=== PATIENT | female | born 1940 | race Caucasian/White ===

== ENCOUNTER 2016-08-01 22:45 | Inpatient (IN) | payer MEDICARE, BC ==
[~2016-08-01] VITALS: Ht 160 cm; Wt 93.0 kg
[~2016-08-01 22:45] MED LIST: ADVA115A INH; ALPR.25 PO; APIX5TAB PO; ATOR20TA42 PO; CIPR500T4 PO; CYCL1PAK PO; DUONI NEB; FLOR250C PO; FURO1TAB93 PO; LOSA25 PO; MONT10TA2 PO; ONDA4 PO; OXYC1SOL5 PO; POTA1TAB17 PO; PROT40TA PO; SERT25TA83 PO; SPIR25TA PO; [UNRECOGNIZED DRUG - CODE] PO
[2016-08-01 22:54] VITALS: BP 124/55; PULSE 81; RESP 16; TEMP 98.2; O2SAT 96
--- NOTE | 2016-08-01 23:05 | PD ---
HPI Chief Complaint: GI Complaint Time Seen by Provider: 22:50 Travel History International Travel<30 days: No Contact w/Intl Traveler<30days: No Traveled to known affect area: No History of Present Illness HPI The patient is a 76 year old female who presents to the [facility] emergency department with a history of abdominal cramping and diarrhea that began approximately 2 weeks ago. She reports that initially she had watery brown stools 10-20 times per day. She reports that they gradually decreased in frequency, however she then began to have nausea and vomiting. She reports that she called her primary care physician and was told to try Imodium. She reports that this did not help, therefore she was prescribed Lomotil. The patient reports that this did help to stop the diarrhea, however she continues to have occasional belching. She reports that today she last took an Imodium in the morning. She reports that later today she had an episode of vomiting 1 and diarrhea times one. She denies having any blood in her stool or black or tarry stools. She reports that she has been taking a nausea medication that she cannot recall the name of. The patient reports that she's had subjective fever and chills. The patient reports that she has generalized abdominal cramping down in bilateral lower quadrants of the abdomen in the suprapubic area. She denies having any dysuria, hematuria, urinary urgency, or frequency. She denies having any chest pain, chest pressure, or shortness of breath. Otherwise on review of systems, the patient denies any recent cough, congestion , neck pain, or new neurologic symptoms. [facility] Past Medical History Narrative Medical The patient's past medical history is significant for having lung cancer status post right pneumonectomy, history of breast cancer status post lumpectomy and radiation therapy, history of atrial fibrillation, COPD, hypertension, history of peripheral arterial disease. Hx Anticoagulant Therapy: Yes Arthritis: Yes Asthma: Yes Atrial Fibrillation: Yes Blood Disorders: No Anxiety: Yes Depression: Yes Heart Rhythm Problems: Yes Cancer: Yes (LUNG & BREAST) Cardiovascular Problems: Yes High Cholesterol: Yes Chemotherapy: Yes Chest Pain: Yes Congestive Heart Failure: Yes COPD: Yes Coronary Artery Disease: Yes Diabetes: No Diminished Hearing: Yes (HEARING AIDS) Endocrine: No Gastrointestinal Disorders: Yes GERD: Yes Genitourinary: No Hepatitis: No Hiatal Hernia: No Hypertension: Yes Immune Disorder: No Implanted Vascular Access Dvce: Yes Musculoskeletal: Yes Neurologic: No Psychiatric: No Reproductive: No Respiratory: Yes (COPD) Myocardial Infarction: No Radiation Therapy: Yes Sleep Apnea: No Ulcer: No Tetanus Vaccination: Unknown Influenza Vaccination: Yes ?: Not Past Surgical History Narrative Surgical The patient's past surgical history is significant for a right pneumonectomy, cholecystectomy, hysterectomy, breast lumpectomy, cardiac catheterization with stent placement times one, cataract surgery, right knee replacement Abdominal Surgery: Yes AICD: No Arteriovenous Shunt: No Body Medical Devices: CARDIAC STENTS X1 Cardiac Surgery: No Cholecystectomy: Yes Ear Surgery: No Endocrine Surgery: No Eye Surgery: Yes (BILATERAL CATARACT REMOVAL) Genitourinary Surgery: No Gynecologic Surgery: Yes (LEFT LUMPECTOMY, HYSTERECTOMY/TORN UTERUS) Hysterectomy: Yes Insulin Pump: No Joint Replacement: Yes (RIGHT KNEE REPLACEMENT) Oral Surgery: Yes (TEETH EXTRACTIONS) Pacemaker: No Thoracic Surgery: Yes (RIGHT PNEUMOECTOMY) Other Surgery: Yes Social History Alcohol Use: Yes (RARE) Tobacco Use: No Substance Use: No Allergies-Medications (Allergen,Severity, Reaction): Coded Allergies: Aciphex (Verified Allergy, Severe, 08/01/16) Contrast Media (Verified Allergy, Severe, PASSED OUT, 08/01/16) Demerol (Verified Allergy, Severe, Hallucinations, 08/01/16) Fleets Phospho Soda (Verified Allergy, Severe, 08/01/16) Meperidine (Verified Allergy, Severe, 08/01/16) Morphine (Verified Allergy, Severe, 08/01/16) *MDRO Multi-Drug Resistant Organism (Verified Adverse Reaction, Unknown, ) E.coli ESBL (urine) - 04/2014 & 05/2015 / (sputum) - 05/2014 MRSA PCR Screen positive 02/18/15. Uncoded Allergies: PHOSPHOUS SODA (Allergy, Severe, 05/04/05) Reported Meds & Prescriptions Reported Meds & Active Scripts Active Reported Vitamin D3 (Cholecalciferol) 1,000 Unit Chew 1,000 Units CHEW DAILY Senior Vites (Multiple Vitamins W/ Minerals) 1 Tab Tab [place]-3 Fish Oil/Vitamin (Fish Oil-Cholecalciferol) 1,000-1,000 Mg Cap 1 Cap PO DAILY Vitamin C (Ascorbic Acid) 500 Mg Cap 500 Mg PO Alprazolam 0.25 Mg Tab 0.25 Mg PO Q8H PRN Diltiazem ER 12 HR (Diltiazem HCl) 60 Mg Caper 60 Mg PO DAILY Stiolto Respimat Inh (Tiotropium-Olodaterol Inh) 2.5-2.5 Mcg/Act Aero 1 Puff INH DAILY Spironolactone 25 Mg Tab 25 Mg PO DAILY Pantoprazole (Pantoprazole Sodium) 40 Mg Tab 40 Mg PO DAILY Prednisone 5 Mg Tab 5 Mg PO DAILY Eliquis (Apixaban) 5 Mg Tab 5 Mg PO BID Diltiazem ER 24 HR (Diltiazem HCl) 120 Mg Caper 120 Mg PO DAILY Furosemide 40 Mg Tab 40 Mg PO DAILY Sertraline (Sertraline HCl) 50 Mg Tab 50 Mg PO DAILY Atorvastatin (Atorvastatin Calcium) 20 Mg Tab 20 Mg PO HS Losartan (Losartan Potassium) 50 Mg Tab 50 Mg PO DAILY Montelukast (Montelukast Sodium) 10 Mg Tab 10 Mg PO HS Review of Systems General / Constitutional: Positive: Fever, Chills Eyes: No: Visual changes HENT: No: Headaches Cardiovascular: No: Chest Pain or Discomfort, Dyspnea on exertion Respiratory: No: Cough, Shortness of Breath Gastrointestinal: Positive: Nausea, Vomiting, Diarrhea, Abdominal Pain, Changes in Bowel Habits, No: Hematemesis, Hematochezia, Constipation, Indigestion, Loss of Appetite Genitourinary: No: Dysuria Musculoskeletal: No: Pain Skin: No Rash Neurologic: Positive: Weakness (generalized weakness), No: Focal Abnormalities , Change in Mentation, Slurred Speech, Sensory Disturbance Psychiatric: No: Depression Endocrine: No: Polydipsia Hematologic/Lymphatic: No: Easy Bruising Physical Exam Narrative General: The patient is a well-developed well-nourished female in no acute distress. Head and Neck exam: Head is normocephalic atraumatic. Eyes: EOMI, pupils are equal round and reactive to light. Nose: Midline septum with pink mucous membranes Mouth: Dentition unremarkable. Moist mucus membranes. Posterior oropharynx is not erythematous. No tonsillar hypertrophy. Uvula midline. Airway patent. Neck: No palpable lymphadenopathy. No nuchal rigidity. No thyromegaly. Cardiovascular: Irregularly irregular with rate control consistent with her history of atrial fibrillation without murmurs, gallops, or rubs. Lungs: Clear to auscultation bilaterally. No wheezes, rhonchi, or rales. Abdomen: Soft, with reported discomfort on deep palpation along the left lower quadrant of the abdomen. No other tenderness on palpation of the other quadrants of the abdomen. No tenderness on palpation of McBurney's point. No guarding, rebound , or rigidity. Negative [place] sign. Extremities: No clubbing, cyanosis, or edema. 2+ pulses in all 4 extremities. No calf tenderness on palpation. Back: No costovertebral angle tenderness to palpation. Neurologic Exam: Grossly nonfocal. Skin Exam: No rash noted. Intact skin that is warm and dry. Data Data Last Documented VS Vital Signs Date Time Temp Pulse Resp B/P Pulse Ox O2 Delivery O2 Flow Rate FiO2 08/01/16 23:34 19 98 Room Air 08/01/16 22:54 98.2 81 124/55 Orders Electrocardiogram (08/01/16:) Complete Blood Count With Diff (08/01/16:) Comprehensive Metabolic Panel (08/01/16:) Creatine Kinase (Cpk) (08/01/16:) Ckmb (Isoenzyme) Profile (08/01/16:) Troponin I (08/01/16:) B-Type Natriuretic Peptide (08/01/16:) Prothrombin Time / Inr (Pt) (08/01/16:) Act Partial Throm Time (Ptt) (08/01/16:) C-Reactive Protein (Crp) (08/01/16:) Lipase (08/01/16:) Urinalysis - C+S If Indicated (08/01/16:) Magnesium (Mg) (08/01/16 23:) Chest, Single Ap (08/01/16 23:03) Ct Abd/Pel W/O Iv Contrast (08/01/16 23:03) Iv Access Insert/Monitor (08/01/16:) Ecg Monitoring (08/01/16:) Oximetry (08/01/16:) Lactic Acid (08/01/16 23:) Sodium Chlorid 0.9% 500 Ml Inj (Ns 500 M (08/01/16 23:15) Ondansetron Inj (Zofran Inj) (5/23/17 23:15) Oral Contrast - Adult (08/01/16 23:11) Diatrizoate Liq ([place] Liq) (08/01/16 23:45) Sodium Chlorid 0.9% 500 Ml Inj (Ns 500 M (08/02/16 01:00) Oral Rehydration (08/02/16 00:47) Cath For Specimen (08/02/16 00:48) Admit Order (Ed Use Only) (08/02/16 01:39) Labs Laboratory Tests Test 08/01/16 08/01/16 08/01/16 01:50 23:20 23:25 Urine Color YELLOW Urine Turbidity HAZY Urine pH 5.0 Urine Specific [place] 1.015 Urine Protein TRACE mg/dL Urine Glucose (UA) NEG mg/dL Urine Ketones NEG mg/dL Urine Occult Blood NEG Urine Nitrite NEG Urine Bilirubin NEG Urine Urobilinogen LESS THAN 2.0 MG/DL Urine Leukocyte Esterase LARGE Urine RBC 1 /hpf Urine WBC 117 /hpf Urine Squamous Epithelial 2 /hpf Cells Urine Transitional Epithelial 2 /hpf Cells Urine Bacteria RARE /hpf Urine Hyaline Casts 11 /lpf Urine Mucus FEW /lpf Microscopic Urinalysis Comment CULTURE INDICATED Prothrombin Time 12.9 SEC Prothromb Time International 1.2 RATIO Ratio Activated Partial 37.3 SEC Thromboplast Time White Blood Count 11.3 TH/MM3 Red Blood Count 2.99 MIL/MM3 Hemoglobin 9.0 GM/DL Hematocrit 27.1 % Mean Corpuscular Volume 90.7 FL Mean Corpuscular Hemoglobin 30.2 PG Mean Corpuscular Hemoglobin 33.3 % Concent Red Cell Distribution Width 14.7 % Platelet Count 207 TH/MM3 Mean Platelet Volume 8.5 FL Neutrophils (%) (Auto) 73.6 % Lymphocytes (%) (Auto) 7.3 % Monocytes (%) (Auto) 18.3 % Eosinophils (%) (Auto) 0.5 % Basophils (%) (Auto) 0.3 % Neutrophils # (Auto) 8.3 TH/MM3 Lymphocytes # (Auto) 0.8 TH/MM3 Monocytes # (Auto) 2.1 TH/MM3 Eosinophils # (Auto) 0.1 TH/MM3 Basophils # (Auto) 0.0 TH/MM3 CBC Comment DIFF FINAL Differential Comment Sodium Level 136 MEQ/L Potassium Level 3.9 MEQ/L Chloride Level 98 MEQ/L Carbon Dioxide Level 31.7 MEQ/L Anion Gap 6 MEQ/L Blood Urea Nitrogen 37 MG/DL Creatinine 1.43 MG/DL Estimat Glomerular Filtration 35 ML/MIN Rate Random Glucose 92 MG/DL Calcium Level 9.1 MG/DL Magnesium Level 1.7 MG/DL Total Bilirubin 0.3 MG/DL Aspartate Amino Transf 23 U/L (AST/SGOT) Alanine Aminotransferase 54 U/L (ALT/SGPT) Alkaline Phosphatase 199 U/L Total Creatine Kinase 22 U/L Troponin I LESS THAN 0.02 NG/ML C-Reactive Protein 3.03 MG/DL B-Type Natriuretic Peptide 101 PG/ML Total Protein 6.0 GM/DL Albumin 2.8 GM/DL Lipase 248 U/L Lactic Acid Level 0.5 mmol/L [facility] Medical Decision Making Medical Screen Exam Complete: Yes Emergency Medical Condition: Yes Medical Record Reviewed: Yes Interpretation(s) Last Impressions Chest X-Ray 08/01/162302 Signed Impressions: Service Date/Time: Monday, August 01, 2016 23:11 - CONCLUSION: No appreciable change. Hugo Grove MD Abdomen/Pelvis CT 08/01/162302 Signed Impressions: Service Date/Time: Tuesday, August 02, 2016 01:06 - CONCLUSION: Dilated intrahepatic and extrahepatic ducts worse since the prior exam and the etiology is not evident. Hugo Grove MD Differential Diagnosis Viral versus bacterial gastroenteritis, versus bowel obstruction, versus colitis , versus diverticulitis, versus pancreatitis, versus electrolyte abnormalities, versus dehydration Narrative Course During the course of the patients emergency department visit, the patients history, examination, and differential diagnosis were reviewed with the patient. The patient had IV access obtained and blood work sent for analysis. The patient was placed on a network management specialist with oximetry and blood pressure monitoring. An EKG was done on arrival. The patient's EKG reveals a heart rate of 81, atrial fibrillation is noted, incomplete right bundle branch block is noted. No acute ST segment elevation. The patient was initially provided normal saline a 500 mL bolus 1, Zofran 4 mg IV. The patient's normal saline bolus was repeated at 500 mL after BNP came back within normal limits. The patients laboratory studies were reviewed and remarkable for white count 11.3, hemoglobin 9, platelets 207 with neutrophils 73.6, lymphocytes 7.3, monocytes 18.3. The patient's hemoglobin is stable compared to prior evaluation. CMP is remarkable for a BUN of 37, creatinine 1.43 which is increased compared to previously, ALT is 54, alkaline phosphatase 199, CPK 22, troponin I less than 0.02. C-reactive protein is 3.03, BNP is 101. The patient 's liver enzymes have been elevated similarly in the past. PT 12.9, INR 1.2, PTT 37.3, urinalysis shows large leukocyte esterase, rbc's 1, wbc's 117 with rare bacteria, culture indicated. Radiology studies were reviewed and remarkable for a chest x-ray that shows no acute abnormality. CT scan of the abdomen and pelvis shows dilated intrahepatic and extrahepatic ducts worse since the prior examination and the etiology is not evident. From reviewing the record the patient has had somewhat similar findings on prior CT and also has had an ultrasound done which revealed similar findings thought to be related to her prior cholecystectomy. Stool studies were ordered in this patient. The patient will be admitted to the hospital for continued evaluation for generalized weakness, diarrhea, and dehydration. The patients results were discussed with the patient, including the plan of care. I explained that further testing and/ or monitoring is indicated based on the patients history, examination, and/ or laboratory findings. Therefore, I recommended admission for additional evaluation. The patient expressed understanding and was agreeable with this plan. The patient was admitted to the hospital in stable condition and sent to a bed under the care of the [facility]. Physician Communication Physician Communication The patient's case was discussed with who did agree to admit the patient for further evaluation and treatment at this time. Diagnosis Primary Impression: Nausea, vomiting, and diarrhea Admitting Information Admitting Physician Requests: Observation Genna Vences MD August 01, 2016 23:05
[2016-08-01] MEDS ORDERED: DILT120C7 PO (23:08)
[2016-08-01] MEDS ORDERED: SERT-132 PO (23:08)
[2016-08-01] MEDS ORDERED: ATOR20TA15 PO (23:08)
[2016-08-01] MEDS ORDERED: FURO40TA PO (23:08)
[2016-08-01] MEDS ORDERED: DILT60CA PO (23:08)
[2016-08-01] MEDS ORDERED: PRED5TAB PO (23:08)
[2016-08-01] MEDS ORDERED: LOSA50TA PO (23:08)
[2016-08-01] MEDS ORDERED: APIX5TAB PO (23:08)
[2016-08-01] MEDS ORDERED: TIOT1AER INH (23:08)
[2016-08-01] MEDS ORDERED: SPIR25TA PO (23:08)
[2016-08-01] MEDS ORDERED: PANT40TA3 PO (23:08)
[2016-08-01] MEDS ORDERED: MONT10TA4 PO (23:08)
[2016-08-01] MEDS ORDERED: ALPR0.25 PO (23:08)
[2016-08-01] MEDS ORDERED: SENITAB3 (23:10)
[2016-08-01] MEDS ORDERED: CHOL100025 CHEW (23:10)
[2016-08-01] MEDS ORDERED: OMEGCAP PO (23:10)
[2016-08-01] MEDS ORDERED: ASCO500C PO (23:10)
[2016-08-01] MEDS ORDERED: SODIUM CHLORID 0.9% 500 ML INJ 500 ML IV ONE (23:15)
[2016-08-01] MEDS ORDERED: ONDANSETRON HCL 4 MG/2 ML VIAL IV PUSH ONE (23:15)
[2016-08-01 23:34] VITALS: RESP 19; O2SAT 98
--- NOTE | 2016-08-01 23:34 | RADRPT ---
EXAM DATE/TIME: 08/01/2016 23:11 [facility] COMPARISON: CHEST PA & LAT, May 11, 2015, 18:40. INDICATIONS : Shortness of breath. MEDICAL HISTORY : Chronic renal failure. Carcinoma, lung. Carcinoma, breast. Hypertension SURGICAL HISTORY : Cholecystectomy. Left breast lumpectomy, Right lung removed. ENCOUNTER: Initial ACUITY: 1 day PAIN SCORE: 0/10 LOCATION: Bilateral chest FINDINGS: The right hemithorax is opacified from prior right pneumonectomy. Left lung is clear. The rest of the examination has not significantly changed. CONCLUSION: No appreciable change. Hugo Grove MD on August 01, 2016 at 23:32 Board Certified Radiologist. This report was verified electronically.
[2016-08-01 23:44] LABS: AUTOMATED NEUTROPHIL # 8.3 TH/MM3 (1.8-7.7); BASOPHIL % 0.3 % (0.0-2.0); EOSINOPHIL # 0.1 TH/MM3 (0-0.4); EOSINOPHIL % 0.5 % (0.0-4.0); HEMATOCRIT 27.1 % (35.0-46.0); HEMO FLAGS DIFF FINAL; LYMPH % 7.3 % (9.0-44.0); LYMPHOCYTE # 0.8 TH/MM3 (1.0-4.8); MEAN CELL VOLUME 90.7 FL (80.0-100.0); MEAN CORPUSCULAR HEMOGLOBIN 30.2 PG (27.0-34.0); MEAN CORPUSCULAR HGB CONC 33.3 % (32.0-36.0); MONO % 18.3 % (0.0-8.0); NEUT % 73.6 % (16.0-70.0); PLATELET COUNT 207 TH/MM3 (150-450); RED BLOOD COUNT 2.99 MIL/MM3 (4.00-5.30); RED CELL DISTRIBUTION WIDTH 14.7 % (11.6-17.2); WHITE BLOOD COUNT 11.3 TH/MM3 (4.0-11.0)
[2016-08-01] MEDS ORDERED: DIATRIZOATE MEGLUM/DIATRIZOATE SOD 9 ML CUP ONE (23:45)
[2016-08-01 23:52] LABS: APTT (PATIENT) 37.3 SEC (24.3-30.1); INTERNATIONAL NORMALIZED RATIO 1.2 RATIO; PROTHROMBIN TIME - PATIENT 12.9 SEC (9.8-11.6)
[2016-08-02 00:08] LABS: ALT (GPT) 54 U/L (10-53); ANION GAP 6 MEQ/L (5-15); AST (GOT) 23 U/L (15-37); BICARBONATE 31.7 MEQ/L (21.0-32.0); BLOOD UREA NITROGEN 37 MG/DL (7-18); CHLORIDE 98 MEQ/L (98-107); GLOMERULAR FILTRATION RATE 35 ML/MIN (>89); MAGNESIUM 1.7 MG/DL (1.5-2.5); POTASSIUM 3.9 MEQ/L (3.5-5.1); SODIUM (NA) 136 MEQ/L (136-145)
[2016-08-02 00:10] LABS: ALKALINE PHOSPHATASE 199 U/L (45-117); TOTAL BILIRUBIN ADULT 0.3 MG/DL (0.2-1.0)
[2016-08-02 00:35] LABS: CREATINE KINASE 22 U/L (26-192)
[2016-08-02] MEDS ORDERED: SODIUM CHLORID 0.9% 500 ML INJ 500 ML IV ONE (01:00)
--- NOTE | 2016-08-02 01:26 | RADRPT ---
EXAM DATE/TIME: 08/02/2016 01:06 [facility] COMPARISON: CHEST SINGLE AP, August 01, 2016, 23:11. CT ABDOMEN & PELVIS W/O CONTRASTOneal 2014, 15:14. INDICATIONS : Abdomen pain with vomiting. ORAL CONTRAST: Partial prescribed oral contrast ingested. RADIATION DOSE: 16.49 CTDIvol (mGy) MEDICAL HISTORY : Cardiovascular disease. Hypertension. Chronic obstructive pulmonary disease.Reggie g & Breast cancer GERD SURGICAL HISTORY : Fusion, lumbar. Fusion, lumbar.Hysterectomy.GB Right pneumoectomy ENCOUNTER: Initial ACUITY: 1 day PAIN SCALE: 6/10 LOCATION: Bilateral abdomen TECHNIQUE: Volumetric scanning of the abdomen and pelvis was performed. Using automated exposure control and adjustment of the mA and/or kV according to patient size, radiation dose was kept as low as reasonably achievable to obtain optimal diagnostic quality images. FINDINGS: CT Abdomen: The liver, spleen, pancreas, kidneys, adrenals are unremarkable. There is no evidence for any appreciable pathological adenopathy, free fluid, or bowel obstruction. There is evidence for pr ior cholecystectomy. Chronic vascular calcifications are present involving the aorta, iliac arteries without any significant stenosis or aneurysmal dilatations for technique. Common bile duct measures 1 .5 cm with moderate dilatation of the intrahepatic ducts worse since the prior exam. There is slight anterior abdominal wall fat herniation on the right side without bowel herniation and opening of 2.9 cm. There is evidence for prior right pneumonectomy with loculated pleural effusion in the right lowe r chest and calcifications chronic in nature. CT pelvis: There is no evidence for mass, abscess formation, or any significant adenopathy within the pelvis. There are postsurgical changes involving the lower thoracic upper lumbar spine junction with multiple compression deformities chronic in nature. There are scattered diverticuli mainly in the s igmoid colon without definite signs of diverticulitis. CONCLUSION: Dilated intrahepatic and extrahepatic ducts worse since the prior exam and the etiolo gy is not evident. Hugo Grove MD on August 02, 2016 at 1:20 Board Certified Radiologist. This report was verified electronically.
[2016-08-02 02:17] LABS: BACTERIA, URINE RARE /hpf; BLOOD, URINE NEG (NEG); COMMENT (UR) CULTURE INDICATED; CULTURE IF INDICATED CULTURE INDICATED; GLUCOSE,URINE NEG (NEG); HYALINE CAST, URINE 11 /lpf (RARE); KETONE, URINE NEG (NEG); MUCUS URINE FEW /lpf (OCC); NITRITE,URINE NEG (NEG); SQUAMOUS EPITHELIAL CELL URINE 2 /hpf (0-5); TRANSITIONAL EPI CELLS, URINE 2 /hpf; URINE COLOR YELLOW (YELLW/STRAW)
[2016-08-02 03:00] VITALS: BP 124/69; PULSE 81; RESP 21; O2SAT 97
[2016-08-02] MEDS ORDERED: ALPRAZolam 0.25 MG TAB PO ONE (03:45)
[2016-08-02] MEDS ORDERED: ACETAMINOPHEN 325 MG TAB PO PRN (04:45)
[2016-08-02] MEDS ORDERED: SODIUM CHLORIDE 0.9% FLUSH 10 ML FLUSH IV FLUSH PRN (04:45)
--- NOTE | 2016-08-02 04:56 | HHI.HP ---
[facility] Service [place] [facility] Primary Care Physician No Primary Care Physician Admission Diagnosis Generalized weakness, dehydration, n/v/d Diagnoses: Chief Complaint: Diarrhea with nausea/vomiting times one week Travel History International Travel<30 Days: No Contact w/Intl Traveler <30 Da: No Traveled to Known Affected Are: No History of Present Illness I Dilia MENDEZ, am scribing this note for Dr. Fuentes on 08/02/2016 at 4: 55AM. This is a 76-year-old female patient with past medical history which includes lung CA status post right pneumonectomy, breast CA status post lumpectomy and radiation treatment, atrial fibrillation rate controlled, COPD on chronic oxygen therapy at 3 L, hypertension, CAD status post cardiac stents x 1, chronic diastolic CHF echocardiogram April 2014 showed ejection fraction 55- 60%, umbilical hernia and peripheral arterial disease. Patient is a poor historian therefore information gathered from patient as well as prior computerized charting. Patient reports that she has had GI upset which started with liquid diarrhea initially 10 or more bowel movements a day patient reports that she has had proximally 4 loose/liquid bowel movements per day as of lately as she has decreased her by mouth intake due to her GI upset. Diarrhea associated with increased flatus nausea and occasional vomiting. She also has had abdominal pain associated with the diarrhea. She rated the pain as an 8/10 in severity. Patient denies black tarry stools or bright red blood per rectum. Patient also denies coffee-ground emesis or bright red blood in vomitus. Patient reports she has lost possibly 6 pounds in the past one to 2 weeks. Patient denies recent antibiotic use or known sick contacts. Patient also denies chest pain, increasing shortness of breath, increase bilateral lower extremity edema, fevers, chills, increased urinary frequency or dysuria Review of Systems ROS Limitations: Poor Historian Except as stated in HPI: all other systems reviewed are Neg Past Family Social History Past Medical History lung CA status post right pneumonectomy, breast CA status post lumpectomy and radiation treatment, atrial fibrillation rate controlled, COPD on chronic oxygen therapy at 3 L, hypertension, CAD status post cardiac stents x 1, chronic diastolic CHF echocardiogram April 2014 showed ejection fraction 55- 60%, umbilical hernia and peripheral arterial disease Past Surgical History Right pneumonectomy, breast lumpectomy, cholecystectomy, hysterectomy, cardiac catheterization with stent 1, bilateral cataract surgery, right knee surgery, ORIF T11 Reported Medications Vitamin D3 (Cholecalciferol) 1,000 Unit Chew 1,000 Units CHEW DAILY Senior Vites (Multiple Vitamins W/ Minerals) 1 Tab Tab [place]-3 Fish Oil/Vitamin (Fish Oil-Cholecalciferol) 1,000-1,000 Mg Cap 1 Cap PO DAILY Vitamin C (Ascorbic Acid) 500 Mg Cap 500 Mg PO Alprazolam 0.25 Mg Tab 0.25 Mg PO Q8H PRN Diltiazem ER 12 HR (Diltiazem HCl) 60 Mg Caper 60 Mg PO DAILY Stiolto Respimat Inh (Tiotropium-Olodaterol Inh) 2.5-2.5 Mcg/Act Aero 1 Puff INH DAILY Spironolactone 25 Mg Tab 25 Mg PO DAILY Pantoprazole (Pantoprazole Sodium) 40 Mg Tab 40 Mg PO DAILY Prednisone 5 Mg Tab 5 Mg PO DAILY Eliquis (Apixaban) 5 Mg Tab 5 Mg PO BID Diltiazem ER 24 HR (Diltiazem HCl) 120 Mg Caper 120 Mg PO DAILY Furosemide 40 Mg Tab 40 Mg PO DAILY Sertraline (Sertraline HCl) 50 Mg Tab 50 Mg PO DAILY Atorvastatin (Atorvastatin Calcium) 20 Mg Tab 20 Mg PO HS Losartan (Losartan Potassium) 50 Mg Tab 50 Mg PO DAILY Montelukast (Montelukast Sodium) 10 Mg Tab 10 Mg PO HS Allergies: Coded Allergies: Aciphex (Verified Allergy, Severe, 08/01/16) Contrast Media (Verified Allergy, Severe, PASSED OUT, 08/01/16) Demerol (Verified Allergy, Severe, Hallucinations, 08/01/16) Fleets Phospho Soda (Verified Allergy, Severe, 08/01/16) Meperidine (Verified Allergy, Severe, 08/01/16) Morphine (Verified Allergy, Severe, 08/01/16) *MDRO Multi-Drug Resistant Organism (Verified Adverse Reaction, Unknown, ) E.coli ESBL (urine) - 04/2014 & 05/2015 / (sputum) - 05/2014 MRSA PCR Screen positive 02/18/15. Uncoded Allergies: PHOSPHOUS SODA (Allergy, Severe, 05/04/05) Active Ordered Medications Current Medications Medications (Trade) Dose Ordered Sig/Bety Route Start Time Stop Time Status Last Admin Ciprofloxacin/ Dextrose 200 ml @ 200 mls/hr Q24H IV 08/02/16 05:00 (Flagyl 500 Mg Inj) 100 ml @ 100 mls/hr Q8H IV 08/02/16 05:00 (Xanax) 0.25 mg Q8H PRN PO 08/02/16 04:30 (Eliquis) 5 mg BID PO 08/02/16 09:00 (Lipitor) 20 mg HS PO 08/02/16 21:00 (Singulair) 10 mg HS PO 08/02/16 21:00 (Deltasone) 5 mg DAILY PO 08/02/16 09:00 (Zoloft) 50 mg DAILY PO 08/02/16 09:00 (Cardizem Cd) 120 mg DAILY PO 08/02/16 09:00 Patient Own Medication PT OWN MED: Aero... DAILY INH 08/02/16 09:00 Future Hold (NS Flush) 2 ml UNSCH PRN IV FLUSH 08/02/16 04:45 (NS Flush) 2 ml BID IV FLUSH 08/02/16 09:00 (Tylenol) 650 mg Q4H PRN PO 08/02/16 04:45 (Zofran Inj) 4 mg Q6H PRN IVP 08/02/16 04:45 (Tylenol) 650 mg Q6H PRN PO 08/02/16 04:45 Family History Patient reports her sister has colitis she is unsure what type Social History Lives at home with her has home health aides who come in 4 days a week Denies EtOH use tobacco use or illicit drug use Physical Exam Vital Signs Vital Signs Date Time Temp Pulse Resp B/P Pulse Ox O2 Delivery O2 Flow Rate FiO2 08/01/16 23:34 19 98 Room Air 08/01/16 22:54 98.2 81 16 124/55 96 08/01/16 22:52 16 Physical Exam GENERAL: This is an obese, well-developed patient, fatigued SKIN: No rashes, ecchymoses or lesions. Cool and dry. HEAD: Atraumatic. Normocephalic. No temporal or scalp tenderness. EYES: Extraocular motions intact. No scleral icterus. No injection or drainage. CARDIOVASCULAR: Irregularly irregular without murmurs, gallops, or rubs. RESPIRATORY: Absent breath sounds on right, clear on left. GASTROINTESTINAL: Abdomen soft, tender to palpation in lower middle abdomen, obese. Hyperactive bowel sounds. MUSCULOSKELETAL: Extremities trace edema bilaterally. No joint tenderness, effusion, or edema noted. No calf tenderness. Negative Homans sign bilaterally. NEUROLOGICAL: Awake and alert. No focal deficits appreciated. Motor and sensory grossly within normal limits. 3-4 out of 5 muscle strength in all muscle groups. Normal speech. PSYCH: Flattened affect. Laboratory Laboratory Tests Test 08/01/16 08/01/16 23:20 23:25 Prothrombin Time 12.9 Prothromb Time International 1.2 Ratio Activated Partial 37.3 Thromboplast Time White Blood Count 11.3 Red Blood Count 2.99 Hemoglobin 9.0 Hematocrit 27.1 Mean Corpuscular Volume 90.7 Mean Corpuscular Hemoglobin 30.2 Mean Corpuscular Hemoglobin 33.3 Concent Red Cell Distribution Width 14.7 Platelet Count 207 Mean Platelet Volume 8.5 Neutrophils (%) (Auto) 73.6 Lymphocytes (%) (Auto) 7.3 Monocytes (%) (Auto) 18.3 Eosinophils (%) (Auto) 0.5 Basophils (%) (Auto) 0.3 Neutrophils # (Auto) 8.3 Lymphocytes # (Auto) 0.8 Monocytes # (Auto) 2.1 Eosinophils # (Auto) 0.1 Basophils # (Auto) 0.0 CBC Comment DIFF FINAL Differential Comment Sodium Level 136 Potassium Level 3.9 Chloride Level 98 Carbon Dioxide Level 31.7 Anion Gap 6 Blood Urea Nitrogen 37 Creatinine 1.43 Estimat Glomerular Filtration 35 Rate Random Glucose 92 Calcium Level 9.1 Magnesium Level 1.7 Total Bilirubin 0.3 Aspartate Amino Transf 23 (AST/SGOT) Alanine Aminotransferase 54 (ALT/SGPT) Alkaline Phosphatase 199 Total Creatine Kinase 22 Troponin I LESS THAN 0.02 C-Reactive Protein 3.03 B-Type Natriuretic Peptide 101 Total Protein 6.0 Albumin 2.8 Lipase 248 Lactic Acid Level 0.5 Date/Time Procedure Status Source Growth 08/01/16 01:50 Urine Culture Received Urine Clean Catch Pending Result Diagram: 08/01/16231908/01/162319 Imaging Last Impressions Chest X-Ray 08/01/162302 Signed Impressions: Service Date/Time: Monday, August 01, 2016 23:11 - CONCLUSION: No appreciable change. Hugo Grove MD Abdomen/Pelvis CT 08/01/162302 Signed Impressions: Service Date/Time: Tuesday, August 02, 2016 01:06 - CONCLUSION: Dilated intrahepatic and extrahepatic ducts worse since the prior exam and the etiology is not evident. Hugo Grove MD Assessment and Plan Problem List: (1) Nausea, vomiting, and diarrhea ICD Code: R11.2 Status: Acute (2) Dehydration ICD Code: E86.0 Status: Resolved (3) DAVID (acute kidney injury) ICD Code: N17.9 Status: Acute (4) UTI (urinary tract infection) ICD Code: N39.0 Status: Acute Assessment and Plan This is a 76-year-old female patient with past medical history which includes lung CA status post right pneumonectomy, breast CA status post lumpectomy and radiation treatment, atrial fibrillation rate controlled, COPD on chronic oxygen therapy at 3 L, hypertension, CAD status post cardiac stents x 1, chronic diastolic CHF echocardiogram April 2014 showed ejection fraction 55- 60%, umbilical hernia and peripheral arterial disease. Patient is a poor historian therefore information gathered from patient as well as prior computerized charting. Patient reports that she has had GI upset which started with liquid diarrhea possibly one week ago associated with nausea and occasional vomiting. Diarrhea with nausea and vomiting times one week- Supportive care Stool for C. difficile, ova, parasites, enteric pathogens, and leukocytes Start ciprofloxacin IV and Flagyl IV CT abdomen and pelvis reviewed and reveals: Dilated intrahepatic and extrahepatic ducts worse since the prior exam and the etiology is not evident Consult GI if needed Acute kidney injury likely related to dehydration and decreased by mouth intake Patient has received 2 L normal saline bolus in emergency department Avoid nephrotoxins- hold losartan, Lasix and spironolactone Recheck BMP in a.m. UTI- acute culture pending Continue Cipro await culture results Atrial fibrillation- chronic- rate controlled Continue Cardizem 120 mg by mouth daily and Eliquis 5 mg by mouth twice a day COPD- chronic Continue prednisone 5 mg daily per outpatient regimen Continue Tiotropium-Olodaterol daily Continue supplemental oxygen to maintain oxygen saturation above 92% Duo nebs as needed Patient with dilated intrahepatic and extrahepatic ducts-appears chronic CT abdomen and pelvis reviewed and reveals: Dilated intrahepatic and extrahepatic ducts worse since the prior exam and the etiology is not evident. She has chronically elevated LFTs Recommend patient follow-up with outpatient GI Dr. Lugo DVT prophylaxis [place] Discussed with ER provider, nursing and patient Physician Certification 2 Midnight Certification Type: Admission for Inpatient Services Order for Inpatient Services The services are ordered in accordance with Medicare regulations or non- Medicare payer requirements, as applicable. In the case of services not specified as inpatient-only, they are appropriately provided as inpatient services in accordance with the 2-midnight benchmark. Estimated LOS (days): 3 days is the estimated time the patient will need to remain in the hospital, assuming treatment plan goals are met and no additional complications. Post-Hospital Plan: Home Notes: This note was transcribed by yazmin Alejandro. I, Dr. Baljit Fuentes personally performed the history, physical exam, and medical decision making; and confirmed the accuracy of the information in the transcribed note. Authenticated by Dr. Baljit Fuentes on 08/02/16 at 05:03. Dilia Alejandro August 02, 2016 04:56 Baljit Fuentes DO August 02, 2016 05:03
[2016-08-02 05:00] VITALS: BP 117/67; PULSE 75; RESP 18; O2SAT 98
[2016-08-02] MEDS: metroNIDAZOLE 500 MG INJ 100 ML IV SCH ×3 (05:36→21:25)
[2016-08-02 05:40] LABS: AUTOMATED NEUTROPHIL # 7.1 TH/MM3 (1.8-7.7); BASOPHIL % 0.3 % (0.0-2.0); EOSINOPHIL % 0.4 % (0.0-4.0); HEMO FLAGS DIFF FINAL; LYMPH % 12.4 % (9.0-44.0); LYMPHOCYTE # 1.3 TH/MM3 (1.0-4.8); MEAN CELL VOLUME 91.2 FL (80.0-100.0); MEAN CORPUSCULAR HEMOGLOBIN 30.7 PG (27.0-34.0); MEAN CORPUSCULAR HGB CONC 33.6 % (32.0-36.0); MONO % 18.1 % (0.0-8.0); NEUT % 68.8 % (16.0-70.0); PLATELET COUNT 206 TH/MM3 (150-450); RED BLOOD COUNT 2.85 MIL/MM3 (4.00-5.30); RED CELL DISTRIBUTION WIDTH 14.8 % (11.6-17.2); WHITE BLOOD COUNT 10.3 TH/MM3 (4.0-11.0)
[2016-08-02] MEDS ORDERED: HEPARIN SODIUM - SQ 10,000 UNITS/ML VIAL SQ SCH (06:00)
[2016-08-02 06:10] LABS: ALT (GPT) 57 U/L (10-53); ANION GAP 6 MEQ/L (5-15); AST (GOT) 24 U/L (15-37); BICARBONATE 30.8 MEQ/L (21.0-32.0); BLOOD UREA NITROGEN 33 MG/DL (7-18); CHLORIDE 99 MEQ/L (98-107); GLOMERULAR FILTRATION RATE 41 ML/MIN (>89); POTASSIUM 3.7 MEQ/L (3.5-5.1); SODIUM (NA) 136 MEQ/L (136-145)
[2016-08-02 06:12] LABS: ALKALINE PHOSPHATASE 191 U/L (45-117); TOTAL BILIRUBIN ADULT 0.4 MG/DL (0.2-1.0)
[2016-08-02] MEDS: CIPROFLOXACIN 400 MG PREMIX 200 ML IV SCH (06:34)
[2016-08-02] MEDS: ONDANSETRON HCL 4 MG/2 ML VIAL IVP PRN ×3 (06:35→18:20)
[2016-08-02 08:00] VITALS: BP 115/68; PULSE 81; RESP 18; TEMP 96.5; O2SAT 98
[2016-08-02] MEDS: APIXABAN 5 MG TABLET PO SCH ×2 (08:36→21:21)
[2016-08-02] MEDS: SERTRALINE HCL 50 MG TAB PO SCH (08:36)
[2016-08-02] MEDS: predniSONE 5 MG TAB PO SCH (08:36)
[2016-08-02] MEDS: SODIUM CHLORIDE 0.9% FLUSH 10 ML FLUSH IV FLUSH SCH ×2 (08:36→21:00)
[2016-08-02] MEDS: DILTIAZEM-CD 120 MG CAP ER PO SCH (08:36)
[2016-08-02 12:00] VITALS: BP 96/55; PULSE 72; RESP 18; TEMP 97.3; O2SAT 97
--- NOTE | 2016-08-02 12:24 | HHI.PR ---
Subjective Remarks Follow-up gastroenteritis. Still having intermittent abdominal pain but no nausea, vomiting and diarrhea. Passing gas. Requesting Dr. Lugo who is her sample steamer. Discussed with RN. Seen with Objective Vitals Vital Signs Date Time Temp Pulse Resp B/P Pulse Ox O2 Delivery O2 Flow Rate FiO2 08/02/16 12:00 97.3 72 18 96/55 97 08/02/16 09:40 08/02/16 08:00 96.5 81 18 115/68 98 08/02/16 05:00 75 18 117/67 98 Nasal Cannula 3 08/02/16 03:00 81 21 124/69 97 Nasal Cannula 3 08/01/16 23:34 19 98 Room Air 08/01/16 22:54 98.2 81 16 124/55 96 08/01/16 22:52 16 I/O 08/01/16 08/01/16 08/01/16 08/02/16 08/02/16 08/02/16 07:00 15:00 23:00 07:00 15:00 23:00 Intake Total 100 ml Balance 100 ml Intake IV Total 100 ml # Voids 1 Result Diagram: 08/02/1651608/02/16516 Imaging Last Impressions Chest X-Ray 08/01/162302 Signed Impressions: Service Date/Time: Monday, August 01, 2016 23:11 - CONCLUSION: No appreciable change. Hugo Grove MD Abdomen/Pelvis CT 08/01/162302 Signed Impressions: Service Date/Time: Tuesday, August 02, 2016 01:06 - CONCLUSION: Dilated intrahepatic and extrahepatic ducts worse since the prior exam and the etiology is not evident. Hugo Grove MD Objective Remarks GENERAL: This is an obese, well-developed patient, fatigued SKIN: No rashes, ecchymoses or lesions. Cool and dry. HEAD: Atraumatic. Normocephalic. No temporal or scalp tenderness. EYES: Extraocular motions intact. No scleral icterus. No injection or drainage. CARDIOVASCULAR: Irregularly irregular without murmurs, gallops, or rubs. RESPIRATORY: Absent breath sounds on right, clear on left. GASTROINTESTINAL: Abdomen soft, tender to palpation in epigastric, obese. Hyperactive bowel sounds. MUSCULOSKELETAL: Extremities trace edema bilaterally. No joint tenderness, effusion, or edema noted. No calf tenderness. Negative Homans sign bilaterally. NEUROLOGICAL: Awake and alert. No focal deficits appreciated. Motor and sensory grossly within normal limits. 3-4 out of 5 muscle strength in all muscle groups. Normal speech. PSYCH: Flattened affect. Procedures None A/P Problem List: (1) Nausea, vomiting, and diarrhea ICD Code: R11.2 Status: Acute (2) Dehydration ICD Code: E86.0 Status: Resolved (3) DAVID (acute kidney injury) ICD Code: N17.9 Status: Acute (4) UTI (urinary tract infection) ICD Code: N39.0 Status: Acute Assessment and Plan This is a 76-year-old female patient with past medical history which includes lung CA status post right pneumonectomy, breast CA status post lumpectomy and radiation treatment, atrial fibrillation rate controlled, COPD on chronic oxygen therapy at 3 L, hypertension, CAD status post cardiac stents x 1, chronic diastolic CHF echocardiogram April 2014 showed ejection fraction 55- 60%, umbilical hernia and peripheral arterial disease. Patient is a poor historian therefore information gathered from patient as well as prior computerized charting. Patient reports that she has had GI upset which started with liquid diarrhea possibly one week ago associated with nausea and occasional vomiting. Diarrhea with nausea and vomiting times one week. Improving Supportive care Stool for C. difficile, ova, parasites, enteric pathogens, and leukocytes Continue ciprofloxacin IV and Flagyl IV CT abdomen and pelvis reviewed and reveals: Dilated intrahepatic and extrahepatic ducts worse since the prior exam and the etiology is not evident. Mild ALT elevation Consult GI Acute kidney injury likely related to dehydration and decreased by mouth intake Patient has received 2 L normal saline bolus in emergency department Avoid nephrotoxins- hold losartan, Lasix and spironolactone Improving. Gentle IV hydration for 1 more bag. Monitor for fluid overload Recheck BMP in a.m. UTI- acute culture pending Continue Cipro await culture results Atrial fibrillation- chronic- rate controlled Continue Cardizem 120 mg by mouth daily and Eliquis 5 mg by mouth twice a day COPD- chronic Continue prednisone 5 mg daily per outpatient regimen Continue Tiotropium-Olodaterol daily Continue supplemental oxygen to maintain oxygen saturation above 92% Duo nebs as needed Patient with dilated intrahepatic and extrahepatic ducts-appears chronic CT abdomen and pelvis reviewed and reveals: Dilated intrahepatic and extrahepatic ducts worse since the prior exam and the etiology is not evident. She has chronically elevated LFTs Consult GI Dr. Lugo DVT prophylaxis Eliquis Discharge Planning Possible discharge in 1-2 days Ammon Schilling MD August 02, 2016 12:24
[2016-08-02] MEDS ORDERED: SODIUM CHLOR 0.9% 1000 ML INJ 1,000 ML IV SCH (12:30)
[2016-08-02] MEDS: ALPRAZolam 0.25 MG TAB PO PRN ×2 (13:01→21:21)
[2016-08-02 16:00] VITALS: BP 128/56; PULSE 86; RESP 18; TEMP 97.6; O2SAT 98
--- NOTE | 2016-08-02 19:34 | EKG ---
Date Performed: 08/01/2016 Time Performed: 22:54:37 PTAGE: 76 years EKG: ATRIAL FIBRILLATION INCOMPLETE RIGHT BUNDLE BRANCH BLOCK SEPTAL MYOCARDIAL INFARCTION ABNOR MAL ECG Compared to prior tracing no significant change DOCTOR: Gary Canales Interpretating Date/Time 08/02/2016 19:33:03
[2016-08-02 20:00] VITALS: BP 134/61; PULSE 109; RESP 20; TEMP 97; O2SAT 94
--- NOTE | 2016-08-02 20:33 | MB ---
cc: JOSELYN LANTIGUA MD, DR., STELLA, GREGORY J. M.D. DATE OF CONSULTATION 08/02/2016 ROOM NUMBER [id number] Schilling. REASON FOR CONSULTATION Dilated common bile duct. HISTORY OF THE PRESENT ILLNESS This is a 76-year-old female who was admitted earlier today with one week of diarrhea along with lower abdominal crampy pain and a couple of episodes of nausea and vomiting. The patient states she had back surgery this past February. She also scraped her leg a few weeks ago and may have received antibiotics but she cannot recall. She states that she was doing well until a week ago yesterday when she developed crampy lower abdominal pain and watery diarrhea without gross blood. She also had some nausea and vomiting a couple of times but no hematemesis. She did undergo EGD and colonoscopy in 2014 for heme-positive stool and has a history of mild gastritis and colon polyps. She is not currently nauseated and has only mild lower abdominal cramping. She also has not moved her bowels all day today so they have not been able to collect stool sample. She denies any recent travel history. She states that one of her caretakers did call in sick about a week ago with a stomach flu-like illness. SOCIAL HISTORY The patient is . She lives at home with her . She is a prior smoker. PAST MEDICAL HISTORY Her medical history is remarkable for: 1. Lung cancer status post right pneumonectomy about 8 years ago. 2. She has also had breast cancer status post lumpectomy and radiation treatment. 3. History of chronic atrial fibrillation on Eliquis. 4. She has COPD and is on oxygen at home 3 liters. 5. She has a history of hypertension. 6. Coronary artery disease status post stenting x1. 7. History of chronic diastolic CHF. 8. She has a history of umbilical hernia. 9. Peripheral artery disease. 10. She had her gallbladder removed over 20 years ago. 11. She did have a CT scan done in 2014 that showed a dilated biliary tree without apparent reason. The bile duct was 1.[address] shows it at 1.5 cm without any apparent reason. Her bilirubin is normal and her alk phos is mildly elevated. She denies any upper abdominal pain. FAMILY HISTORY Remarkable for brother who had lung cancer. Father had heart disease. Mother had diabetes. One sister had breast cancer. Another sister has congestive heart failure. MEDICATIONS Her medications are many. She takes: 1. Vitamin D3. 2. Multivitamins. 3. [place] 3 fish oil. 4. Vitamin C. 5. Xanax. 6. Diltiazem ER. 7. She takes a Stiolto inhaler. 8. Spironolactone daily. 9. Pantoprazole. 10.Prednisone 5 mg daily. 11. Eliquis 5 mg twice a day. 12. Lasix 40 mg daily. 13. Sertraline 50 mg daily. 14. Atorvastatin 20 mg at bedtime. 15. Losartan 50 mg daily. 16. Montelukast 10 mg bedtime. Her blood pressure medicine and diuretics apparently are on hold because of worsening renal function. ALLERGIES SHE IS ALLERGIC TO ACIPHEX, CONTRAST MEDIA, DEMEROL, FLEETS PHOSPHO SODA, MEPERIDINE AND MORPHINE. REVIEW OF SYSTEMS She denies any chest pain. She has lost about 5 pounds over the past week. She has occasional dysphagia when eating Fritos or nuts. She denies any rectal bleeding or black tarry stools. No fever or chills. She does have arthritis which she states is throughout her body. She also had recent back surgery about 6 months ago. PHYSICAL EXAMINATION GENERAL: Physical exam reveals a chronically ill-appearing elderly female in no acute distress. VITAL SIGNS: Her blood pressure is 96/55, pulse 72 and irregular, respirations 18 and nonlabored, temperature is 97.3 orally. HEENT: Sclerae anicteric. NECK: Supple without JVD. LUNGS: Revealed markedly decreased breath sounds on the right side. Clear on the left. CARDIOVASCULAR: heart sounds are irregular, consistent with A fib. ABDOMEN: Soft with no significant distension. She does have mild diffuse tenderness but no rebound or guarding. Bowel sounds are normoactive. RECTAL: Deferred. EXTREMITIES: No peripheral edema. NEUROLOGIC: She was alert and oriented. LABORATORY DATA Lab work reveals urinalysis consistent with a UTI. Large leukocyte esterase, 117 wbc's and a culture is pending. Her creatinine was 1.43 but has come down to 1.27. Her total bilirubin is 0.4, AST 24, ALT 57, alk phos 191. BNP 101. Lipase was normal at 248. Her INR is 1.2. IMAGING STUDIES Her abdominal CT shows dilated intra and extra hepatic bile ducts without an evident etiology. Her chest x-ray shows no significant change from prior films. IMPRESSION 1. Dilated bile ducts. Suspect this is probably a reservoir effect since her bilirubin is normal. This likely does not account for her recent symptoms of diarrhea and lower abdominal cramping along with the nausea and vomiting. This can be investigated further with either MRCP or endoscopic ultrasound. 2. Acute gastrointestinal illness with diarrhea, crampy abdominal pain and some nausea. Agree with checking stool for C diff and enteric pathogens. Continue supportive care with fluids and antiemetics. She is up-to-date with her colon cancer screening. We will follow with you. Thank you for this consultation. MD STACY Ramos/LEONORA /3:43 PM /7:58 PM CHASE
[2016-08-02] MEDS: MONTELUKAST SODIUM 10 MG TAB PO SCH (21:21)
[2016-08-02] MEDS: ATORVASTATIN 20 MG TAB PO SCH (21:21)
[2016-08-02] MEDS ORDERED: PROMETHAZINE HCL 25 MG TAB PO ONE (22:45)
[2016-08-02 23:42] LABS: C. DIFF EPI 027 PRESUMPTIVE NEGATIVE (NEGATIVE); C. DIFF TOXIN PCR NEGATIVE (NEGATIVE)
[2016-08-03] VITALS: BP 122/73; PULSE 100; RESP 18; TEMP 97.8; O2SAT 98
[2016-08-03] MEDS: CIPROFLOXACIN 400 MG PREMIX 200 ML IV SCH (05:49)
[2016-08-03] MEDS: metroNIDAZOLE 500 MG INJ 100 ML IV SCH ×2 (05:50→11:23)
[2016-08-03 05:51] LABS: AUTOMATED NEUTROPHIL # 6.4 TH/MM3 (1.8-7.7); BASOPHIL % 0.2 % (0.0-2.0); EOSINOPHIL # 0.1 TH/MM3 (0-0.4); EOSINOPHIL % 0.7 % (0.0-4.0); HEMATOCRIT 29.7 % (35.0-46.0); HEMO FLAGS DIFF FINAL; LYMPH % 9.6 % (9.0-44.0); LYMPHOCYTE # 0.9 TH/MM3 (1.0-4.8); MEAN CELL VOLUME 91.6 FL (80.0-100.0); MEAN CORPUSCULAR HEMOGLOBIN 30.3 PG (27.0-34.0); MEAN CORPUSCULAR HGB CONC 33.1 % (32.0-36.0); MONO % 20.9 % (0.0-8.0); NEUT % 68.6 % (16.0-70.0); PLATELET COUNT 195 TH/MM3 (150-450); RED BLOOD COUNT 3.24 MIL/MM3 (4.00-5.30); RED CELL DISTRIBUTION WIDTH 14.4 % (11.6-17.2); WHITE BLOOD COUNT 9.3 TH/MM3 (4.0-11.0)
[2016-08-03 06:10] LABS: ALT (GPT) 42 U/L (10-53); ANION GAP 6 MEQ/L (5-15); AST (GOT) 18 U/L (15-37); BICARBONATE 28.9 MEQ/L (21.0-32.0); BLOOD UREA NITROGEN 21 MG/DL (7-18); CHLORIDE 104 MEQ/L (98-107); GLOMERULAR FILTRATION RATE 66 ML/MIN (>89); MAGNESIUM 1.8 MG/DL (1.5-2.5); POTASSIUM 3.7 MEQ/L (3.5-5.1); SODIUM (NA) 139 MEQ/L (136-145)
[2016-08-03 06:13] LABS: ALKALINE PHOSPHATASE 182 U/L (45-117); TOTAL BILIRUBIN ADULT 0.3 MG/DL (0.2-1.0)
[2016-08-03 08:00] VITALS: BP 101/51; PULSE 88; RESP 18; TEMP 97.4; O2SAT 99
[2016-08-03] MEDS: SODIUM CHLORIDE 0.9% FLUSH 10 ML FLUSH IV FLUSH SCH ×2 (09:00→20:49)
[2016-08-03] MEDS: predniSONE 5 MG TAB PO SCH (09:39)
[2016-08-03] MEDS: DILTIAZEM-CD 120 MG CAP ER PO SCH (09:39)
[2016-08-03] MEDS: SERTRALINE HCL 50 MG TAB PO SCH (09:39)
[2016-08-03] MEDS: APIXABAN 5 MG TABLET PO SCH ×2 (09:39→20:48)
[2016-08-03] MEDS: ALPRAZolam 0.25 MG TAB PO PRN ×2 (11:08→22:42)
[2016-08-03 12:00] VITALS: BP 99/56; PULSE 97; RESP 18; TEMP 97; O2SAT 99
--- NOTE | 2016-08-03 12:52 | HHI.FF ---
Face to Face Verification Diagnosis: (1) Dehydration (2) DAVID (acute kidney injury) Physical Therapy Order: Evaluate and Treat, Improve ambulation, Strength and gait training I have seen patient Elif A Biegner on 08/03/16. My clinical findings support the need for the requested home health care services because: Ltd mobility - disease progression I certify that my clinical findings support that this patient is homebound because: Unsteady gait/balance Ammon Schilling MD August 03, 2016 12:52
[2016-08-03] MEDS ORDERED: LACT PO (12:56)
[2016-08-03] MEDS ORDERED: LOPE2CAP92 PO (12:56)
--- NOTE | 2016-08-03 13:02 | HHI.PR ---
Subjective Remarks Follow-up Diarrhea. Patient states she had two loose stools today. She does not want to go home today because she still feels weak. She was seen by physical therapy recommended to continue home health care physical therapy. She also has a few front wheeled walker at home. Discussed with RN Objective Vitals Vital Signs Date Time Temp Pulse Resp B/P Pulse Ox O2 Delivery O2 Flow Rate FiO2 08/03/16 08:00 97.4 88 18 101/51 99 08/03/16 00:00 97.8 100 18 122/73 98 08/02/16 20:00 97.0 109 20 134/61 94 08/02/16 17:14 08/02/16 16:00 97.6 86 18 128/56 98 08/02/16 13:24 I/O 08/02/16 08/02/16 08/02/16 08/03/16 08/03/16 08/03/16 07:00 15:00 23:00 07:00 15:00 23:00 Intake Total 340 ml 479 ml 672 ml 350 ml Output Total 600 ml Balance 340 ml 479 ml 72 ml 350 ml Intake Oral 240 ml 120 ml 240 ml IV Total 100 ml 359 ml 432 ml 350 ml Output Urine Total 600 ml # Voids 1 3 3 # Bowel Movements 0 Result Diagram: 08/03/16 0449 08/03/169 Imaging Last Impressions Chest X-Ray 08/01/162302 Signed Impressions: Service Date/Time: Monday, August 01, 2016 23:11 - CONCLUSION: No appreciable change. Hugo Grove MD Abdomen/Pelvis CT 08/01/162302 Signed Impressions: Service Date/Time: Tuesday, August 02, 2016 01:06 - CONCLUSION: Dilated intrahepatic and extrahepatic ducts worse since the prior exam and the etiology is not evident. Hugo Grove MD Objective Remarks GENERAL: This is an obese, well-developed patient, no signs of dehydration SKIN: No rashes, ecchymoses or lesions. Cool and dry. HEAD: Atraumatic. Normocephalic. No temporal or scalp tenderness. EYES: Extraocular motions intact. No scleral icterus. No injection or drainage. CARDIOVASCULAR: Irregularly irregular without murmurs, gallops, or rubs. RESPIRATORY: Absent breath sounds on right, clear on left. GASTROINTESTINAL: Abdomen soft, tender to palpation in epigastric, obese. Normal active bowel sounds. MUSCULOSKELETAL: Extremities trace edema bilaterally. No joint tenderness, effusion, or edema noted. No calf tenderness. Negative Homans sign bilaterally. NEUROLOGICAL: Awake and alert. No focal deficits appreciated. Motor and sensory grossly within normal limits. 3-4 out of 5 muscle strength in all muscle groups. Normal speech. Procedures None A/P Problem List: (1) Nausea, vomiting, and diarrhea ICD Code: R11.2 Status: Acute (2) Dehydration ICD Code: E86.0 Status: Resolved (3) DAVID (acute kidney injury) ICD Code: N17.9 Status: Acute (4) UTI (urinary tract infection) ICD Code: N39.0 Status: Acute Assessment and Plan This is a 76-year-old female patient with past medical history which includes lung CA status post right pneumonectomy, breast CA status post lumpectomy and radiation treatment, atrial fibrillation rate controlled, COPD on chronic oxygen therapy at 3 L, hypertension, CAD status post cardiac stents x 1, chronic diastolic CHF echocardiogram April 2014 showed ejection fraction 55- 60%, umbilical hernia and peripheral arterial disease. Patient is a poor historian therefore information gathered from patient as well as prior computerized charting. Patient reports that she has had GI upset which started with liquid diarrhea possibly one week ago associated with nausea and occasional vomiting. Diarrhea with nausea and vomiting times one week. Improving Supportive care Negative stool studies to date Discontinue ciprofloxacin IV and Flagyl IV . Start Lactinex and Lomotil CT abdomen and pelvis reviewed and reveals: Dilated intrahepatic and extrahepatic ducts worse since the prior exam and the etiology is not evident. Mild ALT elevation which has normalized Consulted GI Acute kidney injury likely related to dehydration and decreased by mouth intake Patient has received 2 L normal saline bolus in emergency department Avoid nephrotoxins- hold losartan, Lasix and spironolactone Resolved discontinue IV hydration. Recheck BMP in a.m. UTI- acute culture with contaminants Discontinue Cipro Atrial fibrillation- chronic- rate controlled Continue Cardizem 120 mg by mouth daily and Eliquis 5 mg by mouth twice a day COPD- chronic Continue prednisone 5 mg daily per outpatient regimen Continue Tiotropium-Olodaterol daily Continue supplemental oxygen to maintain oxygen saturation above 92% Duo nebs as needed Patient with dilated intrahepatic and extrahepatic ducts-appears chronic CT abdomen and pelvis reviewed and reveals: Dilated intrahepatic and extrahepatic ducts worse since the prior exam and the etiology is not evident. She has chronically elevated LFTs which is normalizing Per GI, this is secondary to reservoir effect. Consider MRCP versus EUS if symptomatic or worsening liver function test DVT prophylaxis Eliquis Discharge Planning Possible discharge in a.. Ammon Schilling MD August 03, 2016 13:02
[2016-08-03] MEDS: LACTOBACILLUS ACIDOPHILUS TAB PO SCH ×2 (13:44→17:21)
[2016-08-03] MEDS: LOPERAMIDE HCL 2 MG CAP PO PRN ×2 (13:44→20:48)
--- NOTE | 2016-08-03 14:08 | HHI.GIFU ---
GI Follow-up Note Consult Follow-up Subjective: Patient laying in bed comfortably, no new complaints and has much less diarrhea and less nausea. Denies abd pain at this time. Stool studies so far neg. LFTs and WBC improved. Objective: PHYSICAL EXAMINATION: Vitals signs stable No fever CHEST: Breathing non-labored ABDOMEN: Soft, rounded, mild tenderness RLQ. Normal BS. SKIN: warm and dry PLATE MILL MILL HAND: alert and oriented times three. Available Data (labs, X- Rays, Procedues) : CBC, chemistries, microbiology reviewed. ASSESSMENT/PLAN: 1. Acute gastroenteritis-improving. C.Diff pending. 2. Chronically dilated bile ducts-likely benign reservoir effect but since has worsened can do MRCP prior to discharge once diarrhea and N/V resolved. Pt wants to " get everything done" while she is here. It was a pleasure seeing Elif Juarez. Thank you for this consult. Entered by: Tim Garcia MD August 03, 2016 14:08
[2016-08-03 16:00] VITALS: BP 120/74; PULSE 107; RESP 20; TEMP 97.8; O2SAT 97
[2016-08-03] MEDS: ONDANSETRON HCL 4 MG/2 ML VIAL IVP PRN (17:21)
[2016-08-03] MEDS: ACETAMINOPHEN 325 MG TAB PO PRN (17:22)
[2016-08-03 20:00] VITALS: BP 115/48; PULSE 89; RESP 17; TEMP 98; O2SAT 98
[2016-08-03 20:22] VITALS: O2SAT 98
[2016-08-03] MEDS: ATORVASTATIN 20 MG TAB PO SCH (20:48)
[2016-08-03] MEDS: MONTELUKAST SODIUM 10 MG TAB PO SCH (20:48)
[2016-08-04] VITALS: BP 126/52; PULSE 82; RESP 20; TEMP 98.6; O2SAT 96
[2016-08-04] MEDS: ACETAMINOPHEN 325 MG TAB PO PRN (04:55)
[2016-08-04] MEDS: ONDANSETRON HCL 4 MG/2 ML VIAL IVP PRN ×2 (04:55→21:05)
[2016-08-04] MEDS: LOPERAMIDE HCL 2 MG CAP PO PRN (04:56)
[2016-08-04 08:00] VITALS: BP 120/80; PULSE 76; RESP 19; TEMP 97.2; O2SAT 100
[2016-08-04] MEDS: SERTRALINE HCL 50 MG TAB PO SCH (08:20)
[2016-08-04] MEDS: LACTOBACILLUS ACIDOPHILUS TAB PO SCH ×3 (08:20→17:21)
[2016-08-04] MEDS: predniSONE 5 MG TAB PO SCH (08:21)
[2016-08-04] MEDS: SODIUM CHLORIDE 0.9% FLUSH 10 ML FLUSH IV FLUSH SCH ×2 (08:21→21:05)
[2016-08-04] MEDS: DILTIAZEM-CD 120 MG CAP ER PO SCH (08:21)
[2016-08-04] MEDS: APIXABAN 5 MG TABLET PO SCH ×2 (08:21→21:06)
--- NOTE | 2016-08-04 09:46 | HHI.GIFU ---
GI Follow-up Note Consult Follow-up Subjective: Patient sitting on bedside commode and eating breakfast. Still c/o intermittent abd cramps. Not much nausea but had several BMs recently. C.Diff neg. Objective: PHYSICAL EXAMINATION: Vitals signs stable No fever CHEST: breathing non-labored, wearing O2 by NC INSURANCE ACCOUNT EXECUTIVE: normal affect, alert and oriented times three. Available Data (labs, X- Rays, Procedues) : ASSESSMENT/PLAN: 1. Persistent abd cramping and increase gas-will treat longer with oral flagyl. SBBO? 2. Dilated bile dusts-she feels well enough to attempt MRCP. It was a pleasure seeing Elif Juarez Thank you for this consult. Entered by: Tim Garcia MD August 04, 2016 09:46
[2016-08-04] MEDS: ALPRAZolam 0.25 MG TAB PO PRN ×2 (11:49→21:06)
[2016-08-04 12:00] VITALS: BP 111/79; PULSE 82; RESP 17; TEMP 98; O2SAT 98
[2016-08-04 12:50] LABS: BICARBONATE 31.7 MEQ/L (21.0-32.0); MAGNESIUM 1.7 MG/DL (1.5-2.5); POTASSIUM 3.2 MEQ/L (3.5-5.1)
[2016-08-04] MEDS: metroNIDAZOLE 250 MG TAB PO SCH ×2 (14:07→21:06)
--- NOTE | 2016-08-04 14:14 | RADRPT ---
EXAM DATE/TIME: 08/04/2016 12:18 [facility] COMPARISON: CT ABDOMEN & PELVIS W/O CONTRAST, August 02, 2016, 1:06. INDICATIONS : Obstruction. MEDICAL HISTORY : Metastatic, lung. Carcinoma, breast. Chronic obstructive pulmonary disease. Hypertension, CAD SURGICAL HISTORY : Cholecystectomy. Fusion, thoracic. Pneumonectomy. ENCOUNTER: Initial ACUITY: 1 day PAIN SCORE: 5/10 LOCATION: Right upper quadrant TECHNIQUE: Multiplanar, multisequence magnetic resonance imaging of the abdomen was performed. High-resolution 3D dataset was utilized to reconstruct maximum-intensity projection (MIP) images.FINDINGS: INTRAHEPATIC BILE DUCTS: Intrahepatic biliary duct dilatation. No significant anatomical variant is present. EXTRAHEPATIC BILE DUCTS: The common bile duct measures 9mm. Abrupt tapering along the distal common bile duct. There is minima l filling defect at the ampulla. GALLBLADDER: Surgically absent. LIVER: Normal size and signal intensity. No concerning liver lesion is identified on this non-contrast exam. PANCREAS: The main pancreatic duct is normal in size. There is no significant anatomical variant. Signal inte nsity is within normal limits. No mass is visualized on this non-contrast exam. OTHER: The remaining visualized structures demonstrate no acute abnormality on this non-contrast exam. CONCLUSION: 1. Status post cholecystectomy. 2. Intra-and extrahepatic biliary ductal dilatation. 3. There is slight filling defect along the distal common bile duct, ERCP and biopsy may be warranted . Francesco Mirza MD on August 04, 2016 at 14:06 Board Certified Radiologist. This report was verified electronically.
[2016-08-04 16:00] VITALS: BP 108/61; PULSE 122; RESP 17; TEMP 98.1; O2SAT 97
[2016-08-04 20:00] VITALS: BP 106/61; PULSE 105; RESP 18; TEMP 97.3; O2SAT 100
[2016-08-04] MEDS: MONTELUKAST SODIUM 10 MG TAB PO SCH (21:06)
[2016-08-04] MEDS: ATORVASTATIN 20 MG TAB PO SCH (21:06)
--- NOTE | 2016-08-04 23:52 | HHI.PR ---
Subjective Remarks Patient seen the morning of 08/04. Patient sitting up in chair. Reports that nausea continues. No bowel movements, no diarrhea today. MRCP pending at time of examination. Objective Vital Signs Date Time Temp Pulse Resp B/P Pulse Ox O2 Delivery O2 Flow Rate FiO2 08/04/16 20:00 97.3 105 18 106/61 100 08/04/16 16:00 98.1 122 17 108/61 97 08/04/16 12:00 98.0 82 17 111/79 98 08/04/16 08:00 97.2 76 19 120/80 100 08/04/16 00:00 98.6 82 20 126/52 96 I/O 08/03/16 08/03/16 08/03/16 08/04/16 08/04/16 08/04/16 07:00 15:00 23:00 07:00 15:00 23:00 Intake Total 672 ml 1088 ml 0 ml 240 ml 880 ml 240 ml Output Total 600 ml 400 ml 250 ml Balance 72 ml 688 ml 0 ml 240 ml 630 ml 240 ml Intake Oral 240 ml 600 ml 0 ml 240 ml 880 ml 240 ml IV Total 432 ml 488 ml 0 ml 0 ml 0 ml Output Urine Total 600 ml 400 ml 250 ml # Voids 2 2 3 1 # Bowel Movements 3 2 1 1 Result Diagram: 08/03/16 0449 08/04/16 1138 Objective Remarks GENERAL: patient sitting up in chair. Appears uncomfortable. SKIN: Warm and dry. HEAD: Normocephalic. EYES: No scleral icterus. No injection or drainage. NECK: Supple, trachea midline. No JVD. CARDIOVASCULAR: Regular rate and rhythm without murmurs, gallops, or rubs. RESPIRATORY: Breath sounds equal bilaterally. No accessory muscle use. GASTROINTESTINAL: Abdomen soft, non-tender, nondistended. MUSCULOSKELETAL: No cyanosis, or edema. BACK: Nontender without obvious deformity. No CVA tenderness. A/P Assessment and Plan ====08/04/16====== continued nausea. MRCP pending. This is a 76-year-old female patient with past medical history which includes lung CA status post right pneumonectomy, breast CA status post lumpectomy and radiation treatment, atrial fibrillation rate controlled, COPD on chronic oxygen therapy at 3 L, hypertension, CAD status post cardiac stents x 1, chronic diastolic CHF echocardiogram April 2014 showed ejection fraction 55- 60%, umbilical hernia and peripheral arterial disease. Patient is a poor historian therefore information gathered from patient as well as prior computerized charting. Patient reports that she has had GI upset which started with liquid diarrhea possibly one week ago associated with nausea and occasional vomiting. Diarrhea with nausea and vomiting times one week. Improving Supportive care Negative stool studies to date Discontinue ciprofloxacin IV and Flagyl IV . Start Lactinex and Lomotil CT abdomen and pelvis reviewed and reveals: Dilated intrahepatic and extrahepatic ducts worse since the prior exam and the etiology is not evident. Mild ALT elevation which has normalized Consulted GI Acute kidney injury likely related to dehydration and decreased by mouth intake Patient has received 2 L normal saline bolus in emergency department Avoid nephrotoxins- hold losartan, Lasix and spironolactone Resolved discontinue IV hydration. Recheck BMP in a.m. UTI- acute culture with contaminants Discontinue Cipro Atrial fibrillation- chronic- rate controlled Continue Cardizem 120 mg by mouth daily and Eliquis 5 mg by mouth twice a day COPD- chronic Continue prednisone 5 mg daily per outpatient regimen Continue Tiotropium-Olodaterol daily Continue supplemental oxygen to maintain oxygen saturation above 92% Duo nebs as needed Patient with dilated intrahepatic and extrahepatic ducts-appears chronic CT abdomen and pelvis reviewed and reveals: Dilated intrahepatic and extrahepatic ducts worse since the prior exam and the etiology is not evident. She has chronically elevated LFTs which is normalizing Per GI, this is secondary to reservoir effect. -MRCP pending DVT prophylaxis Ramirez Westbrook MD August 04, 2016 23:52
[2016-08-05] VITALS: BP 104/65; PULSE 92; RESP 17; TEMP 97.9; O2SAT 98
[2016-08-05] MEDS: POTASSIUM CHLOR 10 MEQ PREMIX 100 ML IV SCH ×3 (01:01→02:17)
[2016-08-05] MEDS: metroNIDAZOLE 250 MG TAB PO SCH ×3 (05:06→20:00)
[2016-08-05] MEDS: ALPRAZolam 0.25 MG TAB PO PRN ×2 (05:06→12:49)
[2016-08-05 05:22] LABS: AUTOMATED NEUTROPHIL # 4.8 TH/MM3 (1.8-7.7); BASOPHIL % 0.2 % (0.0-2.0); EOSINOPHIL # 0.1 TH/MM3 (0-0.4); EOSINOPHIL % 1.1 % (0.0-4.0); HEMATOCRIT 25.2 % (35.0-46.0); HEMO FLAGS DIFF FINAL; LYMPH % 13.7 % (9.0-44.0); MEAN CELL VOLUME 90.8 FL (80.0-100.0); MEAN CORPUSCULAR HEMOGLOBIN 31.4 PG (27.0-34.0); MEAN CORPUSCULAR HGB CONC 34.6 % (32.0-36.0); MONO % 20.6 % (0.0-8.0); NEUT % 64.4 % (16.0-70.0); PLATELET COUNT 202 TH/MM3 (150-450); RED BLOOD COUNT 2.78 MIL/MM3 (4.00-5.30); RED CELL DISTRIBUTION WIDTH 14.6 % (11.6-17.2); WHITE BLOOD COUNT 7.4 TH/MM3 (4.0-11.0)
[2016-08-05 05:46] LABS: MAGNESIUM 1.8 MG/DL (1.5-2.5); POTASSIUM 4.1 MEQ/L (3.5-5.1)
[2016-08-05 08:00] VITALS: BP 85/64; PULSE 85; RESP 17; TEMP 97.5; O2SAT 100
[2016-08-05] MEDS: DILTIAZEM-CD 120 MG CAP ER PO SCH (09:08)
[2016-08-05] MEDS: SERTRALINE HCL 50 MG TAB PO SCH (09:08)
[2016-08-05] MEDS: predniSONE 5 MG TAB PO SCH (09:08)
[2016-08-05] MEDS: LACTOBACILLUS ACIDOPHILUS TAB PO SCH ×3 (09:08→18:23)
[2016-08-05] MEDS: SODIUM CHLORIDE 0.9% FLUSH 10 ML FLUSH IV FLUSH SCH ×2 (09:08→20:00)
[2016-08-05] MEDS: APIXABAN 5 MG TABLET PO SCH ×2 (09:09→20:00)
--- NOTE | 2016-08-05 10:31 | HHI.GIFU ---
GI Follow-up Note Consult Follow-up Subjective: Patient on commode again. States did well yesterday until dinner when had some N/V afterward. Diarrhea appears to have stopped. Objective: PHYSICAL EXAMINATION: Vitals signs stable No fever ABDOMEN: Soft, nondistended, mild tenderness RUQ SKIN: warm and dry SERVICE DELIVERY SUPERVISOR: alert and oriented times three. Available Data (labs, X- Rays, Procedues) : ASSESSMENT/PLAN: 1. Dilated bile ducts-I reviewed MRCP with radiologist. Questionable small (3- 4mm) defect distal CBD. Not conclusive. Will discuss possible EUS/ERCP with Dr Christie Canas next week. 2. N/V/D- diarrhea better but still have intermittent N/V. Doubt related to biliary system. Can do EGD next week if it persists as it does seem to be less overall but pt not a good historian. Possibly do EGD at time of EUS. It was a pleasure seeing Elif Juarez Thank you for this consult. Entered by: Tim Garcia MD August 05, 2016 10:31
[2016-08-05 12:00] VITALS: BP 98/58; PULSE 88; RESP 16; TEMP 95.9; O2SAT 99
[2016-08-05 16:00] VITALS: BP_SYST 116; BP_SYST 128; BP_DIAS 61; BP_DIAS 62; PULSE 108; RESP 16; TEMP 97.7; O2SAT 100; O2SAT 99
[2016-08-05 20:00] VITALS: BP 116/69; PULSE 86; RESP 18; TEMP 97.4; O2SAT 96
[2016-08-05] MEDS: ATORVASTATIN 20 MG TAB PO SCH (20:00)
[2016-08-05] MEDS: MONTELUKAST SODIUM 10 MG TAB PO SCH (20:01)
[2016-08-05 22:00] VITALS: O2SAT 99
--- NOTE | 2016-08-05 23:55 | HHI.PR ---
Subjective Remarks Patient seen this morning. Says she is feeling better than yesterday. Denies any chest pain or shortness of breath. Denies any nausea or vomiting currently. Objective Vital Signs Date Time Temp Pulse Resp B/P Pulse Ox O2 Delivery O2 Flow Rate FiO2 08/05/16 22:00 99 Nasal Cannula 3.00 08/05/16 20:00 97.4 86 18 116/69 96 08/05/16 16:00 97.7 108 16 116/62 99 08/05/16 12:00 95.9 88 16 98/58 99 08/05/16 08:00 97.5 85 17 85/64 100 08/05/16 00:00 97.9 92 17 104/65 98 I/O 08/04/16 08/04/16 08/04/16 08/05/16 08/05/16 08/05/16 07:00 15:00 23:00 07:00 15:00 23:00 Intake Total 240 ml 880 ml 240 ml 540 ml 720 ml Output Total 250 ml 100 ml Balance 240 ml 630 ml 240 ml 540 ml 720 ml -100 ml Intake Oral 240 ml 880 ml 240 ml 240 ml 720 ml IV Total 0 ml 0 ml 300 ml Output Urine Total 250 ml 100 ml # Voids 3 1 3 3 # Bowel Movements 1 1 0 0 Result Diagram: 08/05/16 0435 08/05/16 0435 Objective Remarks GENERAL: patient sitting up in chair. Appears much more comfortable today. SKIN: Warm and dry. HEAD: Normocephalic. EYES: No scleral icterus. No injection or drainage. NECK: Supple, trachea midline. No JVD. CARDIOVASCULAR: Regular rate and rhythm without murmurs, gallops, or rubs. RESPIRATORY: Breath sounds equal bilaterally. No accessory muscle use. GASTROINTESTINAL: Abdomen soft, non-tender, nondistended. MUSCULOSKELETAL: No cyanosis, or edema. BACK: Nontender without obvious deformity. No CVA tenderness. A/P Assessment and Plan ====08/05/16====== continued nausea, slight imrpovement. MRCP with intrahepatic ductal dilatation. EGD/ERCP planned for sunday/ This is a 76-year-old female patient with past medical history which includes lung CA status post right pneumonectomy, breast CA status post lumpectomy and radiation treatment, atrial fibrillation rate controlled, COPD on chronic oxygen therapy at 3 L, hypertension, CAD status post cardiac stents x 1, chronic diastolic CHF echocardiogram April 2014 showed ejection fraction 55- 60%, umbilical hernia and peripheral arterial disease. Patient is a poor historian therefore information gathered from patient as well as prior computerized charting. Patient reports that she has had GI upset which started with liquid diarrhea possibly one week ago associated with nausea and occasional vomiting. Diarrhea with nausea and vomiting times one week. Improving Supportive care Negative stool studies to date Discontinue ciprofloxacin IV and Flagyl IV . Start Lactinex and Lomotil CT abdomen and pelvis reviewed and reveals: Dilated intrahepatic and extrahepatic ducts worse since the prior exam and the etiology is not evident. Mild ALT elevation which has normalized Consulted GI Acute kidney injury likely related to dehydration and decreased by mouth intake Patient has received 2 L normal saline bolus in emergency department Avoid nephrotoxins- hold losartan, Lasix and spironolactone Resolved discontinue IV hydration. follow. UTI- acute culture with contaminants Discontinue Cipro Atrial fibrillation- chronic- rate controlled Continue Cardizem 120 mg by mouth daily and Eliquis 5 mg by mouth twice a day COPD- chronic Continue prednisone 5 mg daily per outpatient regimen Continue Tiotropium-Olodaterol daily Continue supplemental oxygen to maintain oxygen saturation above 92% continue Duo nebs as needed Patient with dilated intrahepatic and extrahepatic ducts-appears chronic CT abdomen and pelvis reviewed and reveals: Dilated intrahepatic and extrahepatic ducts worse since the prior exam and the etiology is not evident. She has chronically elevated LFTs which is normalizing Per GI, this is secondary to reservoir effect. -MRCP with intrahepatic ductal dilatation. gi planning for ERCP this coming week. DVT prophylaxis Ramirez Westbrook MD August 05, 2016 23:55
[2016-08-06] VITALS: BP 134/87; PULSE 98; RESP 18; TEMP 97; O2SAT 94
[2016-08-06] MEDS: ONDANSETRON HCL 4 MG/2 ML VIAL IVP PRN ×2 (00:16→21:17)
[2016-08-06] MEDS: metroNIDAZOLE 250 MG TAB PO SCH ×3 (05:38→19:38)
[2016-08-06] MEDS: ALPRAZolam 0.25 MG TAB PO PRN (05:38)
[2016-08-06 08:00] VITALS: BP 120/67; PULSE 78; RESP 18; TEMP 97.3; O2SAT 98
[2016-08-06] MEDS: LACTOBACILLUS ACIDOPHILUS TAB PO SCH ×3 (09:12→16:20)
[2016-08-06] MEDS: APIXABAN 5 MG TABLET PO SCH ×2 (09:12→19:38)
[2016-08-06] MEDS: predniSONE 5 MG TAB PO SCH (09:12)
[2016-08-06] MEDS: SODIUM CHLORIDE 0.9% FLUSH 10 ML FLUSH IV FLUSH SCH ×2 (09:12→19:37)
[2016-08-06] MEDS: SERTRALINE HCL 50 MG TAB PO SCH (09:12)
[2016-08-06] MEDS: DILTIAZEM-CD 120 MG CAP ER PO SCH (09:12)
[2016-08-06 10:01] VITALS: O2SAT 98
[2016-08-06 12:00] VITALS: BP 111/66; PULSE 108; RESP 18; TEMP 95.6; O2SAT 95
[2016-08-06 16:00] VITALS: BP 125/67; PULSE 75; RESP 17; TEMP 96; O2SAT 96
[2016-08-06] MEDS: ATORVASTATIN 20 MG TAB PO SCH (19:38)
[2016-08-06] MEDS: MONTELUKAST SODIUM 10 MG TAB PO SCH (19:38)
[2016-08-06 20:00] VITALS: BP 116/77; PULSE 88; RESP 20; TEMP 97.3; O2SAT 96
--- NOTE | 2016-08-06 23:57 | HHI.PR ---
Subjective Remarks Patient seen this afternoon around 1 PM. Says she is feeling better than yesterday. Strength is improving. Denies any chest pain or shortness of breath. Plan for ERCP in the next 1-2 days. Objective Vital Signs Date Time Temp Pulse Resp B/P Pulse Ox O2 Delivery O2 Flow Rate FiO2 08/06/16 20:00 97.3 88 20 116/77 96 08/06/16 18:10 Nasal Cannula 3.00 08/06/16 16:00 96.0 75 17 125/67 96 08/06/16 12:00 95.6 108 18 111/66 95 08/06/16 10:01 98 Nasal Cannula 3.00 08/06/16 08:00 97.3 78 18 120/67 98 08/06/16 00:00 97.0 98 18 134/87 94 I/O 08/05/16 08/05/16 08/05/16 08/06/16 08/06/16 08/06/16 07:00 15:00 23:00 07:00 15:00 23:00 Intake Total 540 ml 720 ml 720 ml Output Total 100 ml 250 ml Balance 540 ml 720 ml -100 ml -250 ml 720 ml Intake Oral 240 ml 720 ml 720 ml IV Total 300 ml Output Urine Total 100 ml 250 ml # Voids 3 3 3 # Bowel Movements 0 0 0 Result Diagram: 08/05/16 0435 08/05/16 0435 Objective Remarks GENERAL: patient sitting up in chair. Appears comfortable. Exam otherwise unchanged. SKIN: Warm and dry. HEAD: Normocephalic. EYES: No scleral icterus. No injection or drainage. NECK: Supple, trachea midline. No JVD. CARDIOVASCULAR: Regular rate and rhythm without murmurs, gallops, or rubs. RESPIRATORY: Breath sounds equal bilaterally. No accessory muscle use. GASTROINTESTINAL: Abdomen soft, non-tender, nondistended. MUSCULOSKELETAL: No cyanosis, or edema. BACK: Nontender without obvious deformity. No CVA tenderness. A/P Assessment and Plan ====08/06/16====== nausea improving. GI ff. possible ERCP. cont to monitor. This is a 76-year-old female patient with past medical history which includes lung CA status post right pneumonectomy, breast CA status post lumpectomy and radiation treatment, atrial fibrillation rate controlled, COPD on chronic oxygen therapy at 3 L, hypertension, CAD status post cardiac stents x 1, chronic diastolic CHF echocardiogram April 2014 showed ejection fraction 55- 60%, umbilical hernia and peripheral arterial disease. Patient is a poor historian therefore information gathered from patient as well as prior computerized charting. Patient reports that she has had GI upset which started with liquid diarrhea possibly one week ago associated with nausea and occasional vomiting. Diarrhea with nausea and vomiting times one week. Improving Supportive care Negative stool studies to date Discontinue ciprofloxacin IV and Flagyl IV . Start Lactinex and Lomotil CT abdomen and pelvis reviewed and reveals: Dilated intrahepatic and extrahepatic ducts worse since the prior exam and the etiology is not evident. Mild ALT elevation which has normalized Consulted GI Acute kidney injury likely related to dehydration and decreased by mouth intake Patient has received 2 L normal saline bolus in emergency department Avoid nephrotoxins- hold losartan, Lasix and spironolactone Resolved discontinue IV hydration. Recheck BMP in a.m. UTI- acute culture with contaminants Discontinue Cipro Atrial fibrillation- chronic- rate controlled Continue Cardizem 120 mg by mouth daily and Eliquis 5 mg by mouth twice a day COPD- chronic Continue prednisone 5 mg daily per outpatient regimen Continue Tiotropium-Olodaterol daily Continue supplemental oxygen to maintain oxygen saturation above 92% Duo nebs as needed Patient with dilated intrahepatic and extrahepatic ducts-appears chronic CT abdomen and pelvis reviewed and reveals: Dilated intrahepatic and extrahepatic ducts worse since the prior exam and the etiology is not evident. She has chronically elevated LFTs which is normalizing Per GI, this is secondary to reservoir effect. -MRCP with intrahepatic ductal dilatation DVT prophylaxis Ramirez Westbrook MD August 06, 2016 23:56
[2016-08-07] VITALS: BP 120/70; PULSE 76; RESP 18; TEMP 98.3; O2SAT 98
[2016-08-07] MEDS: ALPRAZolam 0.25 MG TAB PO PRN ×2 (05:15→16:59)
[2016-08-07] MEDS: metroNIDAZOLE 250 MG TAB PO SCH ×2 (05:15→13:13)
[2016-08-07 06:05] LABS: AUTOMATED NEUTROPHIL # 5.8 TH/MM3 (1.8-7.7); BASOPHIL % 0.4 % (0.0-2.0); EOSINOPHIL # 0.1 TH/MM3 (0-0.4); EOSINOPHIL % 1.1 % (0.0-4.0); HEMATOCRIT 27.3 % (35.0-46.0); HEMO FLAGS DIFF FINAL; LYMPH % 12.7 % (9.0-44.0); LYMPHOCYTE # 1.1 TH/MM3 (1.0-4.8); MEAN CELL VOLUME 91.6 FL (80.0-100.0); MEAN CORPUSCULAR HEMOGLOBIN 30.9 PG (27.0-34.0); MEAN CORPUSCULAR HGB CONC 33.8 % (32.0-36.0); MONO % 17.6 % (0.0-8.0); NEUT % 68.2 % (16.0-70.0); PLATELET COUNT 206 TH/MM3 (150-450); RED BLOOD COUNT 2.98 MIL/MM3 (4.00-5.30); RED CELL DISTRIBUTION WIDTH 14.5 % (11.6-17.2); WHITE BLOOD COUNT 8.4 TH/MM3 (4.0-11.0)
[2016-08-07 06:32] LABS: BICARBONATE 35.2 MEQ/L (21.0-32.0); MAGNESIUM 1.9 MG/DL (1.5-2.5); POTASSIUM 4.6 MEQ/L (3.5-5.1)
[2016-08-07 08:00] VITALS: BP 142/66; PULSE 77; RESP 16; TEMP 97.7; O2SAT 100
[2016-08-07] MEDS: DILTIAZEM-CD 120 MG CAP ER PO SCH (09:03)
[2016-08-07] MEDS: LACTOBACILLUS ACIDOPHILUS TAB PO SCH ×3 (09:04→16:59)
[2016-08-07] MEDS: predniSONE 5 MG TAB PO SCH (09:04)
[2016-08-07 09:05] VITALS: O2SAT 93
[2016-08-07] MEDS: APIXABAN 5 MG TABLET PO SCH ×2 (09:08→21:55)
[2016-08-07] MEDS: SODIUM CHLORIDE 0.9% FLUSH 10 ML FLUSH IV FLUSH SCH ×2 (09:08→21:00)
[2016-08-07] MEDS: SERTRALINE HCL 50 MG TAB PO SCH (09:08)
--- NOTE | 2016-08-07 10:24 | HHI.GIFU ---
GI Follow-up Note Consult Follow-up Subjective: Patient laying in bed comfortably, no new complaints, diarrhea stopped, eating better but still gets nauseated at times. Objective: PHYSICAL EXAMINATION: Vitals signs stable No fever HEENT: Anicteric CHEST: breathing non-labored ABDOMEN: Soft, mild diffuse tenderness with normoactive bowel sounds. SKIN: warm and dry ANIMAL CARE SUPERVISOR: alert and oriented times three. Available Data (labs, X- Rays, Procedues) : ASSESSMENT/PLAN: 1. Nausea-slowly improving but still symptomatic. Seems to be eating better. 2. Dilated bile ducts with possible small filling defect distal CBD-will check when Dr Canas available to perform EUS with possible ERCP but Eliquis would need to be held. She does not have to stay inpt for this as it could be done as outpt. 3. Diarrhea-resolved. It was a pleasure seeing Elif Juarez Thank you for this consult. Entered by: Tim Garcia MD August 07, 2016 10:24
[2016-08-07 12:00] VITALS: BP 131/76; PULSE 107; RESP 15; TEMP 98.2; O2SAT 98
--- NOTE | 2016-08-07 13:47 | HHI.PR ---
Subjective Remarks Follow up abdominal pain, nausea and vomiting. Patient states she is tired and did not sleep well last night. She complains of gas pains, but no nausea or vomiting. Denies any pain, sob, fever or chills. Objective Vitals Vital Signs Date Time Temp Pulse Resp B/P Pulse Ox O2 Delivery O2 Flow Rate FiO2 08/07/16 12:00 98.2 107 15 131/76 98 08/07/16 09:05 93 Nasal Cannula 3.00 08/07/16 08:00 97.7 77 16 142/66 100 08/07/16 00:00 98.3 76 18 120/70 98 08/06/16 20:00 97.3 88 20 116/77 96 08/06/16 18:10 Nasal Cannula 3.00 08/06/16 16:00 96.0 75 17 125/67 96 I/O 08/06/16 08/06/16 08/06/16 08/07/16 08/07/16 08/07/16 07:00 15:00 23:00 07:00 15:00 23:00 Intake Total 720 ml 240 ml 120 ml Output Total 250 ml 200 ml Balance -250 ml 720 ml 40 ml 120 ml Intake Oral 720 ml 240 ml 120 ml Output Urine Total 250 ml 200 ml # Voids 3 1 2 # Bowel Movements 0 1 0 Result Diagram: 08/07/1655408/07/16 05 Objective Remarks GENERAL: patient laying in bed, states she is tired. SKIN: Warm and dry. HEAD: Normocephalic. EYES: No scleral icterus. No injection or drainage. NECK: Supple, trachea midline. No JVD. CARDIOVASCULAR: Regular rate and rhythm without murmurs, gallops, or rubs. RESPIRATORY: Breath sounds equal bilaterally. No accessory muscle use. GASTROINTESTINAL: Abdomen soft, non-tender, nondistended. MUSCULOSKELETAL: No cyanosis, or edema. BACK: Nontender without obvious deformity. No CVA tenderness. Procedures None Medications and IVs Reported Meds & Active Scripts Active Reported Vitamin D3 (Cholecalciferol) 1,000 Unit Chew 1,000 Units CHEW DAILY Senior Vites (Multiple Vitamins W/ Minerals) 1 Tab Tab [place]-3 Fish Oil/Vitamin (Fish Oil-Cholecalciferol) 1,000-1,000 Mg Cap 1 Cap PO DAILY Vitamin C (Ascorbic Acid) 500 Mg Cap 500 Mg PO Alprazolam 0.25 Mg Tab 0.25 Mg PO Q8H PRN Diltiazem ER 12 HR (Diltiazem HCl) 60 Mg Caper 60 Mg PO DAILY Stiolto Respimat Inh (Tiotropium-Olodaterol Inh) 2.5-2.5 Mcg/Act Aero 1 Puff INH DAILY Spironolactone 25 Mg Tab 25 Mg PO DAILY Pantoprazole (Pantoprazole Sodium) 40 Mg Tab 40 Mg PO DAILY Prednisone 5 Mg Tab 5 Mg PO DAILY Eliquis (Apixaban) 5 Mg Tab 5 Mg PO BID Diltiazem ER 24 HR (Diltiazem HCl) 120 Mg Caper 120 Mg PO DAILY Furosemide 40 Mg Tab 40 Mg PO DAILY Sertraline (Sertraline HCl) 50 Mg Tab 50 Mg PO DAILY Atorvastatin (Atorvastatin Calcium) 20 Mg Tab 20 Mg PO HS Losartan (Losartan Potassium) 50 Mg Tab 50 Mg PO DAILY Montelukast (Montelukast Sodium) 10 Mg Tab 10 Mg PO HS A/P Problem List: (1) Nausea, vomiting, and diarrhea ICD Code: R11.2 Status: Acute (2) Dehydration ICD Code: E86.0 Status: Resolved (3) DAIVD (acute kidney injury) ICD Code: N17.9 Status: Acute (4) UTI (urinary tract infection) ICD Code: N39.0 Status: Acute Assessment and Plan This is a 76-year-old female patient with past medical history which includes lung CA status post right pneumonectomy, breast CA status post lumpectomy and radiation treatment, atrial fibrillation rate controlled, COPD on chronic oxygen therapy at 3 L, hypertension, CAD status post cardiac stents x 1, chronic diastolic CHF echocardiogram April 2014 showed ejection fraction 55- 60%, umbilical hernia and peripheral arterial disease. Patient is a poor historian therefore information gathered from patient as well as prior computerized charting. Patient reports that she has had GI upset which started with liquid diarrhea possibly one week ago associated with nausea and occasional vomiting. Diarrhea with nausea and vomiting times one week. Improving -Supportive care -Negative stool studies to date -Discontinue ciprofloxacin IV and Flagyl IV . Start Lactinex and Lomotil -CT abdomen and pelvis reviewed and reveals: Dilated intrahepatic and extrahepatic ducts worse since the prior exam and the etiology is not evident. Mild ALT elevation which has normalized -Consulted GI, ERCP held due to eliquis, recommended cont eliquis and follow up outpatient to schedule ERCP Acute kidney injury likely related to dehydration and decreased by mouth intake Patient has received 2 L normal saline bolus in emergency department Avoid nephrotoxins- hold losartan, Lasix and spironolactone Resolved discontinue IV hydration. Recheck BMP in a.m. UTI- acute culture with contaminants -Discontinue Cipro Atrial fibrillation- chronic- rate controlled -Continue Cardizem 120 mg by mouth daily and Eliquis 5 mg by mouth twice a day COPD- chronic -Continue prednisone 5 mg daily per outpatient regimen -Continue Tiotropium-Olodaterol daily -Continue supplemental oxygen to maintain oxygen saturation above 92% -Duo nebs as needed Patient with dilated intrahepatic and extrahepatic ducts-appears chronic -CT abdomen and pelvis reviewed and reveals: Dilated intrahepatic and extrahepatic ducts worse since the prior exam and the etiology is not evident. She has chronically elevated LFTs which is normalizing -Per GI, this is secondary to reservoir effect. Consider MRCP versus EUS if symptomatic or worsening liver function test- Will schedule outpatient -Heart healthy diet, if patient is able to tolerate meals, will d/c tomorrow with po zofran and follow gi DVT prophylaxis Eliquis Discussed with Dr. Lou Discharge Planning Possibly tomorrow if patient tolerates meals Chelo Cervantes August 07, 2016 13:47
[2016-08-07] MEDS ORDERED: ONDA4TAB7 SL (14:01)
[2016-08-07 16:00] VITALS: BP 126/80; PULSE 103; RESP 16; TEMP 96.2; O2SAT 94
[2016-08-07 20:00] VITALS: BP 124/78; PULSE 92; RESP 20; TEMP 96.8; O2SAT 95
[2016-08-07] MEDS: ATORVASTATIN 20 MG TAB PO SCH (21:55)
[2016-08-07] MEDS: MONTELUKAST SODIUM 10 MG TAB PO SCH (21:55)
[2016-08-07] MEDS: ONDANSETRON HCL 4 MG/2 ML VIAL IVP PRN (21:56)
[2016-08-08] VITALS: BP 119/72; PULSE 88; RESP 18; TEMP 97.2; O2SAT 96
[2016-08-08] MEDS: ONDANSETRON HCL 4 MG/2 ML VIAL IVP PRN ×3 (04:35→22:45)
[2016-08-08] MEDS: ALPRAZolam 0.25 MG TAB PO PRN ×2 (04:35→23:14)
[2016-08-08 08:00] VITALS: BP 109/58; PULSE 74; RESP 17; TEMP 97.2; O2SAT 95
[2016-08-08] MEDS: DILTIAZEM-CD 120 MG CAP ER PO SCH (08:36)
[2016-08-08] MEDS: predniSONE 5 MG TAB PO SCH (08:36)
[2016-08-08] MEDS: APIXABAN 5 MG TABLET PO SCH (08:37)
[2016-08-08] MEDS: SODIUM CHLORIDE 0.9% FLUSH 10 ML FLUSH IV FLUSH SCH ×2 (08:37→20:46)
[2016-08-08] MEDS: LACTOBACILLUS ACIDOPHILUS TAB PO SCH ×3 (08:37→17:13)
[2016-08-08] MEDS: SERTRALINE HCL 50 MG TAB PO SCH (08:37)
[2016-08-08 12:00] VITALS: BP 116/75; PULSE 95; RESP 17; TEMP 96.9; O2SAT 98
[2016-08-08 16:00] VITALS: BP 127/67; PULSE 107; RESP 18; TEMP 97.4; O2SAT 97
--- NOTE | 2016-08-08 16:18 | HHI.PR ---
Subjective Remarks Follow up Abdominal pain. Patient states she is weak, vomiting phlegm when she eats, nausea, and continued abdominal pain. States she can not go home because she has no one to take care of her. Normal solid BM today, no diarrhea. Objective Vitals Vital Signs Date Time Temp Pulse Resp B/P Pulse Ox O2 Delivery O2 Flow Rate FiO2 08/08/16 12:00 96.9 95 17 116/75 98 08/08/16 08:00 97.2 74 17 109/58 95 08/08/16 00:00 97.2 88 18 119/72 96 08/07/16 20:00 96.8 92 20 124/78 95 08/07/16 19:56 Nasal Cannula 3.00 I/O 08/07/16 08/07/16 08/07/16 08/08/16 08/08/16 08/08/16 06:59 14:59 22:59 06:59 14:59 22:59 Intake Total 360 ml 480 ml 240 ml 480 ml 1082 ml Output Total 200 ml 500 ml 950 ml 800 ml Balance 160 ml 480 ml -260 ml -470 ml 282 ml Intake Oral 360 ml 480 ml 240 ml 480 ml 1080 ml IV Total 0 ml 2 ml Output Urine Total 200 ml 500 ml 950 ml 800 ml # Voids 3 2 # Bowel Movements 1 0 0 0 2 Result Diagram: 08/07/16 0555 08/07/16 0555 Imaging Last Impressions Cholangiopancreatography MRI 08/04/16 0000 Signed Impressions: Service Date/Time: Thursday, August 04, 2016 12:18 - CONCLUSION: 1. Status post cholecystectomy. 2. Intra-and extrahepatic biliary ductal dilatation. 3. There is slight filling defect along the distal common bile duct, ERCP and biopsy may be warranted. Francesco Mirza MD Chest X-Ray 08/01/162302 Signed Impressions: Service Date/Time: Monday, August 01, 2016 23:11 - CONCLUSION: No appreciable change. Hugo Grove MD Abdomen/Pelvis CT 08/01/162302 Signed Impressions: Service Date/Time: Tuesday, August 02, 2016 01:06 - CONCLUSION: Dilated intrahepatic and extrahepatic ducts worse since the prior exam and the etiology is not evident. Hugo Grove MD Objective Remarks GENERAL: patient laying in bed, states she feels weak and nauseated. SKIN: Warm and dry. HEAD: Normocephalic. EYES: No scleral icterus. No injection or drainage. NECK: Supple, trachea midline. No JVD. CARDIOVASCULAR: Regular rate and rhythm without murmurs, gallops, or rubs. RESPIRATORY: Breath sounds equal bilaterally. No accessory muscle use. GASTROINTESTINAL: Abdomen soft, RUQ tenderness, nondistended. Nauseated MUSCULOSKELETAL: No cyanosis, or edema. BACK: Nontender without obvious deformity. No CVA tenderness. Procedures None Medications and IVs Current Medications Medications (Trade) Dose Ordered Sig/Bety Route Start Time Stop Time Status Last Admin (Xanax) 0.25 mg Q8H PRN PO 08/02/16 04:30 08/08/16 04:35 (Eliquis) 5 mg BID PO 08/02/16 09:00 Hold 08/08/16 08:37 (Lipitor) 20 mg HS PO 08/02/16 21:00 08/07/16 21:55 (Singulair) 10 mg HS PO 08/02/16 21:00 08/07/16 21:55 (Deltasone) 5 mg DAILY PO 08/02/16 09:00 08/08/16 08:36 (Zoloft) 50 mg DAILY PO 08/02/16 09:00 08/08/16 08:37 (Cardizem Cd) 120 mg DAILY PO 08/02/16 09:00 08/08/16 08:36 Patient Own Medication PT OWN MED: Aero... DAILY INH 08/02/16 09:00 Hold (NS Flush) 2 ml UNSCH PRN IV FLUSH 08/02/16 04:45 (NS Flush) 2 ml BID IV FLUSH 08/02/16 09:00 08/08/16 08:37 (Tylenol) 650 mg Q4H PRN PO 08/02/16 04:45 (Zofran Inj) 4 mg Q6H PRN IVP 08/02/16 04:45 08/08/16 13:55 (Tylenol) 650 mg Q6H PRN PO 08/02/16 04:45 08/04/16 04:55 (Imodium) 2 mg Q6H PRN PO 08/03/16 13:00 08/04/16 04:56 (Lactinex) 1 tab TID PO 08/03/16 13:00 08/08/16 11:45 A/P Problem List: (1) Nausea, vomiting, and diarrhea ICD Code: R11.2 Status: Acute (2) Dehydration ICD Code: E86.0 Status: Resolved (3) DAVID (acute kidney injury) ICD Code: N17.9 Status: Acute (4) UTI (urinary tract infection) ICD Code: N39.0 Status: Acute Assessment and Plan This is a 76-year-old female patient with past medical history which includes lung CA status post right pneumonectomy, breast CA status post lumpectomy and radiation treatment, atrial fibrillation rate controlled, COPD on chronic oxygen therapy at 3 L, hypertension, CAD status post cardiac stents x 1, chronic diastolic CHF echocardiogram April 2014 showed ejection fraction 55- 60%, umbilical hernia and peripheral arterial disease. Patient is a poor historian therefore information gathered from patient as well as prior computerized charting. Patient reports that she has had GI upset which started with liquid diarrhea possibly one week ago associated with nausea and occasional vomiting. Diarrhea with nausea and vomiting times one week. Improving -Supportive care -Negative stool studies to date -Discontinue ciprofloxacin IV and Flagyl IV . Start Lactinex and Lomotil -CT abdomen and pelvis reviewed and reveals: Dilated intrahepatic and extrahepatic ducts worse since the prior exam and the etiology is not evident. Mild ALT elevation which has normalized -Consulted GI, ERCP held due to eliquis, Discussed with GI, recommended hold eliquis and possible ERCP on Acute kidney injury likely related to dehydration and decreased by mouth intake Patient has received 2 L normal saline bolus in emergency department Avoid nephrotoxins- hold losartan, Lasix and spironolactone Resolved discontinue IV hydration. Recheck BMP in a.m. UTI- acute culture with contaminants -Discontinue Cipro Atrial fibrillation- chronic- rate controlled -Continue Cardizem 120 mg by mouth daily and Eliquis 5 mg by mouth twice a day, resume Eliquis post ERCP COPD- chronic -Continue prednisone 5 mg daily per outpatient regimen -Continue Tiotropium-Olodaterol daily -Continue supplemental oxygen to maintain oxygen saturation above 92% -Duo nebs as needed Patient with dilated intrahepatic and extrahepatic ducts-appears chronic -CT abdomen and pelvis reviewed and reveals: Dilated intrahepatic and extrahepatic ducts worse since the prior exam and the etiology is not evident. She has chronically elevated LFTs which is normalizing -Per GI, this is secondary to reservoir effect. Consider MRCP versus EUS if symptomatic or worsening liver function test -Heart healthy diet DVT prophylaxis: SCDs Discussed with Dr. Lou Discharge Planning Pending ERCP on Chelo Cervantes August 08, 2016 16:18
[2016-08-08 20:00] VITALS: BP 118/85; PULSE 106; RESP 17; TEMP 97.2; O2SAT 90
[2016-08-08] MEDS: ATORVASTATIN 20 MG TAB PO SCH (20:46)
[2016-08-08] MEDS: MONTELUKAST SODIUM 10 MG TAB PO SCH (20:46)
[2016-08-09] VITALS (8 sets, daily range): BP systolic 109–139; BP diastolic 60–96; PULSE 70–101; RESP 18–24; TEMP 96.7–97.9; O2SAT 95–98
[2016-08-09] MEDS: ONDANSETRON HCL 4 MG/2 ML VIAL IVP PRN (04:50)
[2016-08-09 05:13] LABS: AUTOMATED NEUTROPHIL # 5.5 TH/MM3 (1.8-7.7); BASOPHIL % 0.2 % (0.0-2.0); EOSINOPHIL # 0.1 TH/MM3 (0-0.4); EOSINOPHIL % 1.1 % (0.0-4.0); HEMATOCRIT 27.2 % (35.0-46.0); HEMO FLAGS DIFF FINAL; LYMPHOCYTE # 1.3 TH/MM3 (1.0-4.8); MEAN CELL VOLUME 92.3 FL (80.0-100.0); MEAN CORPUSCULAR HEMOGLOBIN 30.3 PG (27.0-34.0); MEAN CORPUSCULAR HGB CONC 32.9 % (32.0-36.0); NEUT % 63.7 % (16.0-70.0); PLATELET COUNT 235 TH/MM3 (150-450); RED BLOOD COUNT 2.95 MIL/MM3 (4.00-5.30); RED CELL DISTRIBUTION WIDTH 14.6 % (11.6-17.2); WHITE BLOOD COUNT 8.6 TH/MM3 (4.0-11.0)
[2016-08-09 05:37] LABS: ALT (GPT) 21 U/L (10-53); ANION GAP 1 MEQ/L (5-15); AST (GOT) 10 U/L (15-37); BLOOD UREA NITROGEN 11 MG/DL (7-18); CHLORIDE 98 MEQ/L (98-107); GLOMERULAR FILTRATION RATE 99 ML/MIN (>89); POTASSIUM 4.8 MEQ/L (3.5-5.1); SODIUM (NA) 140 MEQ/L (136-145)
[2016-08-09 05:38] LABS: ALKALINE PHOSPHATASE 129 U/L (45-117); TOTAL BILIRUBIN ADULT 0.2 MG/DL (0.2-1.0)
[2016-08-09] MEDS: ALPRAZolam 0.25 MG TAB PO PRN ×2 (07:20→22:20)
--- NOTE | 2016-08-09 08:23 | HHI.GIFU ---
GI Follow-up Note Consult Follow-up Subjective: Patient laying in bed comfortably, still c/o of episodic N/V, and abdominal pain. Objective: PHYSICAL EXAMINATION: Vitals signs stable No fever HEENT: Pupils round and reactive to light; normocephalic; atraumatic; no jaundice. NECK: Neck is supple, no JVD, no lymphadenopathy. CHEST: Chest is clear to auscultation, Mild wheezing CARDIAC: Irregular rate and rhythm with no murmur gallop or rubs. ABDOMEN: Soft, nondistended, nontender; no hepatosplenomegaly; bowel sounds are present in all four quadrants.obese abdomen EXTREMITIES: No clubbing, cyanosis, or edema. SKIN: Normal; no rash; no jaundice. MEDIA ASSISTANT: No focal deficits; alert and oriented times three. Available Data (labs, X- Rays, Procedures) : reviewed. ASSESSMENT/PLAN: 1. CBD dilation with filling defect 2. N/V and abdominal pain 3. elevated lfts 4. A-fib on eliquis on hold. 5. COPD on o2 6. CAD PLAN: 1. Will plan for EGD/EUS/ERCP tomorrow. (eliquis on hold since yesterday) 2. NPO after MN 3. Risk/benefits discussed with patient in detail. She is agreeable to procedures tomorrow. It was a pleasure seeing Elif Juarez Thank you for this consult. Entered by: Christie Buitrago MD August 09, 2016 08:23
[2016-08-09] MEDS: SERTRALINE HCL 50 MG TAB PO SCH (09:46)
[2016-08-09] MEDS: LACTOBACILLUS ACIDOPHILUS TAB PO SCH ×3 (09:46→17:02)
[2016-08-09] MEDS: DILTIAZEM-CD 120 MG CAP ER PO SCH (09:46)
[2016-08-09] MEDS: predniSONE 5 MG TAB PO SCH (09:47)
[2016-08-09] MEDS: SODIUM CHLORIDE 0.9% FLUSH 10 ML FLUSH IV FLUSH SCH ×2 (09:47→20:36)
--- NOTE | 2016-08-09 11:50 | HHI.PR ---
Subjective Remarks Follow up abdominal pain. Patient sitting in chair eating breakfast, still having intermittent nausea and vomiting episodes with RUQ pain associated. No diarrhea. States zofran does help. BM yesterday. Denies any chest pain, sob. Objective Vitals Vital Signs Date Time Temp Pulse Resp B/P Pulse Ox O2 Delivery O2 Flow Rate FiO2 08/09/16 08:27 95 Nasal Cannula 3.00 08/09/16 08:00 97.5 70 18 139/96 95 08/09/16 00:00 97.9 76 18 109/68 97 08/08/16 20:00 97.2 106 17 118/85 90 08/08/16 18:51 Nasal Cannula 3.00 08/08/16 16:00 97.4 107 18 127/67 97 08/08/16 12:00 96.9 95 17 116/75 98 I/O 08/08/16 08/08/16 08/08/16 08/09/16 08/09/16 08/09/16 07:00 15:00 23:00 07:00 15:00 23:00 Intake Total 480 ml 1082 ml 300 ml 120 ml Output Total 950 ml 800 ml 400 ml 300 ml Balance -470 ml 282 ml -100 ml -300 ml 120 ml Intake Oral 480 ml 1080 ml 300 ml 120 ml IV Total 2 ml Output Urine Total 950 ml 800 ml 400 ml 300 ml # Voids 1 # Bowel Movements 0 2 3 Result Diagram: 08/09/1644108/09/16441 Objective Remarks GENERAL: patient sitting in chair, in NAD. SKIN: Warm and dry. HEAD: Normocephalic. EYES: No scleral icterus. No injection or drainage. NECK: Supple, trachea midline. No JVD. CARDIOVASCULAR: Regular rate and rhythm without murmurs, gallops, or rubs. RESPIRATORY: Breath sounds equal bilaterally. No accessory muscle use. GASTROINTESTINAL: Abdomen soft, RUQ tenderness, nondistended. Nauseated MUSCULOSKELETAL: No cyanosis, or edema. BACK: Nontender without obvious deformity. No CVA tenderness. Procedures None Medications and IVs Current Medications Medications (Trade) Dose Ordered Sig/Bety Route Start Time Stop Time Status Last Admin (Xanax) 0.25 mg Q8H PRN PO 08/02/16 04:30 08/09/16 07:20 (Eliquis) 5 mg BID PO 08/02/16 09:00 Hold 08/08/16 08:37 (Lipitor) 20 mg HS PO 08/02/16 21:00 08/08/16 20:46 (Singulair) 10 mg HS PO 08/02/16 21:00 08/08/16 20:46 (Deltasone) 5 mg DAILY PO 08/02/16 09:00 08/09/16 09:47 (Zoloft) 50 mg DAILY PO 08/02/16 09:00 08/09/16 09:46 (Cardizem Cd) 120 mg DAILY PO 08/02/16 09:00 08/09/16 09:46 Patient Own Medication PT OWN MED: Aero... DAILY INH 08/02/16 09:00 Hold (NS Flush) 2 ml UNSCH PRN IV FLUSH 08/02/16 04:45 (NS Flush) 2 ml BID IV FLUSH 08/02/16 09:00 08/09/16 09:47 (Tylenol) 650 mg Q4H PRN PO 08/02/16 04:45 (Zofran Inj) 4 mg Q6H PRN IVP 08/02/16 04:45 08/09/16 04:50 (Tylenol) 650 mg Q6H PRN PO 08/02/16 04:45 08/04/16 04:55 (Imodium) 2 mg Q6H PRN PO 08/03/16 13:00 08/04/16 04:56 (Lactinex) 1 tab TID PO 08/03/16 13:00 08/09/16 09:46 A/P Problem List: (1) Nausea, vomiting, and diarrhea ICD Code: R11.2 Status: Acute (2) Dehydration ICD Code: E86.0 Status: Resolved (3) DAVID (acute kidney injury) ICD Code: N17.9 Status: Acute (4) UTI (urinary tract infection) ICD Code: N39.0 Status: Acute Assessment and Plan This is a 76-year-old female patient with past medical history which includes lung CA status post right pneumonectomy, breast CA status post lumpectomy and radiation treatment, atrial fibrillation rate controlled, COPD on chronic oxygen therapy at 3 L, hypertension, CAD status post cardiac stents x 1, chronic diastolic CHF echocardiogram April 2014 showed ejection fraction 55- 60%, umbilical hernia and peripheral arterial disease. Patient is a poor historian therefore information gathered from patient as well as prior computerized charting. Patient reports that she has had GI upset which started with liquid diarrhea possibly one week ago associated with nausea and occasional vomiting. Nausea and vomiting, diarrhea has resolved. -Supportive care -Negative stool studies to date -Discontinue ciprofloxacin IV and Flagyl IV . Start Lactinex and Lomotil -CT abdomen and pelvis reviewed and reveals: Dilated intrahepatic and extrahepatic ducts worse since the prior exam and the etiology is not evident. Mild ALT elevation which has normalized -Consulted GI, ERCP held due to eliquis, Discussed with GI, recommended hold eliquis and EGD/ERCP on -Cont antiemetics Acute kidney injury likely related to dehydration and decreased by mouth intake Patient has received 2 L normal saline bolus in emergency department Avoid nephrotoxins- hold losartan, Lasix and spironolactone Resolved discontinue IV hydration. Recheck BMP in a.m. UTI- acute culture with contaminants -Discontinue Cipro Atrial fibrillation- chronic- rate controlled -Continue Cardizem 120 mg by mouth daily and Eliquis 5 mg by mouth twice a day, resume Eliquis post ERCP/EGD COPD- chronic -Continue prednisone 5 mg daily per outpatient regimen -Continue Tiotropium-Olodaterol daily -Continue supplemental oxygen to maintain oxygen saturation above 92%, wean as tolerated -Duo nebs scheduled -Increasing bicarb on labs, abg ordered, incentive spirometer ordered Patient with dilated intrahepatic and extrahepatic ducts-appears chronic -CT abdomen and pelvis reviewed and reveals: Dilated intrahepatic and extrahepatic ducts worse since the prior exam and the etiology is not evident. She has chronically elevated LFTs which is normalizing -Per GI, this is secondary to reservoir effect. Consider MRCP versus EUS if symptomatic or worsening liver function test -Heart healthy diet DVT prophylaxis: SCDs Discharge Planning Pending ERCP on Chelo Cervantes August 09, 2016 11:50
[2016-08-09] MEDS: RESP: ALBUTEROL 2.5 MG/IPRATROPIUM 0.5 MG NEB (SCH) NEB ×2 (16:29→20:47)
[2016-08-09] MEDS: ATORVASTATIN 20 MG TAB PO SCH (20:35)
[2016-08-09] MEDS: MONTELUKAST SODIUM 10 MG TAB PO SCH (20:36)
[2016-08-10] VITALS (12 sets, daily range): BP systolic 101–134; BP diastolic 64–89; PULSE 87–116; RESP 18–22; TEMP 97.3–99; O2SAT 92–99
[2016-08-10] MEDS: RESP: ALBUTEROL 2.5 MG/IPRATROPIUM 0.5 MG NEB (SCH) NEB ×4 (03:27→20:42)
[2016-08-10] MEDS ORDERED: SODIUM CHLORID 0.9% 500 ML IV PRN (05:45)
[2016-08-10] MEDS ORDERED: LACTATED RINGER'S 1000 ML IV PRN (05:45)
[2016-08-10] MEDS ORDERED: CHLORHEXIDINE GLUCONATE 2 % 1 PACK (2 CLOTHS) TOPICAL PRN (05:45)
[2016-08-10] MEDS: TIOTROPIUM INH SCH (09:00)
[2016-08-10] MEDS: OLODATEROL INH SCH (09:00)
[2016-08-10] MEDS: DILTIAZEM-CD 120 MG CAP ER PO SCH (09:00)
[2016-08-10] MEDS: SERTRALINE HCL 50 MG TAB PO SCH (09:39)
[2016-08-10] MEDS: predniSONE 5 MG TAB PO SCH (09:39)
[2016-08-10] MEDS: LACTOBACILLUS ACIDOPHILUS TAB PO SCH ×3 (09:39→20:05)
[2016-08-10] MEDS: SODIUM CHLORIDE 0.9% FLUSH 10 ML FLUSH IV FLUSH SCH ×2 (09:40→20:05)
[2016-08-10 10:55] LABS: AUTOMATED NEUTROPHIL # 6.3 TH/MM3 (1.8-7.7); BASOPHIL % 0.2 % (0.0-2.0); EOSINOPHIL % 0.5 % (0.0-4.0); HEMATOCRIT 27.6 % (35.0-46.0); HEMO FLAGS DIFF FINAL; LYMPH % 13.4 % (9.0-44.0); LYMPHOCYTE # 1.2 TH/MM3 (1.0-4.8); MEAN CORPUSCULAR HEMOGLOBIN 30.9 PG (27.0-34.0); MONO % 16.4 % (0.0-8.0); NEUT % 69.5 % (16.0-70.0); PLATELET COUNT 251 TH/MM3 (150-450); RED BLOOD COUNT 3.03 MIL/MM3 (4.00-5.30)
[2016-08-10 11:50] LABS: BICARBONATE 38.6 MEQ/L (21.0-32.0); MAGNESIUM 2.2 MG/DL (1.5-2.5)
[2016-08-10 11:53] LABS: POTASSIUM 4.5 MEQ/L (3.5-5.1)
[2016-08-10] MEDS ORDERED: PROPOFOL 200 MG/20 ML AMP IV ONE (14:27)
--- NOTE | 2016-08-10 15:03 | GIPROC ---
[facility] [address] [facility]. [facility], [address] UPPER ENDOSCOPIC ULTRASOUND PROCEDURE REPORT EXAM DATE: 08/10/2016 PATIENT NAME: Elif Juarez MR#: [id number] BIRTHDATE: 1940 ATTENDING: Christie Canas MD ORDER: [id number] DEOILING MACHINE OPERATOR: Jorge Flores and Leonie Dover STATUS: inpatient INDICATIONS: The patient is a 76 yr old female here for a lower endoscopic ultrasound due to abdominal pain in upper right quadrant, abnormal liver function test, nausea and emesis, and cbd stones PROCEDURE PERFORMED: EGD with biopsy single or multiple Upper Endoscopic Ultrasound without FNA MEDICATIONS: Per Anesthesia and None. CONSENT: The patient understands the risks and benefits of the procedure and understands that these risks include, but are not limited to: sedation, allergic reaction, infection, perforation and/or bleeding. Alternative means of evaluation and treatment include, among others: physical exam, x-rays, and/or surgical intervention. The patient elects to proceed with this endoscopic procedure. medical equipment was checked for proper function. Hand hygiene and appropriate measures for infection prevention was taken. After the risks, benefits and alternatives of the procedure were thoroughly explained, Informed consent was verified, confirmed and timeout was successfully executed by the treatment team. The patient was then placed in the left, lateral, decubitus position and IV sedation was administered. Throughout the procedure, the patients blood pressure, pulse and oxygen saturations were monitored continuously. Under direct visualization, the Pentax [id number] was introduced through the mouth and advanced to the second portion of the duodenum. Water was used as necessary to provide an acoustic interface. The pulse, BP, and O2 saturation were monitored and documented by the physician and nursing staff throughout the procedure. Upon completion of the imaging, water was removed and the patient was then discharged to recovery in stable condition with the appropriate post procedure care. LIVER: There were no endosonographic abnormalities in the visualized portion of the liver. BILIARY SYSTEM: The CBD was dilated 9 mm. Several hyperechoic foci noted in the distal duct possible cbd stones. GALLBLADDER: The gallbladder was surgically absent. PANCREAS: The pancreatic parenchyma appeared fatty diffusely throughout the pancreas. Gastritis noted in the stomach, bx taken. Otherwise normal duodenum. LYMPH NODE: No abnormal lymph nodes were seen. ESOPHAGUS: The esophagus had no endosonographic abnormalities. AMPULLA: The ampulla had no endosonographic abnormalities. ADVERSE EVENTS: There were no complications IMPRESSIONS: 1. The CBD was dilated 9 mm 2. The gallbladder was surgically absent 3. The pancreatic parenchyma appeared fatty diffusely throughout the pancreas 4. Gastritis noted in the stomach, bx taken 5. Otherwise normal duodenum 6. No abnormal lymph nodes were seen 7. The esophagus had no endosonographic abnormalities RECOMMENDATIONS: ERCP Christie Canas MD eSigned: Christie Canas MD 08/10/2016 3:03 PM cc: PATIENT NAME: Elif Juarez MR#: [id number]
--- NOTE | 2016-08-10 15:35 | GIPROC ---
[facility] [address] [facility]. [facility], [address] ERCP PROCEDURE REPORT EXAM DATE: 08/10/2016 PATIENT NAME: Elif Juarez MR #: [id number] BIRTHDATE: 1940 ATTENDING: Christie Canas MD ORDER #: [id number] STICKER ON: Jorge Flores and Leonie Dover STATUS: inpatient INDICATIONS: The patient is a 76 yr old female here for an ERCP due to abdominal pain of suspected biliary origin, abnormal abdominal CT, and suspected or rule out bile duct stones PROCEDURE PERFORMED: ERCP with sphincterotomy/papillotomy ERCP with removal of calculus/calculi MEDICATIONS: Per Anesthesia and None. CONSENT: The patient understands the risks and benefits of the procedure and understands that these risks include, but are not limited to: sedation, allergic reaction, infection, perforation and/or bleeding. Alternative means of evaluation and treatment include, among others: physical exam, x-rays, and/or surgical intervention. The patient elects to proceed with this endoscopic procedure. medical equipment was checked for proper function. Hand hygiene and appropriate measures for infection prevention was taken. After the risks, benefits and alternatives of the procedure were thoroughly explained, Informed was verified, confirmed and timeout was successfully executed by the treatment team. With the patient in left semi-prone position, medications were administered intravenously.The Pentax [id number] was passed from the mouth into the esophagus and further advanced from the esophagus into the stomach. From stomach scope was directed to the second portion of the duodenum. Major papilla was aligned with the duodenoscope. The scope position was confirmed fluoroscopically. Rest of the findings/therapeutics are given below. The scope was then completely withdrawn from the patient and the procedure completed. The pulse, BP, and O2 saturation were monitored and documented by the physician and the nursing staff throughout the entire procedure. The patient was cared for as planned according to standard protocol. The patient was then discharged to recovery in stable condition and with appropriate post procedure care. The ampulla was located the second portion of the duodenum. The ampulla appeared normal. There was a dilation of the CBD up to 9mm. sludge noted in the distal duct With guidewire in the bile duct, a biliary sphincterotomy was performed using the sphincterotome. Contrast was injected into the bile duct and a cholangiogram obtained. Using a stone extraction balloon the bile duct was swept several times. Multiple stone fragments/sudge were removed from the bile duct successfully. ADVERSE EVENT: There were no complications. IMPRESSIONS: 1. Normal appearing ampulla 2. Sludge noted in the distal duct s/p sphincterotomy with balloon sweep and sluge extraction. RECOMMENDATIONS: 1. Liver enzymes 2. Resume diet as tolerated. REPEAT EXAM: Christie Canas MD eSigned: Christie Canas MD 08/10/2016 3:34 PM cc:
[2016-08-10] MEDS ORDERED: DO NOT ADM ANY ANTICOAGULANT DRUGS PRN (16:01)
[2016-08-10] MEDS ORDERED: RESP: IPRATROPIUM 0.5 MG/2.5 ML NEB ONE (16:02)
[2016-08-10] MEDS ORDERED: DILTIAZEM HCL 25 MG/5 ML VIAL ONE (16:10)
[2016-08-10] MEDS ORDERED: RESP: IPRATROPIUM 0.5 MG/2.5 ML NEB NEB ONE (16:20)
[2016-08-10] MEDS ORDERED: DILTIAZEM HCL 25 MG/5 ML VIAL IV SCH (16:20)
--- NOTE | 2016-08-10 16:23 | RADRPT ---
EXAM DATE/TIME: 08/10/2016 15:07 [facility] COMPARISON: MRCP W/O CONTRAST, August 04, 2016, 12:18. INDICATIONS : Obstruction FLUORO TIME: 4 minutes IMAGE COUNT: 5 CONTRAST: Instilled by Ordering Physician MEDICAL HISTORY : Carcinoma, lung. Chronic obstructive pulmonary disease. Hypertension. SURGICAL HISTORY : Cholecystectomy. Fusion, thoracic. Pneumonectomy. ENCOUNTER: Initial ACUITY: 4 - 6 days PAIN SCORE: Non-responsive. LOCATION: Abdomen FINDINGS: An ERCP was performed by the ordering physician. The images demonstrate diffuse ductal dilatation. CONCLUSION: ERCP as above. Luc Dickerson MD on August 10, 2016 at 16:21 Board Certified Radiologist. This report was verified electronically.
[2016-08-10] MEDS: DILTIAZEM 125 MG/NS 100 ML IV SCH ×4 (17:06→22:29)
[2016-08-10] MEDS: ALPRAZolam 0.25 MG TAB PO PRN (20:05)
[2016-08-10] MEDS: ATORVASTATIN 20 MG TAB PO SCH (20:05)
[2016-08-10] MEDS: MONTELUKAST SODIUM 10 MG TAB PO SCH (20:05)
[2016-08-10] MEDS: ONDANSETRON HCL 4 MG/2 ML VIAL IVP PRN (21:35)
[2016-08-11] VITALS (40 sets, daily range): BP systolic 88–266; BP diastolic 62–219; PULSE 101–125; RESP 15–54; TEMP 97.3–98.4; O2SAT 89–99
[2016-08-11 02:09] LABS: MRSA PCR POSITIVE (NEGATIVE); STAPH AUREUS PCR POSITIVE (NEGATIVE)
[2016-08-11] MEDS ORDERED: LORazepam 2 MG/ML VIAL IV PUSH ONE ×2 (02:45→14:15)
[2016-08-11] MEDS ORDERED: PANTOPRAZOLE SODIUM 40 MG VIAL IV PUSH ONE (03:00)
[2016-08-11] MEDS: ONDANSETRON HCL 4 MG/2 ML VIAL IVP PRN ×2 (03:14→10:33)
[2016-08-11] MEDS: RESP: ALBUTEROL 2.5 MG/IPRATROPIUM 0.5 MG NEB (SCH) NEB ×4 (03:39→20:54)
[2016-08-11 06:03] LABS: BASOPHIL % 0.2 % (0.0-2.0); HEMATOCRIT 28.5 % (35.0-46.0); HEMO FLAGS DIFF FINAL; LYMPH % 6.3 % (9.0-44.0); LYMPHOCYTE # 0.7 TH/MM3 (1.0-4.8); MEAN CELL VOLUME 91.4 FL (80.0-100.0); MEAN CORPUSCULAR HEMOGLOBIN 30.6 PG (27.0-34.0); MEAN CORPUSCULAR HGB CONC 33.4 % (32.0-36.0); MONO % 7.1 % (0.0-8.0); NEUT % 86.4 % (16.0-70.0); PLATELET COUNT 276 TH/MM3 (150-450); RED BLOOD COUNT 3.12 MIL/MM3 (4.00-5.30); RED CELL DISTRIBUTION WIDTH 15.1 % (11.6-17.2); WHITE BLOOD COUNT 11.6 TH/MM3 (4.0-11.0)
--- NOTE | 2016-08-11 06:06 | PD.CONS ---
HPI Service Critical Care Medicine Consult Requested By Primary Care Physician No Primary Care Physician History of Present Illness 76-year-old female patient with past medical history which includes lung CA status post right pneumonectomy, breast CA status post lumpectomy and radiation treatment, atrial fibrillation rate controlled, COPD on chronic oxygen therapy at 3 L, hypertension, CAD status post cardiac stents x 1, chronic diastolic CHF echocardiogram April 2014 showed ejection fraction 55-60%, umbilical hernia and peripheral arterial disease. Patient is admitted because has had GI upset which started with liquid diarrhea initially 10 or more bowel movements a day patient reports that she has had proximally 4 loose/liquid bowel movements per day as of lately as she has decreased her by mouth intake due to her GI upset. Diarrhea associated with increased flatus nausea and occasional vomiting. She also has had abdominal pain associated with the diarrhea. She rated the pain as an 8/10 in severity, denies black tarry stools or bright red blood per rectum. Per medical record she has lost possibly 6 pounds in the past one to 2 weeks. She is followed by gastroenterology for her GI complaints which is thought to be due to dilated bile duct without obstruction. Critical-care medicine was consulted for BiPAP management. Review of Systems ROS Unable to obtain patient in face mask BiPAP Past Family Social History Allergies: Coded Allergies: Aciphex (Verified Allergy, Severe, 08/01/16) Contrast Media (Verified Allergy, Severe, PASSED OUT, 08/01/16) Demerol (Verified Allergy, Severe, Hallucinations, 08/01/16) Fleets Phospho Soda (Verified Allergy, Severe, 08/01/16) Meperidine (Verified Allergy, Severe, 08/01/16) Morphine (Verified Allergy, Severe, 08/01/16) *MDRO Multi-Drug Resistant Organism (Verified Adverse Reaction, Unknown, ) E.coli ESBL (urine) - 04/2014 & 05/2015 / (sputum) - 05/2014 MRSA PCR Screen positive 02/18/15. Uncoded Allergies: PHOSPHOUS SODA (Allergy, Severe, 05/04/05) Past Medical History Lung cancer status post right pneumonectomy Breast cancer status post lumpectomy and radiation Chronic atrial fibrillation COPD on home O2 3 L nasal cannula Hypertension Coronary artery disease status post cardiac stents 1 Congestive heart failure. Diastolic dysfunction ejection fraction 55-60% Peripheral artery disease Past Surgical History Right pneumonectomy, breast lumpectomy, cholecystectomy, hysterectomy, cardiac catheterization with stent 1, bilateral cataract surgery, right knee surgery, ORIF T11 Reported Medications Reported Meds & Active Scripts Active Ondansetron Odt 4 Mg Tab 4 Mg SL Q6HR PRN 30 Days Reported Vitamin D3 (Cholecalciferol) 1,000 Unit Chew 1,000 Units CHEW DAILY Senior Vites (Multiple Vitamins W/ Minerals) 1 Tab Tab Zoar-3 Fish Oil/Vitamin (Fish Oil-Cholecalciferol) 1,000-1,000 Mg Cap 1 Cap PO DAILY Vitamin C (Ascorbic Acid) 500 Mg Cap 500 Mg PO Alprazolam 0.25 Mg Tab 0.25 Mg PO Q8H PRN Diltiazem ER 12 HR (Diltiazem HCl) 60 Mg Caper 60 Mg PO DAILY Stiolto Respimat Inh (Tiotropium-Olodaterol Inh) 2.5-2.5 Mcg/Act Aero 1 Puff INH DAILY Spironolactone 25 Mg Tab 25 Mg PO DAILY Pantoprazole (Pantoprazole Sodium) 40 Mg Tab 40 Mg PO DAILY Prednisone 5 Mg Tab 5 Mg PO DAILY Eliquis (Apixaban) 5 Mg Tab 5 Mg PO BID Diltiazem ER 24 HR (Diltiazem HCl) 120 Mg Caper 120 Mg PO DAILY Furosemide 40 Mg Tab 40 Mg PO DAILY Sertraline (Sertraline HCl) 50 Mg Tab 50 Mg PO DAILY Atorvastatin (Atorvastatin Calcium) 20 Mg Tab 20 Mg PO HS Losartan (Losartan Potassium) 50 Mg Tab 50 Mg PO DAILY Montelukast (Montelukast Sodium) 10 Mg Tab 10 Mg PO HS Active Ordered Medications Current Medications Medications (Trade) Dose Ordered Sig/Bety Route PRN Reason Start Time Stop Time Status Last Admin Dose Admin Apixaban (Eliquis) 5 mg BID PO 08/02/16 09:00 Hold 08/08/16 08:37 Atorvastatin Calcium (Lipitor) 20 mg HS PO 08/02/16 21:00 08/10/16 20:05 Montelukast Sodium (Singulair) 10 mg HS PO 08/02/16 21:00 08/10/16 20:05 Prednisone (Deltasone) 5 mg DAILY PO 08/02/16 09:00 08/10/16 09:39 Sertraline HCl (Zoloft) 50 mg DAILY PO 08/02/16 09:00 6/1/17 09:39 Diltiazem HCl (Cardizem Cd) 120 mg DAILY PO 08/02/16 09:00 08/09/16 09:46 Patient Own Medication PT OWN MED: Aero... DAILY INH 08/02/16 09:00 Sodium Chloride (NS Flush) 2 ml UNSCH PRN IV FLUSH FLUSH AFTER USING IV ACCESS 08/02/16 04:45 Sodium Chloride (NS Flush) 2 ml BID IV FLUSH 08/02/16 09:00 08/10/16 20:05 Acetaminophen (Tylenol) 650 mg Q4H PRN PO TEMP > 100.4 08/02/16 04:45 Ondansetron HCl (Zofran Inj) 4 mg Q6H PRN IVP NAUSEA OR VOMITING 08/02/16 04:45 08/11/16 03:14 Acetaminophen (Tylenol) 650 mg Q6H PRN PO PAIN SCALE 1 TO 2 08/02/16 04:45 08/04/16 04:55 Loperamide HCl (Imodium) 2 mg Q6H PRN PO DIARRHEA 08/03/16 13:00 08/04/16 04:56 Lactobacillus Acidophilus (Lactinex) 1 tab TID PO 08/03/16 13:00 08/10/16 20:05 Alprazolam 0.25 mg 0.25 mg HS PRN PO ANXIETY 08/09/16 21:00 08/10/16 20:05 Lactated Ringer's 1,000 ml @ 30 mls/hr Q24H PRN IV SEE LABEL COMMENTS 08/10/16 05:45 08/13/16 05:44 Sodium Chloride 500 ml @ 30 mls/hr [id number] PRN IV SEE LABEL COMMENTS 08/10/16 05:45 08/13/16 05:44 Diltiazem HCl/ Sodium Chloride (Cardizem Inj/NS Inj) 125 ml @ 0 mls/hr TITRATE IV 08/10/16 16:30 08/10/16 22:29 Miscellaneous Information ALL NURSING DEPARTME... UNSCH PRN .XX SEE LABEL COMMENTS 08/10/16 16:01 08/11/16 16:00 Family History Noncontributory Social History Lives at home with her has home health aides who come in 4 days a week Denies EtOH use tobacco use or illicit drug use Physical Exam Vital Signs Vital Signs Date Time Temp Pulse Resp B/P Pulse Ox O2 Delivery O2 Flow Rate FiO2 08/11/16 04:00 99 40 08/11/16 04:00 Bi-Pap 50 08/11/16 02:16 124 48 140/85 93 08/11/16 02:16 124 48 140/85 93 08/11/16 02:15 124 50 97 08/11/16 02:15 124 50 97 08/11/16 02:15 124 50 97 08/11/16 02:10 121 40 149/82 92 08/11/16 02:10 121 40 149/82 92 08/11/16 02:10 121 40 149/82 92 08/11/16 02:08 118 37 266/219 89 08/11/16 02:08 118 37 266/219 89 08/11/16 02:08 118 37 266/219 89 08/11/16 02:07 122 49 257/210 91 08/11/16 02:07 122 49 257/210 91 08/11/16 02:07 122 49 257/210 91 08/11/16 02:01 122 44 249/170 95 08/11/16 02:01 122 44 249/170 95 08/11/16 02:01 122 44 249/170 95 08/11/16 02:00 123 54 92 08/11/16 02:00 123 54 92 08/11/16 02:00 123 54 92 08/11/16 01:59 123 44 129/81 95 08/11/16 01:59 123 44 129/81 95 08/11/16 01:59 123 44 129/81 95 08/11/16 01:00 95 Venturi Mask 08/11/16 01:00 97 Venturi Mask 6.00 50 08/11/16 00:00 97.3 116 21 107/98 98 08/10/16 22:05 99 40 08/10/16 20:44 97 BiPAP 45 08/10/16 20:44 97 45 08/10/16 20:00 Bi-Pap 45 08/10/16 20:00 97.5 106 22 115/89 97 08/10/16 18:36 98.0 90 22 134/67 95 08/10/16 18:15 99 45 08/10/16 17:45 98.3 114 22 142/68 99 Bi-Pap 50 08/10/16 17:35 119 22 149/77 99 Bi-Pap 50 08/10/16 17:25 121 23 130/69 99 Bi-Pap 50 08/10/16 17:15 122 24 165/85 98 Bi-Pap 55 08/10/16 17:05 124 24 131/82 97 Bi-Pap 65 08/10/16 16:50 128 24 126/69 96 Bi-Pap 65 08/10/16 16:40 129 26 164/71 94 Bi-Pap 65 08/10/16 16:30 135 24 156/95 94 Bi-Pap 70 08/10/16 16:20 128 26 145/63 95 Bi-Pap 80 08/10/16 16:15 94 75 08/10/16 16:10 157 24 164/82 86 Aerosol Mask 08/10/16 16:02 97.9 158 28 201/116 86 Simple Mask 10 08/10/16 12:00 98.9 110 20 101/69 95 08/10/16 08:05 98 Nasal Cannula 3.00 08/10/16 08:00 99.0 106 18 109/67 92 Physical Exam GENERAL: Elderly woman facemask BiPAP SKIN: Warm and dry. HEAD: Normocephalic. EYES: No scleral icterus. No injection or drainage. NECK: Supple, trachea midline. No JVD or lymphadenopathy. CARDIOVASCULAR: Regular rate and rhythm without murmurs, gallops, or rubs. RESPIRATORY: Breath sounds equal bilaterally. No accessory muscle use. GASTROINTESTINAL: Abdomen soft, non-tender, nondistended. MUSCULOSKELETAL: No cyanosis, or edema. BACK: Nontender without obvious deformity. No CVA tenderness. EXTREMITIES: No clubbing cyanosis Laboratory Laboratory Tests Test 08/10/16 08/10/16 08/11/16 10:00 18:15 05:08 White Blood Count 9.0 11.6 Red Blood Count 3.03 3.12 Hemoglobin 9.4 9.5 Hematocrit 27.6 28.5 Mean Corpuscular Volume 91.0 91.4 Mean Corpuscular Hemoglobin 30.9 30.6 Mean Corpuscular Hemoglobin 34.0 33.4 Concent Red Cell Distribution Width 15.0 15.1 Platelet Count 251 276 Mean Platelet Volume 8.6 8.6 Neutrophils (%) (Auto) 69.5 86.4 Lymphocytes (%) (Auto) 13.4 6.3 Monocytes (%) (Auto) 16.4 7.1 Eosinophils (%) (Auto) 0.5 0.0 Basophils (%) (Auto) 0.2 0.2 Neutrophils # (Auto) 6.3 10.0 Lymphocytes # (Auto) 1.2 0.7 Monocytes # (Auto) 1.5 0.8 Eosinophils # (Auto) 0.0 0.0 Basophils # (Auto) 0.0 0.0 CBC Comment DIFF FINAL DIFF FINAL Differential Comment Sodium Level 138 Potassium Level 4.5 Chloride Level 95 Carbon Dioxide Level 38.6 Anion Gap 4 Blood Urea Nitrogen 9 Creatinine 0.61 Estimat Glomerular Filtration 95 Rate Random Glucose 118 Calcium Level 9.6 Phosphorus Level 3.4 Magnesium Level 2.2 Albumin 2.6 Nasal Screen MRSA (PCR) POSITIVE Staphylococcus aureus POSITIVE (PCR)(LAB) Result Diagram: 08/11/16 0508 08/10/16 1000 Assessment and Plan Assessment and Plan Chronic respiratory failure - Underlying COPD - Status post pneumonectomy - Face mask BiPAP - IV steroid - DuoNeb scheduled and when necessary - We'll consult pulmonology Diarrhea with nausea and vomiting - Improving - Supportive care - Management per GI Acute kidney injury likely - Due to dehydration - Improved - Avoid nephrotoxin - Monitor I's and O's and creatinine and electrolytes Atrial fibrillation - rate controlled - Cardizem 120 mg by mouth daily - Eliquis 5 mg by mouth twice a day DVT prophylaxis Eliquis Critical Care: The total critical care time was 35 minutes. Time to perform other separately billable procedures was not included in the critical care time. Dioni King MD Aug 11, 2016 06:06
[2016-08-11] MEDS: DILTIAZEM 125 MG/NS 100 ML IV SCH ×6 (06:10→20:31)
[2016-08-11 06:52] LABS: ALKALINE PHOSPHATASE 139 U/L (45-117); ALT (GPT) 23 U/L (10-53); ANION GAP 6 MEQ/L (5-15); AST (GOT) 18 U/L (15-37); BICARBONATE 38.1 MEQ/L (21.0-32.0); BLOOD UREA NITROGEN 17 MG/DL (7-18); CHLORIDE 96 MEQ/L (98-107); GLOMERULAR FILTRATION RATE 41 ML/MIN (>89); POTASSIUM 5.5 MEQ/L (3.5-5.1); SODIUM (NA) 140 MEQ/L (136-145); TOTAL BILIRUBIN ADULT 0.3 MG/DL (0.2-1.0)
--- NOTE | 2016-08-11 08:16 | MB ---
cc: ALFREDO IZAGUIRRE MD DATE OF CONSULTATION 08/10/[address] Baljit Lindquist. REASON FOR CONSULTATION Pulmonary management. HISTORY OF PRESENT ILLNESS Ms. Juarez is a 76-year-old female who is known to me from the office. She has a history of COPD. She is oxygen-dependent. She has CA of the lung status post right pneumectomy, history of CA of the breast. The patient has chronic diarrhea going on for a few months. She was seen by Dr. Tim Stout. She was also found to have a dilated common bile duct. The patient had endoscopy procedure. Initially she was briefly on the ventilator, extubated. She became short of breath, not able to maintain oxygen. She was put on BiPAP. Currently she is on BiPAP, maintaining good saturation but desaturates when she is taken off from the BiPAP. Has no significant wheezing, no cough or sputum production. No fever or chills. No night sweats. PAST MEDICAL HISTORY Significant for - 1. History of COPD. 2. Coronary disease status post stent placement. 3. Past history of congestive heart failure. 4. CA of the breast status post radiation treatment and lumpectomy. 5. History of right pneumonectomy. MEDICATIONS She is currently taking - 1. Diltiazem IV. 2. Albuterol/Atrovent nebulizer treatment. 3. Xanax 0.25 mg p.r.n. 4. Singulair 10 mg. 5. Lipitor 20 mg a day. 6. Imodium as needed. 7. Zoloft 50 mg a day. ALLERGIES SHE IS ALLERGIC TO ACIPHEX. CONTRAST MEDIA. DEMEROL. FLEET ENEMA. MORPHINE. SOCIAL HISTORY She has history of smoking in the past. No alcohol abuse. FAMILY HISTORY Noncontributory. REVIEW OF SYSTEMS She uses a motorized scooter, uses oxygen all the time. No headache or dizziness. No strok, no DVT or pulmonary embolism. PHYSICAL EXAMINATION GENERAL: An elderly female mild to moderately short of breath. She is on BiPAP. VITAL SIGNS: Blood pressure 134/67, heart rate 90, respirations 22, temperature 98. HEENT EXAMINATION: Pupils are equal and react to light. Oral mucosa and nasal mucosa normal. NECK: Supple. JVP not raised. CHEST: She has dull percussion, normal breath sounds on the right side. CV: S1 and S2 normal. ABDOMEN: Benign. EXTREMITIES: No edema. IMPRESSION 1. Respiratory insufficiency. 2. COPD. 3. CA of the lung status post right pneumonectomy. 4. CA of the breast status post lumpectomy and radiation treatment. 5. Coronary artery disease. 6. Diastolic congestive heart failure. PLAN 1. I discussed with the patient. We will maintain her on BiPap 12/5 PEEP, saturation to be greater than 90%. 2. Give her aerosol treatment. 3. She needs Xanax p.r.n. as needed 4. Continue Cardizem . Further treatment will depend on her course in the hospital. Thank you Dr. Baljit Lindquist, for this consultation. MD MARCELLA Sumner/SSB /8:31 PM /7:58 AM
[2016-08-11] MEDS: LACTOBACILLUS ACIDOPHILUS TAB PO SCH ×3 (08:53→17:06)
[2016-08-11] MEDS: SERTRALINE HCL 50 MG TAB PO SCH (08:53)
[2016-08-11] MEDS: SODIUM CHLORIDE 0.9% FLUSH 10 ML FLUSH IV FLUSH SCH ×2 (08:53→20:32)
[2016-08-11] MEDS: ALPRAZolam 0.25 MG TAB PO PRN ×2 (08:53→23:09)
[2016-08-11] MEDS: predniSONE 5 MG TAB PO SCH (08:53)
[2016-08-11] MEDS: TIOTROPIUM INH SCH (09:00)
[2016-08-11] MEDS: DILTIAZEM-CD 120 MG CAP ER PO SCH ×2 (09:00→18:00)
[2016-08-11] MEDS: OLODATEROL INH SCH (09:00)
--- NOTE | 2016-08-11 10:18 | HHI.GIFU ---
GI Follow-up Note Consult Follow-up Subjective: Patient laying in bed, no acute distress. No fever or chills. Pt weaned off bipap. Events of last night noted. Had respiratory distress post procedure.Transferred to ICU. Objective: PHYSICAL EXAMINATION: Vitals signs stable No fever HEENT: normocephalic; atraumatic; NECK: Neck is supple, no JVD, no lymphadenopathy. CHEST: no wheezing CARDIAC: Regular rate and rhythm with no murmur gallop or rubs. ABDOMEN: Soft, nondistended, nontender; no hepatosplenomegaly; bowel sounds are present in all four quadrants. EXTREMITIES: No clubbing, cyanosis, or edema. SKIN: Normal; no rash; no jaundice. [employer]: tremor Available Data (labs, X- Rays, Procedures) : reviewed. ASSESSMENT/PLAN: 1. Dilated CBD with sludge and stone. s/p ERCP with sphincterotomy sludge extraction. 2. episodic n/v improving 3. Respiratory insufficiency 4. Hx of lung cancer pneumonectomy 5. A Fib PLAN: 1. No objection to restarting anticoagulation 2. Monitor LFts 3. Symptomatic treatment. 4. No further gi work up planned. 5. Will follow periodically as needed. It was a pleasure seeing Elif Juarez Thank you for this consult. Entered by: Christie Buitrago MD Aug 11, 2016 10:18
[2016-08-11] MEDS ORDERED: DIGOXIN 0.5 MG/2 ML VIAL IV PUSH ONE (10:30)
--- NOTE | 2016-08-11 12:17 | RADRPT ---
EXAM DATE/TIME: 08/11/2016 11:24 [facility] COMPARISON: CHEST SINGLE AP, August 01, 2016, 23:11. INDICATIONS : Short of breath. MEDICAL HISTORY : Cardiovascular disease. Hypertension Chronic obstructive pulmonary disease. lung and breast cance r SURGICAL HISTORY : right pneumoectomy. ENCOUNTER: Initial ACUITY: 1 week PAIN SCORE: 0/10 LOCATION: Bilateral chest FINDINGS: A single view of the chest demonstrates persistent opacification of the right hemithorax in a patient with a reported history of pneumonectomy. Trachea and midline structures are displaced rightward felix racteristic of some volume loss. Heart size is difficult to determine due to the silhouetting of the adjacent consolidation. Left lung is grossly clear without effusion. Multilevel transpedicular fixati on of the thoracolumbar spine. Surgical clips in the left axilla characteristic of prior jahaira dissec tion. CONCLUSION: 1. Complete opacification of the right hemithorax with volume loss characteristic of a reported histo ry of pneumonectomy. 2. Left lung remains clear. 3. No change from prior. Harley Gomez MD on August 11, 2016 at 12:13 Board Certified Radiologist. This report was verified electronically.
[2016-08-11] MEDS ORDERED: LORazepam 2 MG/ML VIAL ONE (14:08)
[2016-08-11 16:27] LABS: ALT (GPT) 22 U/L (10-53); ANION GAP 5 MEQ/L (5-15); AST (GOT) 19 U/L (15-37); BICARBONATE 37.7 MEQ/L (21.0-32.0); BLOOD UREA NITROGEN 24 MG/DL (7-18); CHLORIDE 96 MEQ/L (98-107); GLOMERULAR FILTRATION RATE 40 ML/MIN (>89); POTASSIUM 4.9 MEQ/L (3.5-5.1); SODIUM (NA) 139 MEQ/L (136-145)
[2016-08-11 16:30] LABS: ALKALINE PHOSPHATASE 132 U/L (45-117); TOTAL BILIRUBIN ADULT 0.2 MG/DL (0.2-1.0)
[2016-08-11] MEDS ORDERED: FUROSEMIDE 40 MG/4 ML VIAL IV PUSH ONE (16:45)
[2016-08-11 17:15] LABS: BACTERIA, URINE MOD /hpf; BLOOD, URINE NEG (NEG); GLUCOSE,URINE TRACE mg/dL (NEG); GRANULAR CAST, URINE 18 /lpf; HYALINE CAST, URINE 54 /lpf (RARE); KETONE, URINE TRACE mg/dL (NEG); MUCUS URINE FEW /lpf (OCC); NITRITE,URINE NEG (NEG); PH, URINE 5.5 (5.0-8.5); SQUAMOUS EPITHELIAL CELL URINE 3 /hpf (0-5); URINE COLOR YELLOW (YELLW/STRAW)
[2016-08-11 17:17] LABS: COMMENT (UR) CATH-CULTURE IND; CULTURE IF INDICATED CATH CULTURE IND
--- NOTE | 2016-08-11 18:16 | HHI.PR ---
Subjective Remarks 76 YO WF with COPD,Resp insuff, on BIPAP Feels betetr Anxious, requires xanax frequentally No CP Denies N,V Objective Vital Signs Vital Signs Date Time Temp Pulse Resp B/P Pulse Ox O2 Delivery O2 Flow Rate FiO2 08/11/16 18:00 124 08/11/16 16:00 117 08/11/16 16:00 Bi-Pap 45 08/11/16 16:00 98.4 117 15 145/106 97 08/11/16 14:24 92 45 08/11/16 14:00 122 08/11/16 12:00 98.4 119 19 98/70 94 08/11/16 12:00 Venturi Mask 6.00 50 08/11/16 12:00 119 08/11/16 10:00 125 08/11/16 09:48 99 Venturi Mask 6.00 50 08/11/16 08:00 Bi-Pap 45 08/11/16 08:00 97.8 117 16 132/71 95 08/11/16 08:00 117 08/11/16 05:30 111 18 98 08/11/16 05:15 114 19 123/80 99 08/11/16 05:00 109 20 135/89 98 08/11/16 04:45 106 27 136/89 97 08/11/16 04:30 101 22 114/81 94 08/11/16 04:15 115 22 126/86 92 08/11/16 04:07 119 24 137/90 92 08/11/16 04:06 119 21 135/91 90 08/11/16 04:01 120 54 168/125 96 08/11/16 04:00 97.6 08/11/16 04:00 99 40 08/11/16 04:00 121 43 96 08/11/16 04:00 Bi-Pap 50 08/11/16 03:46 118 36 176/90 98 08/11/16 03:45 117 27 99 08/11/16 03:31 115 48 166/77 96 08/11/16 03:30 110 44 94 08/11/16 03:18 116 26 121/77 95 08/11/16 03:15 119 43 97 08/11/16 03:00 119 33 141/69 93 08/11/16 02:45 121 33 167/70 95 08/11/16 02:30 118 29 155/98 95 08/11/16 02:16 124 48 140/85 93 08/11/16 02:16 124 48 140/85 93 08/11/16 02:15 124 50 97 08/11/16 02:15 124 50 97 08/11/16 02:15 124 50 97 08/11/16 02:10 121 40 149/82 92 08/11/16 02:10 121 40 149/82 92 08/11/16 02:10 121 40 149/82 92 08/11/16 02:08 118 37 266/219 89 08/11/16 02:08 118 37 266/219 89 08/11/16 02:08 118 37 266/219 89 08/11/16 02:07 122 49 257/210 91 08/11/16 02:07 122 49 257/210 91 08/11/16 02:07 122 49 257/210 91 08/11/16 02:01 122 44 249/170 95 08/11/16 02:01 122 44 249/170 95 08/11/16 02:01 122 44 249/170 95 08/11/16 02:00 123 54 92 08/11/16 02:00 123 54 92 08/11/16 02:00 123 54 92 08/11/16 01:59 123 44 129/81 95 08/11/16 01:59 123 44 129/81 95 08/11/16 01:59 123 44 129/81 95 08/11/16 01:00 95 Venturi Mask 08/11/16 01:00 97 Venturi Mask 6.00 50 08/11/16 00:00 97.3 116 21 107/98 98 08/10/16 22:05 99 40 08/10/16 20:44 97 BiPAP 45 08/10/16 20:44 97 45 08/10/16 20:00 Bi-Pap 45 08/10/16 20:00 97.5 106 22 115/89 97 08/10/16 18:36 98.0 90 22 134/67 95 08/10/16 18:15 99 45 I/O 08/10/16 08/10/16 08/10/16 08/11/16 08/11/16 08/11/16 06:59 14:59 22:59 06:59 14:59 22:59 Intake Total 0 ml 569 ml 128 ml 406 ml Output Total 300 ml 125 ml Balance -300 ml 569 ml 128 ml 281 ml Intake Oral 0 ml 60 ml 240 ml IV Total 109 ml 128 ml 166 ml Other 400 ml Output Urine Total 300 ml 125 ml # Voids 3 2 2 1 # Bowel Movements 0 Result Diagram: 08/11/16 0508 08/11/16 1507 Objective Remarks GENERAL: MBMN WF, on BIPAP SKIN: Warm and dry. HEAD: Normocephalic. EYES: No scleral icterus. No injection or drainage. NECK: Supple, trachea midline. No JVD or lymphadenopathy. CARDIOVASCULAR: Regular rate and rhythm without murmurs, gallops, or rubs. RESPIRATORY: No accessory muscle use. No BS right GASTROINTESTINAL: Abdomen soft, non-tender, nondistended. MUSCULOSKELETAL: No cyanosis, or edema. BACK: Nontender without obvious deformity. No CVA tenderness. A/P Assessment and Plan Resp insuff COPD ca lung s/p Right Pneumonectomy Ca breast, s/p Lumpectomy CAD PLAN: Cont BIPAP Will give her break and try VM Aerosol nebs Will start PO diet if able to tolerate Kb Whitt MD Aug 11, 2016 18:16
[2016-08-11] MEDS: MONTELUKAST SODIUM 10 MG TAB PO SCH (20:31)
[2016-08-11] MEDS: ATORVASTATIN 20 MG TAB PO SCH (20:31)
[2016-08-11] MEDS: LORazepam 2 MG/ML VIAL IV PUSH PRN (23:57)
[2016-08-12] VITALS (18 sets, daily range): BP systolic 104–141; BP diastolic 57–96; PULSE 109–140; RESP 23–26; TEMP 98–98.9; O2SAT 90–100
[2016-08-12] MEDS: RESP: ALBUTEROL 2.5 MG/IPRATROPIUM 0.5 MG NEB (SCH) NEB ×4 (04:33→20:49)
[2016-08-12] MEDS: SODIUM CHLORIDE 0.9% FLUSH 10 ML FLUSH IV FLUSH SCH ×2 (07:36→21:31)
[2016-08-12] MEDS: DILTIAZEM-CD 120 MG CAP ER PO SCH (07:36)
[2016-08-12] MEDS: predniSONE 5 MG TAB PO SCH (07:36)
[2016-08-12] MEDS: SERTRALINE HCL 50 MG TAB PO SCH (07:36)
[2016-08-12] MEDS: LACTOBACILLUS ACIDOPHILUS TAB PO SCH ×3 (07:36→17:23)
[2016-08-12] MEDS: ALPRAZolam 0.25 MG TAB PO PRN (07:37)
[2016-08-12] MEDS: LORazepam 2 MG/ML VIAL IV PUSH PRN ×3 (08:41→21:32)
[2016-08-12] MEDS: APIXABAN 5 MG TABLET PO SCH ×2 (08:41→21:31)
[2016-08-12] MEDS: OLODATEROL INH SCH (09:00)
[2016-08-12] MEDS: TIOTROPIUM INH SCH (09:00)
[2016-08-12] MEDS ORDERED: SODIUM CHLOR 0.9% 1000 ML INJ 500 ML IV SCH (11:30)
[2016-08-12] MEDS ORDERED: DIGOXIN 0.5 MG/2 ML VIAL IV PUSH ONE (11:30)
--- NOTE | 2016-08-12 11:40 | HHI.CCPN ---
Subjective Remarks/Hospital Course 76-year-old female patient with past medical history which includes lung CA status post right pneumonectomy, breast CA status post lumpectomy and radiation treatment, atrial fibrillation, COPD on chronic oxygen therapy at 3 L, hypertension, CAD status post cardiac stents x 1, chronic diastolic CHF echocardiogram April 2014 showed ejection fraction 55-60%, umbilical hernia and peripheral arterial disease. Patient is admitted because has had GI upset which started with liquid diarrhea initially 10 or more bowel movements a day patient reports that she has had proximally 4 loose/liquid bowel movements per day as of lately as she has decreased her by mouth intake due to her GI upset. Diarrhea associated with increased flatus nausea and occasional vomiting. She also has had abdominal pain associated with the diarrhea. She rated the pain as an 8/10 in severity, denies black tarry stools or bright red blood per rectum. Per medical record she has lost possibly 6 pounds in the past one to 2 weeks. She is followed by gastroenterology for her GI complaints which is thought to be due to dilated bile duct without obstruction. Critical-care medicine was consulted for COPD exacerbation and BiPAP management. SUBJ 08/12: Currently remains off BiPAP. Remains in atrial fibrillation with rapid ventricular response. On 20 mg per hour Cardizem. I will give a loading dose of digoxin 0.5 mg IV and then continue digoxin 0.125 mg by mouth daily from tomorrow. Will also hold by mouth prednisone and give IV Solu-Medrol 100 milligram IV 1 and 40 every 8 hours Objective Vital Signs Date Time Temp Pulse Resp B/P Pulse Ox O2 Delivery O2 Flow Rate FiO2 08/12/16 08:06 93 Venturi Mask 6.00 50 08/12/16 08:00 98.6 134 24 131/57 Intake and Output 08/11/16 08/11/16 08/12/16 08:00 16:00 00:00 Intake Total 128 ml 406 ml 85 ml Output Total 125 ml 500 ml Balance 128 ml 281 ml -415 ml Result Diagram: 08/11/16 0508 08/11/16 1507 Objective Remarks GENERAL: Elderly woman now on facemask SKIN: Warm and dry. HEAD: Normocephalic. EYES: No scleral icterus. No injection or drainage. NECK: Supple, trachea midline. No JVD or lymphadenopathy. CARDIOVASCULAR: Regular rate and rhythm without murmurs, gallops, or rubs. RESPIRATORY: Coarse breath sounds bilateral upper lung olivares, and whole of left lung. Mild expiratory wheezing GASTROINTESTINAL: Abdomen soft, non-tender, nondistended. MUSCULOSKELETAL: No cyanosis, or edema. BACK: Nontender without obvious deformity. No CVA tenderness. EXTREMITIES: No clubbing cyanosis Procedures None A/P Assessment and Plan Neuro: Anxiety disorder -Xanax 0.25 mg by mouth every 6 hours scheduled -Ativan when necessary for anxiety RESP: Acute on chronic Chronic respiratory failure Acute COPD exacerbation - Underlying COPD, now with exacerbation - Status post pneumonectomy for lung CA - BiPAP as needed - Hold oral prednisone, Start IV steroid Solu-Medrol 100 mg 1 and 40 every 8 hours - DuoNeb scheduled and when necessary - Pulmonology Dr. Whitt - Add Symbicort and Spiriva CVS: Atrial fibrillation with RVR - Continue Cardizem IV at 20 mg/h and Cardizem 120 mg by mouth daily - Add digoxin 0.5 mg 1 and from tomorrow 0.125 mg by mouth daily - Eliquis 5 mg by mouth twice a day GI: Dilated CBD with sludge and stone. s/p ERCP with sphincterotomy sludge extraction. - s/p sphincterotomy with balloon sweep and sludge extraction 08/10/16 - Improving clinically - Supportive care - Management per GI Dr. Canas : Acute kidney injury - Creatinine remains at 1.3. Continue careful hydration - Urine output is adequate - Avoid nephrotoxin - Monitor I's and O's and creatinine and electrolytes ENDO: - Electrolyte replacement per protocol ID/HEME: - Monitor for infection - Monitor CBC CMP coags DVT prophylaxis Eliquis Critical Care: The total critical care time was 35 minutes. Time to perform other separately billable procedures was not included in the critical care time. Debbie Mac MD Aug 12, 2016 11:40
[2016-08-12] MEDS: RESP: ALBUTEROL 2.5 MG/IPRATROPIUM 0.5 MG NEB (PRN) NEB (12:01)
[2016-08-12] MEDS: DILTIAZEM 125 MG/NS 100 ML IV SCH ×4 (12:05→18:58)
[2016-08-12] MEDS ORDERED: methylPREDNISolone SOD SUCC 125 MG/2 ML VIAL IV PUSH ONE (12:30)
[2016-08-12 13:20] LABS: ALKALINE PHOSPHATASE 125 U/L (45-117); ALT (GPT) 23 U/L (10-53); ANION GAP 6 MEQ/L (5-15); AST (GOT) 16 U/L (15-37); BICARBONATE 37.8 MEQ/L (21.0-32.0); BLOOD UREA NITROGEN 27 MG/DL (7-18); CHLORIDE 95 MEQ/L (98-107); GLOMERULAR FILTRATION RATE 52 ML/MIN (>89); MAGNESIUM 2.3 MG/DL (1.5-2.5); POTASSIUM 4.2 MEQ/L (3.5-5.1); SODIUM (NA) 139 MEQ/L (136-145); TOTAL BILIRUBIN ADULT 0.3 MG/DL (0.2-1.0)
[2016-08-12] MEDS: BUDESONIDE-FORMOTEROL 160/4.5 MCG INHALER INH SCH ×2 (13:22→21:33)
[2016-08-12] MEDS: TIOTROPIUM BROMIDE 18 MCG INH INH SCH (13:22)
--- NOTE | 2016-08-12 13:36 | HHI.PR ---
Subjective Remarks 76 YO WF with COPD,Resp insuff, on BIPAP Feels betetr Anxious, requires xanax frequentally No CP Denies N,V Mild congestion, no fever Objective Vital Signs Vital Signs Date Time Temp Pulse Resp B/P Pulse Ox O2 Delivery O2 Flow Rate FiO2 08/12/16 12:17 94 Venturi Mask 6.00 50 08/12/16 12:02 100 Venturi Mask 6.00 40 08/12/16 08:06 93 Venturi Mask 6.00 50 08/12/16 08:00 94 Venturi Mask 40 08/12/16 08:00 98.6 134 24 131/57 94 08/12/16 08:00 129 08/12/16 06:00 129 08/12/16 04:00 115 08/12/16 04:00 98.2 115 26 106/63 94 08/12/16 04:00 94 Venturi Mask 40 08/12/16 02:00 122 08/12/16 00:00 120 08/12/16 00:00 97 Venturi Mask 40 08/12/16 00:00 98.0 120 23 104/62 97 08/11/16 22:00 123 08/11/16 20:54 96 Venturi Mask 6.00 40 08/11/16 20:00 94 Venturi Mask 40 08/11/16 20:00 98.2 114 19 88/62 94 08/11/16 20:00 114 08/11/16 18:00 124 08/11/16 16:00 117 08/11/16 16:00 Bi-Pap 45 08/11/16 16:00 98.4 117 15 145/106 97 08/11/16 14:24 92 45 08/11/16 14:00 122 I/O 08/11/16 08/11/16 08/11/16 08/12/16 08/12/16 08/12/16 07:00 15:00 23:00 07:00 15:00 23:00 Intake Total 128 ml 406 ml 85 ml 37 ml Output Total 125 ml 500 ml 200 ml Balance 128 ml 281 ml -415 ml -163 ml Intake Oral 240 ml IV Total 128 ml 166 ml 85 ml 37 ml Output Urine Total 125 ml 500 ml 200 ml # Voids 2 1 # Bowel Movements 0 0 Result Diagram: 08/11/16 0508 08/12/16 1227 Objective Remarks GENERAL: MBMN WF, on BIPAP SKIN: Warm and dry. HEAD: Normocephalic. EYES: No scleral icterus. No injection or drainage. NECK: Supple, trachea midline. No JVD or lymphadenopathy. CARDIOVASCULAR: Regular rate and rhythm without murmurs, gallops, or rubs. RESPIRATORY: No accessory muscle use. No BS right GASTROINTESTINAL: Abdomen soft, non-tender, nondistended. MUSCULOSKELETAL: No cyanosis, or edema. BACK: Nontender without obvious deformity. No CVA tenderness. A/P Assessment and Plan Resp insuff COPD ca lung s/p Right Pneumonectomy Ca breast, s/p Lumpectomy CAD PLAN: Cont BIPAP Will give her break and try VM Aerosol nebs Cont Abx Xanax prn for anxiety. Kb Whitt MD Aug 12, 2016 13:36
[2016-08-12] MEDS: ALPRAZolam 0.25 MG TAB PO SCH ×2 (14:46→18:03)
[2016-08-12] MEDS: ATORVASTATIN 20 MG TAB PO SCH (21:31)
[2016-08-12] MEDS: methylPREDNISolone SOD SUCC 40 MG/1 ML VIAL IV PUSH SCH (21:31)
[2016-08-12] MEDS: MONTELUKAST SODIUM 10 MG TAB PO SCH (21:31)
[2016-08-13] VITALS (19 sets, daily range): BP systolic 94–140; BP diastolic 59–82; PULSE 75–108; RESP 15–43; TEMP 97.4–99.2; O2SAT 94–99
[2016-08-13] MEDS: DILTIAZEM 125 MG/NS 100 ML IV SCH ×4 (00:44→17:57)
[2016-08-13] MEDS: RESP: ALBUTEROL 2.5 MG/IPRATROPIUM 0.5 MG NEB (SCH) NEB ×4 (03:36→21:08)
[2016-08-13] MEDS: ALPRAZolam 0.25 MG TAB PO SCH ×5 (06:00→23:46)
[2016-08-13] MEDS: methylPREDNISolone SOD SUCC 40 MG/1 ML VIAL IV PUSH SCH ×3 (06:26→21:28)
[2016-08-13 06:32] LABS: BASOPHIL % 0.1 % (0.0-2.0); HEMATOCRIT 27.3 % (35.0-46.0); HEMO FLAGS DIFF FINAL; LYMPH % 2.5 % (9.0-44.0); LYMPHOCYTE # 0.4 TH/MM3 (1.0-4.8); MEAN CELL VOLUME 91.1 FL (80.0-100.0); MEAN CORPUSCULAR HEMOGLOBIN 30.6 PG (27.0-34.0); MEAN CORPUSCULAR HGB CONC 33.6 % (32.0-36.0); MONO % 4.7 % (0.0-8.0); NEUT % 92.7 % (16.0-70.0); PLATELET COUNT 258 TH/MM3 (150-450); RED CELL DISTRIBUTION WIDTH 15.1 % (11.6-17.2); WHITE BLOOD COUNT 15.1 TH/MM3 (4.0-11.0)
[2016-08-13 06:59] LABS: ALT (GPT) 21 U/L (10-53); ANION GAP 5 MEQ/L (5-15); AST (GOT) 17 U/L (15-37); BICARBONATE 36.5 MEQ/L (21.0-32.0); BLOOD UREA NITROGEN 31 MG/DL (7-18); CHLORIDE 98 MEQ/L (98-107); GLOMERULAR FILTRATION RATE 61 ML/MIN (>89); MAGNESIUM 2.6 MG/DL (1.5-2.5); POTASSIUM 4.5 MEQ/L (3.5-5.1); SODIUM (NA) 139 MEQ/L (136-145)
[2016-08-13 07:00] LABS: ALKALINE PHOSPHATASE 118 U/L (45-117)
[2016-08-13] MEDS: BUDESONIDE-FORMOTEROL 160/4.5 MCG INHALER INH SCH ×2 (08:34→21:27)
[2016-08-13] MEDS: TIOTROPIUM BROMIDE 18 MCG INH INH SCH (08:34)
[2016-08-13] MEDS: SODIUM CHLORIDE 0.9% FLUSH 10 ML FLUSH IV FLUSH SCH ×2 (08:35→21:27)
[2016-08-13] MEDS: APIXABAN 5 MG TABLET PO SCH ×2 (08:35→21:28)
[2016-08-13] MEDS: DILTIAZEM-CD 120 MG CAP ER PO SCH (08:35)
[2016-08-13] MEDS: DIGOXIN 0.125 MG TAB PO SCH (08:36)
[2016-08-13] MEDS: SERTRALINE HCL 50 MG TAB PO SCH (08:36)
[2016-08-13] MEDS: LACTOBACILLUS ACIDOPHILUS TAB PO SCH ×3 (08:36→17:54)
[2016-08-13] MEDS: OLODATEROL INH SCH (08:37)
[2016-08-13] MEDS: TIOTROPIUM INH SCH (08:37)
--- NOTE | 2016-08-13 11:58 | HHI.CCPN ---
Subjective Remarks/Hospital Course 76-year-old female patient with past medical history which includes lung CA status post right pneumonectomy, breast CA status post lumpectomy and radiation treatment, atrial fibrillation, COPD on chronic oxygen therapy at 3 L, hypertension, CAD status post cardiac stents x 1, chronic diastolic CHF echocardiogram April 2014 showed ejection fraction 55-60%, umbilical hernia and peripheral arterial disease. Patient is admitted because has had GI upset which started with liquid diarrhea initially 10 or more bowel movements a day patient reports that she has had proximally 4 loose/liquid bowel movements per day as of lately as she has decreased her by mouth intake due to her GI upset. Diarrhea associated with increased flatus nausea and occasional vomiting. She also has had abdominal pain associated with the diarrhea. She rated the pain as an 8/10 in severity, denies black tarry stools or bright red blood per rectum. Per medical record she has lost possibly 6 pounds in the past one to 2 weeks. She is followed by gastroenterology for her GI complaints which is thought to be due to dilated bile duct without obstruction. Critical-care medicine was consulted for COPD exacerbation and BiPAP management. SUBJ 08/12: Currently remains off BiPAP. Remains in atrial fibrillation with rapid ventricular response. On 20 mg per hour Cardizem. I will give a loading dose of digoxin 0.5 mg IV and then continue digoxin 0.125 mg by mouth daily from tomorrow. Will also hold by mouth prednisone and give IV Solu-Medrol 100 milligram IV 1 and 40 every 8 hours 08/13: Currently on BiPAP, heart rate is better controlled in 70s. Breathing more comfortably. IV Solu-Medrol started yesterday Objective Vital Signs Date Time Temp Pulse Resp B/P Pulse Ox O2 Delivery O2 Flow Rate FiO2 08/13/16 08:00 99.1 81 20 116/63 99 08/13/16 08:00 Bi-Pap 45 08/12/16 20:50 6.00 Intake and Output 08/12/16 08/12/16 08/13/16 08:00 16:00 00:00 Intake Total 37 ml 254 ml 425 ml Output Total 200 ml 150 ml 150 ml Balance -163 ml 104 ml 275 ml Result Diagram: 08/13/16 0524 08/13/16523 Objective Remarks GENERAL: Elderly woman on BiPAP SKIN: Warm and dry. HEAD: Normocephalic. EYES: No scleral icterus. No injection or drainage. NECK: Supple, trachea midline. No JVD or lymphadenopathy. CARDIOVASCULAR: Atrial fibrillation with rapid ventricular response. No murmurs RESPIRATORY: Coarse breath sounds bilateral upper lung olivares, and entire left lung. Mild expiratory wheezing GASTROINTESTINAL: Abdomen soft, non-tender, nondistended. MUSCULOSKELETAL: No cyanosis, or edema. BACK: Nontender without obvious deformity. No CVA tenderness. EXTREMITIES: No clubbing cyanosis NEURO: AOx3. No FND Procedures None A/P Assessment and Plan Neuro: Anxiety disorder -Xanax 0.25 mg by mouth every 6 hours scheduled -Ativan when necessary for anxiety RESP: Acute on chronic respiratory failure Acute COPD exacerbation - Underlying COPD, now with exacerbation - Status post pneumonectomy for lung CA - BiPAP as needed - IV Solu-Medrol 100 mg 1 on 08/12 and 40 every 8 hours - DuoNeb scheduled and when necessary - Pulmonology Dr. Whitt - Symbicort and Spiriva CVS: Atrial fibrillation with RVR - Continue Cardizem IV at 5 mg/h and Cardizem 120 mg by mouth daily. Wean to DC IV cardizem - Digoxin 0.5 mg 1 08/12, continue 0.125 mg by mouth daily - Eliquis 5 mg by mouth twice a day GI: Dilated CBD with sludge and stone. s/p ERCP with sphincterotomy sludge extraction. - s/p sphincterotomy with balloon sweep and sludge extraction 08/10/16 - Supportive care - Management per GI Dr. Canas : Acute kidney injury - Creatinine remains at 1.3. Continue careful hydration, now improving - Urine output is on the low side - Avoid nephrotoxin - Monitor I's and O's and creatinine and electrolytes ENDO: - Electrolyte replacement per protocol ID/HEME: Leukocytosis - Send blood culture urine culture and sputum culture - Empiric Zosyn to cover for biliary tract - Monitor for infection - Monitor CBC CMP coags DVT prophylaxis Eliquis Critical Care: The total critical care time was 35 minutes. Time to perform other separately billable procedures was not included in the critical care time. Debbie Mac MD Aug 13, 2016 11:58
[2016-08-13] MEDS: LORazepam 2 MG/ML VIAL IV PUSH PRN ×2 (12:45→23:46)
[2016-08-13] MEDS: PIPERACIL-TAZO 3.375 GM PREMIX 50 ML IV SCH ×3 (12:46→23:46)
[2016-08-13] MEDS: RESP: ALBUTEROL 2.5 MG/IPRATROPIUM 0.5 MG NEB (PRN) NEB (12:48)
--- NOTE | 2016-08-13 14:30 | HHI.PR ---
Subjective Remarks 76 YO WF with COPD,Resp insuff, on BIPAP Feels betetr Anxious, requires xanax frequentally No CP Denies N,V Mild congestion, no fever Using BIPAP at BS Objective Vital Signs Vital Signs Date Time Temp Pulse Resp B/P Pulse Ox O2 Delivery O2 Flow Rate FiO2 08/13/16 12:43 98 40 08/13/16 12:00 99 Bi-Pap 45 08/13/16 12:00 99.2 107 15 140/81 99 08/13/16 12:00 107 08/13/16 08:00 99.1 81 20 116/63 99 08/13/16 08:00 81 08/13/16 08:00 99 Bi-Pap 45 08/13/16 07:44 98 45 08/13/16 06:00 77 08/13/16 04:14 96 45 08/13/16 04:00 92 08/13/16 04:00 98.6 92 43 116/82 94 08/13/16 04:00 94 Bi-Pap 45 08/13/16 02:00 86 08/13/16 01:13 98 45 08/13/16 00:00 108 08/13/16 00:00 98 Bi-Pap 45 08/13/16 00:00 98.4 108 26 110/68 98 08/12/16 22:37 95 45 08/12/16 22:00 109 08/12/16 21:00 98 Bi-Pap 45 08/12/16 20:52 96 45 08/12/16 20:50 90 Venturi Mask 6.00 50 08/12/16 20:00 98.8 123 26 119/70 96 08/12/16 20:00 96 Venturi Mask 40 08/12/16 20:00 123 08/12/16 18:00 110 08/12/16 16:00 98.9 122 26 141/96 94 08/12/16 16:00 99 Venturi Mask 40 08/12/16 16:00 119 I/O 08/12/16 08/12/16 08/12/16 08/13/16 08/13/16 08/13/16 07:00 15:00 23:00 07:00 15:00 23:00 Intake Total 37 ml 254 ml 425 ml 330 ml Output Total 200 ml 150 ml 150 ml 150 ml Balance -163 ml 104 ml 275 ml 180 ml Intake Oral 60 ml IV Total 37 ml 254 ml 365 ml 330 ml Output Urine Total 200 ml 150 ml 150 ml 150 ml # Bowel Movements 0 1 0 Result Diagram: 08/13/1652308/13/16523 Objective Remarks GENERAL: MBMN WF, on BIPAP SKIN: Warm and dry. HEAD: Normocephalic. EYES: No scleral icterus. No injection or drainage. NECK: Supple, trachea midline. No JVD or lymphadenopathy. CARDIOVASCULAR: Regular rate and rhythm without murmurs, gallops, or rubs. RESPIRATORY: No accessory muscle use. No BS right GASTROINTESTINAL: Abdomen soft, non-tender, nondistended. MUSCULOSKELETAL: No cyanosis, or edema. BACK: Nontender without obvious deformity. No CVA tenderness. A/P Assessment and Plan Resp insuff COPD ca lung s/p Right Pneumonectomy Ca breast, s/p Lumpectomy CAD PLAN: Cont BIPAP Will give her break and try VM Aerosol nebs Cont Abx Xanax prn for anxiety. Start clear liquids Kb Whitt MD Aug 13, 2016 14:30
--- NOTE | 2016-08-13 16:14 | EC ---
Study Study Date:08/13/2016 STUDY CONCLUSIONS SUMMARY - Procedure narrative: Transthoracic echocardiography. Image quality was poor. The study was technically limited. Scanning was performed from the parasternal, apical, and subcostal acoustic windows. - Left ventricle: The cavity size was normal. Wall thickness was at the upper limits of normal. Systolic function was mildly to moderately reduced. The estimated ejection fraction was in the range of 40% to 45%. Diffuse hypokinesis. Possible hypokinesis of the apical myocardium. - Aortic valve: Valve area: 1.42cm^2(VTI). Valve area: 1.58cm^2 (Vmax). - Left atrium: The atrium was moderately dilated. - Right atrium: The atrium was moderately dilated. - Pulmonary arteries: Systolic pressure was moderately increased. PA peak pressure: 55mm Hg (S). If LV function is below 40, please consider prescribing an ACEI or ARB or document rationale for non-use. PROCEDURE DATA STUDY STATUS: Elective. Procedure: Transthoracic echocardiography. Image quality was poor. The study was technically limited. Scanning was performed from the parasternal, apical, and subcostal acoustic windows. Study completion: The patient tolerated the procedure well. Transthoracic echocardiography. M-mode, complete 2D, complete spectral Doppler, and color Doppler. Patient status: Inpatient. CARDIAC ANATOMY LEFT VENTRICLE: Poorly visualized. The cavity size was normal. Wall thickness was at the upper limits of normal. Systolic function was mildly to moderately reduced. The estimated ejection fraction was in the range of 40% to 45%. Diffuse hypokinesis. Regional wall motion abnormalities: Possible hypokinesis of the apical myocardium. AORTIC VALVE: Poorly visualized. Trileaflet; normal thickness leaflets. Doppler: Transvalvular velocity was within the normal range. There was no stenosis. No regurgitation. Valve area: 1.42cm^2(VTI). Valve area: 1.58cm^2 (Vmax). Mean gradient: 6mm Hg (S). Peak gradient: 13mm Hg (S). AORTA: Aortic root: The aortic root was normal in size. MITRAL VALVE: Poorly visualized. Structurally normal valve. Doppler: Transvalvular velocity was within the normal range. There was no evidence for stenosis. Trace regurgitation. LEFT ATRIUM: The atrium was moderately dilated. RIGHT VENTRICLE: The cavity size was normal. Wall thickness was normal. PULMONIC VALVE: Poorly visualized. Doppler: Transvalvular velocity was within the normal range. There was no evidence for stenosis. No regurgitation. TRICUSPID VALVE: Poorly visualized. Structurally normal valve. Doppler: Transvalvular velocity was within the normal range. Trace regurgitation. PULMONARY ARTERY: The main pulmonary artery was normal-sized. Systolic pressure was moderately increased. RIGHT ATRIUM: The atrium was moderately dilated. PERICARDIUM: There was no pericardial effusion. SYSTEMIC VEINS: Inferior vena cava: The vessel was normal in size. BASIC MEASUREMENTS ADULT Normal Left ventricle LV internal dimension, ED, chordal level, *42.3 mm 43-52 PLAX LV internal dimension, ES, chordal level, 35 mm 23-38 PLAX Fractional shortening, chordal level, PLAX *17 % >29 LV posterior wall thickness, ED 10.5 mm IVS/LVPW ratio, ED 1.29 <1.3 Ventricular septum Septal thickness, ED 13.5 mm Right ventricle RV internal dimension, ED, PLAX 25.5 mm 19-38 BASIC MEASUREMENTS ADULT Normal Aorta Root diameter, ED 35 mm 20-37 Left atrium Anterior-posterior dimension, ES *50 mm 19-40 LA/aortic root ratio 1.43 DOPPLER MEASUREMENTS ADULT Normal Main pulmonary artery Pressure, S *55 mm Hg =30 Aortic valve Peak velocity, S 182 cm/s Mean velocity, S 111 cm/s VTI, S 28.7 cm Mean gradient, S 6 mm Hg Peak gradient, S 13 mm Hg Valve area, VTI 1.42 cm^2 Valve area, Vmax 1.58 cm^2 Tricuspid valve Regurgitant peak velocity 337 cm/s Peak RV-RA gradient, S 45 mm Hg Maximal regurgitant velocity 337 cm/s Systemic veins Estimated CVP 10 mm Hg Right ventricle RV pressure, S *55 mm Hg <30 LEGEND: Mean values are shown as u=mean value. Asterisk (*) menjivar values outside specified normal range. Prepared and signed by Rudolph Packer [id number]
[2016-08-13] MEDS: ATORVASTATIN 20 MG TAB PO SCH (21:28)
[2016-08-13] MEDS: MONTELUKAST SODIUM 10 MG TAB PO SCH (21:28)
[2016-08-14] VITALS (19 sets, daily range): BP systolic 94–126; BP diastolic 57–85; PULSE 74–125; RESP 14–36; TEMP 97.6–98.9; O2SAT 90–100
[2016-08-14] MEDS: RESP: ALBUTEROL 2.5 MG/IPRATROPIUM 0.5 MG NEB (SCH) NEB ×4 (03:44→21:34)
[2016-08-14] MEDS: ALPRAZolam 0.25 MG TAB PO SCH ×3 (06:00→17:30)
[2016-08-14] MEDS: PIPERACIL-TAZO 3.375 GM PREMIX 50 ML IV SCH ×3 (06:08→17:30)
[2016-08-14] MEDS: methylPREDNISolone SOD SUCC 40 MG/1 ML VIAL IV PUSH SCH ×2 (06:08→20:25)
[2016-08-14] MEDS: INSULIN NovoLIN REGULAR SUPPLEMENTAL SCALE SQ SCH ×3 (08:00→20:27)
--- NOTE | 2016-08-14 08:05 | HHI.CCPN ---
Subjective Remarks/Hospital Course 76-year-old female patient with past medical history which includes lung CA status post right pneumonectomy, breast CA status post lumpectomy and radiation treatment, atrial fibrillation, COPD on chronic oxygen therapy at 3 L, hypertension, CAD status post cardiac stents x 1, chronic diastolic CHF echocardiogram April 2014 showed ejection fraction 55-60%, umbilical hernia and peripheral arterial disease. Patient is admitted because has had GI upset which started with liquid diarrhea initially 10 or more bowel movements a day patient reports that she has had proximally 4 loose/liquid bowel movements per day as of lately as she has decreased her by mouth intake due to her GI upset. Diarrhea associated with increased flatus nausea and occasional vomiting. She also has had abdominal pain associated with the diarrhea. She rated the pain as an 8/10 in severity, denies black tarry stools or bright red blood per rectum. Per medical record she has lost possibly 6 pounds in the past one to 2 weeks. She is followed by gastroenterology for her GI complaints which is thought to be due to dilated bile duct without obstruction. Critical-care medicine was consulted for COPD exacerbation and BiPAP management. SUBJ 08/12: Currently remains off BiPAP. Remains in atrial fibrillation with rapid ventricular response. On 20 mg per hour Cardizem. I will give a loading dose of digoxin 0.5 mg IV and then continue digoxin 0.125 mg by mouth daily from tomorrow. Will also hold by mouth prednisone and give IV Solu-Medrol 100 milligram IV 1 and 40 every 8 hours 08/13: Currently on BiPAP, heart rate is better controlled in 70s. Breathing more comfortably. IV Solu-Medrol started yesterday 08/14 No events overnight. Ob BIPAP 24/07 with 40% FIO2. Afebrile. On Cardizem drip 5mg/hr.. Objective Vital Signs Date Time Temp Pulse Resp B/P Pulse Ox O2 Delivery O2 Flow Rate FiO2 08/14/16 06:00 74 08/14/16 04:16 98 40 08/14/16 04:00 98.0 25 94/57 08/14/16 04:00 Bi-Pap 08/12/16 20:50 6.00 Intake and Output 08/13/16 08/13/16 08/14/16 08:00 16:00 00:00 Intake Total 330 ml 692 ml 440 ml Output Total 150 ml 240 ml 175 ml Balance 180 ml 452 ml 265 ml Result Diagram: 08/13/1624 08/13/1624 Imaging Last Impressions Chest X-Ray 08/11/16 0000 Signed Impressions: Service Date/Time: Thursday, August 11, 2016 11:24 - CONCLUSION: 1. Complete opacification of the right hemithorax with volume loss characteristic of a reported history of pneumonectomy. 2. Left lung remains clear. 3. No change from prior. Harley Gomez MD GI Procedure 08/10/16 0000 Signed Impressions: Service Date/Time: August 15:07 - CONCLUSION: ERCP as above. Luc Dickerson MD Cholangiopancreatography MRI 08/04/16 0000 Signed Impressions: Service Date/Time: Thursday, August 04, 2016 12:18 - CONCLUSION: 1. Status post cholecystectomy. 2. Intra-and extrahepatic biliary ductal dilatation. 3. There is slight filling defect along the distal common bile duct, ERCP and biopsy may be warranted. Francesco Mirza MD Abdomen/Pelvis CT 08/01/16 2303 Signed Impressions: Service Date/Time: Tuesday, August 02, 2016 01:06 - CONCLUSION: Dilated intrahepatic and extrahepatic ducts worse since the prior exam and the etiology is not evident. Hugo Grvoe MD Objective Remarks GENERAL: Patient is 76 yo lying in bed in NAD on BIPAP. SKIN: Warm and dry. HEAD: Normocephalic. EYES: No scleral icterus. No injection or drainage. NECK: Supple, trachea midline. No JVD or lymphadenopathy. CARDIOVASCULAR: Regular rate and rhythm without murmurs, gallops, or rubs. RESPIRATORY: Breath sounds equal bilaterally. No accessory muscle use. GASTROINTESTINAL: Abdomen soft, non-tender, nondistended. MUSCULOSKELETAL: No cyanosis, or edema. Neuro: Awake and alert Procedures None A/P Assessment and Plan Neuro: Anxiety disorder -Xanax 0.25 mg by mouth every 6 hours scheduled -Ativan when necessary for anxiety -Monitor neuro status RESP: Acute on chronic respiratory failure Acute COPD exacerbation - Status post pneumonectomy for lung CA -Continue with oxygen keep sat >92% - Decrease IV Solu-Medrol 40 mg every Q12 - DuoNeb scheduled and when necessary -NIPPV PRN for resp distress - Pulmonology Dr. Whitt - Symbicort, Spiriva and Singular 10mg qhs CVS: Atrial fibrillation with RVR - On PO Cardizem CD 120 mg by mouth daily. Wean to DC IV cardizem - Digoxin 0.125 mg by mouth daily . Check Dig level. - Eliquis 5 mg by mouth twice a day -Monitor HR and BP keep MAP>65 mmHg -Echo showed EF 40-45% GI: Dilated CBD with sludge and stone. s/p ERCP with sphincterotomy sludge extraction. - s/p sphincterotomy with balloon sweep and sludge extraction 08/10/16 - Supportive care - Management per GI Dr. Canas : Acute kidney injury - Monitor renal function, I's and O's and electrolytes replacement per protocol. ENDO: - SSI with accuchecks for glycemic control ID/HEME: Leukocytosis - Continue with abx ( Zosyn) monitor for signs of infections ( Fever, WBC) - Monitor CBC CMP coags DVT prophylaxis Eliquis Will sign off and transfer acre to [facility]PAS Level 3 Terra Toro MD Aug 14, 2016 08:04
[2016-08-14] MEDS ORDERED: GLUCAGON 1 MG/ML VIAL OTHER PRN (08:15)
[2016-08-14] MEDS ORDERED: DEXTROSE 50% IN WATER 50 ML VIAL(D50) IV PRN (08:15)
[2016-08-14] MEDS: LACTOBACILLUS ACIDOPHILUS TAB PO SCH ×3 (08:33→17:29)
[2016-08-14] MEDS: DILTIAZEM-CD 120 MG CAP ER PO SCH (08:33)
[2016-08-14] MEDS: SERTRALINE HCL 50 MG TAB PO SCH (08:33)
[2016-08-14] MEDS: TIOTROPIUM BROMIDE 18 MCG INH INH SCH (08:34)
[2016-08-14] MEDS: TIOTROPIUM INH SCH (08:37)
[2016-08-14] MEDS: OLODATEROL INH SCH (08:37)
[2016-08-14] MEDS: BUDESONIDE-FORMOTEROL 160/4.5 MCG INHALER INH SCH ×2 (08:37→20:25)
[2016-08-14] MEDS: SODIUM CHLORIDE 0.9% FLUSH 10 ML FLUSH IV FLUSH SCH ×2 (08:38→20:25)
[2016-08-14 09:17] LABS: AUTOMATED NEUTROPHIL # 14.6 TH/MM3 (1.8-7.7); BASOPHIL % 0.1 % (0.0-2.0); HEMATOCRIT 29.6 % (35.0-46.0); LYMPH % 2.7 % (9.0-44.0); LYMPHOCYTE # 0.4 TH/MM3 (1.0-4.8); MEAN CELL VOLUME 92.2 FL (80.0-100.0); MEAN CORPUSCULAR HEMOGLOBIN 30.4 PG (27.0-34.0); MONO % 4.9 % (0.0-8.0); NEUT % 92.3 % (16.0-70.0); PLATELET COUNT 258 TH/MM3 (150-450); RED BLOOD COUNT 3.22 MIL/MM3 (4.00-5.30); RED CELL DISTRIBUTION WIDTH 15.4 % (11.6-17.2); WHITE BLOOD COUNT 15.8 TH/MM3 (4.0-11.0)
[2016-08-14 09:18] LABS: HEMO FLAGS AUTO DIFF
[2016-08-14 09:33] LABS: ANION GAP 7 MEQ/L (5-15); AST (GOT) 23 U/L (15-37); BICARBONATE 35.2 MEQ/L (21.0-32.0); BLOOD UREA NITROGEN 33 MG/DL (7-18); CHLORIDE 100 MEQ/L (98-107); GLOMERULAR FILTRATION RATE 68 ML/MIN (>89); POTASSIUM 4.7 MEQ/L (3.5-5.1); SODIUM (NA) 142 MEQ/L (136-145)
[2016-08-14 09:35] LABS: ALT (GPT) 26 U/L (10-53)
[2016-08-14 09:48] LABS: ALKALINE PHOSPHATASE 101 U/L (45-117); DIGOXIN 1.7 NG/ML (0.8-2.0); TOTAL BILIRUBIN ADULT 0.7 MG/DL (0.2-1.0)
[2016-08-14] MEDS: APIXABAN 5 MG TABLET PO SCH ×2 (10:06→20:24)
[2016-08-14] MEDS: DIGOXIN 0.125 MG TAB PO SCH (10:06)
[2016-08-14] MEDS: LORazepam 2 MG/ML VIAL IV PUSH PRN ×4 (10:07→21:20)
[2016-08-14 10:09] LABS: BANDS 15 % (0-6); NEUTROPHIL # MANUAL DIFF 15.5 TH/MM3 (1.8-7.7); POLYS (SEG NEUTROPHILS) 83 % (16-70); WBC DIFF SAMPLE 100
[2016-08-14 10:12] LABS: ACANTHOCYTES OCC (NORMAL); KERATOCYTES OCC (NORMAL); PLATELET ESTIMATE SMEAR NORMAL (NORMAL); PLATELET MORPHOLOGY NORMAL (NORMAL)
[2016-08-14 10:13] LABS: SCAN/DIFF FINAL DIFF MANUAL; TOXIC VACUOLATION PRESENT (NONE SEEN)
--- NOTE | 2016-08-14 10:19 | MB ---
cc: DESTINY RODAS MD, SINOJ VODA, JAN MD DATE OF CONSULTATION 08/12/16 HISTORY OF PRESENT ILLNESS Thank you for asking us see this 76-year-old white female who is well-known to me. She has a long history of atrial fibrillation. She has a prior history of stent and angioplasty mid-LAD at [facility] in March 2014. She also has a history of hyperlipidemia, gastroesophageal reflux disease, hypertension. She was admitted at this time with nausea and vomiting and she underwent a sphincterotomy by GI and, following the sphincterotomy, she had to have intubation. She has been extubated now and she was noted to have atrial fibrillation with a rapid ventricular response with respiratory distress. She had a dilated common bile duct with sludge and stone. Her nausea is improving. She has also respiratory insufficiency and history of lung cancer with a pneumonectomy. She has been started on intravenous diltiazem which has her heart rate to an acceptable level. Her oral diltiazem was stopped but will be restarted. PAST MEDICAL HISTORY 1. Atrial fibrillation on Eliquis 2. Hypertension, 3. Hyperlipidemia, 4. Carotid stenosis 5. Gastroesophageal reflux disease 6. Arthralgias 7. Colon polyps 8. Lung cancer, 9. Peptic ulcer disease, 10. Tobacco abuse 11. Obesity 12. Peripheral vascular disease PAST SURGICAL HISTORY 1. History of heart cath with angioplasty and stenting to mid LAD 03/22/2014. 2. Right knee replacement, 05/04/15. 4. Cholecystectomy. 5. Cholecystectomy 6. Carpal tunnel release 7. Hysterectomy 8. Tonsillectomy FAMILY HISTORY None. SOCIAL HISTORY Nonsmoker, non-drinker. Lives at home with her . ALLERGIES DEMEROL MORPHINE SULFATE MEDICATIONS 1. Eliquis. 2. Lipitor. 3. Singulair. 4. Prednisone. 5. Zoloft. 6. Diltiazem. 7. Loperamide. 8. Sodium chloride. 9. Intravenous Diltiazem as well. PHYSICAL EXAMINATION VITAL SIGNS: Pulse is 124, blood pressure 145/105, respirations 15. EYES: No xanthelasma. Mouth shows no cyanosis or pallor. NECK: No jugular venous distention CARDIAC: Two heart sounds, no murmurs. CHEST: Clear. ABDOMEN: Soft. No hepatosplenomegaly. EXTREMITIES: No evidence of edema. NEUROLOGIC: Grossly intact. SKIN: Grossly intact. LABORATORY DATA White count 11.6, hemoglobin 9.5, platelet count 217,000. Sodium 139, potassium 4.9, creatinine 1.3, BUN 24, alk phos 132. ASSESSMENT/PLAN At this point, she appears to be stable from a cardiac perspective. We will restart her Eliquis as this has been okayed by her GI doctor. We will also see her on a p.r.n. basis at your request. The plan would be to transition her back to p.o. Diltiazem. If necessary, one could use a higher dose. Thank you for asking us to see this very pleasant lady. Destiny Rodas MD, FRCP,[facility]/ /6:09 PM /10:11 AM CHASE
[2016-08-14 11:37] LABS: BACTERIA, URINE MANY /hpf; BLOOD, URINE LARGE (NEG); COMMENT (UR) CATH-CULTURE IND; CULTURE IF INDICATED CATH CULTURE IND; GLUCOSE,URINE NEG (NEG); KETONE, URINE 10 mg/dL (NEG); NITRITE,URINE NEG (NEG); PH, URINE 5.5 (5.0-8.5); SQUAMOUS EPITHELIAL CELL URINE 9 /hpf (0-5); URIC ACID CRYSTALS, URINE MOD /hpf
[2016-08-14 11:38] LABS: URINE COLOR DARK-RED (YELLW/STRAW)
[2016-08-14] MEDS: ONDANSETRON HCL 4 MG/2 ML VIAL IVP PRN (13:25)
--- NOTE | 2016-08-14 18:29 | HHI.PR ---
Subjective Remarks 76 YO WF with COPD,Resp insuff, on BIPAP Feels betetr Anxious, requires xanax frequentally No CP Denies N,V Mild congestion, no fever On 6 lnc has congestion, hoarseness Objective Vital Signs Vital Signs Date Time Temp Pulse Resp B/P Pulse Ox O2 Delivery O2 Flow Rate FiO2 08/14/16 18:00 117 08/14/16 17:00 125 08/14/16 16:00 98.6 120 27 126/69 99 08/14/16 16:00 120 08/14/16 16:00 100 Nasal Cannula 4.00 08/14/16 14:00 109 08/14/16 12:00 100 Nasal Cannula 6.00 08/14/16 12:00 107 08/14/16 12:00 107 08/14/16 12:00 98.1 107 19 109/73 100 08/14/16 11:00 95 08/14/16 10:00 101 08/14/16 09:05 96 40 08/14/16 09:00 106 08/14/16 08:00 97.6 76 14 99/65 99 08/14/16 08:00 76 08/14/16 08:00 Bi-Pap 40 08/14/16 06:00 74 08/14/16 04:16 98 40 08/14/16 04:00 98.0 75 25 94/57 99 08/14/16 04:00 75 08/14/16 04:00 Bi-Pap 40 08/14/16 02:00 84 08/14/16 01:10 96 40 08/14/16 00:00 96 08/14/16 00:00 97.9 96 36 105/85 96 08/14/16 00:00 96 Bi-Pap 40 08/13/16 22:18 98 40 08/13/16 22:00 100 08/13/16 21:12 98 40 08/13/16 21:10 98 BiPAP 40 08/13/16 20:00 99 Bi-Pap 40 08/13/16 20:00 97.4 85 20 106/59 99 08/13/16 20:00 85 I/O 08/13/16 08/13/16 08/13/16 08/14/16 08/14/16 08/14/16 07:00 15:00 23:00 07:00 15:00 23:00 Intake Total 330 ml 692 ml 440 ml 300 ml 375 ml Output Total 150 ml 240 ml 175 ml 250 ml 200 ml Balance 180 ml 452 ml 265 ml 50 ml 175 ml Intake Oral 200 ml 240 ml IV Total 330 ml 392 ml 240 ml 300 ml 135 ml Other 300 ml Output Urine Total 150 ml 240 ml 175 ml 250 ml 200 ml # Bowel Movements 0 0 0 Result Diagram: 08/14/1683908/14/16 0840 Objective Remarks GENERAL: MBMN WF, on BIPAP SKIN: Warm and dry. HEAD: Normocephalic. EYES: No scleral icterus. No injection or drainage. NECK: Supple, trachea midline. No JVD or lymphadenopathy. CARDIOVASCULAR: Regular rate and rhythm without murmurs, gallops, or rubs. RESPIRATORY: No accessory muscle use. No BS right GASTROINTESTINAL: Abdomen soft, non-tender, nondistended. MUSCULOSKELETAL: No cyanosis, or edema. BACK: Nontender without obvious deformity. No CVA tenderness. A/P Assessment and Plan Resp insuff COPD ca lung s/p Right Pneumonectomy Ca breast, s/p Lumpectomy CAD PLAN: BIPAP at night and prn Supplement 02 with 6 LNC Aerosol nebs Cont Abx Xanax prn for anxiety. Thickened liq per [employer]PER[employer] Kb Whitt MD Aug 14, 2016 18:29
[2016-08-14] MEDS: MONTELUKAST SODIUM 10 MG TAB PO SCH (20:25)
[2016-08-14] MEDS: ATORVASTATIN 20 MG TAB PO SCH (20:25)
[2016-08-15] VITALS (18 sets, daily range): BP systolic 98–142; BP diastolic 65–98; PULSE 88–125; RESP 12–37; TEMP 97.9–98.9; O2SAT 90–100
[2016-08-15] MEDS: ALPRAZolam 0.25 MG TAB PO SCH ×4 (01:30→17:57)
[2016-08-15] MEDS: PIPERACIL-TAZO 3.375 GM PREMIX 50 ML IV SCH ×4 (01:30→17:57)
[2016-08-15] MEDS: INSULIN NovoLIN REGULAR SUPPLEMENTAL SCALE SQ SCH ×4 (01:31→19:45)
[2016-08-15] MEDS: RESP: ALBUTEROL 2.5 MG/IPRATROPIUM 0.5 MG NEB (SCH) NEB ×4 (03:35→21:15)
[2016-08-15 06:30] LABS: BASOPHIL % 0.1 % (0.0-2.0); HEMATOCRIT 28.2 % (35.0-46.0); HEMO FLAGS DIFF FINAL; LYMPH % 1.8 % (9.0-44.0); LYMPHOCYTE # 0.3 TH/MM3 (1.0-4.8); MEAN CELL VOLUME 93.4 FL (80.0-100.0); MEAN CORPUSCULAR HEMOGLOBIN 30.4 PG (27.0-34.0); MEAN CORPUSCULAR HGB CONC 32.5 % (32.0-36.0); NEUT % 92.1 % (16.0-70.0); PLATELET COUNT 265 TH/MM3 (150-450); RED BLOOD COUNT 3.02 MIL/MM3 (4.00-5.30); RED CELL DISTRIBUTION WIDTH 15.4 % (11.6-17.2); WHITE BLOOD COUNT 15.2 TH/MM3 (4.0-11.0)
[2016-08-15 06:52] LABS: ANION GAP 5 MEQ/L (5-15); AST (GOT) 27 U/L (15-37); BICARBONATE 36.9 MEQ/L (21.0-32.0); BLOOD UREA NITROGEN 36 MG/DL (7-18); CHLORIDE 100 MEQ/L (98-107); GLOMERULAR FILTRATION RATE 62 ML/MIN (>89); POTASSIUM 4.3 MEQ/L (3.5-5.1); SODIUM (NA) 142 MEQ/L (136-145)
[2016-08-15 06:54] LABS: ALT (GPT) 31 U/L (10-53)
[2016-08-15 06:56] LABS: ALKALINE PHOSPHATASE 97 U/L (45-117); TOTAL BILIRUBIN ADULT 0.4 MG/DL (0.2-1.0)
[2016-08-15] MEDS: OLODATEROL INH SCH (09:00)
[2016-08-15] MEDS: TIOTROPIUM INH SCH (09:00)
[2016-08-15] MEDS: methylPREDNISolone SOD SUCC 40 MG/1 ML VIAL IV PUSH SCH ×2 (09:16→19:43)
[2016-08-15] MEDS: APIXABAN 5 MG TABLET PO SCH ×2 (09:16→19:43)
[2016-08-15] MEDS: SERTRALINE HCL 50 MG TAB PO SCH (09:16)
[2016-08-15] MEDS: DILTIAZEM-CD 120 MG CAP ER PO SCH (09:16)
[2016-08-15] MEDS: DIGOXIN 0.125 MG TAB PO SCH (09:16)
[2016-08-15] MEDS: LACTOBACILLUS ACIDOPHILUS TAB PO SCH ×3 (09:16→17:57)
[2016-08-15] MEDS: BUDESONIDE-FORMOTEROL 160/4.5 MCG INHALER INH SCH ×2 (09:18→19:43)
[2016-08-15] MEDS: TIOTROPIUM BROMIDE 18 MCG INH INH SCH (09:19)
[2016-08-15] MEDS: SODIUM CHLORIDE 0.9% FLUSH 10 ML FLUSH IV FLUSH SCH ×2 (09:19→19:44)
--- NOTE | 2016-08-15 10:07 | HHI.PR ---
Subjective Remarks Pt currently on BiPAP. denies any CP, states SOB is improved. No nausea or vomiting. RN at bedside Objective Vitals Vital Signs Date Time Temp Pulse Resp B/P Pulse Ox O2 Delivery O2 Flow Rate FiO2 08/15/16 08:58 97 40 08/15/16 06:00 101 08/15/16 04:20 98 40 08/15/16 04:00 92 08/15/16 04:00 97.9 92 12 116/65 98 08/15/16 04:00 88 08/15/16 04:00 98 Bi-Pap 40 08/15/16 01:50 97 40 08/15/16 00:00 99 Bi-Pap 50 08/15/16 00:00 116 08/15/16 00:00 97.9 116 18 98/65 99 08/14/16 22:00 120 08/14/16 21:34 95 50 08/14/16 20:00 115 08/14/16 20:00 98.9 115 23 123/80 90 08/14/16 20:00 90 Bi-Pap 50 08/14/16 18:00 117 08/14/16 17:00 125 08/14/16 16:00 98.6 120 27 126/69 99 08/14/16 16:00 120 08/14/16 16:00 100 Nasal Cannula 4.00 08/14/16 14:00 109 08/14/16 12:00 100 Nasal Cannula 6.00 08/14/16 12:00 107 08/14/16 12:00 107 08/14/16 12:00 98.1 107 19 109/73 100 08/14/16 11:00 95 I/O 08/14/16 08/14/16 08/14/16 08/15/16 08/15/16 08/15/16 07:00 15:00 23:00 07:00 15:00 23:00 Intake Total 300 ml 375 ml 240 ml 100 ml Output Total 250 ml 200 ml 200 ml 250 ml Balance 50 ml 175 ml 40 ml -150 ml Intake Oral 240 ml 240 ml IV Total 300 ml 135 ml 100 ml Output Urine Total 250 ml 200 ml 200 ml 250 ml # Bowel Movements 0 Result Diagram: 08/15/16 0538 08/15/16 0538 Imaging Last Impressions Chest X-Ray 08/11/16 0000 Signed Impressions: Service Date/Time: Thursday, August 11, 2016 11:24 - CONCLUSION: 1. Complete opacification of the right hemithorax with volume loss characteristic of a reported history of pneumonectomy. 2. Left lung remains clear. 3. No change from prior. Harley Gomez MD GI Procedure 08/10/16 0000 Signed Impressions: Service Date/Time: August 15:07 - CONCLUSION: ERCP as above. Luc Dickerson MD Cholangiopancreatography MRI 08/04/16 0000 Signed Impressions: Service Date/Time: Thursday, August 04, 2016 12:18 - CONCLUSION: 1. Status post cholecystectomy. 2. Intra-and extrahepatic biliary ductal dilatation. 3. There is slight filling defect along the distal common bile duct, ERCP and biopsy may be warranted. Francesco Mirza MD Abdomen/Pelvis CT 08/01/16 2303 Signed Impressions: Service Date/Time: Tuesday, August 02, 2016 01:06 - CONCLUSION: Dilated intrahepatic and extrahepatic ducts worse since the prior exam and the etiology is not evident. Hugo Grove MD Objective Remarks GENERAL: Patient is 76 yo lying in bed in NAD on BIPAP, later BiPAP removed and tolerating NC CARDIOVASCULAR: irregularly irregular, HR in 110's then goes down to 100. RESPIRATORY: Breath sounds equal bilaterally. No accessory muscle use. GASTROINTESTINAL: Abdomen soft, non-tender, nondistended. MUSCULOSKELETAL: 1+ edema Neuro: Awake and alert, answers questions appropriately Procedures None A/P Problem List: (1) Nausea, vomiting, and diarrhea ICD Code: R11.2 Status: Acute (2) Dehydration ICD Code: E86.0 Status: Resolved (3) DAVID (acute kidney injury) ICD Code: N17.9 Status: Acute (4) UTI (urinary tract infection) ICD Code: N39.0 Status: Acute Assessment and Plan Neuro: Anxiety disorder -Xanax 0.25 mg by mouth every 6 hours scheduled -Ativan when necessary for anxiety -Monitor neuro status RESP: Acute on chronic respiratory failure Acute COPD exacerbation - Status post pneumonectomy for lung CA -Continue with oxygen keep sat >92% - on IV Solu-Medrol 40 mg every Q12, continue to taper, switch to 40 daily in AM - DuoNeb scheduled and when necessary -NIPPV PRN for resp distress - Pulmonology Dr. Whitt - Symbicort, Spiriva and Singular 10mg qhs CVS: Atrial fibrillation with RVR - On PO Cardizem CD 120 mg by mouth daily. off IV cardizem gtt - Digoxin 0.125 mg by mouth daily . Dig level 1.7. - Eliquis 5 mg by mouth twice a day -Monitor HR and BP keep MAP>65 mmHg -Echo showed EF 40-45% GI: Dilated CBD with sludge and stone. s/p ERCP with sphincterotomy sludge extraction. - s/p sphincterotomy with balloon sweep and sludge extraction 08/10/16 - Supportive care - Management per GI Dr. Canas : Acute kidney injury - Monitor renal function, I's and O's and electrolytes replacement per protocol. ENDO: - SSI with accuchecks for glycemic control, monitor insulin requirements and BS as pt is on steroids. ID/HEME: Leukocytosis- - Continue with abx ( Zosyn 08/13-) monitor for signs of infections ( Fever, WBC) - Monitor CBC CMP coags DVT prophylaxis Eliquis Discharge Planning anticipate transfer to [facility] later today or in AM Toshia Jiang MD Aug 15, 2016 10:06
[2016-08-15] MEDS: LORazepam 2 MG/ML VIAL IV PUSH PRN ×2 (11:16→19:43)
--- NOTE | 2016-08-15 19:19 | HHI.PR ---
Subjective Remarks 76 YO WF with COPD,Resp insuff, on BIPAP Feels betetr Anxious, requires xanax frequentally No CP Denies N,V Mild congestion, no fever On 6 lnc Did't require CPAP " I am tired, did't sleep at all" Wants sleeping pill Objective Vital Signs Vital Signs Date Time Temp Pulse Resp B/P Pulse Ox O2 Delivery O2 Flow Rate FiO2 08/15/16 18:00 120 08/15/16 16:00 99 Nasal Cannula 6.00 08/15/16 16:00 98.0 107 20 122/86 98 08/15/16 16:00 107 08/15/16 14:00 110 08/15/16 12:00 100 Nasal Cannula 6.00 08/15/16 12:00 109 08/15/16 12:00 98.2 109 21 111/76 100 08/15/16 11:00 114 08/15/16 10:00 123 08/15/16 09:00 103 08/15/16 08:58 97 40 08/15/16 08:00 98.1 113 37 142/98 95 08/15/16 08:00 97.9 92 12 116/65 98 08/15/16 08:00 113 08/15/16 08:00 95 Nasal Cannula 6.00 08/15/16 06:00 101 08/15/16 04:20 98 40 08/15/16 04:00 92 08/15/16 04:00 97.9 92 12 116/65 98 08/15/16 04:00 88 08/15/16 04:00 98 Bi-Pap 40 08/15/16 01:50 97 40 08/15/16 00:00 99 Bi-Pap 50 08/15/16 00:00 116 08/15/16 00:00 97.9 116 18 98/65 99 08/14/16 22:00 120 08/14/16 21:34 95 50 08/14/16 20:00 115 08/14/16 20:00 98.9 115 23 123/80 90 08/14/16 20:00 90 Bi-Pap 50 I/O 08/14/16 08/14/16 08/14/16 08/15/16 08/15/16 08/15/16 07:00 15:00 23:00 07:00 15:00 23:00 Intake Total 300 ml 375 ml 240 ml 100 ml 340 ml Output Total 250 ml 200 ml 200 ml 250 ml 150 ml Balance 50 ml 175 ml 40 ml -150 ml 190 ml Intake Oral 240 ml 240 ml 240 ml IV Total 300 ml 135 ml 100 ml 100 ml Output Urine Total 250 ml 200 ml 200 ml 250 ml 150 ml # Bowel Movements 0 0 Result Diagram: 08/15/1653708/15/16537 Objective Remarks GENERAL: MBMN WF, on BIPAP SKIN: Warm and dry. HEAD: Normocephalic. EYES: No scleral icterus. No injection or drainage. NECK: Supple, trachea midline. No JVD or lymphadenopathy. CARDIOVASCULAR: Regular rate and rhythm without murmurs, gallops, or rubs. RESPIRATORY: No accessory muscle use. No BS right GASTROINTESTINAL: Abdomen soft, non-tender, nondistended. MUSCULOSKELETAL: No cyanosis, or edema. BACK: Nontender without obvious deformity. No CVA tenderness. A/P Assessment and Plan Resp insuff COPD ca lung s/p Right Pneumonectomy Ca breast, s/p Lumpectomy CAD PLAN: BIPAP at night and prn Supplement 02 with 6 LNC Aerosol nebs Cont Abx Xanax prn for anxiety. Thickened liq per CARDIOPULMONARY TECHNICIAN AND EEG TECH Temazepam 7.5 mg q hs prn bK Whitt MD Aug 15, 2016 19:19
[2016-08-15] MEDS: ATORVASTATIN 20 MG TAB PO SCH (19:43)
[2016-08-15] MEDS: MONTELUKAST SODIUM 10 MG TAB PO SCH (19:44)
[2016-08-16] VITALS (18 sets, daily range): BP systolic 114–139; BP diastolic 60–86; PULSE 91–128; RESP 21–47; TEMP 97.8–98.8; O2SAT 92–100
[2016-08-16] MEDS: PIPERACIL-TAZO 3.375 GM PREMIX 50 ML IV SCH ×5 (00:18→23:40)
[2016-08-16] MEDS: ACETAMINOPHEN 325 MG TAB PO PRN (00:18)
[2016-08-16] MEDS: ALPRAZolam 0.25 MG TAB PO SCH ×5 (00:18→23:40)
[2016-08-16] MEDS: INSULIN NovoLIN REGULAR SUPPLEMENTAL SCALE SQ SCH ×4 (03:23→20:00)
[2016-08-16] MEDS: RESP: ALBUTEROL 2.5 MG/IPRATROPIUM 0.5 MG NEB (SCH) NEB ×4 (03:52→21:28)
[2016-08-16 05:45] LABS: BASOPHIL % 0.2 % (0.0-2.0); EOSINOPHIL % 0.3 % (0.0-4.0); HEMATOCRIT 29.6 % (35.0-46.0); HEMO FLAGS DIFF FINAL; LYMPH % 3.1 % (9.0-44.0); LYMPHOCYTE # 0.5 TH/MM3 (1.0-4.8); MEAN CELL VOLUME 93.1 FL (80.0-100.0); MEAN CORPUSCULAR HEMOGLOBIN 30.2 PG (27.0-34.0); MEAN CORPUSCULAR HGB CONC 32.4 % (32.0-36.0); MONO % 7.3 % (0.0-8.0); NEUT % 89.1 % (16.0-70.0); PLATELET COUNT 256 TH/MM3 (150-450); RED BLOOD COUNT 3.18 MIL/MM3 (4.00-5.30); RED CELL DISTRIBUTION WIDTH 15.4 % (11.6-17.2); WHITE BLOOD COUNT 14.6 TH/MM3 (4.0-11.0)
[2016-08-16 06:03] LABS: BICARBONATE 40.8 MEQ/L (21.0-32.0); POTASSIUM 4.5 MEQ/L (3.5-5.1)
[2016-08-16] MEDS: BUDESONIDE-FORMOTEROL 160/4.5 MCG INHALER INH SCH ×2 (08:55→21:25)
[2016-08-16] MEDS: APIXABAN 5 MG TABLET PO SCH ×2 (08:55→21:24)
[2016-08-16] MEDS: TIOTROPIUM BROMIDE 18 MCG INH INH SCH (08:55)
[2016-08-16] MEDS: methylPREDNISolone SOD SUCC 40 MG/1 ML VIAL IV PUSH SCH (08:56)
[2016-08-16] MEDS: DIGOXIN 0.125 MG TAB PO SCH (08:56)
[2016-08-16] MEDS: SERTRALINE HCL 50 MG TAB PO SCH (08:56)
[2016-08-16] MEDS: SODIUM CHLORIDE 0.9% FLUSH 10 ML FLUSH IV FLUSH SCH ×2 (08:56→21:24)
[2016-08-16] MEDS: DILTIAZEM-CD 120 MG CAP ER PO SCH ×2 (08:56→21:24)
[2016-08-16] MEDS: LACTOBACILLUS ACIDOPHILUS TAB PO SCH ×3 (08:56→17:21)
[2016-08-16] MEDS: OLODATEROL INH SCH (09:00)
[2016-08-16] MEDS: TIOTROPIUM INH SCH (09:00)
[2016-08-16] MEDS ORDERED: DILTIAZEM-CD 120 MG CAP ER PO ONE (11:00)
--- NOTE | 2016-08-16 11:45 | HHI.PR ---
Subjective Remarks Pt states she wants real food. denies any n/v/CP/ or worsening SOB. Pt is tearful talking about her son. Objective Vitals Vital Signs Date Time Temp Pulse Resp B/P Pulse Ox O2 Delivery O2 Flow Rate FiO2 08/16/16 10:00 128 08/16/16 08:02 99 Nasal Cannula 2.00 08/16/16 08:00 99 Nasal Cannula 6.00 08/16/16 08:00 98.1 105 21 120/60 99 08/16/16 08:00 99 Nasal Cannula 6.00 08/16/16 08:00 98.1 92 25 127/84 92 08/16/16 08:00 105 08/16/16 06:00 93 08/16/16 04:25 95 40 08/16/16 04:00 92 Bi-Pap 40 08/16/16 04:00 97.9 92 25 127/84 92 08/16/16 04:00 92 08/16/16 02:00 91 08/16/16 01:30 97 40 08/16/16 00:00 97.9 118 23 139/79 94 08/16/16 00:00 118 08/16/16 00:00 94 Bi-Pap 35 08/15/16 23:00 92 Bi-Pap 40 08/15/16 22:10 90 40 08/15/16 22:00 94 08/15/16 21:17 95 35 08/15/16 20:00 98.9 118 23 117/74 94 08/15/16 20:00 125 08/15/16 20:00 94 Bi-Pap 35 08/15/16 18:00 120 08/15/16 16:00 99 Nasal Cannula 6.00 08/15/16 16:00 98.0 107 20 122/86 98 08/15/16 16:00 107 08/15/16 16:00 100 Nasal Cannula 6.00 08/15/16 14:00 110 08/15/16 12:00 100 Nasal Cannula 6.00 08/15/16 12:00 109 08/15/16 12:00 98.2 109 21 111/76 100 08/15/16 12:00 100 Nasal Cannula 6.00 I/O 08/15/16 08/15/16 08/15/16 08/16/16 08/16/16 08/16/16 07:00 15:00 23:00 07:00 15:00 23:00 Intake Total 100 ml 340 ml 290 ml 100 ml Output Total 250 ml 150 ml 200 ml 250 ml Balance -150 ml 190 ml 90 ml -150 ml Intake Oral 240 ml 240 ml IV Total 100 ml 100 ml 50 ml 100 ml Output Urine Total 250 ml 150 ml 200 ml 250 ml # Bowel Movements 0 1 Result Diagram: 08/16/16 0500 08/16/16 0500 Imaging Last Impressions Chest X-Ray 08/11/16 0000 Signed Impressions: Service Date/Time: Thursday, August 11, 2016 11:24 - CONCLUSION: 1. Complete opacification of the right hemithorax with volume loss characteristic of a reported history of pneumonectomy. 2. Left lung remains clear. 3. No change from prior. Harley Gomez MD GI Procedure 08/10/16 0000 Signed Impressions: Service Date/Time: August 15:07 - CONCLUSION: ERCP as above. Luc Dickerson MD Cholangiopancreatography MRI 08/04/16 0000 Signed Impressions: Service Date/Time: Thursday, August 04, 2016 12:18 - CONCLUSION: 1. Status post cholecystectomy. 2. Intra-and extrahepatic biliary ductal dilatation. 3. There is slight filling defect along the distal common bile duct, ERCP and biopsy may be warranted. Francesco Mirza MD Abdomen/Pelvis CT 08/01/16 1735 Signed Impressions: Service Date/Time: Tuesday, August 02, 2016 01:06 - CONCLUSION: Dilated intrahepatic and extrahepatic ducts worse since the prior exam and the etiology is not evident. Hugo Grove MD Objective Remarks GENERAL: Patient is 76 yo lying in bed in NAD , tolerating NC CARDIOVASCULAR: irregularly irregular, HR in 110's then goes down to 100. RESPIRATORY: Breath sounds equal bilaterally. No accessory muscle use. GASTROINTESTINAL: Abdomen soft, non-tender, nondistended. MUSCULOSKELETAL: 1+ edema Neuro: Awake and alert, answers questions appropriately Procedures None A/P Problem List: (1) Nausea, vomiting, and diarrhea ICD Code: R11.2 Status: Acute (2) Dehydration ICD Code: E86.0 Status: Resolved (3) DAVID (acute kidney injury) ICD Code: N17.9 Status: Acute (4) UTI (urinary tract infection) ICD Code: N39.0 Status: Acute Assessment and Plan Neuro: Anxiety disorder -Xanax 0.25 mg by mouth every 6 hours scheduled -Ativan when necessary for anxiety -Monitor neuro status RESP: Acute on chronic respiratory failure Acute COPD exacerbation - Status post pneumonectomy for lung CA -Continue with oxygen keep sat >92% - on IV Solu-Medrol 40 mg daily, switch to po prednisone in 1-2 days - DuoNeb scheduled and when necessary -NIPPV PRN for resp distress - Pulmonology Dr. Whitt following - Symbicort, Spiriva and Singular 10mg qhs CVS: Atrial fibrillation with RVR - On PO Cardizem CD 120 mg by mouth daily. 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 Dig level 1.7. - Eliquis 5 mg by mouth twice a day -Monitor HR and BP keep MAP>65 mmHg -Echo showed EF 40-45% GI: Dilated CBD with sludge and stone. s/p ERCP with sphincterotomy sludge extraction. - s/p sphincterotomy with balloon sweep and sludge extraction 08/10/16 - Supportive care - Management per GI Dr. Canas : Acute kidney injury - Monitor renal function, I's and O's and electrolytes replacement per protocol. ENDO: - SSI with accuchecks for glycemic control, monitor insulin requirements and BS as pt is on steroids. ID/HEME: Leukocytosis- - Continue with abx ( Zosyn 08/13-) monitor for signs of infections ( Fever, WBC) - Monitor CBC CMP coags DVT prophylaxis Eliquis Discharge Planning transfer to Toshia John MD Aug 16, 2016 11:45
--- NOTE | 2016-08-16 18:26 | HHI.PR ---
Subjective Remarks 76 YO WF with COPD,Resp insuff, on BIPAP Feels betetr Anxious, requires xanax frequentally No CP Denies N,V Mild congestion, no fever On 4 lnc Used CPAP last night Appetite improving Objective Vital Signs Vital Signs Date Time Temp Pulse Resp B/P Pulse Ox O2 Delivery O2 Flow Rate FiO2 08/16/16 16:00 98.3 117 47 114/71 93 08/16/16 16:00 117 08/16/16 16:00 100 Nasal Cannula 4.00 08/16/16 14:00 117 08/16/16 12:00 99 Nasal Cannula 6.00 08/16/16 12:00 99 08/16/16 12:00 100 Nasal Cannula 4.00 08/16/16 12:00 97.8 99 26 137/86 100 08/16/16 10:00 128 08/16/16 08:02 99 Nasal Cannula 2.00 08/16/16 08:00 99 Nasal Cannula 6.00 08/16/16 08:00 98.1 105 21 120/60 99 08/16/16 08:00 99 Nasal Cannula 6.00 08/16/16 08:00 98.1 92 25 127/84 92 08/16/16 08:00 105 08/16/16 06:00 93 08/16/16 04:25 95 40 08/16/16 04:00 92 Bi-Pap 40 08/16/16 04:00 97.9 92 25 127/84 92 08/16/16 04:00 92 08/16/16 02:00 91 08/16/16 01:30 97 40 08/16/16 00:00 97.9 118 23 139/79 94 08/16/16 00:00 118 08/16/16 00:00 94 Bi-Pap 35 08/15/16 23:00 92 Bi-Pap 40 08/15/16 22:10 90 40 08/15/16 22:00 94 08/15/16 21:17 95 35 08/15/16 20:00 98.9 118 23 117/74 94 08/15/16 20:00 125 08/15/16 20:00 94 Bi-Pap 35 I/O 08/15/16 08/15/16 08/15/16 08/16/16 08/16/16 08/16/16 07:00 15:00 23:00 07:00 15:00 23:00 Intake Total 100 ml 340 ml 290 ml 100 ml 1060 ml Output Total 250 ml 150 ml 200 ml 250 ml 350 ml Balance -150 ml 190 ml 90 ml -150 ml 710 ml Intake Oral 240 ml 240 ml 960 ml IV Total 100 ml 100 ml 50 ml 100 ml 100 ml Output Urine Total 250 ml 150 ml 200 ml 250 ml 350 ml # Bowel Movements 0 1 1 Result Diagram: 08/16/16 0500 08/16/16 0500 Objective Remarks GENERAL: MBMN WF, on BIPAP SKIN: Warm and dry. HEAD: Normocephalic. EYES: No scleral icterus. No injection or drainage. NECK: Supple, trachea midline. No JVD or lymphadenopathy. CARDIOVASCULAR: Regular rate and rhythm without murmurs, gallops, or rubs. RESPIRATORY: No accessory muscle use. No BS right GASTROINTESTINAL: Abdomen soft, non-tender, nondistended. MUSCULOSKELETAL: No cyanosis, or edema. BACK: Nontender without obvious deformity. No CVA tenderness. A/P Assessment and Plan Resp insuff COPD ca lung s/p Right Pneumonectomy Ca breast, s/p Lumpectomy CAD PLAN: BIPAP at night and prn Supplement 02 with 6 LNC Aerosol nebs Cont Abx Xanax prn for anxiety. Temazepam 7.5 mg q hs prn Pureed diet Kb Whitt MD Aug 16, 2016 18:26
[2016-08-16] MEDS: MONTELUKAST SODIUM 10 MG TAB PO SCH (21:24)
[2016-08-16] MEDS: ATORVASTATIN 20 MG TAB PO SCH (21:24)
[2016-08-16] MEDS: LORazepam 2 MG/ML VIAL IV PUSH PRN (23:41)
[2016-08-17] VITALS (22 sets, daily range): BP systolic 105–124; BP diastolic 57–85; PULSE 82–125; RESP 12–28; TEMP 97.5–98; O2SAT 82–100
[2016-08-17] MEDS: INSULIN NovoLIN REGULAR SUPPLEMENTAL SCALE SQ SCH ×4 (02:00→20:00)
[2016-08-17] MEDS: RESP: ALBUTEROL 2.5 MG/IPRATROPIUM 0.5 MG NEB (SCH) NEB ×2 (04:06→09:06)
[2016-08-17] MEDS: PIPERACIL-TAZO 3.375 GM PREMIX 50 ML IV SCH ×4 (06:57→22:39)
[2016-08-17] MEDS: ALPRAZolam 0.25 MG TAB PO SCH ×3 (07:00→22:22)
[2016-08-17] MEDS: OLODATEROL INH SCH (09:00)
[2016-08-17] MEDS: TIOTROPIUM INH SCH (09:00)
[2016-08-17] MEDS: DIGOXIN 0.125 MG TAB PO SCH (09:14)
[2016-08-17] MEDS: LACTOBACILLUS ACIDOPHILUS TAB PO SCH ×3 (09:14→17:52)
[2016-08-17] MEDS: APIXABAN 5 MG TABLET PO SCH ×2 (09:14→22:22)
[2016-08-17] MEDS: SERTRALINE HCL 50 MG TAB PO SCH (09:15)
[2016-08-17] MEDS: TIOTROPIUM BROMIDE 18 MCG INH INH SCH (09:15)
[2016-08-17] MEDS: BUDESONIDE-FORMOTEROL 160/4.5 MCG INHALER INH SCH ×2 (09:15→21:00)
[2016-08-17] MEDS: DILTIAZEM-CD 120 MG CAP ER PO SCH ×2 (09:15→22:22)
[2016-08-17] MEDS: SODIUM CHLORIDE 0.9% FLUSH 10 ML FLUSH IV FLUSH SCH ×2 (09:16→21:00)
[2016-08-17] MEDS: methylPREDNISolone SOD SUCC 40 MG/1 ML VIAL IV PUSH SCH (09:16)
[2016-08-17] MEDS ORDERED: SULFAMETHOXAZOLE-TRIMETHOPRIM DS 800-160 MG TAB PO ONE (09:45)
--- NOTE | 2016-08-17 10:27 | HHI.PR ---
Subjective Remarks Pt getting BiPAP. Denies any Pain or worsening SOB. Denies any nausea or vomiting Discussed w RN, no concerns this morning. waiting on an open bed for [facility] Objective Vitals Vital Signs Date Time Temp Pulse Resp B/P Pulse Ox O2 Delivery O2 Flow Rate FiO2 08/17/16 09:06 99 40 08/17/16 06:00 83 08/17/16 04:08 98 35 08/17/16 04:00 96 08/17/16 04:00 97.8 96 16 110/72 97 08/17/16 04:00 97 Bi-Pap 08/17/16 02:00 85 08/17/16 00:00 91 Bi-Pap 08/17/16 00:00 98.0 120 24 112/70 91 08/17/16 00:00 120 08/16/16 23:49 92 40 08/16/16 22:02 100 Nasal Cannula 4.00 08/16/16 22:01 95 Nasal Cannula 4.00 08/16/16 22:00 119 08/16/16 22:00 94 Bi-Pap 08/16/16 21:35 95 40 08/16/16 20:00 104 08/16/16 20:00 100 Nasal Cannula 4.00 08/16/16 20:00 98.8 104 34 125/79 100 08/16/16 18:00 117 08/16/16 16:00 98.3 117 47 114/71 93 08/16/16 16:00 117 08/16/16 16:00 100 Nasal Cannula 4.00 08/16/16 14:00 117 08/16/16 12:00 99 Nasal Cannula 6.00 08/16/16 12:00 99 08/16/16 12:00 100 Nasal Cannula 4.00 08/16/16 12:00 97.8 99 26 137/86 100 I/O 08/16/16 08/16/16 08/16/16 08/17/16 08/17/16 08/17/16 07:00 15:00 23:00 07:00 15:00 23:00 Intake Total 100 ml 1060 ml 160 ml 55 ml Output Total 250 ml 350 ml 200 ml 250 ml Balance -150 ml 710 ml -40 ml -195 ml Intake Oral 960 ml 50 ml IV Total 100 ml 100 ml 110 ml 55 ml Output Urine Total 250 ml 350 ml 200 ml 250 ml # Bowel Movements 1 Result Diagram: 08/16/16 0500 08/16/16 0500 Imaging Last Impressions Chest X-Ray 08/11/16 0000 Signed Impressions: Service Date/Time: Thursday, August 11, 2016 11:24 - CONCLUSION: 1. Complete opacification of the right hemithorax with volume loss characteristic of a reported history of pneumonectomy. 2. Left lung remains clear. 3. No change from prior. Harley Gomez MD GI Procedure 08/10/16 0000 Signed Impressions: Service Date/Time: August 15:07 - CONCLUSION: ERCP as above. Luc Dickerson MD Cholangiopancreatography MRI 08/04/16 0000 Signed Impressions: Service Date/Time: Thursday, August 04, 2016 12:18 - CONCLUSION: 1. Status post cholecystectomy. 2. Intra-and extrahepatic biliary ductal dilatation. 3. There is slight filling defect along the distal common bile duct, ERCP and biopsy may be warranted. Francesco Mirza MD Abdomen/Pelvis CT 08/01/16 2303 Signed Impressions: Service Date/Time: Tuesday, August 02, 2016 01:06 - CONCLUSION: Dilated intrahepatic and extrahepatic ducts worse since the prior exam and the etiology is not evident. Hugo Grove MD Objective Remarks GENERAL: Patient is 76 yo lying in bed in NAD , on biPAP sleeping but easily arousable CARDIOVASCULAR: irregularly irregular, HR in 100's on TELE RESPIRATORY: Breath sounds equal bilaterally. No accessory muscle use. GASTROINTESTINAL: Abdomen soft, non-tender, nondistended. MUSCULOSKELETAL: 1+ edema Neuro: Awake and alert, getting BiPAP Procedures None A/P Problem List: (1) Nausea, vomiting, and diarrhea ICD Code: R11.2 Status: Acute (2) Dehydration ICD Code: E86.0 Status: Resolved (3) DAVID (acute kidney injury) ICD Code: N17.9 Status: Acute (4) UTI (urinary tract infection) ICD Code: N39.0 Status: Acute Assessment and Plan Neuro: Anxiety disorder -Xanax 0.25 mg by mouth every 6 hours scheduled -Ativan when necessary for anxiety -Monitor neuro status RESP: Acute on chronic respiratory failure Acute COPD exacerbation - Status post pneumonectomy for lung CA -Continue with oxygen keep sat >92% - on IV Solu-Medrol 40 mg daily, switch to po prednisone 40mg po daily to be started in am - DuoNeb scheduled and when necessary -NIPPV PRN for resp distress - Pulmonology Dr. Whitt following - Symbicort, Spiriva and Singular 10mg qhs CVS: Atrial fibrillation with RVR - On PO Cardizem CD 120 mg by mouth BID. off IV cardizem gtt - Digoxin 0.125 mg by mouth daily . Dig level 1.7. - Eliquis 5 mg by mouth twice a day -Monitor HR and BP keep MAP>65 mmHg -Echo showed EF 40-45% GI: Dilated CBD with sludge and stone. s/p ERCP with sphincterotomy sludge extraction. - s/p sphincterotomy with balloon sweep and sludge extraction 08/10/16 - Supportive care - Management per GI Dr. Canas : Acute kidney injury - Monitor renal function, I's and O's and electrolytes replacement per protocol. ENDO: - SSI with accuchecks for glycemic control, monitor insulin requirements and BS as pt is on steroids. ID/HEME: Leukocytosis- - Continue with abx ( Zosyn 08/13-) monitor for signs of infections ( Fever, WBC) - Monitor CBC CMP coags - Urine growing MRSA sensitive to bactrim, will treat (bactrim DS 08/17-) DVT prophylaxis Eliquis Discharge Planning transfer to Toshia John MD Aug 17, 2016 10:27
--- NOTE | 2016-08-17 18:55 | HHI.PR ---
Subjective Remarks 76 YO WF with COPD,Resp insuff, on BIPAP Feels betetr Anxious, requires xanax frequentally No CP Denies N,V Mild congestion, no fever On 4 lnc Used CPAP last night Tired, sleeping Objective Vital Signs Vital Signs Date Time Temp Pulse Resp B/P Pulse Ox O2 Delivery O2 Flow Rate FiO2 08/17/16 18:00 95 19 122/73 96 08/17/16 17:00 85 12 113/66 97 08/17/16 16:00 92 19 120/57 98 08/17/16 16:00 Bi-Pap 08/17/16 14:00 97 24 124/85 92 08/17/16 13:00 93 17 119/79 96 08/17/16 12:01 106 21 105/60 93 08/17/16 12:00 97.6 94 23 100 08/17/16 12:00 Bi-Pap 08/17/16 11:00 85 14 116/73 100 08/17/16 10:52 100 40 08/17/16 10:00 85 13 112/74 100 08/17/16 09:06 99 40 08/17/16 09:00 85 15 120/67 99 08/17/16 08:00 Bi-Pap 08/17/16 08:00 97.5 82 13 117/70 98 08/17/16 06:00 83 08/17/16 04:08 98 35 08/17/16 04:00 96 08/17/16 04:00 97.8 96 16 110/72 97 08/17/16 04:00 97 Bi-Pap 08/17/16 02:00 85 08/17/16 00:00 91 Bi-Pap 08/17/16 00:00 98.0 120 24 112/70 91 08/17/16 00:00 120 08/16/16 23:49 92 40 08/16/16 22:02 100 Nasal Cannula 4.00 08/16/16 22:01 95 Nasal Cannula 4.00 08/16/16 22:00 119 08/16/16 22:00 94 Bi-Pap 08/16/16 21:35 95 40 08/16/16 20:00 104 08/16/16 20:00 100 Nasal Cannula 4.00 08/16/16 20:00 98.8 104 34 125/79 100 I/O 08/16/16 08/16/16 08/16/16 08/17/16 08/17/16 08/17/16 07:00 15:00 23:00 07:00 15:00 23:00 Intake Total 100 ml 1060 ml 160 ml 55 ml 420 ml Output Total 250 ml 350 ml 200 ml 250 ml 350 ml Balance -150 ml 710 ml -40 ml -195 ml 70 ml Intake Oral 960 ml 50 ml 360 ml IV Total 100 ml 100 ml 110 ml 55 ml 60 ml Output Urine Total 250 ml 350 ml 200 ml 250 ml 350 ml # Bowel Movements 1 0 Result Diagram: 08/16/16 0500 08/16/16 0500 Objective Remarks GENERAL: MBMN WF, on BIPAP SKIN: Warm and dry. HEAD: Normocephalic. EYES: No scleral icterus. No injection or drainage. NECK: Supple, trachea midline. No JVD or lymphadenopathy. CARDIOVASCULAR: Regular rate and rhythm without murmurs, gallops, or rubs. RESPIRATORY: No accessory muscle use. No BS right GASTROINTESTINAL: Abdomen soft, non-tender, nondistended. MUSCULOSKELETAL: No cyanosis, or edema. BACK: Nontender without obvious deformity. No CVA tenderness. A/P Assessment and Plan Resp insuff COPD ca lung s/p Right Pneumonectomy Ca breast, s/p Lumpectomy CAD PLAN: BIPAP at night and prn Supplement 02 with 6 LNC Aerosol nebs Cont Abx Xanax prn for anxiety. Temazepam 7.5 mg q hs prn Pureed diet Awaiting tr to Kb Moreno MD Aug 17, 2016 18:55
[2016-08-17] MEDS: MONTELUKAST SODIUM 10 MG TAB PO SCH (21:00)
[2016-08-17] MEDS: ATORVASTATIN 20 MG TAB PO SCH (22:22)
[2016-08-17] MEDS: SULFAMETHOXAZOLE-TRIMETHOPRIM DS 800-160 MG TAB PO SCH (22:22)
[2016-08-17] MEDS: LORazepam 2 MG/ML VIAL IV PUSH PRN (22:39)
[2016-08-18] VITALS (17 sets, daily range): BP systolic 117–161; BP diastolic 70–98; PULSE 75–119; RESP 15–31; TEMP 97.4–98.7; O2SAT 88–99
[2016-08-18] MEDS: INSULIN NovoLIN REGULAR SUPPLEMENTAL SCALE SQ SCH ×4 (02:00→21:01)
[2016-08-18] MEDS: ALPRAZolam 0.25 MG TAB PO SCH ×3 (06:00→20:59)
[2016-08-18] MEDS: PIPERACIL-TAZO 3.375 GM PREMIX 50 ML IV SCH (06:15)
[2016-08-18] MEDS ORDERED: PILL SPLITTER OTHER PRN (08:30)
[2016-08-18] MEDS: TIOTROPIUM BROMIDE 18 MCG INH INH SCH (09:00)
[2016-08-18] MEDS: DIGOXIN 0.125 MG TAB PO SCH (09:00)
[2016-08-18] MEDS: APIXABAN 5 MG TABLET PO SCH ×2 (09:00→20:59)
[2016-08-18] MEDS: DILTIAZEM-CD 120 MG CAP ER PO SCH ×2 (09:00→20:59)
[2016-08-18] MEDS: OLODATEROL INH SCH (09:00)
[2016-08-18] MEDS: LACTOBACILLUS ACIDOPHILUS TAB PO SCH ×3 (09:00→18:41)
[2016-08-18] MEDS: SODIUM CHLORIDE 0.9% FLUSH 10 ML FLUSH IV FLUSH SCH ×2 (09:00→20:58)
[2016-08-18] MEDS: SERTRALINE HCL 50 MG TAB PO SCH (09:00)
[2016-08-18] MEDS: predniSONE 20 MG TAB PO SCH (09:00)
[2016-08-18] MEDS ORDERED: FLUCONAZOLE 100 MG TAB PO SCH ×2 (09:00→12:00)
[2016-08-18] MEDS: TIOTROPIUM INH SCH (09:00)
[2016-08-18] MEDS: BUDESONIDE-FORMOTEROL 160/4.5 MCG INHALER INH SCH ×2 (09:00→21:00)
[2016-08-18] MEDS: SULFAMETHOXAZOLE-TRIMETHOPRIM DS 800-160 MG TAB PO SCH ×2 (09:00→20:59)
--- NOTE | 2016-08-18 09:02 | HHI.PR ---
Subjective Remarks currently on bipap. no cp/worsening SOB/admits to mild nausea but no vomiting. discussed w RN, no acute events overnight. Objective Vitals Vital Signs Date Time Temp Pulse Resp B/P Pulse Ox O2 Delivery O2 Flow Rate FiO2 08/18/16 08:00 100 Bi-Pap 08/18/16 08:00 97.7 75 15 117/75 98 08/18/16 08:00 75 08/18/16 07:59 98 40 08/18/16 06:00 75 08/18/16 04:00 78 08/18/16 04:00 97.4 78 16 123/70 99 08/18/16 04:00 99 Bi-Pap 08/18/16 03:58 99 40 08/18/16 02:00 91 08/18/16 00:09 95 40 08/18/16 00:00 97.6 94 20 126/76 93 08/18/16 00:00 94 08/18/16 00:00 93 Bi-Pap 08/17/16 22:00 107 08/17/16 21:57 93 Nasal Cannula 4.00 08/17/16 20:15 98 08/17/16 20:04 96 Nasal Cannula 4.00 08/17/16 20:00 125 08/17/16 20:00 97.8 125 28 116/79 82 08/17/16 20:00 82 Nasal Cannula 4.00 08/17/16 18:00 95 19 122/73 96 08/17/16 17:00 85 12 113/66 97 08/17/16 16:00 92 19 120/57 98 08/17/16 16:00 Bi-Pap 08/17/16 14:00 97 24 124/85 92 08/17/16 13:00 93 17 119/79 96 08/17/16 12:01 106 21 105/60 93 08/17/16 12:00 97.6 94 23 100 08/17/16 12:00 Bi-Pap 08/17/16 11:00 85 14 116/73 100 08/17/16 10:52 100 40 08/17/16 10:00 85 13 112/74 100 08/17/16 09:06 99 40 08/17/16 09:00 85 15 120/67 99 I/O 08/17/16 08/17/16 08/17/16 08/18/1608/18/17 6/9/17 07:00 15:00 23:00 07:00 15:00 23:00 Intake Total 55 ml 580 ml 60 ml Output Total 250 ml 600 ml 250 ml Balance -195 ml -20 ml -190 ml Intake Oral 460 ml IV Total 55 ml 120 ml 60 ml Output Urine Total 250 ml 600 ml 250 ml # Bowel Movements 0 Result Diagram: 08/16/16 0500 08/16/16 0500 Imaging Last Impressions Chest X-Ray 08/11/16 0000 Signed Impressions: Service Date/Time: Thursday, August 11, 2016 11:24 - CONCLUSION: 1. Complete opacification of the right hemithorax with volume loss characteristic of a reported history of pneumonectomy. 2. Left lung remains clear. 3. No change from prior. Harley Gomez MD GI Procedure 08/10/16 0000 Signed Impressions: Service Date/Time: August 15:07 - CONCLUSION: ERCP as above. Luc Dickerson MD Cholangiopancreatography MRI 08/04/16 0000 Signed Impressions: Service Date/Time: Thursday, August 04, 2016 12:18 - CONCLUSION: 1. Status post cholecystectomy. 2. Intra-and extrahepatic biliary ductal dilatation. 3. There is slight filling defect along the distal common bile duct, ERCP and biopsy may be warranted. Francesco Mirza MD Abdomen/Pelvis CT 08/01/16 4161 Signed Impressions: Service Date/Time: Tuesday, August 02, 2016 01:06 - CONCLUSION: Dilated intrahepatic and extrahepatic ducts worse since the prior exam and the etiology is not evident. Hugo Grove MD Objective Remarks GENERAL: Patient is 76 yo lying in bed in NAD , on biPAP sleeping but easily arousable CARDIOVASCULAR: irregularly irregular, rate controlled on TELE RESPIRATORY: Breath sounds equal bilaterally. No accessory muscle use. GASTROINTESTINAL: Abdomen soft, non-tender, nondistended. MUSCULOSKELETAL: 1+ edema Neuro: Awake and alert, getting BiPAP Procedures None A/P Problem List: (1) Nausea, vomiting, and diarrhea ICD Code: R11.2 Status: Acute (2) Dehydration ICD Code: E86.0 Status: Resolved (3) DAVID (acute kidney injury) ICD Code: N17.9 Status: Acute (4) UTI (urinary tract infection) ICD Code: N39.0 Status: Acute Assessment and Plan Neuro: Anxiety disorder -Xanax 0.25 mg by mouth every 6 hours scheduled -Ativan when necessary for anxiety -Monitor neuro status RESP: Acute on chronic respiratory failure Acute COPD exacerbation - Status post pneumonectomy for lung CA -Continue with oxygen keep sat >92% - on IV Solu-Medrol 40 mg daily, switch to po prednisone 40mg po daily today and continue taper - DuoNeb scheduled and when necessary -NIPPV PRN for resp distress - Pulmonology Dr. Whitt following - Symbicort, Spiriva and Singular 10mg qhs CVS: Atrial fibrillation with RVR - On PO Cardizem CD 120 mg by mouth BID. off IV cardizem gtt - Digoxin 0.125 mg by mouth daily . Dig level 1.7. - Eliquis 5 mg by mouth twice a day -Monitor HR and BP keep MAP>65 mmHg -Echo showed EF 40-45% GI: Dilated CBD with sludge and stone. s/p ERCP with sphincterotomy sludge extraction. - s/p sphincterotomy with balloon sweep and sludge extraction 08/10/16 - Supportive care - Management per GI Dr. Canas : Acute kidney injury - resolved. Monitor renal function, I's and O's and electrolytes replacement per protocol. ENDO: - SSI with accuchecks for glycemic control, monitor insulin requirements and BS as pt is on steroids. ID/HEME: Leukocytosis- - Continue with abx ( Zosyn 08/13-) monitor for signs of infections ( Fever, WBC) - Monitor CBC CMP coags - Urine growing MRSA sensitive to bactrim, will treat (bactrim DS 08/17-). I will d/c marie as this may be causing infection vs contamination. consult ID for further recs. DVT prophylaxis Eliquis Discharge Planning Appreciate recs from ID and pulm. pt is clinically improving from a respiratory standpoint, will transition to po prednisone today. continue bipap as needed. pt on bactrim for MRSA growing in urine however will await final recs from ID. PT recommends home health PT however rehab may be beneficial transfer to [facility] pending. Toshia Jiang MD Aug 18, 2016 09:02
--- NOTE | 2016-08-18 10:24 | PD.CONS ---
History of Present Illness Service Infectious disease Consult Requested By Dr Suzan Jiang Reason for Consult Evaluate patient with MRSA in the urine Primary Care Physician No Primary Care Physician Diagnoses: History of Present Illness Patient seen and examined. Records reviewed. Patient is a 76-year-old female, presented to the hospital complaining of multiple GI complaints. She's been complaining of abdominal pain, diarrhea, as well as nausea and occasional vomiting. There was no episodes of fever or chills. Patient has known COPD, and has chronic shortness of breath. On presentation she was evaluated for her GI symptoms. GI evaluated the patient. Her imaging study showed dilated mild tox. Patient has had previous cholecystectomy. She underwent MRCP which showed the bile ducts are all dilated , had some sludge, had sphincterotomy, and clearing of the sludge. Her upper endoscopy showed gastritis. Patient's GI symptoms have improved. She was transferred to the ICU on August 11 for shortness of breath, and that has stabilized. She was started on steroids. On August 13 her WBC was noted to be up , so cultures were obtained. Urine culture from August 13 had greater than 100, 000 CFU of MRSA. Repeat urinalysis on August 14 showed pyuria, urine culture now showing less than 10,000 CFU of MRSA, and also with Tamra. Patient had a Marie catheter placed when she was admitted. Her Marie has just been removed this morning. Patient denies any previous symptoms, has probably stress incontinence, and she wears pads at home. She does not remember of any prior history of urinary tract infection. Patient has not been febrile. Her WBC had gone down to 11. Her diarrhea has improved. Infectious disease consultation has been requested to evaluate the patient with MRSA in the urine culture. Review of Systems Constitutional: DENIES: Fever, Chills Eyes: DENIES: Eye pain Ears, nose, mouth, throat: DENIES: Nasal discharge, Throat pain, Ear Pain, Sinus Pain Respiratory: COMPLAINS OF: Cough, Sputum production, Shortness of breath Cardiovascular: DENIES: Chest pain, Palpitations, Syncope Gastrointestinal: COMPLAINS OF: Abdominal pain, Nausea, DENIES: Diarrhea, Vomiting, Difficulty Swallowing Genitourinary: COMPLAINS OF: Urinary incontinence Musculoskeletal: COMPLAINS OF: Back pain, DENIES: Joint pain, Joint Swelling Neurologic: DENIES: Headache Psychiatric: DENIES: Hallucinations Past Family Social History Allergies: Coded Allergies: Aciphex (Verified Allergy, Severe, 08/01/16) Contrast Media (Verified Allergy, Severe, PASSED OUT, 08/01/16) Demerol (Verified Allergy, Severe, Hallucinations, 08/01/16) Fleets Phospho Soda (Verified Allergy, Severe, 08/01/16) Meperidine (Verified Allergy, Severe, 08/01/16) Morphine (Verified Allergy, Severe, 08/01/16) *MDRO Multi-Drug Resistant Organism (Verified Adverse Reaction, Unknown, ) E.coli ESBL (urine) - 04/2014 & 05/2015 / (sputum) - 05/2014 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/18/15 & 08/10/16 MRSA (urine) - 08/13/16 Uncoded Allergies: PHOSPHOUS SODA (Allergy, Severe, 05/04/05) Past Medical History Lung CA status post right pneumonectomy Breast CA status post lumpectomy and radiation treatment Atrial fibrillation rate controlled COPD on chronic oxygen therapy at 3 L Hypertension CAD status post cardiac stents x 1 Chronic diastolic CHF echocardiogram April 2014 showed ejection fraction 55- 60% Umbilical hernia Peripheral arterial disease Past Surgical History Right pneumonectomy Breast lumpectomy Cholecystectomy Hysterectomy Cardiac catheterization with stent 1 Bilateral cataract surgery Right knee surgery ORIF T11 Active Ordered Medications Tylenol Albuterol Xanax Eliquis Lipitor Symbicort Cardizem Diflucan Insulin Lactinex Imodium Ativan Singulair Zofran Zosyn Prednisone Zoloft Spiriva Bactrim Social History Patient is , lives at home Ex-smoker quit 40 years ago Alcohol abuse No illicit drug Physical Exam Vital Signs Vital Signs Date Time Temp Pulse Resp B/P Pulse Ox O2 Delivery O2 Flow Rate FiO2 08/18/16 08:00 100 Bi-Pap 08/18/16 08:00 97.7 75 15 117/75 98 08/18/16 08:00 75 08/18/16 07:59 98 40 08/18/16 06:00 75 08/18/16 04:00 78 08/18/16 04:00 97.4 78 16 123/70 99 08/18/16 04:00 99 Bi-Pap 08/18/16 03:58 99 40 08/18/16 02:00 91 08/18/16 00:09 95 40 08/18/16 00:00 97.6 94 20 126/76 93 08/18/16 00:00 94 08/18/16 00:00 93 Bi-Pap 08/17/16 22:00 107 08/17/16 21:57 93 Nasal Cannula 4.00 08/17/16 20:15 98 08/17/16 20:04 96 Nasal Cannula 4.00 08/17/16 20:00 125 08/17/16 20:00 97.8 125 28 116/79 82 08/17/16 20:00 82 Nasal Cannula 4.00 08/17/16 18:00 95 19 122/73 96 08/17/16 17:00 85 12 113/66 97 08/17/16 16:00 92 19 120/57 98 08/17/16 16:00 Bi-Pap 08/17/16 14:00 97 24 124/85 92 08/17/16 13:00 93 17 119/79 96 08/17/16 12:01 106 21 105/60 93 08/17/16 12:00 97.6 94 23 100 08/17/16 12:00 Bi-Pap 08/17/16 11:00 85 14 116/73 100 08/17/16 10:52 100 40 Physical Exam GENERAL: Patient is a well-nourished, well-developed CF, awake and alert, not in respiratory distress. SKIN: Warm and dry. No generalized rash, no ecchymoses and no evidence of embolic lesions. HEAD: Atraumatic. Normocephalic. No temporal wasting, or tenderness. EYES: [place] conjunctiva. No petechia or hemorrhage. Pupils equal, round and reactive to light. Extraocular movements full and intact. No scleral icterus. No injection or drainage. EARS, NOSE AND THROAT: Nose without bleeding or purulent nasal discharge. No sinus tenderness. Mucous membranes pink and moist. No oral lesions noted. No exudate. Has some white coating on the tongue. She is edentulous NECK: Trachea midline. Supple and not tender, no meningeal signs CARDIOVASCULAR: Regular rate and rhythm. No murmurs, rubs or gallops heard RESPIRATORY: Clear to auscultation on L. NO breath sounds on whole R lung. No rales, wheezing or rhonchi ABDOMEN: Soft, non-tender, nondistended. Bowel sounds present and normoactive. No guarding. No rebound. No organomegaly. EXTREMITIES: No clubbing, cyanosis, or edema. No joint effusion, has good ROM. No calf tenderness. NEUROLOGICAL: Awake and alert. Cranial nerves grossly intact. Motor grossly within normal limits. PSYCHIATRIC: Normal affect, calm and cooperative. LINE: No evidence of infection Laboratory Date/Time Procedure Status Source Growth 08/14/16 08:30 Urine Culture - Final Complete Urine Catheterized Urine S. Aureus Mrsa Tamra Albicans 08/13/16 21:50 Cancelled Sputum Expectorated Sputum 08/13/16 16:12 Aerobic Blood Culture - Preliminary Resulted Blood Peripheral NO GROWTH IN 4 DAYS 08/13/16 16:12 Anaerobic Blood Culture - Preliminary Resulted Blood Peripheral NO GROWTH IN 4 DAYS Result Diagram: 08/16/16 0500 08/16/16 0500 Imaging RADIOLOGY STUDIES/FILMS REVIEWED Last Impressions Chest X-Ray 08/11/16 0000 Signed Impressions: Service Date/Time: Thursday, August 11, 2016 11:24 - CONCLUSION: 1. Complete opacification of the right hemithorax with volume loss characteristic of a reported history of pneumonectomy. 2. Left lung remains clear. 3. No change from prior. Harley Gomez MD GI Procedure 08/10/16 0000 Signed Impressions: Service Date/Time: August 15:07 - CONCLUSION: ERCP as above. Luc Dickerson MD Cholangiopancreatography MRI 08/04/16 0000 Signed Impressions: Service Date/Time: Thursday, August 04, 2016 12:18 - CONCLUSION: 1. Status post cholecystectomy. 2. Intra-and extrahepatic biliary ductal dilatation. 3. There is slight filling defect along the distal common bile duct, ERCP and biopsy may be warranted. Francesco Mirza MD Abdomen/Pelvis CT 08/01/16 2303 Signed Impressions: Service Date/Time: Tuesday, August 02, 2016 01:06 - CONCLUSION: Dilated intrahepatic and extrahepatic ducts worse since the prior exam and the etiology is not evident. Hugo Grove MD Assessment and Plan Assessment and Plan IMPRESSION MRSA in UC, had marie likely due to that, no symptoms of sepsis - has improved even without RXm with decreased colony count and low colony count tamra - marie has been removed Dilated bile ducts, S/P ERCP, sphincterotomy and sweeping of sludge, GI symptoms better Known COPD, O2 dependent Initial rise in WBC likely due to steroids - steroid dose decreased and her WBC is improving RECOMMENDATION Stop Abx - Zosyn Give 3 days Bactrim and Diflucan Her UC has improved without Rx of her MRSA Should continue to improve now that her marie has been removed. Thank you for your consultation I will be available if there are any other ID issue or question Discussed Condition With D/W Danna Alfaro MD Aug 18, 2016 10:24
--- NOTE | 2016-08-18 16:45 | HHI.PR ---
Subjective Remarks 76 YO WF with COPD,Resp insuff, on BIPAP Feels betetr Anxious, requires xanax frequentally No CP Denies N,V Mild congestion, no fever On 4 lnc Used CPAP last night Getting frustrated Objective Vital Signs Vital Signs Date Time Temp Pulse Resp B/P Pulse Ox O2 Delivery O2 Flow Rate FiO2 08/18/16 14:00 112 08/18/16 12:00 97.6 98 23 161/93 94 08/18/16 12:00 94 08/18/16 12:00 96 Nasal Cannula 5.00 08/18/16 10:00 106 08/18/16 08:00 100 Bi-Pap 08/18/16 08:00 97.7 75 15 117/75 98 08/18/16 08:00 75 08/18/16 07:59 98 40 08/18/16 06:00 75 08/18/16 04:00 78 08/18/16 04:00 97.4 78 16 123/70 99 08/18/16 04:00 99 Bi-Pap 08/18/16 03:58 99 40 08/18/16 02:00 91 08/18/16 00:09 95 40 08/18/16 00:00 97.6 94 20 126/76 93 08/18/16 00:00 94 08/18/16 00:00 93 Bi-Pap 08/17/16 22:00 107 08/17/16 21:57 93 Nasal Cannula 4.00 08/17/16 20:15 98 08/17/16 20:04 96 Nasal Cannula 4.00 08/17/16 20:00 125 08/17/16 20:00 97.8 125 28 116/79 82 08/17/16 20:00 82 Nasal Cannula 4.00 08/17/16 18:00 95 19 122/73 96 08/17/16 17:00 85 12 113/66 97 I/O 08/17/16 08/17/16 08/17/16 08/18/16 08/18/16 08/18/16 07:00 15:00 23:00 07:00 15:00 23:00 Intake Total 55 ml 580 ml 60 ml 389 ml Output Total 250 ml 600 ml 250 ml 200 ml Balance -195 ml -20 ml -190 ml 189 ml Intake Oral 460 ml 300 ml IV Total 55 ml 120 ml 60 ml 89 ml Output Urine Total 250 ml 600 ml 250 ml 200 ml # Bowel Movements 0 4 Result Diagram: 08/16/16 0500 08/16/16 0500 Objective Remarks GENERAL: MBMN WF, on BIPAP SKIN: Warm and dry. HEAD: Normocephalic. EYES: No scleral icterus. No injection or drainage. NECK: Supple, trachea midline. No JVD or lymphadenopathy. CARDIOVASCULAR: Regular rate and rhythm without murmurs, gallops, or rubs. RESPIRATORY: No accessory muscle use. No BS right GASTROINTESTINAL: Abdomen soft, non-tender, nondistended. MUSCULOSKELETAL: No cyanosis, or edema. BACK: Nontender without obvious deformity. No CVA tenderness. A/P Assessment and Plan Resp insuff COPD ca lung s/p Right Pneumonectomy Ca breast, s/p Lumpectomy CAD PLAN: BIPAP at night and prn Supplement 02 with 6 LNC Aerosol nebs Cont Abx Xanax prn for anxiety. Temazepam 7.5 mg q hs prn Pureed diet Awaiting tr to Kb Moreno MD Aug 18, 2016 16:45
[2016-08-18] MEDS: MONTELUKAST SODIUM 10 MG TAB PO SCH (20:59)
[2016-08-18] MEDS: ATORVASTATIN 20 MG TAB PO SCH (20:59)
[2016-08-18] MEDS: LOPERAMIDE HCL 2 MG CAP PO PRN (20:59)
[2016-08-19] VITALS (30 sets, daily range): BP systolic 108–155; BP diastolic 60–98; PULSE 72–115; RESP 18; TEMP 97.8–98.6; O2SAT 91–100
[2016-08-19] MEDS: INSULIN NovoLIN REGULAR SUPPLEMENTAL SCALE SQ SCH ×4 (02:00→20:00)
[2016-08-19] MEDS: ALPRAZolam 0.25 MG TAB PO SCH ×2 (05:21→13:20)
[2016-08-19 05:47] LABS: AUTOMATED NEUTROPHIL # 12.7 TH/MM3 (1.8-7.7); BASOPHIL % 0.2 % (0.0-2.0); HEMATOCRIT 28.8 % (35.0-46.0); LYMPH % 5.6 % (9.0-44.0); LYMPHOCYTE # 0.9 TH/MM3 (1.0-4.8); MEAN CELL VOLUME 91.2 FL (80.0-100.0); MEAN CORPUSCULAR HEMOGLOBIN 29.9 PG (27.0-34.0); MEAN CORPUSCULAR HGB CONC 32.8 % (32.0-36.0); MONO % 14.7 % (0.0-8.0); NEUT % 79.5 % (16.0-70.0); PLATELET COUNT 225 TH/MM3 (150-450); RED BLOOD COUNT 3.16 MIL/MM3 (4.00-5.30); RED CELL DISTRIBUTION WIDTH 15.1 % (11.6-17.2)
[2016-08-19 05:55] LABS: HEMO FLAGS AUTO DIFF
[2016-08-19 06:18] LABS: POTASSIUM 4.6 MEQ/L (3.5-5.1)
[2016-08-19] MEDS: SULFAMETHOXAZOLE-TRIMETHOPRIM DS 800-160 MG TAB PO SCH ×2 (08:06→21:56)
[2016-08-19] MEDS: predniSONE 20 MG TAB PO SCH (08:06)
[2016-08-19] MEDS: FLUCONAZOLE 100 MG TAB PO SCH (08:07)
[2016-08-19] MEDS: SERTRALINE HCL 50 MG TAB PO SCH (08:07)
[2016-08-19] MEDS: LACTOBACILLUS ACIDOPHILUS TAB PO SCH ×3 (08:07→17:31)
[2016-08-19] MEDS: DIGOXIN 0.125 MG TAB PO SCH (08:07)
[2016-08-19] MEDS: APIXABAN 5 MG TABLET PO SCH (08:07)
[2016-08-19] MEDS: DILTIAZEM-CD 120 MG CAP ER PO SCH ×2 (08:07→21:56)
[2016-08-19] MEDS: SODIUM CHLORIDE 0.9% FLUSH 10 ML FLUSH IV FLUSH SCH ×2 (08:08→21:56)
[2016-08-19] MEDS: TIOTROPIUM BROMIDE 18 MCG INH INH SCH (08:21)
[2016-08-19] MEDS: BUDESONIDE-FORMOTEROL 160/4.5 MCG INHALER INH SCH ×2 (08:21→21:54)
[2016-08-19] MEDS: TIOTROPIUM INH SCH (09:00)
[2016-08-19] MEDS: OLODATEROL INH SCH (09:00)
[2016-08-19 10:41] LABS: OVALOCYTES 1+ (NORMAL); SCAN/DIFF AUTO DIFF CONFIRMED
--- NOTE | 2016-08-19 13:27 | HHI.PR ---
Subjective Remarks Patient resting in bed on 6 L nasal cannula oxygen awake alert oriented she has no complaint Objective Vitals Vital Signs Date Time Temp Pulse Resp B/P Pulse Ox O2 Delivery O2 Flow Rate FiO2 08/19/16 12:20 104 08/19/16 12:20 98.2 104 142/83 96 08/19/16 12:17 96 Nasal Cannula 4.00 08/19/16 11:00 115 08/19/16 10:00 103 08/19/16 09:00 98 08/19/16 08:53 91 Nasal Cannula 5.00 08/19/16 08:24 100 08/19/16 08:23 98.6 98 155/98 99 08/19/16 08:23 98 Nasal Cannula 5.00 40 08/19/16 07:06 77 08/19/16 06:00 86 08/19/16 05:00 72 08/19/16 04:25 100 40 08/19/16 04:15 75 08/19/16 04:04 Nasal Cannula 4.00 40 08/19/16 04:04 97.8 72 118/60 99 08/19/16 04:00 78 08/19/16 03:00 72 08/19/16 02:00 76 08/19/16 01:03 100 40 08/19/16 01:00 74 08/19/16 00:46 76 08/19/16 00:30 96 152/87 95 08/19/16 00:30 Nasal Cannula 4.00 40 08/18/16 23:00 84 08/18/16 22:15 96 40 08/18/16 20:00 109 08/18/16 20:00 95 Nasal Cannula 4.00 08/18/16 20:00 97.4 109 31 150/84 95 08/18/16 19:15 96 Nasal Cannula 4.00 08/18/16 18:00 119 08/18/16 18:00 119 28 153/98 88 08/18/16 16:00 96 Nasal Cannula 5.00 08/18/16 16:00 103 08/18/16 16:00 98.7 103 22 124/74 96 08/18/16 14:00 112 I/O 08/18/16 08/18/16 08/18/16 08/19/16 08/19/16 08/19/16 07:00 15:00 23:00 07:00 15:00 23:00 Intake Total 60 ml 389 ml 120 ml Output Total 250 ml 200 ml 100 ml Balance -190 ml 189 ml 20 ml Intake Oral 300 ml 120 ml IV Total 60 ml 89 ml Output Urine Total 250 ml 200 ml 100 ml # Voids 3 2 # Bowel Movements 4 3 Result Diagram: 08/19/1651108/19/16511 Objective Remarks GENERAL: 76 years old female in no acute distress on 6 L nasal cannula oxygen CARDIOVASCULAR: irregularly irregular, RESPIRATORY: Breath sounds equal bilaterally. No accessory muscle use. GASTROINTESTINAL: Abdomen soft, non-tender, nondistended. MUSCULOSKELETAL: No cyanosis or clubbing +1 edema Neuro: Awake alert oriented in no acute distress, moves all extremity Procedures None A/P Problem List: (1) Nausea, vomiting, and diarrhea ICD Code: R11.2 Status: Acute (2) Dehydration ICD Code: E86.0 Status: Resolved (3) DAVID (acute kidney injury) ICD Code: N17.9 Status: Acute (4) UTI (urinary tract infection) ICD Code: N39.0 Status: Acute Assessment and Plan 08/19: Continue weaning O2, continue for 4 discharged to SNF A/P: Anxiety disorder -Xanax 0.25 mg by mouth every 6 hours scheduled -Ativan when necessary for anxiety -Monitor neuro status Acute on chronic respiratory failure Acute COPD exacerbation - Status post pneumonectomy for lung CA -Continue with oxygen keep sat >92% - on IV Solu-Medrol 40 mg daily, switch to po prednisone 40mg po daily today and continue taper - DuoNeb scheduled and when necessary -NIPPV PRN for resp distress - Pulmonology Dr. Whitt following - Symbicort, Spiriva and Singular 10mg qhs Atrial fibrillation with RVR - On PO Cardizem CD 120 mg by mouth BID. off IV cardizem gtt - Digoxin 0.125 mg by mouth daily . Dig level 1.7. - Eliquis 5 mg by mouth twice a day -Monitor HR and BP keep MAP>65 mmHg -Echo showed EF 40-45% Dilated CBD with sludge and stone. s/p ERCP with sphincterotomy sludge extraction. - s/p sphincterotomy with balloon sweep and sludge extraction 08/10/16 - Supportive care - Management per GI Dr. Canas Acute kidney injury - resolved. Monitor renal function, I's and O's and electrolytes replacement per protocol. - SSI with accuchecks for glycemic control, monitor insulin requirements and BS as pt is on steroids. Leukocytosis- - Continue with abx ( Zosyn 08/13-) monitor for signs of infections ( Fever, WBC) - Monitor CBC CMP coags - Urine growing MRSA sensitive to bactrim, will treat (bactrim DS 08/17-). I will d/c marie as this may be causing infection vs contamination. consult ID for further recs. DVT prophylaxis Edilson Bowden MD Aug 19, 2016 13:27
[2016-08-19] MEDS: LORazepam 2 MG/ML VIAL IV PUSH PRN (18:46)
[2016-08-19] MEDS: RESP: IPRATROPIUM 0.5 MG/2.5 ML NEB NEB SCH (19:59)
[2016-08-19 21:12] LABS: HEMATOCRIT 29.2 % (35.0-46.0); REVIEW FLAG FINAL
[2016-08-19] MEDS: LORazepam 0.5 MG TAB PO SCH (21:56)
[2016-08-19] MEDS: TEMAZEPAM 7.5 MG CAP PO PRN (21:57)
[2016-08-19] MEDS: ATORVASTATIN 20 MG TAB PO SCH (21:57)
[2016-08-19] MEDS: MONTELUKAST SODIUM 10 MG TAB PO SCH (21:57)
[2016-08-19] MEDS: LOPERAMIDE HCL 2 MG CAP PO PRN (21:58)
[2016-08-20] VITALS (33 sets, daily range): BP systolic 101–136; BP diastolic 65–78; PULSE 70–116; RESP 18–22; TEMP 97.8–98.6; O2SAT 78–100
[2016-08-20 00:01] LABS: BLOOD, URINE LARGE (NEG); GLUCOSE,URINE NEG (NEG); HYALINE CAST, URINE 1 /lpf (RARE); KETONE, URINE NEG (NEG); NITRITE,URINE NEG (NEG); SQUAMOUS EPITHELIAL CELL URINE <1 /hpf (0-5); TRANSITIONAL EPI CELLS, URINE <1 /hpf; URINE COLOR YELLOW (YELLW/STRAW)
[2016-08-20 00:02] LABS: COMMENT (UR) CATH-CULTURE IND; CULTURE IF INDICATED CATH CULTURE IND
[2016-08-20] MEDS: LORazepam 2 MG/ML VIAL IV PUSH PRN ×2 (00:30→06:17)
[2016-08-20] MEDS: INSULIN NovoLIN REGULAR SUPPLEMENTAL SCALE SQ SCH ×5 (01:41→21:04)
[2016-08-20] MEDS: LORazepam 0.5 MG TAB PO SCH ×3 (05:02→20:40)
[2016-08-20] MEDS: RESP: IPRATROPIUM 0.5 MG/2.5 ML NEB NEB SCH ×3 (07:28→19:33)
[2016-08-20] MEDS: BUDESONIDE-FORMOTEROL 160/4.5 MCG INHALER INH SCH ×2 (08:47→20:40)
[2016-08-20] MEDS: DILTIAZEM-CD 120 MG CAP ER PO SCH ×2 (08:48→20:39)
[2016-08-20] MEDS: SODIUM CHLORIDE 0.9% FLUSH 10 ML FLUSH IV FLUSH SCH ×2 (08:48→20:40)
[2016-08-20] MEDS: FLUCONAZOLE 100 MG TAB PO SCH (08:49)
[2016-08-20] MEDS: DIGOXIN 0.125 MG TAB PO SCH (08:49)
[2016-08-20] MEDS: predniSONE 20 MG TAB PO SCH (08:49)
[2016-08-20] MEDS: LACTOBACILLUS ACIDOPHILUS TAB PO SCH ×3 (08:49→16:59)
[2016-08-20] MEDS: SERTRALINE HCL 50 MG TAB PO SCH (08:49)
[2016-08-20] MEDS: OLODATEROL INH SCH (08:52)
[2016-08-20] MEDS: TIOTROPIUM INH SCH (08:52)
[2016-08-20] MEDS ORDERED: PRED10PA2 PO (09:24)
[2016-08-20] MEDS ORDERED: DEXTROSE 50% IN WATER 50 ML VIAL(D50) IV PRN (10:30)
[2016-08-20] MEDS ORDERED: GLUCAGON 1 MG/ML VIAL OTHER PRN ×2 (10:30)
--- NOTE | 2016-08-20 11:06 | HHI.PR ---
Subjective Remarks Laying in bed still on 6 L oxygen Yesterday she started having excessive bleeding they were not sure if it was from the stool or sacral wound as well as hemoptysis so elliquis placed on hold Today she is stable we'll check H&H, will call Dr. santizo for the hemoptysis Objective Vitals Vital Signs Date Time Temp Pulse Resp B/P Pulse Ox O2 Delivery O2 Flow Rate FiO2 08/20/16 08:48 89 Nasal Cannula 6.00 08/20/16 08:36 100 Bi-Pap 40 08/20/16 08:00 98.0 110 20 124/78 100 08/20/16 07:28 100 40 08/20/16 07:25 78 21 08/20/16 06:00 101 08/20/16 05:00 87 08/20/16 04:00 98.0 81 18 132/65 99 08/20/16 04:00 81 08/20/16 04:00 Nasal Cannula 5.00 08/20/16 03:42 96 40 08/20/16 03:00 85 08/20/16 02:00 83 08/20/16 01:00 87 08/20/16 00:00 90 08/20/16 00:00 98.4 89 20 101/66 98 08/20/16 00:00 Nasal Cannula 5.00 08/19/16 23:00 89 08/19/16 22:53 96 40 08/19/16 22:00 85 08/19/16 21:00 111 08/19/16 20:04 96 Nasal Cannula 5.00 08/19/16 20:00 98.1 90 18 145/71 100 08/19/16 20:00 89 08/19/16 20:00 Nasal Cannula 5.00 08/19/16 18:17 89 08/19/16 18:15 98.4 97 108/73 97 08/19/16 16:18 97 08/19/16 16:17 97 Nasal Cannula 5.00 08/19/16 14:00 100 08/19/16 12:20 104 08/19/16 12:20 98.2 104 142/83 96 08/19/16 12:17 96 Nasal Cannula 4.00 I/O 08/19/16 08/19/16 08/19/16 08/20/16 08/20/16 08/20/16 07:00 15:00 23:00 07:00 15:00 23:00 Intake Total 120 ml 60 ml Output Total 100 ml 400 ml Balance 20 ml -340 ml Intake Oral 120 ml 50 ml IV Total 10 ml Output Urine Total 100 ml 400 ml # Voids 2 # Bowel Movements 0 Result Diagram: 08/19/16203908/19/16 0512 Objective Remarks GENERAL: 76 years old female in no acute distress on 6 L nasal cannula oxygen CARDIOVASCULAR: irregularly irregular, RESPIRATORY: Breath sounds equal bilaterally. No accessory muscle use. GASTROINTESTINAL: Abdomen soft, non-tender, nondistended. MUSCULOSKELETAL: No cyanosis or clubbing +1 edema Neuro: Awake alert oriented in no acute distress, moves all extremity Procedures None A/P Problem List: (1) Nausea, vomiting, and diarrhea ICD Code: R11.2 Status: Acute (2) Dehydration ICD Code: E86.0 Status: Resolved (3) DAVID (acute kidney injury) ICD Code: N17.9 Status: Acute (4) UTI (urinary tract infection) ICD Code: N39.0 Status: Acute Assessment and Plan 08/19: Continue weaning O2, continue for 4 discharged to SNF 08/20: Excessive bleeding from the sacral wound with hemoptysis, continue holding Eliquis, will call pulmonology, wound care consult, monitor H&H Addendum: Received call from the nurse patient is having pure watery diarrhea now will recheck C. difficile A/P: Anxiety disorder -Xanax 0.25 mg by mouth every 6 hours scheduled -Ativan when necessary for anxiety -Monitor neuro status Acute on chronic respiratory failure Acute COPD exacerbation - Status post pneumonectomy for lung CA -Continue with oxygen keep sat >92% - on IV Solu-Medrol 40 mg daily, switch to po prednisone 40mg po daily today and continue taper - DuoNeb scheduled and when necessary -NIPPV PRN for resp distress - Pulmonology Dr. Whitt following - Symbicort, Spiriva and Singular 10mg qhs Atrial fibrillation with RVR - On PO Cardizem CD 120 mg by mouth BID. off IV cardizem gtt - Digoxin 0.125 mg by mouth daily . Dig level 1.7. - Eliquis 5 mg by mouth twice a day -Monitor HR and BP keep MAP>65 mmHg -Echo showed EF 40-45% Dilated CBD with sludge and stone. s/p ERCP with sphincterotomy sludge extraction. - s/p sphincterotomy with balloon sweep and sludge extraction 08/10/16 - Supportive care - Management per GI Dr. Canas Acute kidney injury - resolved. Monitor renal function, I's and O's and electrolytes replacement per protocol. - SSI with accuchecks for glycemic control, monitor insulin requirements and BS as pt is on steroids. Leukocytosis- - Continue with abx ( Zosyn 08/13-) monitor for signs of infections ( Fever, WBC) - Monitor CBC CMP coags - Urine growing MRSA sensitive to bactrim, will treat (bactrim DS 08/17-). I will d/c marie as this may be causing infection vs contamination. consult ID for further recs. DVT prophylaxis Edilson Bowden MD Aug 20, 2016 11:06
--- NOTE | 2016-08-20 12:29 | RADRPT ---
EXAM DATE/TIME: 08/20/2016 11:44 [place] COMPARISON: CT ABDOMEN & PELVIS W/O CONTRAST, August 02, 2016, 1:06. CHEST SINGLE AP, August 11, 2016, 11:24. INDICATIONS : Hemoptysis MEDICAL HISTORY : Cardiovascular disease. Hypertension Chronic obstructive pulmonary disease. lung and breast cancer SURGICAL HISTORY : Fusion, thoracic. Right pneumonectomy. ENCOUNTER: Subsequent ACUITY: 3 weeks PAIN SCORE: 0/10 LOCATION: Bilateral chest FINDINGS: There is complete opacification of the right hemithorax. Heart is enlarged. Moderate interstitial e andrea is present on the left. Evidence for posterior spinal fixation is noted. CONCLUSION: 1. Complete opacification of the right hemithorax consistent with history of pneumonectomy. 2. Moderate interstitial edema. Evangelista Stearns MD FACR on August 20, 2016 at 12:09 Board Certified Radiologist. This report was verified electronically.
[2016-08-20 15:02] LABS: AUTOMATED NEUTROPHIL # 14.4 TH/MM3 (1.8-7.7); BASOPHIL % 0.2 % (0.0-2.0); EOSINOPHIL % 0.2 % (0.0-4.0); HEMATOCRIT 27.7 % (35.0-46.0); LYMPH % 2.8 % (9.0-44.0); LYMPHOCYTE # 0.4 TH/MM3 (1.0-4.8); MEAN CELL VOLUME 92.4 FL (80.0-100.0); MEAN CORPUSCULAR HEMOGLOBIN 29.8 PG (27.0-34.0); MEAN CORPUSCULAR HGB CONC 32.2 % (32.0-36.0); MONO % 5.3 % (0.0-8.0); NEUT % 91.5 % (16.0-70.0); PLATELET COUNT 222 TH/MM3 (150-450); RED CELL DISTRIBUTION WIDTH 15.2 % (11.6-17.2); WHITE BLOOD COUNT 15.7 TH/MM3 (4.0-11.0)
[2016-08-20 15:06] LABS: HEMO FLAGS AUTO DIFF
[2016-08-20 15:14] LABS: C. DIFF EPI 027 PRESUMPTIVE NEGATIVE (NEGATIVE); C. DIFF TOXIN PCR NEGATIVE (NEGATIVE)
[2016-08-20 15:41] LABS: PLATELET ESTIMATE SMEAR NORMAL (NORMAL); PLATELET MORPHOLOGY NORMAL (NORMAL); SCAN/DIFF AUTO DIFF CONFIRMED
[2016-08-20] MEDS: LOPERAMIDE HCL 2 MG CAP PO PRN (15:53)
[2016-08-20 18:50] LABS: HEMATOCRIT 27.6 % (35.0-46.0); REVIEW FLAG FINAL
[2016-08-20] MEDS: ATORVASTATIN 20 MG TAB PO SCH (20:39)
[2016-08-20] MEDS: MONTELUKAST SODIUM 10 MG TAB PO SCH (20:40)
[2016-08-20] MEDS ORDERED: APIXABAN 5 MG TABLET PO SCH (21:00)
[2016-08-21] VITALS (27 sets, daily range): BP systolic 98–126; BP diastolic 51–75; PULSE 59–111; RESP 20–21; TEMP 98–99.2; O2SAT 96–100
[2016-08-21 02:22] LABS: AUTOMATED NEUTROPHIL # 9.1 TH/MM3 (1.8-7.7); BASOPHIL % 0.2 % (0.0-2.0); EOSINOPHIL % 0.1 % (0.0-4.0); HEMATOCRIT 23.6 % (35.0-46.0); LYMPH % 7.8 % (9.0-44.0); MEAN CELL VOLUME 90.5 FL (80.0-100.0); MEAN CORPUSCULAR HGB CONC 34.2 % (32.0-36.0); MONO % 17.4 % (0.0-8.0); NEUT % 74.5 % (16.0-70.0); PLATELET COUNT 191 TH/MM3 (150-450); RED BLOOD COUNT 2.61 MIL/MM3 (4.00-5.30); WHITE BLOOD COUNT 12.3 TH/MM3 (4.0-11.0)
[2016-08-21 02:23] LABS: HEMO FLAGS AUTO DIFF
[2016-08-21 04:49] LABS: METAMYELOCYTES 1 % (0-1); NEUTROPHIL # MANUAL DIFF 10.6 TH/MM3 (1.8-7.7); POLYS (SEG NEUTROPHILS) 85 % (16-70); SCAN/DIFF FINAL DIFF MANUAL; WBC DIFF SAMPLE 100
[2016-08-21 04:50] LABS: PLATELET ESTIMATE SMEAR NORMAL (NORMAL); PLATELET MORPHOLOGY NORMAL (NORMAL)
[2016-08-21] MEDS: LORazepam 0.5 MG TAB PO SCH ×3 (05:57→23:01)
[2016-08-21] MEDS: INSULIN NovoLIN REGULAR SUPPLEMENTAL SCALE SQ SCH ×4 (06:14→21:00)
[2016-08-21] MEDS: RESP: IPRATROPIUM 0.5 MG/2.5 ML NEB NEB SCH ×3 (07:32→19:55)
[2016-08-21] MEDS: OLODATEROL INH SCH (09:00)
[2016-08-21] MEDS: TIOTROPIUM INH SCH (09:00)
[2016-08-21] MEDS: LACTOBACILLUS ACIDOPHILUS TAB PO SCH ×4 (09:23→20:14)
[2016-08-21] MEDS: SERTRALINE HCL 50 MG TAB PO SCH (09:23)
[2016-08-21] MEDS: DIGOXIN 0.125 MG TAB PO SCH (09:24)
[2016-08-21] MEDS: predniSONE 20 MG TAB PO SCH (09:24)
[2016-08-21] MEDS: DILTIAZEM-CD 120 MG CAP ER PO SCH ×2 (09:24→20:16)
[2016-08-21] MEDS: BUDESONIDE-FORMOTEROL 160/4.5 MCG INHALER INH SCH ×2 (09:25→20:16)
[2016-08-21] MEDS: SODIUM CHLORIDE 0.9% FLUSH 10 ML FLUSH IV FLUSH SCH ×2 (09:25→20:16)
[2016-08-21] MEDS: LORazepam 2 MG/ML VIAL IV PUSH PRN ×2 (11:03→20:15)
--- NOTE | 2016-08-21 12:48 | HHI.PR ---
Subjective Remarks patient looks tired still, she is on 5 L O2, stated no hemoptysis today discussed with the nurse, no further bleeding from the sacral skin tear, she did not notice any hemoptysis today, awaiting pulmonology assessment for the hemoptysis, consider resuming eliquis if normal bleeding Objective Vitals Vital Signs Date Time Temp Pulse Resp B/P Pulse Ox O2 Delivery O2 Flow Rate FiO2 08/21/16 12:00 96 Nasal Cannula 3.00 08/21/16 12:00 98.8 59 20 126/62 96 08/21/16 08:00 99.0 100 20 115/75 99 08/21/16 07:33 100 Nasal Cannula 4.00 08/21/16 06:16 77 08/21/16 05:00 82 08/21/16 04:04 Bi-Pap 40 08/21/16 04:04 82 98/53 100 08/21/16 04:00 74 08/21/16 03:49 100 35 08/21/16 03:00 79 08/21/16 02:00 82 08/21/16 01:00 82 08/21/16 01:00 98 40 08/21/16 00:00 88 08/21/16 00:00 Bi-Pap 40 08/21/16 00:00 75 102/63 98 08/20/16 23:00 85 08/20/16 22:10 96 40 08/20/16 22:00 106 08/20/16 21:00 102 08/20/16 20:00 98.6 112 119/68 96 08/20/16 20:00 106 08/20/16 20:00 Bi-Pap 35 08/20/16 19:36 98 Nasal Cannula 4.00 08/20/16 19:00 93 08/20/16 18:02 97 08/20/16 17:30 107 08/20/16 16:15 109 08/20/16 16:00 100 Nasal Cannula 5.00 08/20/16 16:00 98.1 114 22 136/75 93 08/20/16 15:00 105 08/20/16 14:14 112 08/20/16 14:14 97 Nasal Cannula 5.00 08/20/16 13:00 109 I/O 08/20/16 08/20/16 08/20/16 08/21/16 08/21/1612/17 07:00 15:00 23:00 07:00 15:00 23:00 Intake Total 60 ml 1040 ml 240 ml Output Total 400 ml 700 ml 750 ml Balance -340 ml 340 ml -510 ml Intake Oral 50 ml 1040 ml 240 ml IV Total 10 ml Output Urine Total 400 ml 700 ml 750 ml # Bowel Movements 0 2 Result Diagram: 08/21/16 0159 08/19/16 0512 Objective Remarks GENERAL: 76 years old female in no acute distress on 6 L nasal cannula oxygen CARDIOVASCULAR: irregularly irregular, RESPIRATORY: Breath sounds equal bilaterally. No accessory muscle use. GASTROINTESTINAL: Abdomen soft, non-tender, nondistended. MUSCULOSKELETAL: No cyanosis or clubbing +1 edema Neuro: Awake alert oriented in no acute distress, moves all extremity Procedures None A/P Problem List: (1) Nausea, vomiting, and diarrhea ICD Code: R11.2 Status: Acute (2) Dehydration ICD Code: E86.0 Status: Resolved (3) DAVID (acute kidney injury) ICD Code: N17.9 Status: Acute (4) UTI (urinary tract infection) ICD Code: N39.0 Status: Acute Assessment and Plan on 08/20pt Excessive bleeding from the sacral wound with hemoptysis, continue holding Eliquis, will call pulmonology, wound care consult, monitor H&H Addendum: Received call from the nurse patient is having pure watery diarrhea now will recheck C. difficile on 08/21: per the nurse no more bleeding fro the sacral wound , no hemoptesis , eliquis on hold , please consider resuming if ok with pulmonology general A/P: Anxiety disorder -Xanax 0.25 mg by mouth every 6 hours scheduled -Ativan when necessary for anxiety -Monitor neuro status Acute on chronic respiratory failure Acute COPD exacerbation - Status post pneumonectomy for lung CA -Continue with oxygen keep sat >92% - on IV Solu-Medrol 40 mg daily, switch to po prednisone 40mg po daily today and continue taper - DuoNeb scheduled and when necessary -NIPPV PRN for resp distress - Pulmonology Dr. Whitt following - Symbicort, Spiriva and Singular 10mg qhs Atrial fibrillation with RVR - On PO Cardizem CD 120 mg by mouth BID. off IV cardizem gtt - Digoxin 0.125 mg by mouth daily . Dig level 1.7. - Eliquis 5 mg by mouth twice a day -Monitor HR and BP keep MAP>65 mmHg -Echo showed EF 40-45% Dilated CBD with sludge and stone. s/p ERCP with sphincterotomy sludge extraction. - s/p sphincterotomy with balloon sweep and sludge extraction 08/10/16 - Supportive care - Management per GI Dr. Canas Acute kidney injury - resolved. Monitor renal function, I's and O's and electrolytes replacement per protocol. - SSI with accuchecks for glycemic control, monitor insulin requirements and BS as pt is on steroids. Leukocytosis- - Continue with abx ( Zosyn 08/13-) monitor for signs of infections ( Fever, WBC) - Monitor CBC CMP coags - Urine growing MRSA sensitive to bactrim, will treat (bactrim DS 08/17-). I will d/c marie as this may be causing infection vs contamination. consult ID for further recs. DVT prophylaxis Edilson Bowden MD Aug 21, 2016 12:48
--- NOTE | 2016-08-21 17:36 | PD.WCN.NOT ---
Wound Consult Description: Patient seen on 2nd floor [facility] for evaluation of medial buttock pressure ulcer. Patient turned to R side with the assistance of telegraphic typewriter mechanic and VANE Garcia [facility]. Patient noted with ecchymotic area to L buttock and L medial gluteal cleft deep tissue injury that is opening to partial thickness skin loss. Wound to L medial gluteal cleft presents as non blanchable purple colored area of discoloration that is opened in two areas to partial thickness skin loss. Wound has scant sanguinous drainage when cleansed with gauze and normal saline. VANE Garcia cleansed patient gently with soap and water and applied Calazime barrier cream over deep tissue injury and buttock area. Communicated with: Radha [facility]IF[facility]ENTES [facility] and Doctor Renay Recommendation: RECOMMEND TO CLEANSE BUTTOCK AREA GENTLY WITH SOAP AND WATER AND PAT DRY.PLEASE APPLY CALAZIME BARRIER CREAM BID AND PRN AND LEAVE DEEP TISSUE INJURY OPEN TO AIR. Delma [facility] Aug 21, 2016 17:36
--- NOTE | 2016-08-21 20:10 | HHI.PR ---
Subjective Remarks 76 YO WF with COPD,Resp insuff, on BIPAP No CP Denies N,V Mild congestion, no fever On 4 lnc Used CPAP last night Breathing better Weaned to 4LNC Objective Vital Signs Vital Signs Date Time Temp Pulse Resp B/P Pulse Ox O2 Delivery O2 Flow Rate FiO2 08/21/16 19:57 97 Nasal Cannula 3.00 08/21/16 18:00 102 08/21/16 17:00 104 08/21/16 16:00 99.2 103 20 124/71 96 08/21/16 16:00 98 08/21/16 16:00 95 Nasal Cannula 4.00 08/21/16 15:00 96 08/21/16 14:00 98 08/21/16 13:00 92 08/21/16 12:00 96 Nasal Cannula 3.00 08/21/16 12:00 84 08/21/16 12:00 98.8 59 20 126/62 96 08/21/16 11:00 100 08/21/16 10:00 102 08/21/16 09:00 102 08/21/16 08:00 96 08/21/16 08:00 99.0 100 20 115/75 99 08/21/16 07:33 100 Nasal Cannula 4.00 08/21/16 07:00 81 08/21/16 06:16 77 08/21/16 05:00 82 08/21/16 04:04 Bi-Pap 40 08/21/16 04:04 82 98/53 100 08/21/16 04:00 74 08/21/16 03:49 100 35 08/21/16 03:00 79 08/21/16 02:00 82 08/21/16 01:00 82 08/21/16 01:00 98 40 08/21/16 00:00 88 08/21/16 00:00 Bi-Pap 40 08/21/16 00:00 75 102/63 98 08/20/16 23:00 85 08/20/16 22:10 96 40 08/20/16 22:00 106 08/20/16 21:00 102 I/O 08/20/16 08/20/16 08/20/16 08/21/16 08/21/16 08/21/16 07:00 15:00 23:00 07:00 15:00 23:00 Intake Total 60 ml 1040 ml 240 ml 240 ml Output Total 400 ml 700 ml 750 ml 1075 ml Balance -340 ml 340 ml -510 ml -835 ml Intake Oral 50 ml 1040 ml 240 ml 240 ml IV Total 10 ml Output Urine Total 400 ml 700 ml 750 ml 1075 ml # Bowel Movements 0 2 Result Diagram: 08/21/16 0159 08/19/16 0512 Objective Remarks GENERAL: MBMN WF, on BIPAP SKIN: Warm and dry. HEAD: Normocephalic. EYES: No scleral icterus. No injection or drainage. NECK: Supple, trachea midline. No JVD or lymphadenopathy. CARDIOVASCULAR: Regular rate and rhythm without murmurs, gallops, or rubs. RESPIRATORY: No accessory muscle use. No BS right GASTROINTESTINAL: Abdomen soft, non-tender, nondistended. MUSCULOSKELETAL: No cyanosis, or edema. BACK: Nontender without obvious deformity. No CVA tenderness. A/P Assessment and Plan Resp insuff COPD ca lung s/p Right Pneumonectomy Ca breast, s/p Lumpectomy CAD PLAN: BIPAP at night and prn Supplement 02 with 4 LNC Aerosol nebs Cont Abx Xanax prn for anxiety. Pureed diet Kb Whitt MD Aug 21, 2016 20:10
[2016-08-21] MEDS: MONTELUKAST SODIUM 10 MG TAB PO SCH (20:14)
[2016-08-21] MEDS: ATORVASTATIN 20 MG TAB PO SCH (20:14)
[2016-08-22] VITALS (28 sets, daily range): BP systolic 96–129; BP diastolic 46–88; PULSE 70–104; RESP 18–24; TEMP 97.4–98.8; O2SAT 95–100
[2016-08-22] MEDS: TEMAZEPAM 7.5 MG CAP PO PRN (00:57)
[2016-08-22] MEDS: LORazepam 2 MG/ML VIAL IV PUSH PRN (02:29)
[2016-08-22] MEDS: LORazepam 0.5 MG TAB PO SCH ×3 (06:00→21:32)
[2016-08-22] MEDS: INSULIN NovoLIN REGULAR SUPPLEMENTAL SCALE SQ SCH ×4 (06:07→21:42)
[2016-08-22] MEDS: RESP: IPRATROPIUM 0.5 MG/2.5 ML NEB NEB SCH ×3 (07:44→19:37)
[2016-08-22] MEDS: TIOTROPIUM INH SCH (09:00)
[2016-08-22] MEDS: predniSONE 20 MG TAB PO SCH (09:00)
[2016-08-22] MEDS: DIGOXIN 0.125 MG TAB PO SCH (09:00)
[2016-08-22] MEDS: SODIUM CHLORIDE 0.9% FLUSH 10 ML FLUSH IV FLUSH SCH ×2 (09:00→21:32)
[2016-08-22] MEDS: DILTIAZEM-CD 120 MG CAP ER PO SCH ×2 (09:00→21:32)
[2016-08-22] MEDS: OLODATEROL INH SCH (09:00)
[2016-08-22] MEDS: BUDESONIDE-FORMOTEROL 160/4.5 MCG INHALER INH SCH ×2 (09:00→21:33)
[2016-08-22] MEDS: SERTRALINE HCL 50 MG TAB PO SCH (09:00)
[2016-08-22] MEDS: LACTOBACILLUS ACIDOPHILUS TAB PO SCH ×2 (11:19→18:00)
--- NOTE | 2016-08-22 14:20 | HHI.PR ---
Subjective Remarks The patient was trying to sleep. She was looking forward to getting out of the hospital soon. She said she only started working with physical therapy a couple of days ago. Discussed with nursing. Objective Vitals Vital Signs Date Time Temp Pulse Resp B/P Pulse Ox O2 Delivery O2 Flow Rate FiO2 08/22/16 13:11 95 Nasal Cannula 3.00 08/22/16 12:00 92 08/22/16 11:00 100 08/22/16 10:57 97.6 94 22 96/46 99 08/22/16 10:00 96 08/22/16 09:00 98 08/22/16 08:00 97.8 104 22 120/78 95 08/22/16 08:00 82 08/22/16 08:00 95 Nasal Cannula 3.00 08/22/16 07:46 98 Nasal Cannula 3.00 08/22/16 06:00 70 08/22/16 05:00 82 08/22/16 04:00 78 08/22/16 04:00 98.7 72 18 105/52 100 08/22/16 04:00 99 Nasal Cannula 3.00 08/22/16 03:00 82 08/22/16 02:00 78 08/22/16 01:00 86 08/22/16 00:00 Nasal Cannula 4.00 08/22/16 00:00 89 08/22/16 00:00 98.3 102 24 121/79 95 08/21/16 23:00 100 08/21/16 22:00 92 08/21/16 21:00 100 08/21/16 20:00 107 08/21/16 20:00 Nasal Cannula 4.00 08/21/16 20:00 98.0 111 21 117/51 98 08/21/16 19:57 97 Nasal Cannula 3.00 08/21/16 18:00 102 08/21/16 17:00 104 08/21/16 16:00 99.2 103 20 124/71 96 08/21/16 16:00 98 08/21/16 16:00 95 Nasal Cannula 4.00 08/21/16 15:00 96 I/O 08/21/16 08/21/16 08/21/16 08/22/16 08/22/16 08/22/16 07:00 15:00 23:00 07:00 15:00 23:00 Intake Total 240 ml 240 ml 240 ml Output Total 750 ml 1075 ml 750 ml Balance -510 ml -835 ml -510 ml Intake Oral 240 ml 240 ml 240 ml Output Urine Total 750 ml 1075 ml 750 ml Result Diagram: 08/21/16 0159 08/19/16 0512 Imaging Last Impressions Chest X-Ray 08/20/16 0000 Signed Impressions: Service Date/Time: Saturday, August 20, 2016 11:44 - CONCLUSION: 1. Complete opacification of the right hemithorax consistent with history of pneumonectomy. 2. Moderate interstitial edema. Evangelista Stearns MD FACR GI Procedure 08/10/16 0000 Signed Impressions: Service Date/Time: August 15:07 - CONCLUSION: ERCP as above. Luc Dickerson MD Cholangiopancreatography MRI 08/04/16 0000 Signed Impressions: Service Date/Time: Thursday, August 04, 2016 12:18 - CONCLUSION: 1. Status post cholecystectomy. 2. Intra-and extrahepatic biliary ductal dilatation. 3. There is slight filling defect along the distal common bile duct, ERCP and biopsy may be warranted. Francesco Mirza MD Abdomen/Pelvis CT 08/01/16 2303 Signed Impressions: Service Date/Time: Tuesday, August 02, 2016 01:06 - CONCLUSION: Dilated intrahepatic and extrahepatic ducts worse since the prior exam and the etiology is not evident. Hugo Grove MD Objective Remarks GENERAL: Elderly female resting in bed comfortably. CARDIOVASCULAR: irregularly irregular, no murmur appreciated. RESPIRATORY: Breath sounds equal bilaterally. No accessory muscle use. GASTROINTESTINAL: Abdomen soft, non-tender, nondistended. MUSCULOSKELETAL: No cyanosis or clubbing, +1 edema. NEURO: Awake alert oriented in no acute distress, moves all extremities. PSYCH: Flattened affect. Procedures None Medications and IVs Current Medications Medications (Trade) Dose Ordered Sig/Bety Route Start Time Stop Time Status Last Admin (Lipitor) 20 mg HS PO 08/02/16 21:00 08/21/16 20:14 (Singulair) 10 mg HS PO 08/02/16 21:00 08/21/16 20:14 (Zoloft) 50 mg DAILY PO 08/02/16 09:00 08/22/16 09:00 Patient Own Medication PT OWN MED: Aero... DAILY INH 08/02/16 09:00 08/21/16 09:00 (NS Flush) 2 ml UNSCH PRN IV FLUSH 08/02/16 04:45 (NS Flush) 2 ml BID IV FLUSH 08/02/16 09:00 08/22/16 09:00 (Tylenol) 650 mg Q4H PRN PO 08/02/16 04:45 (Zofran Inj) 4 mg Q6H PRN IVP 08/02/16 04:45 08/14/16 13:25 (Tylenol) 650 mg Q6H PRN PO 08/02/16 04:45 08/16/16 00:18 (Imodium) 2 mg Q6H PRN PO 08/03/16 13:00 08/20/16 15:53 (Lactinex) 1 tab TID PO 08/03/16 13:00 08/22/16 11:19 (Lanoxin) 0.125 mg DAILY PO 08/13/16 09:00 08/22/16 09:00 (Symbicort 160-4.5 Inh) 1 puff Q12HR INH 08/12/16 12:30 08/22/16 09:00 (Restoril) 7.5 mg HS PRN PO 08/15/16 19:30 08/22/16 00:57 (Cardizem Cd) 120 mg BID PO 08/16/16 21:00 08/22/16 09:00 (Pill Splitter) 1 ea UNSCH PRN OTHER 08/18/16 08:30 (Ativan Inj) 1 mg Q6HR PRN IV PUSH 08/19/16 18:00 08/22/16 02:29 (Ativan) 0.5 mg Q8HR PO 08/19/16 22:00 08/21/16 23:01 (Deltasone) 30 mg DAILY PO 08/21/16 09:00 08/22/16 09:00 (D50w (Vial) Inj) 50 ml UNSCH PRN IV 08/20/16 10:30 (Glucagon Inj) 1 mg UNSCH PRN OTHER 08/20/16 10:30 A/P Problem List: (1) Nausea, vomiting, and diarrhea ICD Code: R11.2 Status: Acute (2) Dehydration ICD Code: E86.0 Status: Resolved (3) DAVID (acute kidney injury) ICD Code: N17.9 Status: Acute (4) UTI (urinary tract infection) ICD Code: N39.0 Status: Acute Assessment and Plan Acute on chronic respiratory failure/ Acute COPD exacerbation Status post pneumonectomy for lung CA. Pulmonology consult appreciated. - Continue with oxygen keep sat >92%. - Switch to po prednisone 30mg po daily and continue to taper. - DuoNeb scheduled and when necessary. - NIPPV PRN for resp distress - follow up with pulmonology. - continue Symbicort, Spiriva and Singulair. Hemoptysis/ Sacral wound bleeding Hemoptysis likely s/t above. Seems resolved. Sacral wound stable. - follow up with pulmonology - wound care nurse consult appreciated for sacral wound management. - follow CBC and transfuse as needed. Atrial fibrillation with RVR Weaned off of Cardizem gtt. Echo showed EF 40-45%. - On PO Cardizem CD 120 mg by mouth BID. - Digoxin 0.125 mg by mouth daily . - Eliquis 5 mg by mouth twice a day. On hold. If labs stable will resume. Dilated CBD with sludge and stone S/p ERCP, sphincterotomy with balloon sweep and sludge extraction 08/10/16. - Supportive care. - Management per GI Dr. Canas. Leukocytosis/ UTI Urine culture grew MRSA. S/p course of Zosyn. Bactrim and Diflucan course completed per ID. - Monitor. DVT prophylaxis: Eliquis to be resumed if CBC stable Discharge Planning Awaiting clinical improvement aBljit Fuentes DO Aug 22, 2016 14:20
--- NOTE | 2016-08-22 19:37 | HHI.PR ---
Subjective Remarks 76 YO WF with COPD,Resp insuff, on BIPAP No CP Denies N,V Mild congestion, no fever Breathing better Weaned to 4LNC Did't use CPAP Worked with PT Objective Vital Signs Vital Signs Date Time Temp Pulse Resp B/P Pulse Ox O2 Delivery O2 Flow Rate FiO2 08/22/16 18:09 104 08/22/16 17:00 102 08/22/16 16:28 100 08/22/16 16:18 95 Nasal Cannula 3.00 08/22/16 16:17 98.8 100 20 129/58 98 08/22/16 15:00 92 08/22/16 14:00 81 08/22/16 13:11 95 Nasal Cannula 3.00 08/22/16 13:00 82 08/22/16 12:00 97.6 94 22 96/46 99 08/22/16 12:00 92 08/22/16 11:00 100 08/22/16 10:57 97.6 94 22 96/46 99 08/22/16 10:00 96 08/22/16 09:00 98 08/22/16 08:00 97.8 104 22 120/78 95 08/22/16 08:00 82 08/22/16 08:00 95 Nasal Cannula 3.00 08/22/16 07:46 98 Nasal Cannula 3.00 08/22/16 07:00 96 08/22/16 06:00 70 08/22/16 05:00 82 08/22/16 04:00 78 08/22/16 04:00 98.7 72 18 105/52 100 08/22/16 04:00 99 Nasal Cannula 3.00 08/22/16 03:00 82 08/22/16 02:00 78 08/22/16 01:00 86 08/22/16 00:00 Nasal Cannula 4.00 08/22/16 00:00 89 08/22/16 00:00 98.3 102 24 121/79 95 08/21/16 23:00 100 08/21/16 22:00 92 08/21/16 21:00 100 08/21/16 20:00 107 08/21/16 20:00 Nasal Cannula 4.00 08/21/16 20:00 98.0 111 21 117/51 98 08/21/16 19:57 97 Nasal Cannula 3.00 I/O 08/21/16 08/21/16 08/21/16 08/22/16 08/22/16 08/22/16 07:00 15:00 23:00 07:00 15:00 23:00 Intake Total 240 ml 240 ml 240 ml 1320 ml Output Total 750 ml 1075 ml 750 ml 1320 ml Balance -510 ml -835 ml -510 ml 0 ml Intake Oral 240 ml 240 ml 240 ml 1320 ml Output Urine Total 750 ml 1075 ml 750 ml 1320 ml # Bowel Movements 1 Result Diagram: 08/21/16 0159 08/19/16 0512 Objective Remarks GENERAL: MBMN WF, on BIPAP SKIN: Warm and dry. HEAD: Normocephalic. EYES: No scleral icterus. No injection or drainage. NECK: Supple, trachea midline. No JVD or lymphadenopathy. CARDIOVASCULAR: Regular rate and rhythm without murmurs, gallops, or rubs. RESPIRATORY: No accessory muscle use. No BS right GASTROINTESTINAL: Abdomen soft, non-tender, nondistended. MUSCULOSKELETAL: No cyanosis, or edema. BACK: Nontender without obvious deformity. No CVA tenderness. A/P Assessment and Plan Resp insuff COPD ca lung s/p Right Pneumonectomy Ca breast, s/p Lumpectomy CAD PLAN: Supplement 02 with 4 LNC Aerosol nebs Cont Abx Xanax prn for anxiety. Pureed diet DC Plans underway Kb Whitt MD Aug 22, 2016 19:37
[2016-08-22 21:06] LABS: HEMATOCRIT 27.8 % (35.0-46.0); MEAN CELL VOLUME 91.5 FL (80.0-100.0); MEAN CORPUSCULAR HEMOGLOBIN 29.8 PG (27.0-34.0); MEAN CORPUSCULAR HGB CONC 32.6 % (32.0-36.0); PLATELET COUNT 195 TH/MM3 (150-450); RED BLOOD COUNT 3.03 MIL/MM3 (4.00-5.30); RED CELL DISTRIBUTION WIDTH 15.2 % (11.6-17.2); REVIEW FLAG FINAL; WHITE BLOOD COUNT 14.7 TH/MM3 (4.0-11.0)
[2016-08-22 21:20] LABS: BICARBONATE 31.5 MEQ/L (21.0-32.0); MAGNESIUM 2.3 MG/DL (1.5-2.5); POTASSIUM 4.7 MEQ/L (3.5-5.1)
[2016-08-22] MEDS: MONTELUKAST SODIUM 10 MG TAB PO SCH (21:32)
[2016-08-22] MEDS: ATORVASTATIN 20 MG TAB PO SCH (21:32)
[2016-08-23] VITALS (29 sets, daily range): BP systolic 102–136; BP diastolic 54–90; PULSE 69–110; RESP 18–20; TEMP 97.6–98.8; O2SAT 95–100
[2016-08-23] MEDS: LORazepam 0.5 MG TAB PO SCH ×3 (05:34→21:44)
[2016-08-23] MEDS: INSULIN NovoLIN REGULAR SUPPLEMENTAL SCALE SQ SCH ×4 (05:34→21:00)
[2016-08-23] MEDS: RESP: IPRATROPIUM 0.5 MG/2.5 ML NEB NEB SCH ×3 (07:45→21:26)
[2016-08-23] MEDS: LACTOBACILLUS ACIDOPHILUS TAB PO SCH ×3 (08:43→18:00)
[2016-08-23] MEDS: BUDESONIDE-FORMOTEROL 160/4.5 MCG INHALER INH SCH ×2 (08:43→21:00)
[2016-08-23] MEDS: SERTRALINE HCL 50 MG TAB PO SCH (08:44)
[2016-08-23] MEDS: predniSONE 20 MG TAB PO SCH (08:44)
[2016-08-23] MEDS: DIGOXIN 0.125 MG TAB PO SCH (08:44)
[2016-08-23] MEDS: DILTIAZEM-CD 120 MG CAP ER PO SCH ×2 (08:44→21:43)
[2016-08-23] MEDS: SODIUM CHLORIDE 0.9% FLUSH 10 ML FLUSH IV FLUSH SCH ×2 (08:45→21:00)
[2016-08-23] MEDS: TIOTROPIUM INH SCH (09:00)
[2016-08-23] MEDS: OLODATEROL INH SCH (09:00)
[2016-08-23 09:55] LABS: BICARBONATE 33.2 MEQ/L (21.0-32.0); MAGNESIUM 2.3 MG/DL (1.5-2.5); POTASSIUM 3.6 MEQ/L (3.5-5.1)
[2016-08-23 11:33] LABS: HEMATOCRIT 28.5 % (35.0-46.0); MEAN CORPUSCULAR HEMOGLOBIN 29.9 PG (27.0-34.0); MEAN CORPUSCULAR HGB CONC 33.2 % (32.0-36.0); PLATELET COUNT 212 TH/MM3 (150-450); RED BLOOD COUNT 3.16 MIL/MM3 (4.00-5.30); RED CELL DISTRIBUTION WIDTH 15.2 % (11.6-17.2); REVIEW FLAG FINAL; WHITE BLOOD COUNT 19.8 TH/MM3 (4.0-11.0)
[2016-08-23] MEDS: TEMAZEPAM 7.5 MG CAP PO PRN (12:20)
--- NOTE | 2016-08-23 16:52 | HHI.PR ---
Subjective Remarks The patient was talking to the nurse about watching baseball. The patient said she was being rushed to rehabilitation. She said she had a bowel movement. She said she had no acute complaints, though she did say she felt miserable in general. Discussed with nursing at the bedside. Objective Vitals Vital Signs Date Time Temp Pulse Resp B/P Pulse Ox O2 Delivery O2 Flow Rate FiO2 08/23/16 15:19 100 Nasal Cannula 3.00 08/23/16 15:19 98.6 88 20 109/72 98 08/23/16 15:01 79 08/23/16 14:01 88 08/23/16 13:00 86 08/23/16 12:01 90 08/23/16 11:45 100 Nasal Cannula 3.00 08/23/16 11:45 98.7 95 20 106/54 97 08/23/16 11:00 78 08/23/16 10:00 90 08/23/16 09:00 86 08/23/16 08:30 98.6 89 20 135/89 100 08/23/16 08:30 100 Nasal Cannula 3.00 08/23/16 08:00 76 08/23/16 07:01 69 08/23/16 06:00 74 08/23/16 05:00 72 08/23/16 04:00 98.4 75 18 105/64 100 08/23/16 04:00 100 Nasal Cannula 3.00 08/23/16 04:00 75 08/23/16 03:00 76 08/23/16 02:00 82 08/23/16 01:00 78 08/23/16 00:00 95 Nasal Cannula 3.00 08/23/16 00:00 79 08/23/16 00:00 97.6 100 20 114/90 95 08/22/16 23:00 82 08/22/16 22:00 88 08/22/16 21:00 86 08/22/16 20:00 86 08/22/16 20:00 95 Nasal Cannula 3.00 08/22/16 20:00 97.4 103 20 120/88 95 08/22/16 19:39 96 Nasal Cannula 3.00 08/22/16 19:00 98 08/22/16 18:09 104 08/22/16 17:00 102 I/O 6/13/17 6/08/22/16 08/23/16 08/23/16 08/23/16 07:00 15:00 23:00 07:00 15:00 23:00 Intake Total 240 ml 1320 ml 480 ml Output Total 750 ml 1320 ml 425 ml Balance -510 ml 0 ml 55 ml Intake Oral 240 ml 1320 ml 480 ml Output Urine Total 750 ml 1320 ml 425 ml # Bowel Movements 1 0 Result Diagram: 08/23/16 1111 08/23/16 0854 Imaging Last Impressions Chest X-Ray 08/20/16 0000 Signed Impressions: Service Date/Time: Saturday, August 20, 2016 11:44 - CONCLUSION: 1. Complete opacification of the right hemithorax consistent with history of pneumonectomy. 2. Moderate interstitial edema. Evangelista Stearns MD FACR GI Procedure 08/10/16 0000 Signed Impressions: Service Date/Time: August 15:07 - CONCLUSION: ERCP as above. Luc Dickerson MD Cholangiopancreatography MRI 08/04/16 0000 Signed Impressions: Service Date/Time: Thursday, August 04, 2016 12:18 - CONCLUSION: 1. Status post cholecystectomy. 2. Intra-and extrahepatic biliary ductal dilatation. 3. There is slight filling defect along the distal common bile duct, ERCP and biopsy may be warranted. Francesco Mirza MD Abdomen/Pelvis CT 08/01/16 2303 Signed Impressions: Service Date/Time: Tuesday, August 02, 2016 01:06 - CONCLUSION: Dilated intrahepatic and extrahepatic ducts worse since the prior exam and the etiology is not evident. Hugo Grove MD Objective Remarks GENERAL: Elderly female resting in bed. CARDIOVASCULAR: irregularly irregular, no murmur appreciated. RESPIRATORY: Breath sounds equal bilaterally. No accessory muscle use. GASTROINTESTINAL: Abdomen soft, non-tender, nondistended. MUSCULOSKELETAL: No cyanosis or clubbing, +1 edema. NEURO: Awake alert oriented in no acute distress, moves all extremities. PSYCH: Flattened affect. Procedures None Medications and IVs Current Medications Medications (Trade) Dose Ordered Sig/Bety Route Start Time Stop Time Status Last Admin (Lipitor) 20 mg HS PO 08/02/16 21:00 08/22/16 21:32 (Singulair) 10 mg HS PO 08/02/16 21:00 08/22/16 21:32 (Zoloft) 50 mg DAILY PO 08/02/16 09:00 08/23/16 08:44 Patient Own Medication PT OWN MED: Aero... DAILY INH 08/02/16 09:00 08/21/16 09:00 (NS Flush) 2 ml UNSCH PRN IV FLUSH 08/02/16 04:45 (NS Flush) 2 ml BID IV FLUSH 08/02/16 09:00 08/23/16 08:45 (Tylenol) 650 mg Q4H PRN PO 08/02/16 04:45 (Zofran Inj) 4 mg Q6H PRN IVP 08/02/16 04:45 08/14/16 13:25 (Tylenol) 650 mg Q6H PRN PO 08/02/16 04:45 08/16/16 00:18 (Imodium) 2 mg Q6H PRN PO 08/03/16 13:00 08/20/16 15:53 (Lactinex) 1 tab TID PO 08/03/16 13:00 08/23/16 14:05 (Lanoxin) 0.125 mg DAILY PO 08/13/16 09:00 08/23/16 08:44 (Symbicort 160-4.5 Inh) 1 puff Q12HR INH 08/12/16 12:30 08/23/16 08:43 (Restoril) 7.5 mg HS PRN PO 08/15/16 19:30 08/23/16 12:20 (Cardizem Cd) 120 mg BID PO 08/16/16 21:00 08/23/16 08:44 (Pill Splitter) 1 ea UNSCH PRN OTHER 08/18/16 08:30 (Ativan Inj) 1 mg Q6HR PRN IV PUSH 08/19/16 18:00 08/22/16 02:29 (Ativan) 0.5 mg Q8HR PO 08/19/16 22:00 08/23/16 14:05 (Deltasone) 30 mg DAILY PO 08/21/16 09:00 08/23/16 08:44 (D50w (Vial) Inj) 50 ml UNSCH PRN IV 08/20/16 10:30 (Glucagon Inj) 1 mg UNSCH PRN OTHER 08/20/16 10:30 A/P Problem List: (1) Nausea, vomiting, and diarrhea ICD Code: R11.2 Status: Acute (2) Dehydration ICD Code: E86.0 Status: Resolved (3) DAVID (acute kidney injury) ICD Code: N17.9 Status: Acute (4) UTI (urinary tract infection) ICD Code: N39.0 Status: Acute Assessment and Plan Acute on chronic respiratory failure/ Acute COPD exacerbation Status post pneumonectomy for lung CA. Pulmonology consult appreciated. - Continue with oxygen keep sat >92%. - Switch to po prednisone 30mg po daily and continue to taper. - DuoNeb scheduled and when necessary. - NIPPV PRN for resp distress - follow up with pulmonology. - continue Symbicort, Spiriva and Singulair. Hemoptysis/ Sacral wound bleeding Hemoptysis likely s/t above. Seems resolved. Sacral wound stable. - follow up with pulmonology - wound care nurse consult appreciated for sacral wound management. - follow CBC and transfuse as needed. Stable. Atrial fibrillation with RVR Weaned off of Cardizem gtt. Echo showed EF 40-45%. - On PO Cardizem CD 120 mg by mouth BID. - Digoxin 0.125 mg by mouth daily . - Eliquis 5 mg by mouth twice a day. Dilated CBD with sludge and stone S/p ERCP, sphincterotomy with balloon sweep and sludge extraction 08/10/16. - Supportive care. - Management per GI Dr. Canas. Leukocytosis/ UTI Urine culture grew MRSA. S/p course of Zosyn. Bactrim and Diflucan course completed per ID. Leukocytosis persists s/t steroids. - Monitor. - wean steroids. DVT prophylaxis: Eliquis to be resumed Discharge Planning D/c to SNF in Baljit Anderson DO Aug 23, 2016 16:52
--- NOTE | 2016-08-23 18:29 | HHI.PR ---
Subjective Remarks 76 YO WF with COPD,Resp insuff, on BIPAP No CP Denies N,V Mild congestion, no fever Breathing better Weaned to 4LNC Worked with PT Not sure if she wants to go to rehab or home Objective Vital Signs Vital Signs Date Time Temp Pulse Resp B/P Pulse Ox O2 Delivery O2 Flow Rate FiO2 08/23/16 15:19 100 Nasal Cannula 3.00 08/23/16 15:19 98.6 88 20 109/72 98 08/23/16 15:01 79 08/23/16 14:01 88 08/23/16 13:00 86 08/23/16 12:01 90 08/23/16 11:45 100 Nasal Cannula 3.00 08/23/16 11:45 98.7 95 20 106/54 97 08/23/16 11:00 78 08/23/16 10:00 90 08/23/16 09:00 86 08/23/16 08:30 98.6 89 20 135/89 100 08/23/16 08:30 100 Nasal Cannula 3.00 08/23/16 08:00 76 08/23/16 07:01 69 08/23/16 06:00 74 08/23/16 05:00 72 08/23/16 04:00 98.4 75 18 105/64 100 08/23/16 04:00 100 Nasal Cannula 3.00 08/23/16 04:00 75 08/23/16 03:00 76 08/23/16 02:00 82 08/23/16 01:00 78 08/23/16 00:00 95 Nasal Cannula 3.00 08/23/16 00:00 79 08/23/16 00:00 97.6 100 20 114/90 95 08/22/16 23:00 82 08/22/16 22:00 88 08/22/16 21:00 86 08/22/16 20:00 86 08/22/16 20:00 95 Nasal Cannula 3.00 08/22/16 20:00 97.4 103 20 120/88 95 08/22/16 19:39 96 Nasal Cannula 3.00 08/22/16 19:00 98 I/O 08/22/16 08/22/16 08/22/16 08/23/16 08/23/16 08/23/16 07:00 15:00 23:00 07:00 15:00 23:00 Intake Total 240 ml 1320 ml 480 ml 480 ml Output Total 750 ml 1320 ml 425 ml 650 ml Balance -510 ml 0 ml 55 ml -170 ml Intake Oral 240 ml 1320 ml 480 ml 480 ml Output Urine Total 750 ml 1320 ml 425 ml 650 ml # Bowel Movements 1 0 1 Result Diagram: 08/23/16 1111 08/23/16 0854 Objective Remarks GENERAL: MBMN WF, on BIPAP SKIN: Warm and dry. HEAD: Normocephalic. EYES: No scleral icterus. No injection or drainage. NECK: Supple, trachea midline. No JVD or lymphadenopathy. CARDIOVASCULAR: Regular rate and rhythm without murmurs, gallops, or rubs. RESPIRATORY: No accessory muscle use. No BS right GASTROINTESTINAL: Abdomen soft, non-tender, nondistended. MUSCULOSKELETAL: No cyanosis, or edema. BACK: Nontender without obvious deformity. No CVA tenderness. A/P Assessment and Plan Resp insuff COPD ca lung s/p Right Pneumonectomy Ca breast, s/p Lumpectomy CAD PLAN: Supplement 02 with 4 LNC Aerosol nebs Cont Abx Xanax prn for anxiety. Pureed diet Kb Whitt MD Aug 23, 2016 18:28
[2016-08-23] MEDS: ONDANSETRON HCL 4 MG/2 ML VIAL IVP PRN (19:52)
[2016-08-23] MEDS: APIXABAN 5 MG TABLET PO SCH (21:00)
[2016-08-23] MEDS: MONTELUKAST SODIUM 10 MG TAB PO SCH (21:44)
[2016-08-23] MEDS: ATORVASTATIN 20 MG TAB PO SCH (21:44)
[2016-08-24] VITALS (16 sets, daily range): BP systolic 98–118; BP diastolic 62–78; PULSE 64–85; RESP 18–20; TEMP 97–98; O2SAT 95–100
[2016-08-24] MEDS: TEMAZEPAM 7.5 MG CAP PO PRN (01:13)
[2016-08-24] MEDS: LORazepam 0.5 MG TAB PO SCH (06:00)
[2016-08-24] MEDS: INSULIN NovoLIN REGULAR SUPPLEMENTAL SCALE SQ SCH ×2 (06:26→11:00)
[2016-08-24 06:54] LABS: HEMATOCRIT 26.6 % (35.0-46.0); MEAN CELL VOLUME 90.5 FL (80.0-100.0); MEAN CORPUSCULAR HGB CONC 33.1 % (32.0-36.0); PLATELET COUNT 201 TH/MM3 (150-450); RED BLOOD COUNT 2.94 MIL/MM3 (4.00-5.30); RED CELL DISTRIBUTION WIDTH 15.2 % (11.6-17.2); REVIEW FLAG FINAL; WHITE BLOOD COUNT 14.3 TH/MM3 (4.0-11.0)
[2016-08-24 07:34] LABS: BICARBONATE 41.1 MEQ/L (21.0-32.0); MAGNESIUM 2.3 MG/DL (1.5-2.5); POTASSIUM 3.7 MEQ/L (3.5-5.1)
[2016-08-24] MEDS: SERTRALINE HCL 50 MG TAB PO SCH (08:02)
[2016-08-24] MEDS: APIXABAN 5 MG TABLET PO SCH ×2 (08:02→08:04)
[2016-08-24] MEDS: LACTOBACILLUS ACIDOPHILUS TAB PO SCH (08:02)
[2016-08-24] MEDS: DIGOXIN 0.125 MG TAB PO SCH (08:02)
[2016-08-24] MEDS: DILTIAZEM-CD 120 MG CAP ER PO SCH (08:02)
[2016-08-24] MEDS: BUDESONIDE-FORMOTEROL 160/4.5 MCG INHALER INH SCH (08:03)
[2016-08-24] MEDS: predniSONE 20 MG TAB PO SCH (08:03)
[2016-08-24] MEDS: SODIUM CHLORIDE 0.9% FLUSH 10 ML FLUSH IV FLUSH SCH (08:03)
[2016-08-24] MEDS: RESP: IPRATROPIUM 0.5 MG/2.5 ML NEB NEB SCH (08:24)
[2016-08-24] MEDS: TIOTROPIUM INH SCH (09:00)
[2016-08-24] MEDS: OLODATEROL INH SCH (09:00)
[2016-08-24] MEDS ORDERED: PRED10 PO (09:04)
[2016-08-24] MEDS ORDERED: SYMB160A INH (09:04)
[2016-08-24] MEDS ORDERED: DIGO0.12 PO (09:04)
[2016-08-24] MEDS ORDERED: TEMA7.5C9 PO (09:04)
[2016-08-24] MEDS ORDERED: LORA-392 PO (09:04)
[2016-08-24] MEDS ORDERED: PRED20 PO (09:04)
[2016-08-24] MEDS ORDERED: CARD120C4 PO (09:04)
[2016-08-24] MEDS ORDERED: IPRASOL NEB (09:04)
--- NOTE | 2016-08-24 09:06 | HHI.DCPOC ---
Discharge Care Plan Diagnosis: (1) A-fib (2) COPD (chronic obstructive pulmonary disease) (3) Anxiety (4) Acute respiratory failure with hypoxemia (5) UTI (urinary tract infection) (6) Chronic anticoagulation Goals to Promote Your Health * To prevent worsening of your condition and complications * To maintain your health at the optimal level Directions to Meet Your Goals Take your medications as prescribed Follow your dietary instruction Follow activity as directed Keep your appointments as scheduled Take your immunizations and boosters as scheduled If your symptoms worsen call your PCP, if no PCP go to Urgent Care Center or Emergency Room Smoking is Dangerous to Your Health. Avoid second hand smoke Call the 24-hour hour crisis hotline for domestic abuse at Baljit Fuentes DO Aug 24, 2016 09:05
--- NOTE | 2016-08-24 09:14 | HHI.DS ---
Discharge Summary Admission Date August 02, 2016 at 01:41 Discharge Date: Aug 24, 2016 Admitting Diagnosis Generalized weakness, dehydration, n/v/d (1) Nausea, vomiting, and diarrhea ICD Code: R11.2 (2) Dehydration ICD Code: E86.0 (3) DAVID (acute kidney injury) ICD Code: N17.9 (4) UTI (urinary tract infection) ICD Code: N39.0 (5) Anemia ICD Code: D64.9 (6) Acute respiratory failure with hypoxemia ICD Code: J96.01 (7) A-fib ICD Code: I48.91 Diagnosis: Principal (8) COPD (chronic obstructive pulmonary disease) ICD Code: J44.9 Diagnosis: Principal Procedures None Brief History - From Admission I Dilia MENDEZ, am scribing this note for Dr. Fuentes on 08/02/2016 at 4: 55AM. This is a 76-year-old female patient with past medical history which includes lung CA status post right pneumonectomy, breast CA status post lumpectomy and radiation treatment, atrial fibrillation rate controlled, COPD on chronic oxygen therapy at 3 L, hypertension, CAD status post cardiac stents x 1, chronic diastolic CHF echocardiogram April 2014 showed ejection fraction 55- 60%, umbilical hernia and peripheral arterial disease. Patient is a poor historian therefore information gathered from patient as well as prior computerized charting. Patient reports that she has had GI upset which started with liquid diarrhea initially 10 or more bowel movements a day patient reports that she has had proximally 4 loose/liquid bowel movements per day as of lately as she has decreased her by mouth intake due to her GI upset. Diarrhea associated with increased flatus nausea and occasional vomiting. She also has had abdominal pain associated with the diarrhea. She rated the pain as an 8/10 in severity. Patient denies black tarry stools or bright red blood per rectum. Patient also denies coffee-ground emesis or bright red blood in vomitus. Patient reports she has lost possibly 6 pounds in the past one to 2 weeks. Patient denies recent antibiotic use or known sick contacts. Patient also denies chest pain, increasing shortness of breath, increase bilateral lower extremity edema, fevers, chills, increased urinary frequency or dysuria CBC/BMP: 08/24/16 0628 08/24/16 0628 Significant Findings Laboratory Tests Test 08/22/16 08/23/16 08/23/16 08/24/16 20:45 08:54 11:11 06:28 White Blood Count 14.7 TH/MM3 19.8 TH/MM3 14.3 TH/MM3 (4.0-11.0) (4.0-11.0) (4.0-11.0) Red Blood Count 3.03 MIL/MM3 3.16 MIL/MM3 2.94 MIL/MM3 (4.00-5.30) (4.00-5.30) (4.00-5.30) Hemoglobin 9.0 GM/DL 9.5 GM/DL 8.8 GM/DL (11.6-15.3) (11.6-15.3) (11.6-15.3) Hematocrit 27.8 % 28.5 % 26.6 % (35.0-46.0) (35.0-46.0) (35.0-46.0) Chloride Level 95 MEQ/L 95 MEQ/L (98-107) (98-107) Estimat Glomerular Filtration 84 ML/MIN (>89) Rate Random Glucose 250 MG/DL 72 MG/DL 71 MG/DL (74-106) (74-106) (74-106) Carbon Dioxide Level 33.2 MEQ/L 41.1 MEQ/L (21.0-32.0) (21.0-32.0) Sodium Level 146 MEQ/L (136-145) Anion Gap 0 MEQ/L (5-15) Imaging Last Impressions Chest X-Ray 08/20/16 0000 Signed Impressions: Service Date/Time: Saturday, August 20, 2016 11:44 - CONCLUSION: 1. Complete opacification of the right hemithorax consistent with history of pneumonectomy. 2. Moderate interstitial edema. Evangelista Stearns MD FACR GI Procedure 08/10/16 0000 Signed Impressions: Service Date/Time: August 15:07 - CONCLUSION: ERCP as above. Luc Dickerson MD Cholangiopancreatography MRI 08/04/16 0000 Signed Impressions: Service Date/Time: Thursday, August 04, 2016 12:18 - CONCLUSION: 1. Status post cholecystectomy. 2. Intra-and extrahepatic biliary ductal dilatation. 3. There is slight filling defect along the distal common bile duct, ERCP and biopsy may be warranted. Francesco Mirza MD Abdomen/Pelvis CT 08/01/16 2303 Signed Impressions: Service Date/Time: Tuesday, August 02, 2016 01:06 - CONCLUSION: Dilated intrahepatic and extrahepatic ducts worse since the prior exam and the etiology is not evident. Hugo Grove MD PE at Discharge GENERAL: Elderly female resting in bed. CARDIOVASCULAR: irregularly irregular, no murmur appreciated. RESPIRATORY: Breath sounds equal bilaterally. No accessory muscle use. GASTROINTESTINAL: Abdomen soft, non-tender, nondistended. MUSCULOSKELETAL: No cyanosis or clubbing, TR edema. NEURO: Awake alert oriented in no acute distress, moves all extremities. PSYCH: Slightly flattened affect. Pt update on day of discharge The patient was resting comfortably in bed. She requested medication for anxiety when she goes to rehabilitation. She says she has been eating well. She had no acute complaints. Hospital Course Acute on chronic respiratory failure/ Acute COPD exacerbation The pt has a history of pneumonectomy for lung CA. Pulmonology was consulted. She was continued on oxygen to keep sats >92%. She was started on steroids and will complete a prednisone taper. She received DuoNebs scheduled and as needed. She was placed on Symbicort and Singulair. She will follow up with pulmonology as an outpt. Hemoptysis/ Sacral wound bleeding Minimal bleeding noted in sputum and from sacral wound. Eliquis was held. Bleeding stopped and hemoglobin remained stable. The pt will resume Eliquis and follow a CBC in 3-5 days. She may need to discontinue Eliquis if there is evidence of further bleeding. Atrial fibrillation with RVR She was started on and weaned off of a Cardizem gtt. Echo showed EF 40-45%. Cardiology was consulted. Started on PO Cardizem CD 120 mg by mouth BID as well as digoxin 0.125 mg by mouth daily and Eliquis 5 mg by mouth twice a day. She will follow up with cardiology as an outpt. Dilated CBD Noted on imaging. GI was consulted. S/p ERCP, sphincterotomy with balloon sweep and sludge extraction 08/10/16. She will follow up with GI as an outpt. UTI/ Urinary retention Urine culture grew MRSA. S/p Zosyn. Bactrim and Diflucan course completed per ID. The Collins catheter was removed but had to be replaced s/t retention. The pt will need a voiding trial at the SNF. Pt Condition on Discharge: Stable Discharge Disposition: Discharge to SNF Discharge Time: > 30 minutes Discharge Instructions DIET: Follow Instructions for: Heart Healthy Diet Speech Therapy-Diet Recommends: Honey Thickened Liquids, Other Activities you can perform: Weight Bearing as [place] Follow up Referrals: Cardiology - [address] Rodas Gastroenterology - 1 Week with Tim Stout MD PCP Follow-up - 1 Week Pulmonology - 1 Week with Kb Whitt MD New Orders: BASIC METABOLIC PROF - 3-5 Days CBC WITH DIFF - 3-5 Days New Medications: Ondansetron Odt (Ondansetron Odt) 4 Mg Tab 4 MG SL Q6HR PRN Nausea/Vomiting Days 30 Ref 0 TAB Prednisone (Prednisone) 10 Mg Tab 10 MG PO DAILY Start taking once done with 20 mg daily dose COPD #7 Ref 0 TAB Digoxin (Digoxin) 0.125 Mg Tab 0.125 MG PO DAILY A fib #30 TAB Diltiazem CD 24 HR (Cardizem CD 24 HR) 120 Mg Caper 120 MG PO BID A fib #60 CAP Ipratropium-Albuterol Neb (Duoneb) 0.5-2.5 Mg/3 Ml Neb 1 AMPULE NEB Q2HR NEB PRN Dyspnea #1 INH Lactobacillus Acidophilus (Acidophilus/l-Sporogenes) 1 Tab Tab 1 TAB PO TID Bowel Management #21 TAB Loperamide HCl (Hm Loperamide HCl) 2 Mg Cap 2 MG PO Q6H PRN DIARRHEA #20 CAP Lorazepam (Ativan) 0.5 Mg Tab 0.5 MG PO Q8HR Anxiety and/or Insomnia #20 TAB Prednisone (Prednisone) 20 Mg Tab 20 MG PO DAILY COPD #7 TAB Temazepam (Restoril) 7.5 Mg Cap 7.5 MG PO HS PRN sleep #7 CAP Continued Medications: Apixaban (Eliquis) 5 Mg Tab 5 MG PO BID Blood Clot Prevention #60 Ref 0 TAB Atorvastatin (Atorvastatin) 20 Mg Tab 20 MG PO HS Cholesterol Management #30 Ref 0 TAB Fish Oil-Cholecalciferol ([place]-3 Fish Oil/Vitamin) 1,000-1,000 Mg Cap 1 CAP PO DAILY Nutritional Supplement Ref 0 CAP Montelukast (Montelukast) 10 Mg Tab 10 MG PO HS COPD #30 Ref 0 TAB Pantoprazole (Pantoprazole) 40 Mg Tab 40 MG PO DAILY Reflux #30 Ref 0 TAB Sertraline (Sertraline) 50 Mg Tab 50 MG PO DAILY #30 Ref 0 TAB Discontinued Medications: Alprazolam (Alprazolam) 0.25 Mg Tab 0.25 MG PO Q8H PRN ANXIETY Ref 0 TAB Diltiazem ER 12 HR (Diltiazem ER 12 HR) 60 Mg Caper 60 MG PO DAILY #60 Ref 0 CAP Diltiazem ER 24 HR (Diltiazem ER 24 HR) 120 Mg Caper 120 MG PO DAILY Ref 0 CAP Furosemide (Furosemide) 40 Mg Tab 40 MG PO DAILY #30 Ref 0 TAB Losartan (Losartan) 50 Mg Tab 50 MG PO DAILY Blood Pressure Management #30 Ref 0 TAB Prednisone (Prednisone) 5 Mg Tab 5 MG PO DAILY Ref 0 TAB Spironolactone (Spironolactone) 25 Mg Tab 25 MG PO DAILY #30 Ref 0 TAB Tiotropium-Olodaterol Inh (Stiolto Respimat Inh) 2.5-2.5 Mcg/Act Aero 1 PUFF INH DAILY COPD #1 Ref 0 INHALER Baljit Fuentes DO Aug 24, 2016 09:14 Prednisone (Prednisone) 5 Mg Tab 5 MG PO DAILY Ref 0 TAB Spironolactone (Spironolactone) 25 Mg Tab 25 MG PO DAILY #30 Ref 0 TAB Tiotropium-Olodaterol Inh (Stiolto Respimat Inh) 2.5-2.5 Mcg/Act Aero 1 PUFF INH DAILY COPD #1 Ref 0 INHALER Baljit Fuentes DO Aug 24, 2016 09:14
== END 2016-08-24 13:08 | DRG 444 ==
LOC: NEPE 22:45 → OBSVTOIN 08-02 01:41 → NEDA 08-02 01:41 → N07B 08-02 06:05 → N03B 08-10 16:27 → HIMN 08-10 18:05 → HCIS 08-18 22:06
PROVIDERS: ADMIT Hospitalist; ATTEND Hospitalist
PROC: 0FC98ZZ Extirpation of Matter from Common Bile Duct, Via Natural or Artificial Opening Endoscopic (ICD-10-PCS; principal; 2016-08-10 14:11)
PROC: 0DJ08ZZ Inspection of Upper Intestinal Tract, Via Natural or Artificial Opening Endoscopic (ICD-10-PCS; 2016-08-10 14:11)
PROC: 5A09557 Assistance with Respiratory Ventilation, Greater than 96 Consecutive Hours, Continuous Positive Airway Pressure (ICD-10-PCS; 2016-08-10 14:11)
DX: K80.50 Calculus of bile duct without cholangitis or cholecystitis without obstruction (principal); J96.21 Acute and chronic respiratory failure with hypoxia; N17.9 Acute kidney failure, unspecified; N39.0 Urinary tract infection, site not specified; E86.0 Dehydration; I50.32 Chronic diastolic (congestive) heart failure; I11.0 Hypertensive heart disease with heart failure; R04.2 Hemoptysis; I48.2 Chronic atrial fibrillation; J44.1 Chronic obstructive pulmonary disease with (acute) exacerbation; S31.000A Unspecified open wound of lower back and pelvis without penetration into retroperitoneum, initial encounter; D64.9 Anemia, unspecified; K52.9 Noninfective gastroenteritis and colitis, unspecified; I25.10 Atherosclerotic heart disease of native coronary artery without angina pectoris; I73.9 Peripheral vascular disease, unspecified; K42.9 Umbilical hernia without obstruction or gangrene; M19.90 Unspecified osteoarthritis, unspecified site; E78.00 Pure hypercholesterolemia, unspecified; H91.90 Unspecified hearing loss, unspecified ear; K21.9 Gastro-esophageal reflux disease without esophagitis; I45.10 Unspecified right bundle-branch block; E66.9 Obesity, unspecified; E78.5 Hyperlipidemia, unspecified; I65.29 Occlusion and stenosis of unspecified carotid artery; K29.70 Gastritis, unspecified, without bleeding; F32.9 Major depressive disorder, single episode, unspecified; F41.9 Anxiety disorder, unspecified; B95.62 Methicillin resistant Staphylococcus aureus infection as the cause of diseases classified elsewhere; N39.3 Stress incontinence (female) (male); Z22.322 Carrier or suspected carrier of Methicillin resistant Staphylococcus aureus; Z68.36 Body mass index [BMI] 36.0-36.9, adult; Z79.01 Long term (current) use of anticoagulants; Z85.118 Personal history of other malignant neoplasm of bronchus and lung; Z85.3 Personal history of malignant neoplasm of breast; Z87.891 Personal history of nicotine dependence; Z88.5 Allergy status to narcotic agent; Z90.2 Acquired absence of lung [part of]; Z91.041 Radiographic dye allergy status; Z92.3 Personal history of irradiation; Z95.5 Presence of coronary angioplasty implant and graft; Z96.651 Presence of right artificial knee joint; Z99.81 Dependence on supplemental oxygen
CPT/HCPCS: 43259; 71010; 74176; 74181; 74330; 76377; 80048; 80053; 80069; 80162; 81001; 82272; 82550; 82948; 83605; 83690; 83735; 83880; 84100; 84484; 85007; 85014; 85018; 85025; 85027; 85610; 85652; 85730; 86140; 86403; 87040; 87070; 87086; 87147; 87186; 87205; 87328; 87329; 87493; 87506; 87640; 87641; 88305; 88312; 93005; 93306; 94002; 94003; 94150; 94640; 94664; 96361; 96374; C1769; C9113; J0744; J1160; J1940; J2060; J2405; J2543; J2920; J2930; J3010; J3480; J7030; J7040; J7512; J7644; Q0169; Q9963

== ENCOUNTER 2016-08-27 15:30 | Inpatient (IN) | payer MEDICARE, BC ==
[~2016-08-27] VITALS: Ht 162.6 cm; Wt 84.6 kg
[~2016-08-27 15:30] MED LIST changes: -ADVA115A INH; -ALPR.25 PO; +ASCO500C PO; +ATOR20TA15 PO; -ATOR20TA42 PO; +CARD120C4 PO; +CHOL100025 CHEW; -CIPR500T4 PO; -CYCL1PAK PO; +DIGO0.12 PO; -DUONI NEB; -FLOR250C PO; -FURO1TAB93 PO; +IPRASOL NEB; +LACT PO; +LOPE2CAP92 PO; +LORA-392 PO; -LOSA25 PO; -MONT10TA2 PO; +MONT10TA4 PO; +OMEGCAP PO; -ONDA4 PO; +ONDA4TAB7 SL; -OXYC1SOL5 PO; +PANT40TA3 PO; -POTA1TAB17 PO; +PRED10 PO; +PRED10PA2 PO; +PRED20 PO; -PROT40TA PO; +SENITAB3; +SERT-132 PO; -SERT25TA83 PO; -SPIR25TA PO; +SYMB160A INH; +TEMA7.5C9 PO; -[UNRECOGNIZED DRUG - CODE] PO
[2016-08-27 15:41] VITALS: BP 126/84; PULSE 89; RESP 21; TEMP 98.5; O2SAT 99
[2016-08-27] MEDS ORDERED: GENTAMICIN INJ 500 MG in SODIUM CHLORIDE 0.9% INJ 100 ML IV STA (16:02)
--- NOTE | 2016-08-27 16:09 | PD ---
HPI Chief Complaint: General Weakness Time Seen by Provider: 16:02 Travel History International Travel<30 days: No Contact w/Intl Traveler<30days: No Traveled to known affect area: No History of Present Illness HPI [facility] SENT TO ED TO EVAL FOR SEPSIS" SINCE PATIENT HAS H/O MDRO UTI, AND ON UA FROM TODAY IT SHOWS 4+ BACTERIA. PFSH Past Medical History Hx Anticoagulant Therapy: Yes (ELIQUIS DAILY ) Arthritis: No Asthma: No Atrial Fibrillation: Yes Blood Disorders: No Anxiety: Yes Depression: Yes Heart Rhythm Problems: No Cancer: Yes (lung cancer, breast cancer) Cardiovascular Problems: Yes (STENT AND CATH) High Cholesterol: No Chemotherapy: Yes (LUNG CA TREATMENTS X5) Chest Pain: No Congestive Heart Failure: Yes COPD: Yes Coronary Artery Disease: Yes Diabetes: No Diminished Hearing: Yes (HEARING AIDS) Endocrine: No Gastrointestinal Disorders: Yes GERD: Yes Genitourinary: No Hepatitis: No Hiatal Hernia: No Hypertension: Yes Immune Disorder: No Implanted Vascular Access Dvce: Yes Musculoskeletal: Yes Neurologic: No Psychiatric: No Reproductive: No Respiratory: Yes Myocardial Infarction: No Radiation Therapy: No Sleep Apnea: No Ulcer: No Past Surgical History Abdominal Surgery: No AICD: No Arteriovenous Shunt: No Body Medical Devices: CARDIAC STENTS X1 Cardiac Surgery: No Cholecystectomy: Yes Ear Surgery: No Endocrine Surgery: No Eye Surgery: No Genitourinary Surgery: No Gynecologic Surgery: Yes (hysterectomy) Hysterectomy: Yes Insulin Pump: No Joint Replacement: No Oral Surgery: No Pacemaker: No Thoracic Surgery: Yes (right lobectomy) Other Surgery: Yes Social History Alcohol Use: Yes (RARE) Tobacco Use: No Substance Use: No Allergies-Medications (Allergen,Severity, Reaction): Coded Allergies: Aciphex (Verified Allergy, Severe, 08/27/16) Contrast Media (Verified Allergy, Severe, PASSED OUT, 08/27/16) Demerol (Verified Allergy, Severe, Hallucinations, 08/27/16) Fleets Phospho Soda (Verified Allergy, Severe, 08/27/16) Meperidine (Verified Allergy, Severe, 08/27/16) Morphine (Verified Allergy, Severe, 08/27/16) *MDRO Multi-Drug Resistant Organism (Verified Adverse Reaction, Unknown, ) E.coli ESBL (urine) - 04/2014 & 05/2015 / (sputum) - 05/2014 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/18/15 & 08/10/16 MRSA (urine) - 08/13/16 Uncoded Allergies: PHOSPHOUS SODA (Allergy, Severe, 05/04/05) Reported Meds & Prescriptions Reported Meds & Active Scripts Active Prednisone 10 Mg Tab 10 Mg PO DAILY Start taking once done with 20 mg daily dose Restoril (Temazepam) 7.5 Mg Cap 7.5 Mg PO HS PRN Prednisone 20 Mg Tab 20 Mg PO DAILY Duoneb (Ipratropium-Albuterol Neb) 0.5-2.5 Mg/3 Ml Neb 1 Ampule NEB Q2HR NEB PRN Digoxin 0.125 Mg Tab 0.125 Mg PO DAILY Cardizem CD 24 HR (Diltiazem CD 24 HR) 120 Mg Caper 120 Mg PO BID Ativan (Lorazepam) 0.5 Mg Tab 0.5 Mg PO Q8HR Ondansetron Odt 4 Mg Tab 4 Mg SL Q6HR PRN 30 Days Hm Loperamide HCl (Loperamide HCl) 2 Mg Cap 2 Mg PO Q6H PRN Acidophilus/l-Sporogenes (Lactobacillus Acidophilus) 1 Tab Tab 1 Tab PO TID Reported Milk of Magnesia Liq (Magnesium Hydroxide) 400 Mg/5 Ml Susp 30 Ml PO DAILY PRN Albuterol Neb (Albuterol Sulfate) 0.63 Mg/3 Ml Neb 0.63 Mg NEB Q4HR NEB PRN Duoneb (Ipratropium-Albuterol Neb) 0.5-2.5 Mg/3 Ml Neb 1 Nebule INH Q4HR NEB Symbicort Inh (Budesonide/Formoterol Fumarate) 80-4.5 Mcg/Act Aero 2 Puff INH Q12HR Ascorbic Acid 500 Mg Tab 500 Mg PO DAILY Thera-M (Multiple Vitamins W/ Minerals) 1 Tab 1 Tab PO DAILY D 1000 (Cholecalciferol) 1,000 Unit Tab 1,000 Units PO DAILY [place]-3 Fish Oil/Vitamin (Fish Oil-Cholecalciferol) 1,000-1,000 Mg Cap 1 Cap PO DAILY Pantoprazole (Pantoprazole Sodium) 40 Mg Tab 40 Mg PO DAILY Eliquis (Apixaban) 5 Mg Tab 5 Mg PO BID Sertraline (Sertraline HCl) 50 Mg Tab 50 Mg PO DAILY Atorvastatin (Atorvastatin Calcium) 20 Mg Tab 20 Mg PO HS Montelukast (Montelukast Sodium) 10 Mg Tab 10 Mg PO HS Review of Systems ROS Limitations: Other: (CONFUSION) Except as stated in HPI: all other systems reviewed are Neg Physical Exam Narrative GENERAL: SKIN: DRY HEAD: Atraumatic. Normocephalic. EYES: Pupils equal and round. No scleral icterus. No injection or drainage. ENT: No nasal bleeding or discharge. Mucous membranes pink and moist. NECK: Trachea midline. No JVD. CARDIOVASCULAR: Regular rate and rhythm. RESPIRATORY: No accessory muscle use. Clear to auscultation. Breath sounds equal bilaterally. GASTROINTESTINAL: Abdomen soft, non-tender, nondistended. Hepatic and splenic margins not palpable. MUSCULOSKELETAL: Extremities CONTRACTED BUT without clubbing, cyanosis, or edema. No obvious deformities. NEUROLOGICAL: Awake, CONFUSED BUT ABLE TO FOLLOW COMMANDS PSYCHIATRIC: Appropriate mood and affect; insight and judgment normal. Data Data Last Documented VS Vital Signs Date Time Temp Pulse Resp B/P Pulse Ox O2 Delivery O2 Flow Rate FiO2 08/27/16 17:00 22 96 Nasal Cannula 3 08/27/16 15:41 98.5 89 126/84 Orders Electrocardiogram (08/27/16 16:02) Complete Blood Count With Diff (08/27/16 16:02) Comprehensive Metabolic Panel (08/27/16 16:02) Prothrombin Time / Inr (Pt) (08/27/16 16:02) Act Partial Throm Time (Ptt) (08/27/16 16:02) Lactic Acid Sepsis Protocol (08/27/16 16:02) Ckmb (Isoenzyme) Profile (08/27/16 16:02) Troponin I (08/27/16 16:02) Urinalysis - C+S If Indicated (08/27/16 16:02) Blood Culture (08/27/16 16:02) Chest, Single Ap (08/27/16 16:02) Blood Glucose (08/27/16 16:02) Ecg Monitoring (08/27/16 16:02) Iv Access Insert/Monitor (08/27/16 16:02) Oximetry (08/27/16 16:02) Oxygen Administration (08/27/16 16:02) Gentamicin Inj (Gentamicin Inj) (08/27/16 16:02) Urine Culture (08/27/16 16:20) Lorazepam (Ativan) (08/27/16 17:15) Diet Heart Healthy (08/27/16 Dinner) Vital Signs (Adult) ABDIRIZAK.Q4H (08/27/16 18:32) Ceftriaxone Inj (Rocephin Inj) (08/27/16 18:45) Acetaminophen (Tylenol) (08/27/16 18:45) Ondansetron Inj (Zofran Inj) (08/27/16 18:45) Troponin I (08/27/16 22:00) Troponin I (08/28/16 04:00) Labs Laboratory Tests Test 08/27/16 08/27/16 16:05 16:20 White Blood Count 13.1 TH/MM3 Red Blood Count 2.99 MIL/MM3 Hemoglobin 9.0 GM/DL Hematocrit 27.2 % Mean Corpuscular Volume 90.9 FL Mean Corpuscular Hemoglobin 30.1 PG Mean Corpuscular Hemoglobin 33.1 % Concent Red Cell Distribution Width 16.0 % Platelet Count 243 TH/MM3 Mean Platelet Volume 10.1 FL Neutrophils (%) (Auto) 90.4 % Lymphocytes (%) (Auto) 3.8 % Monocytes (%) (Auto) 5.4 % Eosinophils (%) (Auto) 0.2 % Basophils (%) (Auto) 0.2 % Neutrophils # (Auto) 11.9 TH/MM3 Lymphocytes # (Auto) 0.5 TH/MM3 Monocytes # (Auto) 0.7 TH/MM3 Eosinophils # (Auto) 0.0 TH/MM3 Basophils # (Auto) 0.0 TH/MM3 CBC Comment AUTO DIFF Differential Total Cells 100 Counted Neutrophils % (Manual) 88 % Band Neutrophils % 1 % Lymphocytes % 1 % Monocytes % 7 % Neutrophils # (Manual) 12.1 TH/MM3 Myelocytes 3 % Differential Comment FINAL DIFF MANUAL Platelet Estimate NORMAL Platelet Morphology Comment NORMAL Prothrombin Time 11.3 SEC Prothromb Time International 1.0 RATIO Ratio Activated Partial 27.7 SEC Thromboplast Time Sodium Level 139 MEQ/L Potassium Level 4.4 MEQ/L Chloride Level 95 MEQ/L Carbon Dioxide Level 38.8 MEQ/L Anion Gap 5 MEQ/L Blood Urea Nitrogen 13 MG/DL Creatinine 0.66 MG/DL Estimat Glomerular Filtration 87 ML/MIN Rate Random Glucose 162 MG/DL Lactic Acid Level 1.1 mmol/L Calcium Level 8.5 MG/DL Total Bilirubin 0.9 MG/DL Aspartate Amino Transf 24 U/L (AST/SGOT) Alanine Aminotransferase 23 U/L (ALT/SGPT) Alkaline Phosphatase 96 U/L Total Creatine Kinase 40 U/L Troponin I 0.16 NG/ML Total Protein 5.8 GM/DL Albumin 2.6 GM/DL Urine Color YELLOW Urine Turbidity CLOUDY Urine pH 5.5 Urine Specific [place] 1.024 Urine Protein 30 mg/dL Urine Glucose (UA) NEG mg/dL Urine Ketones TRACE mg/dL Urine Occult Blood MOD Urine Nitrite NEG Urine Bilirubin NEG Urine Urobilinogen 2.0 MG/DL Urine Leukocyte Esterase MOD Urine RBC 108 /hpf Urine WBC 19 /hpf Urine Amorphous Sediment RARE Urine Bacteria OCC /hpf Urine Mucus MANY /lpf Microscopic Urinalysis Comment CATH-CULTURE IND MDM Medical Decision Making Medical Screen Exam Complete: Yes Emergency Medical Condition: Yes Medical Record Reviewed: Yes Interpretation(s) AFIB WITH CVR, LATERAL T WAVE INVERSIONS NOTED (H/O CHRONIC AFIB) Differential Diagnosis INFECTIOUS CAUSE OF DELIRIUM VS DEHYDRATION VS ELECTROLYTE ABNL VS ICH Narrative Course PT AT BEDSIDE CONTINUES STABLE, BUT NOTED ELEV TROPONIN AND UA C/W UTI, BOTH CONDITIONS ARE CONTRIBUTING TO HER CONFUSION Physician Communication Physician Communication DR RICHARDSON CALLED FOR ADMIT, [facility] TO ADMIT ON HIS BEHALF Diagnosis Primary Impression: UTI (urinary tract infection) Qualified Code: N30.00 - Acute cystitis without hematuria Additional Impression: ELEVATED TROPONIN Admitting Information Admitting Physician Requests: Admit Austin Pacheco MD Aug 27, 2016 16:09
[2016-08-27 16:47] LABS: AUTOMATED NEUTROPHIL # 11.9 TH/MM3 (1.8-7.7); BASOPHIL % 0.2 % (0.0-2.0); EOSINOPHIL % 0.2 % (0.0-4.0); HEMATOCRIT 27.2 % (35.0-46.0); LYMPH % 3.8 % (9.0-44.0); LYMPHOCYTE # 0.5 TH/MM3 (1.0-4.8); MEAN CELL VOLUME 90.9 FL (80.0-100.0); MEAN CORPUSCULAR HEMOGLOBIN 30.1 PG (27.0-34.0); MEAN CORPUSCULAR HGB CONC 33.1 % (32.0-36.0); MONO % 5.4 % (0.0-8.0); NEUT % 90.4 % (16.0-70.0); PLATELET COUNT 243 TH/MM3 (150-450); RED BLOOD COUNT 2.99 MIL/MM3 (4.00-5.30); WHITE BLOOD COUNT 13.1 TH/MM3 (4.0-11.0)
[2016-08-27 16:54] LABS: BACTERIA, URINE OCC /hpf; BLOOD, URINE MOD (NEG); GLUCOSE,URINE NEG (NEG); KETONE, URINE TRACE mg/dL (NEG); MUCUS URINE MANY /lpf (OCC); NITRITE,URINE NEG (NEG); PH, URINE 5.5 (5.0-8.5); URINE COLOR YELLOW (YELLW/STRAW)
--- NOTE | 2016-08-27 16:55 | RADRPT ---
EXAM DATE/TIME: 08/27/2016 16:09 [place] COMPARISON: CHEST SINGLE AP, August 20, 2016, 11:44. INDICATIONS : Shortness of breath. MEDICAL HISTORY : Cardiovascular disease. Hypertension Chronic obstructive pulmonary disease. lung and breast cancer. SURGICAL HISTORY : Fusion, thoracic. Right pneumonectomy. ENCOUNTER: Initial ACUITY: 1 day PAIN SCORE: Non-responsive. LOCATION: Bilateral chest FINDINGS: Complete opacification of the right hemithorax with mediastinal shift towards the right consistent wi th history of prior pneumonectomy. Mild diffuse interstitial prominence, minimally progressed since p rior exam. Cardiomediastinal contours are stable. Prior spinal fixation. CONCLUSION: 1. Post surgical changes of prior right-sided pneumonectomy. 2. Mild interval worsening of interstitial edema in the left lung. Agustin Torres MD on August 27, 2016 at 16:51 Board Certified Radiologist. This report was verified electronically.
[2016-08-27 16:58] LABS: COMMENT (UR) CATH-CULTURE IND; CULTURE IF INDICATED CATH CULTURE IND
[2016-08-27 16:59] LABS: HEMO FLAGS AUTO DIFF
[2016-08-27 17:00] VITALS: RESP 22; O2SAT 96
[2016-08-27 17:01] LABS: APTT (PATIENT) 27.7 SEC (24.3-30.1); PROTHROMBIN TIME - PATIENT 11.3 SEC (9.8-11.6)
[2016-08-27 17:08] LABS: ANION GAP 5 MEQ/L (5-15); AST (GOT) 24 U/L (15-37); BICARBONATE 38.8 MEQ/L (21.0-32.0); BLOOD UREA NITROGEN 13 MG/DL (7-18); CHLORIDE 95 MEQ/L (98-107); GLOMERULAR FILTRATION RATE 87 ML/MIN (>89); POTASSIUM 4.4 MEQ/L (3.5-5.1); SODIUM (NA) 139 MEQ/L (136-145)
[2016-08-27] MEDS ORDERED: LORazepam 0.5 MG TAB PO ONE (17:15)
[2016-08-27 17:18] LABS: ALKALINE PHOSPHATASE 96 U/L (45-117); ALT (GPT) 23 U/L (10-53); TOTAL BILIRUBIN ADULT 0.9 MG/DL (0.2-1.0)
[2016-08-27 17:20] LABS: CREATINE KINASE 40 U/L (26-192)
[2016-08-27 17:43] LABS: BANDS 1 % (0-6); MYELOCYTES 3 % (0-0); NEUTROPHIL # MANUAL DIFF 12.1 TH/MM3 (1.8-7.7); POLYS (SEG NEUTROPHILS) 88 % (16-70); WBC DIFF SAMPLE 100
[2016-08-27 17:44] LABS: PLATELET ESTIMATE SMEAR NORMAL (NORMAL); PLATELET MORPHOLOGY NORMAL (NORMAL); SCAN/DIFF FINAL DIFF MANUAL
[2016-08-27] MEDS ORDERED: ALBU0.63 NEB (17:56)
[2016-08-27] MEDS ORDERED: VITA1000 PO (17:56)
[2016-08-27] MEDS ORDERED: ASCO500T PO (17:56)
[2016-08-27] MEDS ORDERED: IPRASOL INH (17:56)
[2016-08-27] MEDS ORDERED: THERTAB17 PO (17:56)
[2016-08-27] MEDS ORDERED: SYMB80AE INH (17:56)
[2016-08-27] MEDS ORDERED: MILKSUS PO (17:58)
[2016-08-27] MEDS ORDERED: ONDANSETRON HCL 4 MG/2 ML VIAL IV PUSH PRN (18:45)
[2016-08-27] MEDS ORDERED: ACETAMINOPHEN 325 MG TAB PO PRN ×2 (18:45→19:00)
[2016-08-27 18:58] VITALS: BP 131/76; PULSE 90; RESP 18; O2SAT 97
[2016-08-27] MEDS ORDERED: MAGNESIUM HYDROXIDE SUSP 30 ML CUP PO PRN (19:00)
[2016-08-27] MEDS ORDERED: SENNOSIDES 8.6 MG TAB PO PRN (19:00)
[2016-08-27] MEDS ORDERED: RESP: ALBUTEROL 2.5 MG/IPRATROPIUM 0.5 MG NEB (PRN) NEB (19:00)
[2016-08-27] MEDS ORDERED: SODIUM CHLORIDE 0.9% FLUSH 10 ML FLUSH IV FLUSH PRN (19:00)
[2016-08-27] MEDS ORDERED: LACTULOSE SYRUP 20 GM/30 ML CUP PO PRN (19:00)
[2016-08-27] MEDS ORDERED: ONDANSETRON HCL 4 MG/2 ML VIAL IVP PRN (19:00)
[2016-08-27] MEDS ORDERED: ACETAMINOPHEN/HYDROcodone 325 MG/5 MG TAB PO PRN (19:00)
[2016-08-27] MEDS ORDERED: BISACODYL 10 MG SUPP RECTAL PRN (19:00)
[2016-08-27] MEDS: cefTRIAXone INJ 1,000 MG in SODIUM CHLORIDE 0.9% INJ 100 ML IV SCH (19:03)
[2016-08-27] MEDS ORDERED: Vancomycin Consult Pharmacy 1 EA OTHER SCH (19:15)
[2016-08-27] MEDS ORDERED: TEMAZEPAM 7.5 MG CAP PO ONE (19:30)
[2016-08-27] MEDS: SODIUM CHLOR 0.9% 1000 ML INJ 1,000 ML IV SCH (19:32)
--- NOTE | 2016-08-27 20:30 | HHI.HP ---
HPI Service [facility] Primary Care Physician Unknown Admission Diagnosis UTI (MDRO WITH INDWELLING FOLLEY), ELEV TROPONIN Diagnoses: (1) UTI (urinary tract infection) Diagnosis: Principal (2) Dehydration Diagnosis: Principal (3) Elevated troponin Diagnosis: Principal (4) A-fib Diagnosis: Principal (5) COPD (chronic obstructive pulmonary disease) Diagnosis: Principal Travel History International Travel<30 Days: No Contact w/Intl Traveler <30 Da: No Traveled to Known Affected Are: No History of Present Illness This is a 76-year-old female with PMH of HTN, A. fib on Eliquis, COPD, O2 Dependent, h/o Lung Ca s/p Lobectomy, h/o Breast Ca, Anxiety, Depression, CHF ( Echo 55-60% 04/2014) and Recurrent UTI who was sent to the ER from SNF for possible UTI/Sepsis. Recent admit 08/02-08/24/16 w/ COPD, s/p eval by Dr. Whitt, currently on Prednisone taper, Afib w/ RVR s/p Cardizem gtt, Bleeding Sacral Wound and MRSA/Jackie UTI s/p eval by ID and treated w/ Bactrim and Diflucan. Arrives to ER w/ Indwelling Collins. Per pt, has had generalized weakness, similar to previous episodes of UTI. Poor historian, unable to give more history. On arrival, BP 131/76, HR 90, O2 sat 97% on 3L NC. WBC 13.1. GFR 87 , previously 90 on 08/24/16, previously 119. Troponin 0.16. No complaints of chest pain. UA with UTI. CXR with postsurgical changes of right-sided pneumonectomy and mild interval worsening of interstitial edema. S/p Blood/ Urine Cultures, Gentamicin and Rocephin in ER. Review of Systems Except as stated in HPI: all other systems reviewed are Neg ROS: 14 point review of systems otherwise negative. Past Family Social History Past Medical History PMH: HTN, A. fib on Eliquis, COPD, O2 Dependent, h/o Lung Ca s/p Lobectomy, h/ o Breast Ca, Anxiety, Depression, CHF (Echo 55-60% 04/2014) and Recurrent UTI Past Surgical History PAST SURGICAL HISTORY: Cardiac Stent, Cholecystectomy, Hysterectomy and Right Lung Lobectomy Allergies: Coded Allergies: Aciphex (Verified Allergy, Severe, 08/27/16) Contrast Media (Verified Allergy, Severe, PASSED OUT, 08/27/16) Demerol (Verified Allergy, Severe, Hallucinations, 08/27/16) Fleets Phospho Soda (Verified Allergy, Severe, 08/27/16) Meperidine (Verified Allergy, Severe, 08/27/16) Morphine (Verified Allergy, Severe, 08/27/16) *MDRO Multi-Drug Resistant Organism (Verified Adverse Reaction, Unknown, ) E.coli ESBL (urine) - 04/2014 & 05/2015 / (sputum) - 05/2014 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/18/15 & 08/10/16 MRSA (urine) - 08/13/16 Uncoded Allergies: PHOSPHOUS SODA (Allergy, Severe, 05/04/05) Family History PAST FAMILY HISTORY: Reviewed. No h/o DM or CAD Social History PAST SOCIAL HISTORY: Negative for alcohol, tobacco or drugs. Physical Exam Vital Signs Vital Signs Date Time Temp Pulse Resp B/P Pulse Ox O2 Delivery O2 Flow Rate FiO2 08/27/16 18:58 90 18 131/76 97 Nasal Cannula 08/27/16 17:00 22 96 Nasal Cannula 3 08/27/16 17:00 96 Nasal Cannula 3 08/27/16 15:41 98.5 89 21 126/84 99 Physical Exam PE: GENERAL: Elderly white female in no acute distress, appears weak/tired. HEENT: PERRLA, EOMI. No scleral icterus or conjunctival pallor. No lid lag or facial droop. CARDIOVASCULAR: Regular rate and rhythm. No obvious murmurs to auscultation. No chest tenderness to palpation. RESPIRATORY: No obvious rhonchi or wheezing. Clear to auscultation. Breath sounds equal bilaterally. GASTROINTESTINAL: Abdomen soft, non-tender, nondistended. BS normal. Indwelling Collins MUSCULOSKELETAL: Extremities contracted without clubbing, cyanosis, or edema. No obvious deformities. NEUROLOGICAL: Awake, alert and oriented x4. No focal neurologic deficits. Moving both upper and lower extremities spontaneously. Laboratory Laboratory Tests Test 08/27/16 08/27/16 16:05 16:20 White Blood Count 13.1 Red Blood Count 2.99 Hemoglobin 9.0 Hematocrit 27.2 Mean Corpuscular Volume 90.9 Mean Corpuscular Hemoglobin 30.1 Mean Corpuscular Hemoglobin 33.1 Concent Red Cell Distribution Width 16.0 Platelet Count 243 Mean Platelet Volume 10.1 Neutrophils (%) (Auto) 90.4 Lymphocytes (%) (Auto) 3.8 Monocytes (%) (Auto) 5.4 Eosinophils (%) (Auto) 0.2 Basophils (%) (Auto) 0.2 Neutrophils # (Auto) 11.9 Lymphocytes # (Auto) 0.5 Monocytes # (Auto) 0.7 Eosinophils # (Auto) 0.0 Basophils # (Auto) 0.0 CBC Comment AUTO DIFF Differential Total Cells 100 Counted Neutrophils % (Manual) 88 Band Neutrophils % 1 Lymphocytes % 1 Monocytes % 7 Neutrophils # (Manual) 12.1 Myelocytes 3 Differential Comment FINAL DIFF MANUAL Platelet Estimate NORMAL Platelet Morphology Comment NORMAL Prothrombin Time 11.3 Prothromb Time International 1.0 Ratio Activated Partial 27.7 Thromboplast Time Sodium Level 139 Potassium Level 4.4 Chloride Level 95 Carbon Dioxide Level 38.8 Anion Gap 5 Blood Urea Nitrogen 13 Creatinine 0.66 Estimat Glomerular Filtration 87 Rate Random Glucose 162 Lactic Acid Level 1.1 Calcium Level 8.5 Total Bilirubin 0.9 Aspartate Amino Transf 24 (AST/SGOT) Alanine Aminotransferase 23 (ALT/SGPT) Alkaline Phosphatase 96 Total Creatine Kinase 40 Troponin I 0.16 Total Protein 5.8 Albumin 2.6 Urine Color YELLOW Urine Turbidity CLOUDY Urine pH 5.5 Urine Specific [facility] 1.024 Urine Protein 30 Urine Glucose (UA) NEG Urine Ketones TRACE Urine Occult Blood MOD Urine Nitrite NEG Urine Bilirubin NEG Urine Urobilinogen 2.0 Urine Leukocyte Esterase MOD Urine RBC 108 Urine WBC 19 Urine Amorphous Sediment RARE Urine Bacteria OCC Urine Mucus MANY Microscopic Urinalysis Comment CATH-CULTURE IND Date/Time Procedure Status Source Growth 08/27/16 16:20 Urine Culture Received Urine Catheterized Urine Pending 08/27/16 16:10 Aerobic Blood Culture Received Blood Peripheral Pending 08/27/16 16:10 Anaerobic Blood Culture Received Blood Peripheral Pending Result Diagram: 08/27/16 1605 08/27/16 1605 Assessment and Plan Problem List: (1) UTI (urinary tract infection) ICD Code: N39.0 Status: Acute (2) Elevated troponin ICD Code: R74.8 Status: Acute (3) Dehydration ICD Code: E86.0 Status: Resolved (4) A-fib ICD Code: I48.91 Status: Chronic (5) COPD (chronic obstructive pulmonary disease) ICD Code: J44.9 Status: Chronic Assessment and Plan A/P: 1. UTI: Recurrent. Recent admit 08/02-08/24/16 w/ UTI, Cultures +MRSA 08/14/16 and +Jackie 08/19/16, s/p eval by ID and completion of antibiotics. Pt arrives w/ indwelling Collins, U/a w/ UTI. s/p Rocephin/Gent in ER, however in light of previous susceptibilities w/ start on IV Vanc in addition to Rocephin. Consult ID for further recommendations. 2. Elevated Trop: Trop 0.13, no c/o chest pain. Resume Statin and Eliquis. Start ASA, Metoprolol. NTG/Morphine prn if needed. Check serial cardiac enzymes. Follows w/ Dr. Rodas, will consult for further recommendations. 3. Dehydration: GFR 87, BUN/Creatinine normal. U/a w/ UTI, continue IVF- caution w/ h/o CHF, repeat labs in am. 4. A-fib: Chronic. Rate-controlled. Resume home medications. 5. DVT Prophylaxis: On Eliquis 6. Social work for d/c planning as needed. 7. Case discussed w/ ER physician at length Physician Certification 2 Midnight Certification Type: Admission for Inpatient Services Order for Inpatient Services The services are ordered in accordance with Medicare regulations or non- Medicare payer requirements, as applicable. In the case of services not specified as inpatient-only, they are appropriately provided as inpatient services in accordance with the 2-midnight benchmark. Estimated LOS (days): 2 days is the estimated time the patient will need to remain in the hospital, assuming treatment plan goals are met and no additional complications. Post-Hospital Plan: Not yet determined Problem Qualifiers (1) UTI (urinary tract infection): Qualified Code: N30.00 - Acute cystitis without hematuria Jhoana Haney MD Aug 27, 2016 20:30
[2016-08-27] MEDS ORDERED: NITROGLYCERIN 2% OINT 1 GM PACKET TOPICAL PRN (21:00)
[2016-08-27] MEDS ORDERED: cefTRIAXone INJ 1,000 MG in SODIUM CHLORIDE 0.9% INJ 100 ML IV SCH (21:00)
[2016-08-27] MEDS: METOPROLOL TARTRATE 25 MG TAB PO SCH (21:00)
[2016-08-27] MEDS: DILTIAZEM-CD 120 MG CAP ER PO SCH (21:55)
[2016-08-27] MEDS: MONTELUKAST SODIUM 10 MG TAB PO SCH (21:55)
[2016-08-27] MEDS: DOCUSATE SODIUM 50 MG/SENNA 8.6 MG TAB PO SCH (21:56)
[2016-08-27] MEDS: APIXABAN 5 MG TABLET PO SCH (21:56)
[2016-08-27] MEDS: ACETAMINOPHEN/HYDROcodone 325 MG/10 MG TAB PO PRN (21:57)
[2016-08-27] MEDS: ATORVASTATIN 20 MG TAB PO SCH (21:58)
[2016-08-27] MEDS: LORazepam 2 MG/ML VIAL IV PUSH PRN (21:58)
[2016-08-27] MEDS: SODIUM CHLORIDE 0.9% FLUSH 10 ML FLUSH IV FLUSH SCH (21:59)
[2016-08-27 22:00] VITALS: PULSE 84
[2016-08-27] MEDS: VANCOMYCIN 1,500 MG/NS 500 ML IV SCH ×2 (22:00)
[2016-08-27] MEDS: BUDESONIDE-FORMOTEROL 160/4.5 MCG INHALER INH SCH (22:02)
[2016-08-27 23:00] VITALS: BP 131/84; PULSE 100; PULSE 86; RESP 16; TEMP 99; O2SAT 97
[2016-08-28] VITALS (21 sets, daily range): BP systolic 102–139; BP diastolic 54–84; PULSE 68–114; RESP 16–24; TEMP 97.5–98.9; O2SAT 75–98
[2016-08-28 00:31] LABS: MRSA PCR POSITIVE (NEGATIVE); STAPH AUREUS PCR POSITIVE (NEGATIVE)
[2016-08-28] MEDS: LORazepam 2 MG/ML VIAL IV PUSH PRN (03:54)
[2016-08-28] MEDS: SODIUM CHLOR 0.9% 1000 ML INJ 1,000 ML IV SCH (06:00)
[2016-08-28] MEDS: PANTOPRAZOLE SOD 40 MG DELAYED RELEASE TAB PO SCH (06:00)
[2016-08-28 06:15] LABS: AUTOMATED NEUTROPHIL # 8.8 TH/MM3 (1.8-7.7); BASOPHIL % 0.1 % (0.0-2.0); EOSINOPHIL # 0.1 TH/MM3 (0-0.4); EOSINOPHIL % 0.5 % (0.0-4.0); HEMATOCRIT 26.4 % (35.0-46.0); LYMPH % 7.9 % (9.0-44.0); MEAN CELL VOLUME 92.4 FL (80.0-100.0); MEAN CORPUSCULAR HEMOGLOBIN 29.5 PG (27.0-34.0); MEAN CORPUSCULAR HGB CONC 31.9 % (32.0-36.0); MONO % 21.9 % (0.0-8.0); NEUT % 69.6 % (16.0-70.0); PLATELET COUNT 187 TH/MM3 (150-450); RED BLOOD COUNT 2.86 MIL/MM3 (4.00-5.30); RED CELL DISTRIBUTION WIDTH 15.9 % (11.6-17.2); WHITE BLOOD COUNT 12.7 TH/MM3 (4.0-11.0)
[2016-08-28 06:24] LABS: ALT (GPT) 20 U/L (10-53); ANION GAP 5 MEQ/L (5-15); AST (GOT) 20 U/L (15-37); BLOOD UREA NITROGEN 14 MG/DL (7-18); CHLORIDE 99 MEQ/L (98-107); GLOMERULAR FILTRATION RATE 103 ML/MIN (>89); POTASSIUM 3.5 MEQ/L (3.5-5.1); SODIUM (NA) 142 MEQ/L (136-145)
[2016-08-28 06:28] LABS: HEMO FLAGS AUTO DIFF
[2016-08-28 06:33] LABS: ALKALINE PHOSPHATASE 86 U/L (45-117); TOTAL BILIRUBIN ADULT 0.5 MG/DL (0.2-1.0)
[2016-08-28 07:49] LABS: BASOPHILS 1 % (0-2); EOSINOPHILS 1 % (0-4); MYELOCYTES 1 % (0-0); NEUTROPHIL # MANUAL DIFF 9.1 TH/MM3 (1.8-7.7); POLYS (SEG NEUTROPHILS) 71 % (16-70); WBC DIFF SAMPLE 100
[2016-08-28 07:50] LABS: PLATELET ESTIMATE SMEAR NORMAL (NORMAL); PLATELET MORPHOLOGY NORMAL (NORMAL); SCAN/DIFF FINAL DIFF MANUAL
[2016-08-28] MEDS: ASPIRIN EC 81 MG TABEC PO SCH (09:11)
[2016-08-28] MEDS: DOCUSATE SODIUM 50 MG/SENNA 8.6 MG TAB PO SCH (09:11)
[2016-08-28] MEDS: APIXABAN 5 MG TABLET PO SCH (09:11)
[2016-08-28] MEDS: DILTIAZEM-CD 120 MG CAP ER PO SCH (09:11)
[2016-08-28] MEDS: METOPROLOL TARTRATE 25 MG TAB PO SCH (09:11)
[2016-08-28] MEDS: SERTRALINE HCL 50 MG TAB PO SCH (09:11)
[2016-08-28] MEDS: DIGOXIN 0.125 MG TAB PO SCH (09:12)
[2016-08-28] MEDS: BUDESONIDE-FORMOTEROL 160/4.5 MCG INHALER INH SCH (09:12)
[2016-08-28] MEDS: SODIUM CHLORIDE 0.9% FLUSH 10 ML FLUSH IV FLUSH SCH (09:12)
[2016-08-28] MEDS: ACETAMINOPHEN/HYDROcodone 325 MG/10 MG TAB PO PRN (09:12)
--- NOTE | 2016-08-28 12:59 | HHI.PR ---
Subjective Remarks Follow-up for UTI and elevated troponins Patient denies any chest pain. She also denies any shortness of breathing but she does have increased respiratory rate at the bedside. She remains afebrile. Patient stated that she has symptoms of abdominal pain and she felt fevers and chills. Her nurses at the bedside. Otherwise no other complaints. Objective Vitals Vital Signs Date Time Temp Pulse Resp B/P Pulse Ox O2 Delivery O2 Flow Rate FiO2 08/28/16 12:00 98.7 73 24 102/67 93 08/28/16 12:00 75 08/28/16 11:00 68 08/28/16 10:45 95 Nasal Cannula 4.00 08/28/16 10:10 16 08/28/16 10:00 78 08/28/16 09:00 82 08/28/16 08:00 90 08/28/16 08:00 98.5 114 16 137/54 93 08/28/16 07:00 82 08/28/16 05:00 78 08/28/16 03:56 98.2 80 16 127/71 96 08/28/16 03:00 97 08/28/16 02:00 82 08/28/16 01:00 82 08/28/16 00:21 98 Nasal Cannula 4.00 08/28/16 00:00 87 08/27/16 23:00 99.0 100 16 131/84 97 08/27/16 23:00 86 08/27/16 22:00 84 08/27/16 18:58 90 18 131/76 97 Nasal Cannula 08/27/16 17:00 22 96 Nasal Cannula 3 08/27/16 17:00 96 Nasal Cannula 3 08/27/16 15:41 98.5 89 21 126/84 99 I/O 08/27/16 08/27/16 08/27/16 08/28/16 08/28/16 08/28/16 07:00 15:00 23:00 07:00 15:00 23:00 Intake Total 420 ml Output Total 150 ml Balance 270 ml Intake Oral 120 ml IV Total 300 ml Output Urine Total 150 ml # Voids 1 # Bowel Movements 1 Result Diagram: 08/28/1644008/28/16440 Objective Remarks GENERAL: increase RR SKIN: Sacral area shows a skin tear. With mild erythema. HEAD: Normocephalic. EYES: No scleral icterus. No injection or drainage. NECK: Supple, trachea midline. No JVD or lymphadenopathy. CARDIOVASCULAR: Regular rate and rhythm without murmurs, gallops, or rubs. RESPIRATORY: Breath sounds equal bilaterally. No accessory muscle use. GASTROINTESTINAL: Abdomen soft, non-tender, nondistended. Collins in place. Medications and IVs Current Medications Gentamicin Sulfate/Sodium Chloride (Gentamicin Inj/ NS Inj) 112.5 ml @ 100 mls/ hr ONCE STAT IV Last administered on 08/27/16 17:14; Start 08/27/16 at 16:02 ; Stop 08/27/16 at 17:09; Status DC Lorazepam 0.5 mg 0.5 mg ONCE ONCE PO Last administered on 08/27/16 17:21; Start 08/27/16 at 17:15; Stop 08/27/16 at 17:16; Status DC Ceftriaxone Sodium/Sodium Chloride (Rocephin Inj/NS Inj) 100 ml @ 200 mls/hr Q24H IV Last administered on 08/27/16 19:03; Start 08/27/16 at 20:00 Acetaminophen (Tylenol) 650 mg Q4H PRN PO FEVER; Start 08/27/16 at 18:45; Stop 08/27/16 at 19:10; Status DC Ondansetron HCl (Zofran Inj) 4 mg Q8H PRN IV PUSH NAUSEA; Start 08/27/16 at 18: 45; Stop 08/27/16 at 19:10; Status DC Apixaban (Eliquis) 5 mg BID PO Last administered on 08/28/16 09:11; Start at 21:00 Sertraline HCl (Zoloft) 50 mg DAILY PO Last administered on 08/28/16 09:11; Start 08/28/16 at 09:00 Albuterol/ Ipratropium (Duoneb Neb) 1 ampule Q2HR NEB PRN NEB SOB/WHEEZING Last administered on 08/28/16 10:45; Start 08/27/16 at 19:00 Lorazepam (Ativan Inj) 0.5 mg Q4H PRN IV PUSH ANXIETY/AGITATION Last administered on 08/28/16 03:54; Start 08/27/16 at 19:00 Diltiazem HCl (Cardizem Cd) 120 mg BID PO Last administered on 08/28/16 09:11 ; Start 08/27/16 at 21:00 Digoxin (Lanoxin) 0.125 mg DAILY PO Last administered on 08/28/16 09:12; Start 08/28/16 at 09:00 Budesonide/ Formoterol Fumarate (Symbicort 160-4.5 Inh) 2 puff Q12HR INH Last administered on 08/28/16 09:12; Start 08/27/16 at 21:00 Atorvastatin Calcium (Lipitor) 20 mg HS PO Last administered on 08/27/16 21:58 ; Start 08/27/16 at 21:00 Montelukast Sodium (Singulair) 10 mg HS PO Last administered on 08/27/16 21:55 ; Start 08/27/16 at 21:00 Pantoprazole Sodium 40 mg 40 mg DAILY@06 PO Last administered on 08/28/16 06: 00; Start 08/28/16 at 06:00 Sodium Chloride (NS 1000 ml Inj) 1,000 ml @ 100 mls/hr Q10H IV Last administered on 08/28/16 06:00; Start 08/27/16 at 20:00 Sodium Chloride (NS Flush) 2 ml UNSCH PRN IV FLUSH FLUSH AFTER USING IV ACCESS ; Start 08/27/16 at 19:00 Sodium Chloride (NS Flush) 2 ml BID IV FLUSH Last administered on 08/28/16 09: 12; Start 08/27/16 at 21:00 Ondansetron HCl (Zofran Inj) 4 mg Q6H PRN IVP NAUSEA OR VOMITING; Start at 19:00 Acetaminophen (Tylenol) 650 mg Q6H PRN PO FEVER/PAIN SCALE 1 TO 2; Start at 19:00 Acetaminophen/ Hydrocodone Bitart (Hurst 5-325 Mg) 1 tab Q4H PRN PO PAIN SCALE 3 TO 5; Start 08/27/16 at 19:00 Senna/Docusate Sodium (Vivienne-Colace) 1 tab BID PO Last administered on 09:11; Start 08/27/16 at 21:00 Magnesium Hydroxide (Milk Of Magnesia Liq) 30 ml Q12H PRN PO MILD - MODERATE CONSTIPATION; Start 08/27/16 at 19:00 Sennosides (Senokot) 17.2 mg Q12H PRN PO MODERATE - SEVERE CONSTIPATION; Start 08/27/16 at 19:00 Bisacodyl (Dulcolax Supp) 10 mg DAILY PRN RECTAL SEVERE CONSITIPATION; Start at 19:00 Lactulose (Lactulose Liq) 30 ml DAILY PRN PO SEVERE CONSITIPATION; Start at 19:00 Acetaminophen/ Hydrocodone Bitart 1 tab 1 tab Q4H PRN PO PAIN 6-10 Last administered on 08/28/16 09:12; Start 08/27/16 at 19:00 Pharmacy Profile Note 0 ml @ 0 mls/hr UNSCH OTHER ; Start 08/27/16 at 19:15 Vancomycin HCl/ Sodium Chloride (Vancomycin Inj/ NS 500 ml Inj) 515 ml @ 257.5 mls/ hr Q24H IV Last administered on 08/27/16 22:00; Start 08/27/16 at 21:00 Miscellaneous Information SPECIFIC LAB TO BE ... ONCE ONCE .XX ; Start 08/30 at 20:45; Stop 08/30/16 at 20:46 Temazepam (Restoril) 7.5 mg HS PRN PO SLEEP; Start 08/28/16 at 21:00 Temazepam 7.5 mg 7.5 mg ONCE ONCE PO ; Start 08/27/16 at 19:30; Stop 08/27/16 at 19:31; Status DC Ceftriaxone Sodium/Sodium Chloride (Rocephin Inj/NS Inj) 100 ml @ 200 mls/hr Q24H IV ; Start 08/27/16 at 21:00; Stop 08/27/16 at 21:00; Status DC Metoprolol Tartrate (Lopressor) 12.5 mg Q12HR PO Last administered on 09:11; Start 08/27/16 at 21:00 Aspirin (Ecotrin Ec) 81 mg DAILY PO Last administered on 08/28/16 09:11; Start 08/28/16 at 09:00 Nitroglycerin (Nitroglycerin 2% Oint) 0.5 inch Q6HR PRN TOPICAL CHEST PAIN ; Start 08/27/16 at 21:00 A/P Problem List: (1) UTI (urinary tract infection) ICD Code: N39.0 Status: Acute (2) Elevated troponin ICD Code: R74.8 Status: Acute (3) Dehydration ICD Code: E86.0 Status: Resolved (4) A-fib ICD Code: I48.91 Status: Chronic (5) COPD (chronic obstructive pulmonary disease) ICD Code: J44.9 Status: Chronic Assessment and Plan UTI: Recurrent. Recent admit 08/02-08/24/16 w/ UTI, Cultures +MRSA 08/14/16 and + Jackie 08/19/16, s/p eval by ID and completion of antibiotics. -Prone to UTIs due to indwelling Collins. -UA suggests UTI. - s/p Rocephin/Gent in ER, -She was put on Rocephin and vancomycin pending recommendations from infectious disease. -Infectious disease consulted. Elevated Trop: Mildly elevated and stable. -Asymptomatic. on Statin and Eliquis. Aspirin metoprolol started yesterday. NTG/Morphine prn if needed. -Dealt with patient's nurse who stated that Dr. Rodas clear patient to be transferred to the [facility]. Per nurse she stated Dr. Rodas stated no more further intervention indicated. Will follow-up with his consultation. Pulmonary edema -Patient clinically looks like she's an shortness of breathing but she declined this. -Chest x-ray showed worsening of right pulmonary edema. -Will stop IV fluids and give a dose of Lasix and monitor response. -We'll get a BNP. A-fib: Chronic. Rate-controlled. -Continue home meds. Sacral skin tear -Noted on admission. Per patient this was done at the rehabilitation center. -Continue to monitor. No signs of infection. DVT Prophylaxis: On Eliquis Discharge Planning Patient readmitted due to multiple UTIs. Pending recommendations from infectious disease. Problem Qualifiers (1) UTI (urinary tract infection): Qualified Code: N30.00 - Acute cystitis without hematuria Shoshana Millan MD Aug 28, 2016 12:59
--- NOTE | 2016-08-28 14:22 | EKG ---
Date Performed: 08/27/2016 Time Performed: 22:49:32 PTAGE: 76 years EKG: Atrial fibrillation Left ventricular hypertrophy Extensive ST-T changes may be due to hyper trophy and/or ischemia Abnormal ECG Since PREVIOUS TRACING , the ventricular rate is slower. PREVIOUS TRACIN08/27/2016 15.50 DOCTOR: Rudolph Packer Interpretating Date/Time 08/28/2016 14:18:14
--- NOTE | 2016-08-28 14:22 | EKG ---
Date Performed: 08/27/2016 Time Performed: 15:50:12 PTAGE: 76 years EKG: ATRIAL FIBRILLATION WITH RAPID VENTRICULAR RESPONSE ST DEVIATION AND MODERATE T-WAVE ABNORM ALITY, CONSIDER ANTEROLATERAL ISCHEMIA ABNORMAL ECG INTERPRETATION BASED ON A DEFAULT AGE OF 40 YEARS Since prior tracing, ST changes are new, consider ischemia. Ventricular rate is slightly faster. PREVIOUS TRACING : 08/01/2016 22.54 DOCTOR: Rudolph Packer Interpretating Date/Time 08/28/2016 14:17:53
--- NOTE | 2016-08-28 14:23 | EKG ---
Date Performed: 08/28/2016 Time Performed: 04:34:18 PTAGE: 76 years EKG: Atrial fibrillation LVH with secondary repolarization abnormality Extensive ST-T changes ma y be due to hypertrophy and/or ischemia Abnormal ECG No significant change. PREVIOUS TRACING : 08/27/2016 22.49 DOCTOR: Rudolph Packer Interpretating Date/Time 08/28/2016 14:19:08
[2016-08-28] MEDS ORDERED: TEMAZEPAM 7.5 MG CAP PO PRN (21:00)
--- NOTE | 2016-08-28 21:02 | MB ---
cc: DESTINY RODAS M.D. DATE OF CONSULTATION 08/28/2016 HISTORY OF PRESENT ILLNESS Thank you Dr. Haney for asking us to see this very pleasant 76-year-old white female who presents with a urinary tract infection. She has an elevated indwelling Collins. She had a rise in troponin to 0.16. She denies any chest pain or shortness of breath. This is a very ill 76-year-old female with hypertension, a fib on Eliquis, COPD oxygen dependent, history of lung cancer, congestive heart failure, anxiety, depression, recurrent UTI, history of UTI sepsis. Troponins are borderline elevated. She has also been noted to have a troponin of 0.16, 0.17 and 0.16 with a creatinine of 0.56. This appears to be a stable troponin level in this patient's case. She denies chest pain or significant shortness of breath. She is very fatigued and uncomfortable with her UTI. PAST MEDICAL HISTORY As above. Plus: 1. Hypertension. 2. COPD. 3. Atrial fibrillation on anticoagulation. 4. History of lung cancer status post lobectomy. 5. History of breast cancer. PAST SURGICAL HISTORY Includes: 1. Cardiac stent. 2. Hysterectomy. 3. Lobectomy. 4. Cholecystectomy. ALLERGIES INCLUDE CONTRAST MEDIA, ACIPHEX, DEMEROL, MIPERIDINE, MORPHINE. FAMILY HISTORY Negative for diabetes or coronary artery disease. SOCIAL HISTORY Nonsmoker, nondrinker. No drugs. PHYSICAL EXAMINATION VITAL SIGNS: Pulse 89, blood pressure 126/84. HEENT: Eyes show no xanthelasma. Mouth shows no cyanosis or pallor. NECK: Showed no JVD. HEART: she had two heart sounds. No murmurs. CHEST: Clear. ABDOMEN: Soft. No hepatosplenomegaly. EXTREMITIES: Legs reveal no edema. NEUROLOGIC: Grossly intact. LABORATORY DATA White count 13.1, hemoglobin 9.0, platelet count 243,000. ASSESSMENT/PLAN 1. Recurrent urinary tract infection, stable. 2. Elevated troponin, stable. No chest pain. She is to remain on the current medications especially metoprolol. At this point I feel that her troponin levels are chronic and we do not need to proceed with any further investigations. 3. Atrial fibrillation is stable. 4. Deep venous thrombosis prophylaxis. Stable on Eliquis which is also used for her history of atrial fibrillation. Thank you for asking us to see this very pleasant lady. Destiny Rodas MD, FRCP,[facility]/KK /5:54 PM /8:47 PM
[2016-08-28] MEDS ORDERED: POTASSIUM CHLORIDE 20 MEQ CONTROLLED RELEASE TAB PO ONE (21:15)
[2016-08-28] MEDS ORDERED: FUROSEMIDE 40 MG/4 ML VIAL IV PUSH ONE (21:15)
[2016-08-28 21:19] LABS: BLOOD GAS CARBOXYHEMOGLOBIN 1.8 % (0-4); BLOOD GAS HCO3 35 mmol/L (22-26); BLOOD GAS METHEMOGLOBIN 0.3 % (0-2); BLOOD GAS O2 HGB SATURATION 90 % (90-100); BLOOD GAS OXYGEN CONTENT 11.7 Vol % (12.0-20.0); BLOOD GAS PCO2 75 mmHg (38-42); BLOOD GAS PO2 70 mmHG (61-120); BLOOD GAS TOTAL HGB 9.2 G/DL (12.0-16.0); CRITICAL VALUE YES; DRAW SITE RT RADIAL; LITER FLOW 12 L/M; NUMBER OF ARTERIAL PUNCTURES 1; OXYGEN DEVICE NONREBREATHER MK; STAT YES; TEMP CORR TO 98.6; ULNAR PULSE PRESENT
--- NOTE | 2016-08-28 21:43 | HHI.PR ---
Addendum to Inpatient Note Addendum Reason: Additional Documentation Additional Information S: Residents notified of Javier through page. Javier called for pt with oxygen sat in 70s. RT at bedside stepwise increased oxygen therapy from NC to Venturi to NRB. Pt then satting in 90s. Patient denies any chest pain. Pt endorses dyspnea; is unable to answer other questions. Per PA, This is a 76-year-old female with PMH of HTN, A. fib on Eliquis, COPD, O2 Dependent, h/o Lung Ca s/p Lobectomy, h/o Breast Ca, Anxiety, Depression, CHF ( Echo 55-60% 04/2014) and Recurrent UTI who was sent to the ER from SNF for possible UTI/Sepsis. Recent admit 08/02-08/24/16 w/ COPD, s/p eval by Dr. Whitt, currently on Prednisone taper, Afib w/ RVR s/p Cardizem gtt, Bleeding Sacral Wound and MRSA/Jackie UTI s/p eval by ID and treated w/ Bactrim and Diflucan. Pt arrives w/ indwelling Collins, U/a w/ UTI. s/p Rocephin/Gent in ER, however in light of previous susceptibilities w/ start on IV Vanc in addition to Rocephin. O: Vitals: pulse 108, pulse ox 97% on NRB. Gen: pt sleepy and in respiratory distress. CV: tachycardic Resp: decreased breath sounds bilaterally, right worse than left, with prolonged expiratory phase, and wet sounding breath sounds Ext: trace edema Skin: bruises diffusely A/P: This is a 76-year-old female with PMH of A. fib on Eliquis, COPD, O2 Dependent, h/o Lung Ca s/p Lobectomy, h/o Breast Ca, Anxiety, CHF (Echo 55-60% 04/2014) and Recurrent UTI who is currently undergoing treatment with Vanco and Rocephin for suspected UTI/Sepsis who presents with dyspnea and increasing oxygen requirement. Stayed at bedside until care was assumed by Dr. Hunt at bedside. ABG shows pH of 7.3, PCO2 of 75, PO2 of 70, consistent with retention. Given change of mental status since this afternoon, and PCO2 of 75, patient will likely need intubation. BiPAP in the interim. Transfer to intensive care unit Lasix 40 mg IV push 1 with KCl Chest x-ray stable or worse, concerning for pulmonary edema versus ARDS BNP CBC, CMP UA, blood culture Baljit Stark MD R1 Aug 28, 2016 21:43
--- NOTE | 2016-08-28 21:45 | RADRPT ---
EXAM DATE/TIME: 08/28/2016 21:17 [place] COMPARISON: CHEST SINGLE AP, August 27, 2016, 16:09. INDICATIONS : Shortness of breath. MEDICAL HISTORY : Cardiovascular disease. Hypertension Chronic obstructive pulmonary SURGICAL HISTORY : Fusion, thoracic. Right pneumonectomy ENCOUNTER: Subsequent ACUITY: 2 days PAIN SCORE: Non-responsive. LOCATION: Bilateral chest FINDINGS: Portable AP view of the chest demonstrates complete opacification of the right hemithorax with associ ated rightward shift of the mediastinum. Clinical history indicates prior right pneumonectomy. Clips overlie the mediastinum. There is airspace consolidation in the left mid and lower lung zone. No pneu mothorax is identified. Bones demonstrate no acute finding. Thoraco- lumbar spine hardware is present . CONCLUSION: Increased patchy airspace consolidation throughout the left lung, most severe in the left lower lung zone. There are stable changes in the right hemithorax characteristic of prior pneumonectomy. Bubba Barnes MD on August 28, 2016 at 21:36 Board Certified Radiologist. This report was verified electronically.
--- NOTE | 2016-08-28 21:51 | HHI.PR ---
Addendum to Inpatient Note Addendum Reason: Additional Documentation Additional Information Rapid response was called on this patient at around 2100 because respiratory therapist had found patient with O2 sat of 71-73% on room air. Respiratory therapist place patient on nonrebreather which brought up her O2 sats to about 90%. Ordered for ABG stat with a chest x-ray stat. Ordered Lasix 40 mg IV stat after review of charts. Came to see patient at the bedside. Chart reviewed. Patient is awake, alert, oriented. However she is quite in acute distress, with accessory respiratory muscle use, tachypnea on nonrebreather. Heart rate is regular, tachycardic, no murmur appreciated. Lungs sounds revealed complete silence on the right side, with left basilar crepitations. Abdomen is soft and nontender. No rebound. Bilateral lower extremities did not reveal any significant peripheral edema. Patient has a Collins catheter. Collins is draining some yoon urine. On review of records, it seems the patient was receiving IV fluids from ER and from the admitting team which was discontinued. She does have history of CHF, with right pneumonectomy. Chemistry done on admission and today morning revealing elevated bicarbonate levels. Impression: Acute respiratory failuresecondary to both hypercapnic and hypoxemic respiratory failure. Fluid overload/pulmonary edema most likely. Possible worsening pneumonia Plan: Patient was placed on BiPAP stat with 15 over 5, FiO2 to keep O2 sat only around 90%. Patient is a chronic CO2 retainer.. ABGs that were done statresults reviewed. PH of 7.3, PCO2 of 75, hemoglobin 9.2, O2 sat 90%on FiO2 of 100% on nonrebreather. Chest x-ray does personally reviewed. Right pneumonectomy with complete opacification of the right lung. Left lung with bilateral venous congestion, and worsening infiltrates Transfer patient to ICU stat. Repeat ABG about 40 minutes after BiPAP administration in ICU. We'll continue to monitor Wade Hunt MD Aug 28, 2016 21:51
[2016-08-28] MEDS ORDERED: MISCELLANEOUS NURSING INFORMATION XX SCH (22:00)
[2016-08-28] MEDS ORDERED: CHLORHEXIDINE GLUCONATE 2 % 1 PACK (2 CLOTHS) TOP PRN (22:00)
[2016-08-28 22:38] LABS: BLOOD GAS BASE EXCESS 9.1 mmol/L (-2-2); BLOOD GAS CARBOXYHEMOGLOBIN 2.2 % (0-4); BLOOD GAS HCO3 34 mmol/L (22-26); BLOOD GAS O2 HGB SATURATION 88 % (90-100); BLOOD GAS OXYGEN CONTENT 10.9 Vol % (12.0-20.0); BLOOD GAS PCO2 60 mmHg (38-42); BLOOD GAS PO2 66 mmHg (61-120); BLOOD GAS TOTAL HGB 8.7 G/DL (12.0-16.0); CRITICAL VALUE YES; TEMP CORR TO 98.6
[2016-08-28 22:39] LABS: DRAW SITE RT RADIAL; FIO2 50 %; NUMBER OF ARTERIAL PUNCTURES 1; OXYGEN DEVICE BIPAP 15/5; STAT NO; ULNAR PULSE PRESENT
[2016-08-28] MEDS: cefTRIAXone INJ 1,000 MG in SODIUM CHLORIDE 0.9% INJ 100 ML IV SCH (22:46)
[2016-08-28 23:30] LABS: AUTOMATED NEUTROPHIL # 12.6 TH/MM3 (1.8-7.7); BASOPHIL % 0.2 % (0.0-2.0); EOSINOPHIL # 0.1 TH/MM3 (0-0.4); EOSINOPHIL % 0.6 % (0.0-4.0); HEMATOCRIT 26.6 % (35.0-46.0); LYMPH % 2.6 % (9.0-44.0); LYMPHOCYTE # 0.4 TH/MM3 (1.0-4.8); MEAN CELL VOLUME 91.2 FL (80.0-100.0); MEAN CORPUSCULAR HGB CONC 32.9 % (32.0-36.0); MONO % 12.1 % (0.0-8.0); NEUT % 84.5 % (16.0-70.0); PLATELET COUNT 210 TH/MM3 (150-450); RED BLOOD COUNT 2.92 MIL/MM3 (4.00-5.30); WHITE BLOOD COUNT 14.9 TH/MM3 (4.0-11.0)
[2016-08-28 23:31] LABS: HEMO FLAGS AUTO DIFF
[2016-08-28 23:44] LABS: ANION GAP 8 MEQ/L (5-15); AST (GOT) 22 U/L (15-37); BICARBONATE 36.5 MEQ/L (21.0-32.0); BLOOD UREA NITROGEN 17 MG/DL (7-18); CHLORIDE 95 MEQ/L (98-107); GLOMERULAR FILTRATION RATE 80 ML/MIN (>89); SODIUM (NA) 139 MEQ/L (136-145)
[2016-08-28 23:45] LABS: ALT (GPT) 25 U/L (10-53)
[2016-08-28 23:47] LABS: ALKALINE PHOSPHATASE 102 U/L (45-117); TOTAL BILIRUBIN ADULT 0.4 MG/DL (0.2-1.0)
[2016-08-29] VITALS (16 sets, daily range): BP systolic 108–148; BP diastolic 64–107; PULSE 63–86; RESP 17–29; TEMP 97.2–98.2; O2SAT 80–100
[2016-08-29 00:06] LABS: SCAN/DIFF AUTO DIFF CONFIRMED
[2016-08-29] MEDS: CHLORHEXIDINE GLUCONATE 2 % 1 PACK (2 CLOTHS) TOP SCH (02:34)
[2016-08-29 04:30] LABS: BLOOD GAS BASE EXCESS 11.1 mmol/L (-2-2); BLOOD GAS CARBOXYHEMOGLOBIN 2.1 % (0-4); BLOOD GAS HCO3 36 mmol/L (22-26); BLOOD GAS METHEMOGLOBIN 0.8 % (0-2); BLOOD GAS O2 HGB SATURATION 86 % (90-100); BLOOD GAS OXYGEN CONTENT 10.1 Vol % (12.0-20.0); BLOOD GAS PCO2 59 mmHg (38-42); BLOOD GAS PO2 58 mmHg (61-120); BLOOD GAS TOTAL HGB 8.3 G/DL (12.0-16.0); CRITICAL VALUE YES; DRAW SITE RT RADIAL; FIO2 60 %; NUMBER OF ARTERIAL PUNCTURES 1; OXYGEN DEVICE IPAP15/EPAP+5; STAT NO; TEMP CORR TO 98.6; ULNAR PULSE PRESENT
[2016-08-29] MEDS ORDERED: FUROSEMIDE 40 MG/4 ML VIAL IV PUSH ONE (05:00)
[2016-08-29] MEDS: PANTOPRAZOLE SOD 40 MG DELAYED RELEASE TAB PO SCH (05:12)
[2016-08-29 05:48] LABS: HEMATOCRIT 26.7 % (35.0-46.0); MEAN CELL VOLUME 91.6 FL (80.0-100.0); MEAN CORPUSCULAR HEMOGLOBIN 29.6 PG (27.0-34.0); MEAN CORPUSCULAR HGB CONC 32.3 % (32.0-36.0); PLATELET COUNT 183 TH/MM3 (150-450); RED BLOOD COUNT 2.92 MIL/MM3 (4.00-5.30); RED CELL DISTRIBUTION WIDTH 15.7 % (11.6-17.2); REVIEW FLAG FINAL; WHITE BLOOD COUNT 17.4 TH/MM3 (4.0-11.0)
[2016-08-29 06:08] LABS: BICARBONATE 37.8 MEQ/L (21.0-32.0); POTASSIUM 3.5 MEQ/L (3.5-5.1)
[2016-08-29] MEDS ORDERED: DEXTROSE 50% IN WATER 50 ML VIAL(D50) IV PRN (08:15)
[2016-08-29] MEDS ORDERED: GLUCAGON 1 MG/ML VIAL OTHER PRN (08:15)
[2016-08-29] MEDS ORDERED: RESP: ALBUTEROL 2.5 MG/IPRATROPIUM 0.5 MG NEB (PRN) NEB (08:15)
[2016-08-29] MEDS: SODIUM CHLORIDE 0.9% FLUSH 10 ML FLUSH IV FLUSH SCH ×2 (08:29→20:17)
[2016-08-29] MEDS ORDERED: POTASSIUM PHOSPHATE INJ 30 MMOL in SODIUM CHLOR 0.9% 250 ML INJ 250 ML IV PRN (08:30)
[2016-08-29] MEDS ORDERED: MAGNESIUM SULFATE INJ 2 GM in SODIUM CHLORIDE 0.9% INJ 96 ML IV PRN (08:30)
[2016-08-29] MEDS ORDERED: MAGNESIUM SULFATE INJ 4 GM in SODIUM CHLORIDE 0.9% INJ 92 ML IV PRN (08:30)
[2016-08-29] MEDS ORDERED: POTASSIUM CHLORIDE 25 MEQ EFFERVESCENT TAB PO PRN (08:30)
[2016-08-29] MEDS: ASPIRIN EC 81 MG TABEC PO SCH (08:30)
[2016-08-29] MEDS ORDERED: POTASSIUM PHOSPHATE MONOBASIC 500 MG TAB PO/TUBE PRN (08:30)
[2016-08-29] MEDS: APIXABAN 5 MG TABLET PO SCH ×2 (08:30→20:16)
[2016-08-29] MEDS ORDERED: MAGNESIUM OXIDE 400 MG TAB PO PRN (08:30)
[2016-08-29] MEDS: DOCUSATE SODIUM 50 MG/SENNA 8.6 MG TAB PO SCH ×2 (08:30→20:16)
[2016-08-29] MEDS: SERTRALINE HCL 50 MG TAB PO SCH (08:30)
[2016-08-29] MEDS: METOPROLOL TARTRATE 25 MG TAB PO SCH ×2 (08:30→20:17)
[2016-08-29] MEDS ORDERED: SODIUM PHOSPHATE INJ 30 MMOL in SODIUM CHLOR 0.9% 250 ML INJ 240 ML IV PRN (08:30)
[2016-08-29] MEDS ORDERED: POTASSIUM PHOSPHATE MONOBASIC 500 MG TAB PO PRN (08:30)
[2016-08-29] MEDS ORDERED: POTASSIUM CHLOR 20 MEQ PREMIX 100 ML IV PRN (08:30)
[2016-08-29] MEDS: DILTIAZEM-CD 120 MG CAP ER PO SCH ×2 (08:30→20:16)
[2016-08-29] MEDS ORDERED: POTASSIUM CHLOR 40 MEQ PREMIX 100 ML IV PRN ×2 (08:30)
[2016-08-29] MEDS: DIGOXIN 0.125 MG TAB PO SCH (08:30)
[2016-08-29] MEDS: BUDESONIDE-FORMOTEROL 160/4.5 MCG INHALER INH SCH ×2 (08:38→20:19)
[2016-08-29] MEDS: PIPERACIL-TAZO 4.5 GM PREMIX 100 ML IV SCH ×3 (08:39→21:09)
[2016-08-29] MEDS: methylPREDNISolone SOD SUCC 40 MG/1 ML VIAL IV PUSH SCH ×2 (08:39→17:34)
[2016-08-29] MEDS ORDERED: CEFEPIME INJ 2,000 MG in SODIUM CHLORIDE 0.9% INJ 100 ML IV SCH (09:00)
[2016-08-29] MEDS: INSULIN NovoLIN REGULAR SUPPLEMENTAL SCALE SQ SCH ×3 (09:00→20:29)
[2016-08-29] MEDS ORDERED: PANTOPRAZOLE SOD 40 MG DELAYED RELEASE TAB PO SCH (09:00)
[2016-08-29] MEDS: LORazepam 2 MG/ML VIAL IV PUSH PRN ×3 (09:03→22:11)
--- NOTE | 2016-08-29 09:09 | MB ---
cc: LOLLY BARNEY M.D. DATE OF CONSULTATION 08/29/2016 DATE OF 1940 HISTORY OF PRESENT ILLNESS The patient is a 76-year-old female with a past medical history of hypertension, atrial fibrillation on Eliquis, COPD oxygen-dependent, history of lung cancer status post pneumonectomy, breast CA, anxiety, depression and CHF. She was admitted to [facility] on August 27 under hospitalist service for recurrent UTI. In addition she was found to have mild elevated troponins and is being followed by Dr. Rodas from the cardiology service. The patient was placed on broad-spectrum antibiotics. [facility] was called last night after the patient was found hypoxic with O2 saturation in the 70s on room air. She was initially placed on a non-rebreather mask and subsequently BiPap and her last ABG showed 7.40, CO2 59, pAO2 58, bicarb 36, sats of 86%. Chest x-ray from last night showed increased patchy airspace consolidation throughout the left lung and stable changes on the right characteristic of prior pneumonectomy. The patient was given Lasix 40 mg IV x 1 last night and an additional dose at 05:00 a.m. When seen the patient is on BiPap 15/5 with 80% FIO2 with current saturation of 93-94%. Per nursing staff, the patient also stated that she wanted to kill herself by swallowing a lot of pills and Psych Service was consulted by the primary team. PAST MEDICAL HISTORY 1. Hypertension. 2. A-fib on Eliquis. 3. COPD O2 dependent. 4. History of lung cancer with previous pneumonectomy. 5. Anxiety, depression. 6. CHF. Her last echo from 2014 showed EF of 55-60%. 7. Recurrent UTI. PAST SURGICAL HISTORY 1. Previous coronary stent placement. 2. Previous cholecystectomy. 3. Hysterectomy. 4. Right lung pneumonectomy. ALLERGIES PHOSPHORUS SODA. MORPHINE. MEPERIDINE. FLEET'S ENEMA. DEMEROL. CONTRAST MEDIA. ACIPHEX. FAMILY HISTORY Noncontributory. SOCIAL HISTORY Nonsmoker, nondrinker. CURRENT MEDICATIONS 1. Eliquis. 2. Aspirin. 3. Lipitor. 4. Symbicort. 5. Cefepime. 6. Digoxin. 7. Cardizem CD. 8. Singulair. 9. Protonix. 10. Vancomycin. REVIEW OF SYSTEMS As per HPI. The rest of review of systems limited as the patient is a poor historian. PHYSICAL EXAMINATION GENERAL: A 76-year-old female on a BiPAP, 15/5 with 80% FIO2. VITAL SIGNS: Temperature 97.4 axillary, pulse of 63, respiratory rate of 24, blood pressure 113/78, saturation 93% on BiPap. HEENT: Atraumatic, normocephalic. Pupils equal, round, reactive to light and accommodation. Extraocular muscles intact. Conjunctivae pink. Nonicteric sclerae. Oral mucosa within normal. NECK: Supple. No JVD, adenopathy or thyromegaly. Trachea in the midline. CARDIOVASCULAR EXAM: Irregularly irregular. Normal S1-S2. No murmurs, rubs or gallops noted. PULMONARY EXAM: Bilateral equal entry with a few coarse breath sounds. ABDOMEN: Soft, obese, nontender. No distension. Positive bowel sounds. EXTREMITIES: No cyanosis, clubbing or edema. No focal sensory deficit. LABORATORY DATA Sodium 142, potassium 3.5, chloride 96, CO2 37, BUN 15, creatinine 0.59, glucose 101, WBC 17.4, hemoglobin 8.6, hematocrit 26, platelet count 183. INR 1, PT 11.3, PTT 27. Urinalysis positive for leukocyte esterase, 19 WBCs, occasional bacteria. RADIOGRAPHIC STUDIES A chest x-ray from last night showed airspace consolidation throughout the left lung and right pneumonectomy noted. Blood cultures from August 27 showed no growth to date and urine culture from August 27 showed no growth. IMPRESSION 1. Acute hypoxic and hypercapnic respiratory failure. 2. COPD exacerbation. 3. Recurrent UTI. 4. Obesity. 5. Leukocytosis. 6. Atrial fibrillation on Eliquis. 7. History of lung cancer with a previous right-sided pneumonectomy. 8. CHF. 9. History of breast cancer. 10. History of anxiety and depression. RECOMMENDATIONS 1. Monitor neuro status closely and avoid any sedatives. 2. Continue oxygen and maintain sats above 92%. 3. Bronchodilators. Will place on DuoNeb q. 4 plus q. 2 for shortness of breath. In addition will start Solu-Medrol 40 mg IV q. 8. The patient is also on Symbicort 160/4.5 two puffs q. 12hours and Singulair 10 mg q.h.s. 4. We will check chest x-ray this morning and repeat ABG. If there is any worsening in respiratory status or clinical condition, we will proceed with intubation and mechanical ventilation. 5. Continue with noninvasive positive pressure ventilation for respiratory distress. 6. Monitor heart rate and blood pressure closely and maintain MAP greater than 65 mmHg. Continue with aspirin 81 mg daily, Lipitor 20 mg q.h.s., Cardizem CD 120 mg b.i.d., Lopressor 12.5 mg q. 12 and digoxin 0.125 mg daily. We will check and digit level. In addition will obtain a 2-D echo to evaluate LV function. Dr. Rodas from cardiology service is following. The patient is also on Eliquis 5 mg p.o. b.i.d. for her atrial fibrillation. 7. Monitor renal function I&Os and electrolyte replacement per protocol. She was given Lasix 40 mg last night and early this morning with good urine output. 8. Keep n.p.o. for now and continue Protonix 40 mg daily for GI prophylaxis. 9. Continue with antibiotics. The patient is currently on vancomycin. Will D/C cefepime and place on Zosyn. Monitor for signs of infections which include fever and WBC. Follow up on blood and urine cultures. All cultures and showed no growth to date. 10. We will place on sliding scale insulin with Accu-Chek q. 6 hours for glycemic control as the patient will be on IV steroids. 11. Monitor CBC and will guaiac stool for heme. 12. GI prophylaxis with Protonix 40 mg daily and DVT prophylaxis with SCDs. In addition the patient is on Eliquis 5 mg b.i.d. for A-fib which will provide DVT prophylaxis as well. 13. Psych Service was consulted by primary team for possible suicidal ideation. Addendum: Palliative care spoke to healthcare surrogate and confirmed patient is no code DNR. In addition I spoke to patient's who also confirmed code status and did not want any intubation. Further recommendations will be based on hospital course. MD YONY Dupree/ALBA /8:27 AM /8:53 AM MTDReji
[2016-08-29] MEDS: RESP: ALBUTEROL 2.5 MG/IPRATROPIUM 0.5 MG NEB (SCH) NEB ×4 (10:07→23:30)
[2016-08-29] MEDS ORDERED: BUMETANIDE INJ 1 MG/4 ML VIAL IV PUSH ONE (10:45)
--- NOTE | 2016-08-29 11:05 | RADRPT ---
EXAM DATE/TIME: 08/29/2016 08:53 [facility] COMPARISON: CHEST SINGLE AP, August 27, 2016, 16:09. CHEST SINGLE AP, August 28, 2016, 21:17. INDICATIONS : Difficulty breathing. MEDICAL HISTORY : Metastatic, lung. Carcinoma, breast. Chronic obstructive pulmonary disease. Hypertension, CAD SURGICAL HISTORY : Cholecystectomy. Fusion, thoracic. Pneumonectomy. ENCOUNTER: Subsequent ACUITY: 3 days PAIN SCORE: Non-responsive. LOCATION: Bilateral chest FINDINGS: Stabilization rods are seen in the lower thoracic and upper lumbar spine. There is increased density seen throughout the right hemithorax. There is alveolar consolidation seen throughout the left lung . The heart size is difficult to evaluate given the silhouetting of the right heart border. Clips a re seen around the saadia. There does appear to be chronic deformity at the right fourth and fifth r ibs presumably from prior right lung surgery. Clips are seen in the left axillary region. CONCLUSION: 1. Total opacification of the right hemithorax. This appearance is unchanged and is likely from prio r pneumonectomy on the right. 2. Consolidation seen throughout the left lung probably representing diffuse processes such as edema or diffuse infection. This is unchanged from the prior exam. Bubba Roth MD on August 29, 2016 at 9:52 Board Certified Radiologist. This report was verified electronically.
--- NOTE | 2016-08-29 12:22 | PD.WCN.NOT ---
Wound Consult Description: Patient seen on 5th floor [facility] for evaluation of pressure ulcer to buttock area. Turned Patient to L side with assistance of RN Little IMElisha. Patient noted with L gluteal cleft perianal partial thickness skin loss measuring 2.5 x 0.5 x~<0.1. Wound is 100% pink with scant serous drainage noted when cleansed with gauze pad and normal saline. Left wound open to air. No other open areas noted at this time.Patient positioned to L side with pillows,before leaving room. Communicated with: Doctor Crenshaw and Little [facility] 5th floor [facility] Recommendation: Recommend to cleanse buttock area gently with soap and water and pat dry. Please apply Calazime barrier cream BID and PRN and leave wound to L gluteal cleft perianal area open to air. Delma Michelle CRN Aug 29, 2016 12:22
[2016-08-29] MEDS: FLUCONAZOLE 100 MG PREMIX BAG 50 ML IV SCH (13:00)
[2016-08-29 13:13] LABS: BLOOD GAS BASE EXCESS 12.1 mmol/L (-2-2); BLOOD GAS CARBOXYHEMOGLOBIN 1.8 % (0-4); BLOOD GAS HCO3 37 mmol/L (22-26); BLOOD GAS METHEMOGLOBIN 0.7 % (0-2); BLOOD GAS O2 HGB SATURATION 86 % (90-100); BLOOD GAS PCO2 60 mmHg (38-42); BLOOD GAS PO2 59 mmHg (61-120); CRITICAL VALUE YES; TEMP CORR TO 98.6
[2016-08-29 13:14] LABS: DRAW SITE LT RADIAL; FIO2 80 %; NUMBER OF ARTERIAL PUNCTURES 1; OXYGEN DEVICE BiPAP; STAT NO; ULNAR PULSE PRESENT; VENT SETTINGS EPAP 5/IPAP 15
--- NOTE | 2016-08-29 17:03 | HHI.HCPN ---
Mrs. Juarez is a 76-year-old female with a medical history significant for oxygen dependent COPD, atrial fibrillation currently on anticoagulation, hypertension and history of breast and lung cancer status post pneumonectomy. Patient presented to ED on 08/27/16 from her alf for evaluation of possible UTI/sepsis. Patient was found with leukocytosis, UTI, COPD exacerbation and respiratory failure. [facility] was called on 08/28/16 secondary to hypoxia, O2 saturation in the 70s on room air. Patient was placed on a nonrebreather mask and subsequently BiPAP. Patient was transfer to medical ICU for further management and monitoring. Palliative care was consulted for further clarifications of goals of care given her decompensated condition. Reviewed advance directives. Designation of healthcare surrogate completed on designated her daughter Nu Soria as HCS, prior living will completed on 07/20/04. Patient seen in her room, currently on BiPAP. Able to communicate. Reviewed code status, patient verbalized not wishing intubation and mechanical ventilation or CPR. Telephone call to patient's daughter Nu who is healthcare surrogate decision maker. Medical update provided. Daughter reports that patient has verbalized in the past not wishing to be intubated, placed on mechanical ventilation or "revive" in the setting of a cardiac and/or respiratory arrest. HCS authorizing to enter CODE STATUS as no code. DNR/DNI. Telephone conversation with patient's . Medical update provided. confirmed that patient has verbalized in the past not wishing for CPR, intubation and mechanical ventilation. asking to change CODE STATUS to reflect patient's wishes, no code. DNR/DNI. Palliative care to meet with patient's tomorrow morning at 10 AM for further clarifications of goals of care. Case has been discussed with Dr. Toro and bedside RN. Full palliative care consultation to follow. MARSHAL Oakes. . . [place] Chauhan Aug 29, 2016 17:03
[2016-08-29] MEDS: POTASSIUM CHLOR 20 MEQ PREMIX 100 ML IV PRN ×2 (18:33→21:09)
[2016-08-29] MEDS: MONTELUKAST SODIUM 10 MG TAB PO SCH ×2 (20:16→20:55)
[2016-08-29] MEDS: ATORVASTATIN 20 MG TAB PO SCH ×2 (20:16→20:54)
[2016-08-29] MEDS: VANCOMYCIN 1,500 MG/NS 500 ML IV SCH ×2 (21:08)
[2016-08-30] VITALS (13 sets, daily range): BP systolic 129–146; BP diastolic 71–104; PULSE 64–92; RESP 22–31; TEMP 97.6–98.1; O2SAT 85–98
[2016-08-30] MEDS: methylPREDNISolone SOD SUCC 40 MG/1 ML VIAL IV PUSH SCH ×3 (01:40→17:00)
[2016-08-30] MEDS: LORazepam 2 MG/ML VIAL IV PUSH PRN ×3 (02:42→12:51)
[2016-08-30] MEDS: PIPERACIL-TAZO 4.5 GM PREMIX 100 ML IV SCH ×3 (02:45→16:00)
[2016-08-30] MEDS: INSULIN NovoLIN REGULAR SUPPLEMENTAL SCALE SQ SCH ×3 (02:45→15:00)
[2016-08-30] MEDS: RESP: ALBUTEROL 2.5 MG/IPRATROPIUM 0.5 MG NEB (SCH) NEB ×3 (03:38→11:45)
[2016-08-30] MEDS: CHLORHEXIDINE GLUCONATE 2 % 1 PACK (2 CLOTHS) TOP SCH (04:00)
[2016-08-30] MEDS: PANTOPRAZOLE SOD 40 MG DELAYED RELEASE TAB PO SCH (04:49)
--- NOTE | 2016-08-30 07:28 | HHI.CCPN ---
Subjective Remarks/Hospital Course The patient is a 76-year-old female with a past medical history of hypertension , atrial fibrillation on Eliquis, COPD oxygen-dependent, history of lung cancer status post pneumonectomy, breast CA, anxiety, depression and CHF. She was admitted to [facility] on August 27 under hospitalist service for recurrent UTI. In addition she was found to have mild elevated troponins and is being followed by Dr. Rodas from the cardiology service. The patient was placed on broad-spectrum antibiotics. [facility] was called last night after the patient was found hypoxic with O2 saturation in the 70s on room air. She was initially placed on a non-rebreather mask and subsequently BiPap and her last ABG showed 7.40, CO2 59, pAO2 58, bicarb 36, sats of 86%. Chest x-ray from last night showed increased patchy airspace consolidation throughout the left lung and stable changes on the right characteristic of prior pneumonectomy. The patient was given Lasix 40 mg IV x 1 last night and an additional dose at 05:00 a.m.When seen the patient is on BiPap 15/5 with 80% FIO2 with current saturation of 93-94%. Per nursing staff, the patient also stated that she wanted to kill herself by swallowing a lot of pills and Psych Service was consulted by the primary team. 08/30 Patient is on BIPAP 15/5 with 60% FIO2. Afebrile. Palliative care spoke to healthcare surrogate yesterday and patient was made no code DNR. Objective Vital Signs Date Time Temp Pulse Resp B/P Pulse Ox O2 Delivery O2 Flow Rate FiO2 08/30/16 06:00 88 08/30/16 04:00 Bi-Pap 08/30/16 04:00 97.8 22 129/71 98 08/30/16 03:58 60 08/28/16 21:00 12.00 Intake and Output 08/29/16 08/29/16 08/30/16 08:00 16:00 00:00 Intake Total 0 ml 400 ml 433 ml Output Total 950 ml 1100 ml 200 ml Balance -950 ml -700 ml 233 ml Result Diagram: 08/29/16 0438 08/30/16 0342 Other Results Laboratory Tests Test 08/29/16 08/29/16 08/29/16 08/30/16 08:57 12:55 14:07 03:42 Phosphorus Level 2.7 MG/DL Digoxin Level 1.0 NG/ML Blood Gas Puncture Site LT RADIAL Blood Gas Patient Temperature 98.6 Blood Gas HCO3 37 mmol/L Blood Gas Base Excess 12.1 mmol/L Blood Gas Oxygen Saturation 86 % Arterial Blood pH 7.41 Arterial Blood Partial 60 mmHg Pressure CO2 Arterial Blood Partial 59 mmHg Pressure O2 Arterial Blood Oxygen Content 11.0 Vol % Arterial Blood 1.8 % Carboxyhemoglobin Arterial Blood Methemoglobin 0.7 % Blood Gas Hemoglobin 9.0 G/DL Oxygen Delivery Device BiPAP Blood Gas Ventilator Setting EPAP 5/IPAP 15 Blood Gas Inspired Oxygen 80 % Potassium Level 3.4 MEQ/L Creatinine 0.59 MG/DL Estimat Glomerular Filtration 99 ML/MIN Rate Imaging Last Impressions Chest X-Ray 08/29/16 0000 Signed Impressions: Service Date/Time: Monday, August 29, 2016 08:53 - CONCLUSION: 1. Total opacification of the right hemithorax. This appearance is unchanged and is likely from prior pneumonectomy on the right. 2. Consolidation seen throughout the left lung probably representing diffuse processes such as edema or diffuse infection. This is unchanged from the prior exam. Bubba Roth MD Objective Remarks GENERAL: Patient is 76 yo on BIPAP with 60% FIO2. SKIN: Warm and dry. HEAD: Normocephalic. EYES: No scleral icterus. No injection or drainage. NECK: Supple, trachea midline. No JVD or lymphadenopathy. CARDIOVASCULAR: Regular rate and rhythm without murmurs, gallops, or rubs. RESPIRATORY: Breath sounds equal bilaterally. Few coarse BS. GASTROINTESTINAL: Abdomen soft, non-tender, nondistended. MUSCULOSKELETAL: No cyanosis, or edema. A/P Assessment and Plan 1. Acute hypoxic and hypercapnic respiratory failure. 2. COPD exacerbation. 3. Recurrent UTI. 4. Obesity. 5. Leukocytosis. 6. Atrial fibrillation on Eliquis. 7. History of lung cancer with a previous right-sided pneumonectomy. 8. CHF. 9. History of breast cancer. 10. History of anxiety and depression. 11 UTI Plan: Neuro: Monitor neuro status closely and avoid any sedatives. Pulm: Continue oxygen and maintain sats above 92%. Bronchodilators, Solu-Medrol 40 mg IV q. 8.On Symbicort, Singulair 10 mg q.h.s. NIPPV for respiratory distress. CV: Monitor HR and BP and maintain MAP>65 mmHg. On aspirin 81 mg daily, Lipitor 20 mg q.h.s., Cardizem CD 120 mg b.i.d., Lopressor 12.5 mg q. 12 and digoxin 0.125 mg daily. Digoxin level: Cards- Dr. Rodas, on Eliquis 5 mg p.o. b.i.d. for atrial fibrillation. :Monitor renal function I&Os and electrolyte replacement per protocol. GI: On Protonix 40mg daily for GI prophylaxis ID: Continue with abx ( Vanco, Zosyn, Diflucan) Monitor for signs of infections ( fever and WBC). Urine cx: Jackie Albicans. Endo: SSI with Accu-Chek q. 6 hours Heme: Monitor CBC GI prophylaxis with Protonix 40 mg daily and DVT prophylaxis with SCDs. On Eliquis 5 mg b.i.d. for A-fib Palliative care is following. Patient was made no code DNR. Family elected to proceed with hospice care. Will sign off and change attending to Dr. Edmonds ( palliative care) Level 3 Terra Toro MD Aug 30, 2016 07:28
[2016-08-30] MEDS: DIGOXIN 0.125 MG TAB PO SCH (08:18)
[2016-08-30] MEDS: ASPIRIN EC 81 MG TABEC PO SCH (08:18)
[2016-08-30] MEDS: APIXABAN 5 MG TABLET PO SCH (08:18)
[2016-08-30] MEDS: SERTRALINE HCL 50 MG TAB PO SCH (08:18)
[2016-08-30] MEDS: DILTIAZEM-CD 120 MG CAP ER PO SCH (08:18)
[2016-08-30] MEDS: METOPROLOL TARTRATE 25 MG TAB PO SCH (08:19)
[2016-08-30] MEDS: BUDESONIDE-FORMOTEROL 160/4.5 MCG INHALER INH SCH (08:19)
[2016-08-30] MEDS: SODIUM CHLORIDE 0.9% FLUSH 10 ML FLUSH IV FLUSH SCH (08:19)
[2016-08-30] MEDS: DOCUSATE SODIUM 50 MG/SENNA 8.6 MG TAB PO SCH (08:19)
[2016-08-30 08:46] LABS: AUTOMATED NEUTROPHIL # 15.6 TH/MM3 (1.8-7.7); BASOPHIL # 0.1 TH/MM3 (0-0.2); BASOPHIL % 0.3 % (0.0-2.0); EOSINOPHIL % 0.1 % (0.0-4.0); HEMATOCRIT 26.3 % (35.0-46.0); LYMPH % 3.5 % (9.0-44.0); LYMPHOCYTE # 0.7 TH/MM3 (1.0-4.8); MEAN CELL VOLUME 90.6 FL (80.0-100.0); MEAN CORPUSCULAR HEMOGLOBIN 29.6 PG (27.0-34.0); MEAN CORPUSCULAR HGB CONC 32.7 % (32.0-36.0); MONO % 15.7 % (0.0-8.0); NEUT % 80.4 % (16.0-70.0); PLATELET COUNT 179 TH/MM3 (150-450); WHITE BLOOD COUNT 19.4 TH/MM3 (4.0-11.0)
[2016-08-30 08:47] LABS: HEMO FLAGS AUTO DIFF
[2016-08-30 09:09] LABS: BICARBONATE 37.1 MEQ/L (21.0-32.0); MAGNESIUM 2.4 MG/DL (1.5-2.5)
[2016-08-30 09:15] LABS: BANDS 6 % (0-6); MYELOCYTES 2 % (0-0); NEUTROPHIL # MANUAL DIFF 15.1 TH/MM3 (1.8-7.7); POLYS (SEG NEUTROPHILS) 70 % (16-70); WBC DIFF SAMPLE 100
[2016-08-30 09:16] LABS: PLATELET ESTIMATE SMEAR NORMAL (NORMAL); PLATELET MORPHOLOGY NORMAL (NORMAL); SCAN/DIFF FINAL DIFF MANUAL
--- NOTE | 2016-08-30 11:30 | PD.CONS ---
Consult Service Palliative Care Consult Requested By Dr. Toro Primary Care Physician Unknown Reason for Consultation a. To assist with evaluation and management of symptoms including: Shortness of breath, anxiety and debility. b. To assist medical decision maker(s) with: better understanding of current medical conditions; weighing benefits/burdens of medical treatment options; making medical treatment decisions. . HPI History of Present Illness Mrs. Juarez is a 76-year-old female with a medical history significant for oxygen dependent COPD, atrial fibrillation currently on anticoagulation, hypertension and history of breast ca s/p lumpectomy and lung cancer s/p right lung pneumonectomy. Patient presented [facility] ED [facility] 08/27/[facility] from [facility] for evaluation of possible UTI/sepsis. Patient was found with leukocytosis, UTI, COPD exacerbation and respiratory failure. Halicat was called on 08/28/16 secondary to hypoxia, O2 saturation in the 70s on room air. Patient was placed on a nonrebreather mask and subsequently BiPAP. Patient was transfer to medical ICU for further management and monitoring. Palliative care was consulted for further clarifications of goals of care given her worsening clinical status and multiple comorbidities. ED Workup to include checks x-ray 08/27/16 showing worsening of interstitial edema in the left lung. Laboratory workup revealing WBC of 13.1, hemoglobin 9.0 , platelet count 243. Sodium 142, potassium 3.5, BUN/creatinine 14/057. Troponin 0.16. BNP 618. UA 08/27/16 trace ketones, negative nitrates and moderate leukocyte. Urine culture 08/27/16 showing Jackie albicans. Most recent chest x-ray 08/29/16 showing consolidation throughout the left lung likely edema versus diffuse infection. Laboratory workup today revealing increase in leukocytosis, currently 19.4, Hgb 8.6, platelet count 179. Sodium 140, potassium 4.0, BUN/creatinine 18/058. Cardiology consulted on secondary to increase troponin levels and atrial fibrillation. Reviewed recent prior acute hospitalization from 08/02/16 to 08/24/16. Patient presented to the ED on 08/02/16 but complains of generalized weakness, nausea vomiting for the previous week. Patient was admitted for further management of dehydration, acute kidney injury and UTI. GI doctor Argelia consulted on for evaluation of dilated common bile duct as observed in the abdomen/pelvis CT 08/02/16 revealing dilated intrahepatic and extrahepatic docs worse since the prior exam in 2014. Cholangiopancreatography MRI 08/04/16 revealing intra-and extrahepatic bilaterally duct dilation. Patient underwent EGD with biopsy and ERCP with removal of calculus on 08/10/16. Patient's clinical condition complicated by acute on chronic respiratory failure requiring BiPAP management by critical care. Pulmonology Dr. Whitt consulted on 08/10/16 for pulmonary management. Patient's respiratory condition improved, she was transferred back to hospitalist services on 08/10/16. Echocardiogram 08/13/16 revealing EF of 40-45% . Diffuse hypokinesis and possible hypokinesis of the apical myocardium. ID, Dr. Vasquez consulted on 08/18/16 secondary to urine culture showing MRSA. Patient was discharge on 08/24/16 to [facility] for rehabilitation. Patient was seen in ICU. She is resting in bed in moderate distress secondary to increased work of breathing. Currently on BiPAP at 100% FiO2. Patient opening eyes to voice, verbalizing "please let me " "I am tired". at bedside. 12:40. Family meeting. In attendance patient's Tyler, daughter Nu and sons Gato and Baljit. Reviewed patient's chronic medical issues and progressive clinical and physical decline since 2007. Reviewed recent acute hospitalization from 08/02/16 to 08/24/16. Reviewed events leading to these hospitalization, current management and patient's current critical condition to include worsening respiratory failure, COPD exacerbation and UTI. Reviewed that patient's clinical condition has worsening, currently on BiPAP requiring 100% FiO2. Reviewed continuation of conservative management short of no code vs. Comfort-directed care with hospice/allow natural . Family electing to transition patient to comfort-directed care with the goal to transfer to hospice care facility for pain and symptom management/end-of-life care. This decision was made based on patient's progressive worsening clinical condition, multiple chronic comorbidities, acute events, profound physical deconditioning and pt's known wishes regarding end-of-life. Ongoing emotional support and active listening provided. Hospice referral has been made. Case discussed with Dr. Toro, Dr. Minor, Dr. Edmonds, manager hospice and bedside RN Little. . Function/Cognitive Trajectory Patient with worsening clinical decline and physical deconditioning for the past 9 years. Multiple acute hospitalizations in 2015. For the past year, patient has been homebound. Receiving home health 5 times a week for 4 hours each day. Patient is wheelchair-bound, Correa scooter to mobilize outside of the home. O2 dependent. Patient residing with . Acute prior hospitalization from 08/02/16 to 08/24/16, patient was discharged to [facility] for rehabilitation. Mild cognitive decline/confusion reported. . Review of Systems ROS Limitations: Clinical Condition, Altered Mental Status Constitutional: COMPLAINS OF: Fatigue, Generalized weakness Endocrine: DENIES: Heat/cold intolerance Eyes: DENIES: Eye pain Ears, nose, mouth, throat: DENIES: Hearing loss, Oral lesions Respiratory: COMPLAINS OF: Apneas, Cough, Sputum production, Shortness of breath Cardiovascular: COMPLAINS OF: Dyspnea on Exertion, Lower Extremity Edema, Orthopnea, DENIES: Chest pain Gastrointestinal: DENIES: Abdominal pain, Constipation, Diarrhea, Nausea Genitourinary: COMPLAINS OF: Urinary frequency Musculoskeletal: DENIES: Muscle aches Integumentary: DENIES: Abnormal pigmentation Hematologic/Lymphatics: COMPLAINS OF: Bruising Immunologic/Allergic: DENIES: Eczema Neurologic: COMPLAINS OF: Abnormal gait, Poor Balance Psychiatric: COMPLAINS OF: Anxiety, Depression, Agitation, Suicidal Ideation, DENIES: Hallucinations Other ROS: Limited ROS secondary to clinical condition, currently on BiPAP. Anxious. ROS obtained from medical records, patient's and clinical observation. . Past Family Social History Coded Allergies: Aciphex (Verified Allergy, Severe, 08/27/16) Contrast Media (Verified Allergy, Severe, PASSED OUT, 08/27/16) Demerol (Verified Allergy, Severe, Hallucinations, 08/27/16) Fleets Phospho Soda (Verified Allergy, Severe, 08/27/16) Meperidine (Verified Allergy, Severe, 08/27/16) Morphine (Verified Allergy, Severe, 08/27/16) *MDRO Multi-Drug Resistant Organism (Verified Adverse Reaction, Unknown, ) E.coli ESBL (urine) - 04/2014 & 05/2015 / (sputum) - 05/2014 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/18/15 & 08/10/16 MRSA (urine) - 08/13/16 Uncoded Allergies: PHOSPHOUS SODA (Allergy, Severe, 05/04/05) Past Medical History COPD, O2 dependent Hypertension Atrial fibrillation on Eliquis CHF Recurrent UTI M cancer status post right pneumonectomy 8 years ago Breast cancer status post lumpectomy and radiation CAD status post stenting x1 Umbilical hernia . Past Surgical History Cardiac Stent Cholecystectomy Hysterectomy Right Lung Lobectomy Left breast lumpectomy . Reported Medications Prednisone 10 Mg Tab 10 Mg PO DAILY Restoril (Temazepam) 7.5 Mg Cap 7.5 Mg PO HS PRN Prednisone 20 Mg Tab 20 Mg PO DAILY Duoneb (Ipratropium-Albuterol Neb) 0.5-2.5 Mg/3 Ml Neb 1 Ampule NEB Q2HR NEB PRN Digoxin 0.125 Mg Tab 0.125 Mg PO DAILY Cardizem CD 24 HR (Diltiazem CD 24 HR) 120 Mg Caper 120 Mg PO BID Ativan (Lorazepam) 0.5 Mg Tab 0.5 Mg PO Q8HR Ondansetron Odt 4 Mg Tab 4 Mg SL Q6HR PRN 30 Days Hm Loperamide HCl (Loperamide HCl) 2 Mg Cap 2 Mg PO Q6H PRN Acidophilus/l-Sporogenes (Lactobacillus Acidophilus) 1 Tab Tab 1 Tab PO TID Milk of Magnesia Liq (Magnesium Hydroxide) 400 Mg/5 Ml Susp 30 Ml PO DAILY PRN Albuterol Neb (Albuterol Sulfate) 0.63 Mg/3 Ml Neb 0.63 Mg NEB Q4HR NEB PRN Duoneb (Ipratropium-Albuterol Neb) 0.5-2.5 Mg/3 Ml Neb 1 Nebule INH Q4HR NEB Symbicort Inh (Budesonide/Formoterol Fumarate) 80-4.5 Mcg/Act Aero 2 Puff INH Q12HR Ascorbic Acid 500 Mg Tab 500 Mg PO DAILY Thera-M (Multiple Vitamins W/ Minerals) 1 Tab 1 Tab PO DAILY D 1000 (Cholecalciferol) 1,000 Unit Tab 1,000 Units PO DAILY [place]-3 Fish Oil/Vitamin (Fish Oil-Cholecalciferol) 1,000-1,000 Mg Cap 1 Cap PO DAILY Pantoprazole (Pantoprazole Sodium) 40 Mg Tab 40 Mg PO DAILY Eliquis (Apixaban) 5 Mg Tab 5 Mg PO BID Sertraline (Sertraline HCl) 50 Mg Tab 50 Mg PO DAILY Atorvastatin (Atorvastatin Calcium) 20 Mg Tab 20 Mg PO HS Montelukast (Montelukast Sodium) 10 Mg Tab 10 Mg PO HS . Current Medications Medications (Trade) Dose Ordered Sig/Bety Route Start Time Stop Time Status Last Admin (Eliquis) 5 mg BID PO 08/27/16 21:00 08/30/16 08:18 (Zoloft) 50 mg DAILY PO 08/28/16 09:00 08/30/16 08:18 (Ativan Inj) 0.5 mg Q4H PRN IV PUSH 08/27/16 19:00 08/30/16 08:19 (Cardizem Cd) 120 mg BID PO 08/27/16 21:00 08/30/16 08:18 (Lanoxin) 0.125 mg DAILY PO 08/28/16 09:00 08/30/16 08:18 (Symbicort 160-4.5 Inh) 2 puff Q12HR INH 08/27/16 21:00 08/30/16 08:19 (Lipitor) 20 mg HS PO 08/27/16 21:00 08/29/16 20:54 (Singulair) 10 mg HS PO 08/27/16 21:00 08/29/16 20:55 (Protonix) 40 mg DAILY@06 PO 08/28/16 06:00 08/30/16 04:49 (NS Flush) 2 ml UNSCH PRN IV FLUSH 08/27/16 19:00 (NS Flush) 2 ml BID IV FLUSH 08/27/16 21:00 08/30/16 08:19 (Zofran Inj) 4 mg Q6H PRN IVP 08/27/16 19:00 (Tylenol) 650 mg Q6H PRN PO 08/27/16 19:00 (Gleason 5-325 Mg) 1 tab Q4H PRN PO 08/27/16 19:00 (Vivienne-Colace) 1 tab BID PO 08/27/16 21:00 08/30/16 08:19 (Milk Of Magnesia Liq) 30 ml Q12H PRN PO 08/27/16 19:00 (Senokot) 17.2 mg Q12H PRN PO 08/27/16 19:00 (Dulcolax Supp) 10 mg DAILY PRN RECTAL 08/27/16 19:00 (Lactulose Liq) 30 ml DAILY PRN PO 08/27/16 19:00 Acetaminophen/ Hydrocodone Bitart 1 tab 1 tab Q4H PRN PO 08/27/16 19:00 08/28/16 09:12 Pharmacy Profile Note 0 ml @ 0 mls/hr UNSCH OTHER 08/27/16 19:15 (Vancomycin Inj/ NS 500 ml Inj) 515 ml @ 257.5 mls/ hr Q24H IV 08/27/16 21:00 08/29/16 21:08 Miscellaneous Information SPECIFIC LAB TO BE KELLI... ONCE ONCE .XX 08/30/16 20:45 08/30/16 20:46 (Restoril) 7.5 mg HS PRN PO 08/28/16 21:00 08/28/16 23:49 (Lopressor) 12.5 mg Q12HR PO 08/27/16 21:00 08/30/16 08:19 (Ecotrin Ec) 81 mg DAILY PO 08/28/16 09:00 08/30/16 08:18 (Nitroglycerin 2% Oint) 0.5 inch Q6HR PRN TOPICAL 08/27/16 21:00 Miscellaneous Information 1 Q361D XX 08/28/16 22:00 (Chlorhexidine 2% Cloth) 3 pack Taper DAILY@04 TOP 08/29/16 04:00 08/25/17 03:59 08/30/16 04:00 (Chlorhexidine 2% Cloth) 3 pack UNSCH PRN TOP 08/28/16 22:00 (SoluMEDROL INJ) 40 mg Q8H IV PUSH 08/29/16 09:00 08/30/16 08:19 (D50w (Vial) Inj) 50 ml UNSCH PRN IV 08/29/16 08:15 (Glucagon Inj) 1 mg UNSCH PRN OTHER 08/29/16 08:15 Insulin Human Regular 1 1 Q6H SQ 08/29/16 09:00 08/30/16 09:00 Piperacillin Sod/ Tazobactam Sod 100 ml @ 200 mls/hr Q6H IV 08/29/16 10:00 08/30/16 09:09 Potassium Chloride 100 ml @ 50 mls/hr Q2H PRN IV 08/29/16 08:30 (KCl 20 Meq Premix Inj) 100 ml @ 50 mls/hr Q2H PRN IV 08/29/16 08:30 Potassium Bicarb/ Potassium Chloride 50 meq 50 meq UNSCH PRN PO 08/29/16 08:30 Potassium Chloride 100 ml @ 25 mls/hr UNSCH PRN IV 08/29/16 08:30 Potassium Chloride 100 ml @ 50 mls/hr Q2H PRN IV 08/29/16 08:30 08/29/16 21:09 (Magnesium Sulfate Inj/NS Inj) 100 ml @ 50 mls/hr UNSCH PRN IV 08/29/16 08:30 Magnesium Oxide 800 mg 800 mg UNSCH PRN PO 08/29/16 08:30 (Magnesium Sulfate Inj/NS Inj) 100 ml @ 50 mls/hr UNSCH PRN IV 08/29/16 08:30 Potassium Phosphate 2000 mg 2,000 mg Q4H PRN PO 08/29/16 08:30 (Sodium Phosphate Inj/NS 250 ml Inj) 250 ml @ 42 mls/hr UNSCH PRN IV 08/29/16 08:30 Potassium Phosphate 2000 mg 2,000 mg UNSCH PRN PO/TUBE 08/29/16 08:30 Potassium Phosphate 30 mmol/ Sodium Chloride 260 ml @ 42 mls/hr UNSCH PRN IV 08/29/16 08:30 (Diflucan 100 Mg Premix Bag) 50 ml @ 50 mls/hr Q24H IV 08/29/16 13:00 08/29/16 13:00 Family History Brother with lung cancer. Father heart disease. Mother with diabetes. One sister with breast cancer. Another sister with CHF. . Substance Use Tobacco: Former smoker. Quit 40 years ago. Alcohol: None reported. Prescription med abuse: None reported. Illicits: None reported. . Psychosocial History Patient is originally from [place], [place]. Move part-time to [place] in 1999. Full-time residency since 2012. Patient is . Has 4 children, one in 2010. Has 1 daughter and 2 sons. Highest level of education is high school. 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 No service. . Spiritual/Cultural Factors Anabaptist teri. . Living Will: Copy in medical record Health Care Surrogate: Copy in medical record Durable Power of Property Inspector: Completed, but not made available Date completed: 05/08/14. . Health Care Surrogate(s): [facility] [place] Nu Soria -Daughter. . Documented care wishes: Pending copy of living will. . Family/friends goals: No code. DNR/DNI. Family electing to transition patient to comfort directed care with hospice. . Ethical and Legal Issues Pending copy of living will. . Physical Exam Vital Signs Date Time Temp Pulse Resp B/P Pulse Ox O2 Delivery O2 Flow Rate FiO2 08/30/16 10:00 83 08/30/16 09:20 97.6 92 28 141/86 88 08/30/16 08:12 89 95 08/30/16 08:00 77 08/30/16 08:00 Bi-Pap 08/30/16 06:00 88 08/30/16 04:00 Bi-Pap 08/30/16 04:00 97.8 67 22 129/71 98 08/30/16 04:00 67 08/30/16 03:58 98 60 08/30/16 02:00 64 08/30/16 00:00 Bi-Pap 08/30/16 00:00 68 08/30/16 00:00 98.1 68 22 132/72 95 08/29/16 23:28 94 70 08/29/16 22:00 69 08/29/16 20:11 94 70 08/29/16 20:00 Bi-Pap 08/29/16 20:00 72 08/29/16 20:00 97.9 68 24 129/72 100 08/29/16 18:00 73 08/29/16 16:00 98.2 73 17 129/76 99 08/29/16 16:00 86 08/29/16 16:00 Bi-Pap 08/29/16 15:14 92 75 08/29/16 14:00 76 08/29/16 12:00 75 08/29/16 12:00 97.8 74 29 148/88 91 08/29/16 12:00 Bi-Pap 08/29/16 08/30/16 19:00 07:00 Intake Total 400 ml 1723 ml Output Total 1100 ml 350 ml Balance -700 ml 1373 ml Intake Oral 200 ml 200 ml IV Total 200 ml 1523 ml Output Urine Total 1100 ml 350 ml # Bowel Movements 0 Exam CONSTITUTIONAL/GENERAL: This is an elderly female laying in bed in moderate distress secondary to increased work of breathing. Currently on BiPAP at 100% FiO2. TUBES/LINES/DRAINS: BiPAP mask, PIV, Collins catheter. SKIN: No jaundice, rashes, or lesions. Large areas of ecchymoses on upper extremities. No wounds seen anteriorly. Skin temperature appropriate. Not diaphoretic. HEAD: Atraumatic. Normocephalic. EYES: Pupils equal and round and reactive. No scleral icterus. No injection or drainage. Fundi not examined. ENT: Hearing grossly normal. Nose without bleeding or purulent drainage. Dry lips. NECK: Trachea midline. Supple. CARDIOVASCULAR: Irregular rate and rhythm. No JVD. Peripheral pulses symmetric. RESPIRATORY/CHEST: Increased work of breathing. Currently on BiPAP at 100% FiO2. Tachypnea with respiration rate in the mid 30s. Coarse inspiratory and expiratory crackles on left lung. No lung sounds on right lung. GASTROINTESTINAL: Abdomen large, round, obese. No guarding. Bowel sounds present. GENITOURINARY: Without palpable bladder distension. Collins catheter in place. MUSCULOSKELETAL: Extremities without clubbing, cyanosis. Edema to bilateral lower extremities. NEUROLOGICAL: Awake and alert. Follows commands. Intermittent confusion. Moves all extremities. PSYCHIATRIC: Anxious/restlessness. . Diagnostic Tests Laboratory Laboratory Tests Test 08/27/16 08/27/16 08/27/16 08/27/16 16:05 16:20 21:20 22:26 White Blood Count 13.1 TH/MM3 (4.0-11.0) Red Blood Count 2.99 MIL/MM3 (4.00-5.30) Hemoglobin 9.0 GM/DL (11.6-15.3) Hematocrit 27.2 % (35.0-46.0) Mean Corpuscular Volume 90.9 FL (80.0-100.0) Mean Corpuscular Hemoglobin 30.1 PG (27.0-34.0) Mean Corpuscular Hemoglobin 33.1 % Concent (32.0-36.0) Red Cell Distribution Width 16.0 % (11.6-17.2) Platelet Count 243 TH/MM3 (150-450) Mean Platelet Volume 10.1 FL (7.0-11.0) Neutrophils (%) (Auto) 90.4 % (16.0-70.0) Lymphocytes (%) (Auto) 3.8 % (9.0-44.0) Monocytes (%) (Auto) 5.4 % (0.0-8.0) Eosinophils (%) (Auto) 0.2 % (0.0-4.0) Basophils (%) (Auto) 0.2 % (0.0-2.0) Neutrophils # (Auto) 11.9 TH/MM3 (1.8-7.7) Lymphocytes # (Auto) 0.5 TH/MM3 (1.0-4.8) Monocytes # (Auto) 0.7 TH/MM3 (0-0.9) Eosinophils # (Auto) 0.0 TH/MM3 (0-0.4) Basophils # (Auto) 0.0 TH/MM3 (0-0.2) CBC Comment AUTO DIFF Differential Total Cells 100 Counted Neutrophils % (Manual) 88 % (16-70) Band Neutrophils % 1 % (0-6) Lymphocytes % 1 % (9-44) Monocytes % 7 % (0-8) Neutrophils # (Manual) 12.1 TH/MM3 (1.8-7.7) Myelocytes 3 % (0-0) Differential Comment FINAL DIFF MANUAL Platelet Estimate NORMAL (NORMAL) Platelet Morphology Comment NORMAL (NORMAL) Prothrombin Time 11.3 SEC (9.8-11.6) Prothromb Time International 1.0 RATIO Ratio Activated Partial 27.7 SEC Thromboplast Time (24.3-30.1) Sodium Level 139 MEQ/L (136-145) Potassium Level 4.4 MEQ/L (3.5-5.1) Chloride Level 95 MEQ/L (98-107) Carbon Dioxide Level 38.8 MEQ/L (21.0-32.0) Anion Gap 5 MEQ/L (5-15) Blood Urea Nitrogen 13 MG/DL (7-18) Creatinine 0.66 MG/DL (0.50-1.00) Estimat Glomerular Filtration 87 ML/MIN (>89) Rate Random Glucose 162 MG/DL (74-106) Lactic Acid Level 1.1 mmol/L (0.4-2.0) Calcium Level 8.5 MG/DL (8.5-10.1) Total Bilirubin 0.9 MG/DL (0.2-1.0) Aspartate Amino Transf 24 U/L (15-37) (AST/SGOT) Alanine Aminotransferase 23 U/L (10-53) (ALT/SGPT) Alkaline Phosphatase 96 U/L (45-117) Total Creatine Kinase 40 U/L (26-192) Troponin I 0.16 NG/ML 0.17 NG/ML (0.02-0.05) (0.02-0.05) Total Protein 5.8 GM/DL (6.4-8.2) Albumin 2.6 GM/DL (3.4-5.0) Urine Color YELLOW (YELLW/STRAW) Urine Turbidity CLOUDY (CLEAR) Urine pH 5.5 (5.0-8.5) Urine Specific [place] 1.024 (1.002-1.035) Urine Protein 30 mg/dL (NEG-TRACE) Urine Glucose (UA) NEG mg/dL (NEG) Urine Ketones TRACE mg/dL (NEG) Urine Occult Blood MOD (NEG) Urine Nitrite NEG (NEG) Urine Bilirubin NEG (NEG) Urine Urobilinogen 2.0 MG/DL (LESS THAN 2.0) Urine Leukocyte Esterase MOD (NEG) Urine RBC 108 /hpf (0-3) Urine WBC 19 /hpf (0-5) Urine Amorphous Sediment RARE Urine Bacteria OCC /hpf (NONE) Urine Mucus MANY /lpf (OCC) Microscopic Urinalysis Comment CATH-CULTURE IND Nasal Screen MRSA (PCR) POSITIVE (NEGATIVE) Staphylococcus aureus POSITIVE (PCR)(LAB) (NEGATIVE) Test 08/28/16 08/28/16 08/28/16 08/28/16 04:41 20:05 20:08 21:10 White Blood Count 12.7 TH/MM3 (4.0-11.0) Red Blood Count 2.86 MIL/MM3 (4.00-5.30) Hemoglobin 8.4 GM/DL (11.6-15.3) Hematocrit 26.4 % (35.0-46.0) Mean Corpuscular Volume 92.4 FL (80.0-100.0) Mean Corpuscular Hemoglobin 29.5 PG (27.0-34.0) Mean Corpuscular Hemoglobin 31.9 % Concent (32.0-36.0) Red Cell Distribution Width 15.9 % (11.6-17.2) Platelet Count 187 TH/MM3 (150-450) Mean Platelet Volume 9.9 FL (7.0-11.0) Neutrophils (%) (Auto) 69.6 % (16.0-70.0) Lymphocytes (%) (Auto) 7.9 % (9.0-44.0) Monocytes (%) (Auto) 21.9 % (0.0-8.0) Eosinophils (%) (Auto) 0.5 % (0.0-4.0) Basophils (%) (Auto) 0.1 % (0.0-2.0) Neutrophils # (Auto) 8.8 TH/MM3 (1.8-7.7) Lymphocytes # (Auto) 1.0 TH/MM3 (1.0-4.8) Monocytes # (Auto) 2.8 TH/MM3 (0-0.9) Eosinophils # (Auto) 0.1 TH/MM3 (0-0.4) Basophils # (Auto) 0.0 TH/MM3 (0-0.2) CBC Comment AUTO DIFF Differential Total Cells 100 Counted Neutrophils % (Manual) 71 % (16-70) Lymphocytes % 5 % (9-44) Monocytes % 21 % (0-8) Eosinophils % 1 % (0-4) Basophils % 1 % (0-2) Neutrophils # (Manual) 9.1 TH/MM3 (1.8-7.7) Myelocytes 1 % (0-0) Differential Comment FINAL DIFF MANUAL Platelet Estimate NORMAL (NORMAL) Platelet Morphology Comment NORMAL (NORMAL) Red Cell Morphology Comment NORMAL (NORMAL) Sodium Level 142 MEQ/L (136-145) Potassium Level 3.5 MEQ/L (3.5-5.1) Chloride Level 99 MEQ/L (98-107) Carbon Dioxide Level 38.0 MEQ/L (21.0-32.0) Anion Gap 5 MEQ/L (5-15) Blood Urea Nitrogen 14 MG/DL (7-18) Creatinine 0.57 MG/DL (0.50-1.00) Estimat Glomerular Filtration 103 ML/MIN Rate (>89) Random Glucose 96 MG/DL (74-106) Calcium Level 8.1 MG/DL (8.5-10.1) Total Bilirubin 0.5 MG/DL (0.2-1.0) Aspartate Amino Transf 20 U/L (15-37) (AST/SGOT) Alanine Aminotransferase 20 U/L (10-53) (ALT/SGPT) Alkaline Phosphatase 86 U/L (45-117) Troponin I 0.16 NG/ML 0.11 NG/ML (0.02-0.05) (0.02-0.05) Total Protein 5.2 GM/DL (6.4-8.2) Albumin 2.4 GM/DL (3.4-5.0) B-Type Natriuretic Peptide 618 PG/ML (0-100) Blood Gas Puncture Site RT RADIAL Blood Gas Patient Temperature 98.6 Blood Gas HCO3 35 mmol/L (22-26) Blood Gas Base Excess 9.0 mmol/L (-2-2) Blood Gas Oxygen Saturation 90 % (90-100) Arterial Blood pH 7.30 (7.380-7.420) Arterial Blood Partial 75 mmHg (38-42) Pressure CO2 Arterial Blood Partial 70 mmHG Pressure O2 (61-120) Arterial Blood Oxygen Content 11.7 Vol % (12.0-20.0) Arterial Blood 1.8 % (0-4) Carboxyhemoglobin Arterial Blood Methemoglobin 0.3 % (0-2) Blood Gas Hemoglobin 9.2 G/DL (12.0-16.0) Oxygen Delivery Device NONREBREATHER MK Blood Gas Liter Flow 12 L/M Test 08/28/16 08/28/16 08/28/16 08/29/16 22:00 22:22 23:00 04:15 Nasal Screen MRSA (PCR) MRSA DETECTED (NOT DETECT) Blood Gas Puncture Site RT RADIAL RT RADIAL Blood Gas Patient Temperature 98.6 98.6 Blood Gas HCO3 34 mmol/L 36 mmol/L (22-26) (22-26) Blood Gas Base Excess 9.1 mmol/L 11.1 mmol/L (-2-2) (-2-2) Blood Gas Oxygen Saturation 88 % (90-100) 86 % (90-100) Arterial Blood pH 7.37 7.40 (7.380-7.420) (7.380-7.420) Arterial Blood Partial 60 mmHg (38-42) 59 mmHg (38-42) Pressure CO2 Arterial Blood Partial 66 mmHg 58 mmHg Pressure O2 (61-120) (61-120) Arterial Blood Oxygen Content 10.9 Vol % 10.1 Vol % (12.0-20.0) (12.0-20.0) Arterial Blood 2.2 % (0-4) 2.1 % (0-4) Carboxyhemoglobin Arterial Blood Methemoglobin 1.0 % (0-2) 0.8 % (0-2) Blood Gas Hemoglobin 8.7 G/DL 8.3 G/DL (12.0-16.0) (12.0-16.0) Oxygen Delivery Device BIPAP 15/5 IPAP15/EPAP+5 Blood Gas Inspired Oxygen 50 % 60 % Sodium Level 139 MEQ/L (136-145) Potassium Level 4.0 MEQ/L (3.5-5.1) Chloride Level 95 MEQ/L (98-107) Carbon Dioxide Level 36.5 MEQ/L (21.0-32.0) Anion Gap 8 MEQ/L (5-15) Blood Urea Nitrogen 17 MG/DL (7-18) Creatinine 0.71 MG/DL (0.50-1.00) Estimat Glomerular Filtration 80 ML/MIN (>89) Rate Random Glucose 161 MG/DL (74-106) Calcium Level 8.4 MG/DL (8.5-10.1) Total Bilirubin 0.4 MG/DL (0.2-1.0) Aspartate Amino Transf 22 U/L (15-37) (AST/SGOT) Alanine Aminotransferase 25 U/L (10-53) (ALT/SGPT) Alkaline Phosphatase 102 U/L (45-117) Total Protein 5.7 GM/DL (6.4-8.2) Albumin 2.6 GM/DL (3.4-5.0) White Blood Count 14.9 TH/MM3 (4.0-11.0) Red Blood Count 2.92 MIL/MM3 (4.00-5.30) Hemoglobin 8.8 GM/DL (11.6-15.3) Hematocrit 26.6 % (35.0-46.0) Mean Corpuscular Volume 91.2 FL (80.0-100.0) Mean Corpuscular Hemoglobin 30.0 PG (27.0-34.0) Mean Corpuscular Hemoglobin 32.9 % Concent (32.0-36.0) Red Cell Distribution Width 16.0 % (11.6-17.2) Platelet Count 210 TH/MM3 (150-450) Mean Platelet Volume 9.3 FL (7.0-11.0) Neutrophils (%) (Auto) 84.5 % (16.0-70.0) Lymphocytes (%) (Auto) 2.6 % (9.0-44.0) Monocytes (%) (Auto) 12.1 % (0.0-8.0) Eosinophils (%) (Auto) 0.6 % (0.0-4.0) Basophils (%) (Auto) 0.2 % (0.0-2.0) Neutrophils # (Auto) 12.6 TH/MM3 (1.8-7.7) Lymphocytes # (Auto) 0.4 TH/MM3 (1.0-4.8) Monocytes # (Auto) 1.8 TH/MM3 (0-0.9) Eosinophils # (Auto) 0.1 TH/MM3 (0-0.4) Basophils # (Auto) 0.0 TH/MM3 (0-0.2) CBC Comment AUTO DIFF Differential Comment AUTO DIFF CONFIRMED Test 08/29/16 08/29/16 08/29/16 08/29/16 04:38 08:57 12:55 14:07 White Blood Count 17.4 TH/MM3 (4.0-11.0) Red Blood Count 2.92 MIL/MM3 (4.00-5.30) Hemoglobin 8.6 GM/DL (11.6-15.3) Hematocrit 26.7 % (35.0-46.0) Mean Corpuscular Volume 91.6 FL (80.0-100.0) Mean Corpuscular Hemoglobin 29.6 PG (27.0-34.0) Mean Corpuscular Hemoglobin 32.3 % Concent (32.0-36.0) Red Cell Distribution Width 15.7 % (11.6-17.2) Platelet Count 183 TH/MM3 (150-450) Mean Platelet Volume 9.5 FL (7.0-11.0) Sodium Level 142 MEQ/L (136-145) Potassium Level 3.5 MEQ/L 3.4 MEQ/L (3.5-5.1) (3.5-5.1) Chloride Level 96 MEQ/L (98-107) Carbon Dioxide Level 37.8 MEQ/L (21.0-32.0) Anion Gap 8 MEQ/L (5-15) Blood Urea Nitrogen 15 MG/DL (7-18) Creatinine 0.59 MG/DL (0.50-1.00) Estimat Glomerular Filtration 99 ML/MIN (>89) Rate Random Glucose 101 MG/DL (74-106) Calcium Level 8.3 MG/DL (8.5-10.1) Phosphorus Level 2.7 MG/DL (2.5-4.9) Digoxin Level 1.0 NG/ML (0.8-2.0) Blood Gas Puncture Site LT RADIAL Blood Gas Patient Temperature 98.6 Blood Gas HCO3 37 mmol/L (22-26) Blood Gas Base Excess 12.1 mmol/L (-2-2) Blood Gas Oxygen Saturation 86 % (90-100) Arterial Blood pH 7.41 (7.380-7.420) Arterial Blood Partial 60 mmHg (38-42) Pressure CO2 Arterial Blood Partial 59 mmHg Pressure O2 (61-120) Arterial Blood Oxygen Content 11.0 Vol % (12.0-20.0) Arterial Blood 1.8 % (0-4) Carboxyhemoglobin Arterial Blood Methemoglobin 0.7 % (0-2) Blood Gas Hemoglobin 9.0 G/DL (12.0-16.0) Oxygen Delivery Device BiPAP Blood Gas Ventilator Setting EPAP 5/IPAP 15 Blood Gas Inspired Oxygen 80 % Test 08/30/16 08/30/16 08/30/16 03:42 08:06 08:12 Creatinine 0.59 MG/DL 0.58 MG/DL (0.50-1.00) (0.50-1.00) Estimat Glomerular Filtration 99 ML/MIN (>89) 101 ML/MIN Rate (>89) White Blood Count 19.4 TH/MM3 (4.0-11.0) Red Blood Count 2.90 MIL/MM3 (4.00-5.30) Hemoglobin 8.6 GM/DL (11.6-15.3) Hematocrit 26.3 % (35.0-46.0) Mean Corpuscular Volume 90.6 FL (80.0-100.0) Mean Corpuscular Hemoglobin 29.6 PG (27.0-34.0) Mean Corpuscular Hemoglobin 32.7 % Concent (32.0-36.0) Red Cell Distribution Width 16.0 % (11.6-17.2) Platelet Count 179 TH/MM3 (150-450) Mean Platelet Volume 9.5 FL (7.0-11.0) Neutrophils (%) (Auto) 80.4 % (16.0-70.0) Lymphocytes (%) (Auto) 3.5 % (9.0-44.0) Monocytes (%) (Auto) 15.7 % (0.0-8.0) Eosinophils (%) (Auto) 0.1 % (0.0-4.0) Basophils (%) (Auto) 0.3 % (0.0-2.0) Neutrophils # (Auto) 15.6 TH/MM3 (1.8-7.7) Lymphocytes # (Auto) 0.7 TH/MM3 (1.0-4.8) Monocytes # (Auto) 3.0 TH/MM3 (0-0.9) Eosinophils # (Auto) 0.0 TH/MM3 (0-0.4) Basophils # (Auto) 0.1 TH/MM3 (0-0.2) CBC Comment AUTO DIFF Differential Total Cells 100 Counted Neutrophils % (Manual) 70 % (16-70) Band Neutrophils % 6 % (0-6) Lymphocytes % 12 % (9-44) Monocytes % 10 % (0-8) Neutrophils # (Manual) 15.1 TH/MM3 (1.8-7.7) Myelocytes 2 % (0-0) Differential Comment FINAL DIFF MANUAL Platelet Estimate NORMAL (NORMAL) Platelet Morphology Comment NORMAL (NORMAL) Polychromasia 2.0 % (0.0-1.9) Basophilic Stippling FAINT (NORMAL) Sodium Level 140 MEQ/L (136-145) Potassium Level 4.0 MEQ/L (3.5-5.1) Chloride Level 94 MEQ/L (98-107) Carbon Dioxide Level 37.1 MEQ/L (21.0-32.0) Anion Gap 9 MEQ/L (5-15) Blood Urea Nitrogen 18 MG/DL (7-18) Random Glucose 148 MG/DL (74-106) Calcium Level 8.3 MG/DL (8.5-10.1) Phosphorus Level 2.5 MG/DL (2.5-4.9) Magnesium Level 2.4 MG/DL (1.5-2.5) Result Diagram: 08/30/16 0806 08/30/16 0812 Microbiology Microbiology Date/Time Procedure Status Source Growth 08/27/16 16:05 Aerobic Blood Culture - Preliminary Resulted Blood Peripheral NO GROWTH IN 2 DAYS 08/27/16 16:05 Anaerobic Blood Culture - Preliminary Resulted Blood Peripheral NO GROWTH IN 2 DAYS 08/27/16 16:10 Aerobic Blood Culture - Preliminary Resulted Blood Peripheral NO GROWTH IN 2 DAYS 08/27/16 16:10 Anaerobic Blood Culture - Preliminary Resulted Blood Peripheral NO GROWTH IN 2 DAYS 08/27/16 16:20 Urine Culture - Final Complete Urine Catheterized Urine Jackie Albicans 08/28/16 23:00 Aerobic Blood Culture - Preliminary Resulted Blood Other NO GROWTH IN 1 DAY 08/28/16 23:00 Anaerobic Blood Culture - Preliminary Resulted Blood Other NO GROWTH IN 1 DAY 08/28/16 23:14 Aerobic Blood Culture - Preliminary Resulted Blood Other NO GROWTH IN 1 DAY 08/28/16 23:14 Anaerobic Blood Culture - Preliminary Resulted Blood Other NO GROWTH IN 1 DAY Imaging Last Impressions Chest X-Ray 08/29/16 0000 Signed Impressions: Service Date/Time: Monday, August 29, 2016 08:53 - CONCLUSION: 1. Total opacification of the right hemithorax. This appearance is unchanged and is likely from prior pneumonectomy on the right. 2. Consolidation seen throughout the left lung probably representing diffuse processes such as edema or diffuse infection. This is unchanged from the prior exam. Bubba Roth MD Patient/Family Conference Present at Family Conference: Tyler, daughter uN and sons Gato and Baljit. . Family Conference Time (mins): 38 Family Conference Location: Bedside Issues Discussed: * Palliative care role, purpose, approach * Additional medical, psychosocial, and spiritual history * Patients general health, functional status, and cognitive changes in the months leading up to the current hospitalization * Family's understanding of the current medical problems -worsening respiratory failure, COPD exacerbation, UTI. * Family's understanding of prognosis -poor prognosis given worsening respiratory failure requiring BiPAP at 100% FiO2, multiple chronic comorbidities and profound physical deconditioning. * Patients goals of care as best understood from advance directives and/or conversations and/or values * Current medical treatment options and benefits/burdens of those options * Likely scenarios comparing ongoing aggressive care with a transition to comfort measures only * Questions answered to the best of my ability * Palliative care contact information provided * Hospice philosophy and benefits . Assessment and Plan Disease Oriented Problem List: (1) Acute respiratory failure with hypoxemia (2) COPD exacerbation (3) UTI (urinary tract infection) (4) Atrial fibrillation Symptom Scale: (1) Shortness of breath 0-10 Scale: Unable to quantify Comment: Secondary to worsening respiratory failure. Currently on BiPAP at 100 % FiO2. (2) Anxiety 0-10 Scale: 7 Comment: Exacerbated by dyspnea (3) Debility 0-10 Scale: Unable to quantify Comment: Progressive since 2007. Worsened within the past year. Pertinent Non-Medical Issues Psychosocial: Originally from [place], [place]. . Has 4 children. Full-time resident of [place] since 2012. 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 Legal: Living will completed. Pending copy. Ethical issues impacting care: No ethical issues have been identified. . Important Contacts HCS Nu Soria & . Tyler Juarez . . Prognosis Mrs. Juarez is a 76-year-old female with a medical history significant for oxygen dependent COPD, atrial fibrillation currently on anticoagulation, hypertension and history of breast ca s/p lumpectomy and lung cancer s/p right lung pneumonectomy. Patient with progressive clinical and physical decline since 2007. Worsen within the last year. Patient currently with worsening respiratory failure requiring BiPAP at 100% FiO2, COPD exacerbation I UTI. Patient's prognosis is very poor given her acute illness, multiple comorbidities and profound physical deconditioning. Prognosis likely of hours to days if illness run its natural course. Family electing to transition patient to comfort directed care with hospice given the above. This appears appropriate given patient's worsening clinical condition. Patient is hospice appropriate. . Code Status: No Code Plan * CODE STATUS: No code. DNR/DNI. This has been verbally confirmed by patient, daughter Nu who is [facility] [place] and patient's . * HEALTHCARE DECISION MAKER: Limited participation in healthcare decision-maker by patient secondary to clinical condition, intermittent confusion. Designation of healthcare surrogate completed on 05/08/16. Patient's daughter Nu Soria listed as [facility] [place]. She has accepted this role. * GOALS OF CARE: Family electing to transition patient to comfort-directed care with hospice given patient's worsening respiratory failure, multiple chronic comorbidities, profound physical deconditioning and patient's known wishes. Goal is to transfer patient to hospice care center for symptom management and end-of-life care. Plan is withdrawal BiPAP once at hospice care center. - Family meeting, in attendance patient's Tyler, Daughter/HCS Nu and sons Gato and Baljit. * SYMPTOMS: = Shortness of breath, secondary to COPD exacerbation, acute respiratory failure. Worsening clinical condition. Patient currently on BiPAP at 100% FiO2. Palliative care adding hydromorphone 1 mg IV q4h PRN dyspnea. = Anxiety: Chronic. Exacerbated by dyspnea. Palliative care adjusting Ativan from 0.5 IV to 1 mg IV Q2h PRN anxiety or shortness of breath = Debility: Progressive since 2007. Declining for the past year. Worsen since previous acute hospitalization in July. * Case has been discussed with Dr. Toro, Dr. Minor, Dr. Edmonds, manager hospice and bedside RN Little. * Palliative care contact information has been provided to patient's family. * Palliative care will continue to follow-up for further clarifications of goals of care as patient's clinical course evolves. . Time Spent Total Floor Time (mins): 95 (Total time to include review and summarization of available medical records to include multiple prior hospitalizations, physical exam, bedside conversation with patient's , family meeting with patient' s family, case discussion with Dr. Toro, Dr. Edmonds, Dr. Minor, manager hospice and bedside RN.) >50% Counseling/Coord of Care: Yes Thank you for the opportunity to participate in the care of Ms. Juarez. Attestation To help prompt me to consider important information that might be impacting today's encounter and assessment, information from prior notes written by myself or my colleagues may have been "brought forward" into today's note. My signature on this note, however, is an attestation that I personally performed the exam, history, and/or decision-making noted today, and, unless otherwise indicated, the interactions with patient, family, and staff as well as the review of records all occurred today. I also attest that the listed assessment and stated plan reflect my best clinical judgment today based on the combination of historical information, prior notes, and today's exam/ interactions. When time spent is documented, it refers only to time spent today by the signer, or if indicated, combined time spent today by collaborating physician/nurse practitioner. [place] Chauhan Aug 30, 2016 11:30
--- NOTE | 2016-08-30 12:05 | PD.CONS ---
Provisional Diagnosis Admission Date Aug 27, 2016 at 18:36 [place] I. Adjustment disorder with mixed depressed mood and anxiety, easily of anxiety and depression [place] II. Deferred [place] III. COPD, UTI, History of Present Illness Service Psychiatry Consult Requested By Primary Care Physician Unknown HPI The patient is aa 76-year-old woman, domiciled with her in [place], mother of 4 kids, retired, with psychiatric history of anxiety, but no psychiatric hospitalizations, no suicidal attempts, she has been in Zoloft and Xanax prescribed by PCP, with a medical history significant for oxygen dependent COPD, atrial fibrillation currently on anticoagulation, hypertension and history of breast ca s/p lumpectomy and lung cancer s/p right lung pneumonectomy, who presented [facility] ED on [facility]/16 from [facility] for evaluation of possible UTI/sepsis. Patient was found with leukocytosis, UTI, COPD exacerbation and respiratory failure. [facility] was called on 08/28/16 secondary to hypoxia, O2 saturation in the 70s on room air. Patient was placed on a nonrebreather mask and subsequently BiPAP. Patient was transfer to medical ICU for further management and monitoring. ED Workup to include checks x-ray 08/27/16 showing worsening of interstitial edema in the left lung. Laboratory workup revealing WBC of 13.1, hemoglobin 9.0 , platelet count 243. Sodium 142, potassium 3.5, BUN/creatinine 14/057. Troponin 0.16. BNP 618. UA 08/27/16 trace ketones, negative nitrates and moderate leukocyte. Urine culture 08/27/16 showing Jackie albicans. Most recent chest x-ray 08/29/16 showing consolidation throughout the left lung likely edema versus diffuse infection. Laboratory workup today revealing increase in leukocytosis, currently 19.4, Hgb 8.6, platelet count 179. Sodium 140, potassium 4.0, BUN/creatinine 18/058. Cardiology consulted on secondary to increase troponin levels and atrial fibrillation. Patient was consulted to psychiatry today for management of depression and anxiety. Unfortunately patient could not be assessed fully psychiatrically due to limitations in speech and acute respiratory distress. Patient requested to be seen in another moment when she feels better. However her , sitting at bedside, gently provides some collateral information. He clarifies that the patient does not have any significant psychiatric history other than anxiety related with her multiple medical problems, that has been successfully treated with Xanax and Zoloft by PCP. Patient has never seen a psychiatrist before and has never been hospitalized. She doesn't have any suicidal attempt. But, she has been voicing the which to be repeatedly in the last days in the ICU. He does not think that the patient has a plan and the patient is able to commit suicide, but she has repeatedly say that she preferred to be , and have even say asked if she can be overdosed. He things that this patient is very overwhelmed and distressed due to his acute respiratory symptoms, and also she has been very confused on and off. Review of Systems Constitutional: DENIES: Diaphoretic episodes, Fatigue, Fever, Weight gain, Weight loss, Chills, Dizziness, Change in appetite, Night Sweats Endocrine: DENIES: Abnorml menstrual pattern, Heat/cold intolerance, Polydipsia , Polyuria, Polyphagia Eyes: DENIES: Blurred vision, Diplopia, Eye inflammation, Eye pain, Vision loss , Photosensitivity, Double Vision Ears, nose, mouth, throat: DENIES: Tinnitus, Hearing loss, Vertigo, Nasal discharge, Oral lesions, Throat pain, Hoarseness, Ear Pain, Running Nose, Epistaxis, Sinus Pain, Toothache, Odynophagia Respiratory: COMPLAINS OF: Apneas, Cough, Shortness of breath Cardiovascular: DENIES: Chest pain, Palpitations, Syncope, Dyspnea on Exertion , PND, Lower Extremity Edema, Orthopnea, Claudication Immunologic/allergic: DENIES: Eczema, Urticaria Neurologic: DENIES: Abnormal gait, Headache, Localized weakness, Paresthesias, Seizures, Speech Problems, Tremor, Poor Balance Psychiatric: COMPLAINS OF: Anxiety, Depression Past Family Social History Coded Allergies: Aciphex (Verified Allergy, Severe, 08/27/16) Contrast Media (Verified Allergy, Severe, PASSED OUT, 08/27/16) Demerol (Verified Allergy, Severe, Hallucinations, 08/27/16) Fleets Phospho Soda (Verified Allergy, Severe, 08/27/16) Meperidine (Verified Allergy, Severe, 08/27/16) Morphine (Verified Allergy, Severe, 08/27/16) *MDRO Multi-Drug Resistant Organism (Verified Adverse Reaction, Unknown, ) E.coli ESBL (urine) - 04/2014 & 05/2015 / (sputum) - 05/2014 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/18/15 & 08/10/16 MRSA (urine) - 08/13/16 Uncoded Allergies: PHOSPHOUS SODA (Allergy, Severe, 05/04/05) Active Scripts Prednisone 10 Mg Tab10 Mg PO DAILY #7 TAB Ref 0 Start taking once done with 20 mg daily dose Prov:Baljit Fuentes DO 08/24/16 Temazepam (Restoril)7.5 Mg Cap7.5 Mg PO HS PRN (sleep) #7 CAP Prov:Baljit Fuentes DO 08/24/16 Prednisone 20 Mg Tab20 Mg PO DAILY #7 TAB Prov:Baljit Fuentes DO 08/24/16 Ipratropium-Albuterol Neb (Duoneb)0.5-2.5 Mg/3 Ml Neb1 Ampule NEB Q2HR NEB PRN ( Dyspnea) #1 INH Prov:Baljit Fuentes DO 08/24/16 Digoxin 0.125 Mg Tab0.125 Mg PO DAILY #30 TAB Prov:Baljit Fuentes DO 08/24/16 Diltiazem CD 24 HR (Cardizem CD 24 HR)120 Mg [id number] Mg PO BID #60 CAP Prov:Baljit Fuentes DO 08/24/16 Lorazepam (Ativan)0.5 Mg Tab0.5 Mg PO Q8HR #20 TAB Prov:Baljit Fuentes DO 08/24/16 Ondansetron Odt 4 Mg Tab4 Mg SL Q6HR PRN (Nausea/Vomiting) 30 Days Ref 0 Prov:Ramirez Lou MD 08/07/16 Loperamide HCl (Hm Loperamide HCl)2 Mg Cap2 Mg PO Q6H PRN (DIARRHEA) #20 CAP Prov:Ammon Schilling MD 08/03/16 Lactobacillus Acidophilus (Acidophilus/l-Sporogenes)1 Tab Tab1 Tab PO TID #21 TAB Prov:Ammon Schilling MD 08/03/16 Reported Medications Magnesium Hydroxide Liq (Milk of Magnesia Liq)400 Mg/5 Ml Susp30 Ml PO DAILY PRN (IF NO BM x 3 DAYS) #1 BOTTLE Ref 0 08/27/16 Albuterol Neb 0.63 Mg/3 Ml Neb0.63 Mg NEB Q4HR NEB PRN (COPD/SOB) #25 NEBULE Ref 0 08/27/16 Ipratropium-Albuterol Neb (Duoneb)0.5-2.5 Mg/3 Ml Neb1 Nebule INH Q4HR NEB # 120 NEBULE Ref 0 08/27/16 Budesonide-Formoterol Inh (Symbicort Inh)80-4.5 Mcg/Act Aero2 Puff INH Q12HR # 1 INHALER Ref 0 08/27/16 Ascorbic Acid 500 Mg [id number] Mg PO DAILY 08/27/16 Multiple Vitamins W/ Minerals (Thera-M)1 Tab1 Tab PO DAILY Ref 0 08/27/16 Cholecalciferol (D 1000)1,000 Unit Tab1,000 Units PO DAILY 08/27/16 Fish Oil-Cholecalciferol ([place]-3 Fish Oil/Vitamin)1,000-1,000 Mg Cap1 Cap PO DAILY Ref 0 08/01/16 Pantoprazole 40 Mg Tab40 Mg PO DAILY #30 TAB Ref 0 08/01/16 Apixaban (Eliquis)5 Mg Tab5 Mg PO BID #60 TAB Ref 0 08/01/16 Sertraline 50 Mg Tab50 Mg PO DAILY #30 TAB Ref 0 08/01/16 Atorvastatin 20 Mg Tab20 Mg PO HS #30 TAB Ref 0 08/01/16 Montelukast 10 Mg Tab10 Mg PO HS #30 TAB Ref 0 08/01/16 Discontinued Reported Medications Cholecalciferol (Vitamin D3)1,000 Unit Chew1,000 Units CHEW DAILY #1 BOTTLE Ref 0 08/01/16 Alprazolam 0.25 Mg Tab0.25 Mg PO Q8H PRN (ANXIETY) Ref 0 08/01/16 Diltiazem ER 12 HR 60 Mg Caper60 Mg PO DAILY #60 CAP Ref 0 08/01/16 Tiotropium-Olodaterol Inh (Stiolto Respimat Inh) 2.5-2.5 Mcg/Act Aero1 Puff INH DAILY #1 INHALER Ref 0 08/01/16 Prednisone 5 Mg Tab5 Mg PO DAILY Ref 0 08/01/16 Diltiazem ER 24 HR 120 Mg [id number] Mg PO DAILY Ref 0 08/01/16 Furosemide 40 Mg Tab40 Mg PO DAILY #30 TAB Ref 0 08/01/16 Discontinued Scripts Budesonide-Formoterol Inh (Symbicort Inh)160-4.5 Mcg/Act Aero1 Puff INH Q12HR # 1 INHALER Prov:Baljit Fuentes DO 08/24/16 Prednisone (48) 10 mg tab Dose Pack 10 Mg [id number] Mg PO DIRECTED #1 DSPK Ref 0 Prov:Edilson Niño MD 08/20/16 Current Medications Medications (Trade) Dose Ordered Sig/Bety Route Start Time Stop Time Status Last Admin (Eliquis) 5 mg BID PO 08/27/16 21:00 08/30/16 08:18 (Zoloft) 50 mg DAILY PO 08/28/16 09:00 08/30/16 08:18 (Ativan Inj) 0.5 mg Q4H PRN IV PUSH 08/27/16 19:00 08/30/16 08:19 (Cardizem Cd) 120 mg BID PO 08/27/16 21:00 08/30/16 08:18 (Lanoxin) 0.125 mg DAILY PO 08/28/16 09:00 08/30/16 08:18 (Symbicort 160-4.5 Inh) 2 puff Q12HR INH 08/27/16 21:00 08/30/16 08:19 (Lipitor) 20 mg HS PO 08/27/16 21:00 08/29/16 20:54 (Singulair) 10 mg HS PO 08/27/16 21:00 08/29/16 20:55 (Protonix) 40 mg DAILY@06 PO 08/28/16 06:00 08/30/16 04:49 (NS Flush) 2 ml UNSCH PRN IV FLUSH 08/27/16 19:00 (NS Flush) 2 ml BID IV FLUSH 08/27/16 21:00 08/30/16 08:19 (Zofran Inj) 4 mg Q6H PRN IVP 08/27/16 19:00 (Tylenol) 650 mg Q6H PRN PO 08/27/16 19:00 ([place] 5-325 Mg) 1 tab Q4H PRN PO 08/27/16 19:00 (Vivienne-Colace) 1 tab BID PO 08/27/16 21:00 08/30/16 08:19 (Milk Of Magnesia Liq) 30 ml Q12H PRN PO 08/27/16 19:00 (Senokot) 17.2 mg Q12H PRN PO 08/27/16 19:00 (Dulcolax Supp) 10 mg DAILY PRN RECTAL 08/27/16 19:00 (Lactulose Liq) 30 ml DAILY PRN PO 08/27/16 19:00 Acetaminophen/ Hydrocodone Bitart 1 tab 1 tab Q4H PRN PO 08/27/16 19:00 08/28/16 09:12 Pharmacy Profile Note 0 ml @ 0 mls/hr UNSCH OTHER 08/27/16 19:15 (Vancomycin Inj/ NS 500 ml Inj) 515 ml @ 257.5 mls/ hr Q24H IV 08/27/16 21:00 08/29/16 21:08 Miscellaneous Information SPECIFIC LAB TO BE KELLI... ONCE ONCE .XX 08/30/16 20:45 08/30/16 20:46 (Restoril) 7.5 mg HS PRN PO 08/28/16 21:00 08/28/16 23:49 (Lopressor) 12.5 mg Q12HR PO 08/27/16 21:00 08/30/16 08:19 (Ecotrin Ec) 81 mg DAILY PO 08/28/16 09:00 08/30/16 08:18 (Nitroglycerin 2% Oint) 0.5 inch Q6HR PRN TOPICAL 08/27/16 21:00 Miscellaneous Information 1 Q361D XX 08/28/16 22:00 (Chlorhexidine 2% Cloth) 3 pack Taper DAILY@04 TOP 08/29/16 04:00 08/25/17 03:59 08/30/16 04:00 (Chlorhexidine 2% Cloth) 3 pack UNSCH PRN TOP 08/28/16 22:00 (SoluMEDROL INJ) 40 mg Q8H IV PUSH 08/29/16 09:00 08/30/16 08:19 (D50w (Vial) Inj) 50 ml UNSCH PRN IV 08/29/16 08:15 (Glucagon Inj) 1 mg UNSCH PRN OTHER 08/29/16 08:15 Insulin Human Regular 1 1 Q6H SQ 08/29/16 09:00 08/30/16 09:00 Piperacillin Sod/ Tazobactam Sod 100 ml @ 200 mls/hr Q6H IV 08/29/16 10:00 08/30/16 09:09 Potassium Chloride 100 ml @ 50 mls/hr Q2H PRN IV 08/29/16 08:30 (KCl 20 Meq Premix Inj) 100 ml @ 50 mls/hr Q2H PRN IV 08/29/16 08:30 Potassium Bicarb/ Potassium Chloride 50 meq 50 meq UNSCH PRN PO 08/29/16 08:30 Potassium Chloride 100 ml @ 25 mls/hr UNSCH PRN IV 08/29/16 08:30 Potassium Chloride 100 ml @ 50 mls/hr Q2H PRN IV 08/29/16 08:30 08/29/16 21:09 (Magnesium Sulfate Inj/NS Inj) 100 ml @ 50 mls/hr UNSCH PRN IV 08/29/16 08:30 Magnesium Oxide 800 mg 800 mg UNSCH PRN PO 08/29/16 08:30 (Magnesium Sulfate Inj/NS Inj) 100 ml @ 50 mls/hr UNSCH PRN IV 08/29/16 08:30 Potassium Phosphate 2000 mg 2,000 mg Q4H PRN PO 08/29/16 08:30 (Sodium Phosphate Inj/NS 250 ml Inj) 250 ml @ 42 mls/hr UNSCH PRN IV 08/29/16 08:30 Potassium Phosphate 2000 mg 2,000 mg UNSCH PRN PO/TUBE 08/29/16 08:30 Potassium Phosphate 30 mmol/ Sodium Chloride 260 ml @ 42 mls/hr UNSCH PRN IV 08/29/16 08:30 (Diflucan 100 Mg Premix Bag) 50 ml @ 50 mls/hr Q24H IV 08/29/16 13:00 08/29/16 13:00 Family History No psychiatric family history Social History Patient was born and raised in 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 2) Family support Physical Exam Vital Signs Vital Signs Date Time Temp Pulse Resp B/P Pulse Ox O2 Delivery O2 Flow Rate FiO2 08/30/16 11:47 85 100 08/30/16 10:00 83 08/30/16 09:20 97.6 28 141/86 08/30/16 08:00 Bi-Pap 08/28/16 21:00 12.00 I/O 08/29/16 08/29/16 08/30/16 08:00 16:00 00:00 Intake Total 0 ml 400 ml 433 ml Output Total 950 ml 1100 ml 200 ml Balance -950 ml -700 ml 233 ml Lab Results Laboratory Tests Test 08/27/16 08/27/16 08/27/16 08/27/16 16:05 16:20 21:20 22:26 White Blood Count 13.1 TH/MM3 (4.0-11.0) Red Blood Count 2.99 MIL/MM3 (4.00-5.30) Hemoglobin 9.0 GM/DL (11.6-15.3) Hematocrit 27.2 % (35.0-46.0) Mean Corpuscular Volume 90.9 FL (80.0-100.0) Mean Corpuscular Hemoglobin 30.1 PG (27.0-34.0) Mean Corpuscular Hemoglobin 33.1 % Concent (32.0-36.0) Red Cell Distribution Width 16.0 % (11.6-17.2) Platelet Count 243 TH/MM3 (150-450) Mean Platelet Volume 10.1 FL (7.0-11.0) Neutrophils (%) (Auto) 90.4 % (16.0-70.0) Lymphocytes (%) (Auto) 3.8 % (9.0-44.0) Monocytes (%) (Auto) 5.4 % (0.0-8.0) Eosinophils (%) (Auto) 0.2 % (0.0-4.0) Basophils (%) (Auto) 0.2 % (0.0-2.0) Neutrophils # (Auto) 11.9 TH/MM3 (1.8-7.7) Lymphocytes # (Auto) 0.5 TH/MM3 (1.0-4.8) Monocytes # (Auto) 0.7 TH/MM3 (0-0.9) Eosinophils # (Auto) 0.0 TH/MM3 (0-0.4) Basophils # (Auto) 0.0 TH/MM3 (0-0.2) CBC Comment AUTO DIFF Differential Total Cells 100 Counted Neutrophils % (Manual) 88 % (16-70) Band Neutrophils % 1 % (0-6) Lymphocytes % 1 % (9-44) Monocytes % 7 % (0-8) Neutrophils # (Manual) 12.1 TH/MM3 (1.8-7.7) Myelocytes 3 % (0-0) Differential Comment FINAL DIFF MANUAL Platelet Estimate NORMAL (NORMAL) Platelet Morphology Comment NORMAL (NORMAL) Prothrombin Time 11.3 SEC (9.8-11.6) Prothromb Time International 1.0 RATIO Ratio Activated Partial 27.7 SEC Thromboplast Time (24.3-30.1) Sodium Level 139 MEQ/L (136-145) Potassium Level 4.4 MEQ/L (3.5-5.1) Chloride Level 95 MEQ/L (98-107) Carbon Dioxide Level 38.8 MEQ/L (21.0-32.0) Anion Gap 5 MEQ/L (5-15) Blood Urea Nitrogen 13 MG/DL (7-18) Creatinine 0.66 MG/DL (0.50-1.00) Estimat Glomerular Filtration 87 ML/MIN (>89) Rate Random Glucose 162 MG/DL (74-106) Lactic Acid Level 1.1 mmol/L (0.4-2.0) Calcium Level 8.5 MG/DL (8.5-10.1) Total Bilirubin 0.9 MG/DL (0.2-1.0) Aspartate Amino Transf 24 U/L (15-37) (AST/SGOT) Alanine Aminotransferase 23 U/L (10-53) (ALT/SGPT) Alkaline Phosphatase 96 U/L (45-117) Total Creatine Kinase 40 U/L (26-192) Troponin I 0.16 NG/ML 0.17 NG/ML (0.02-0.05) (0.02-0.05) Total Protein 5.8 GM/DL (6.4-8.2) Albumin 2.6 GM/DL (3.4-5.0) Urine Color YELLOW (YELLW/STRAW) Urine Turbidity CLOUDY (CLEAR) Urine pH 5.5 (5.0-8.5) Urine Specific [place] 1.024 (1.002-1.035) Urine Protein 30 mg/dL (NEG-TRACE) Urine Glucose (UA) NEG mg/dL (NEG) Urine Ketones TRACE mg/dL (NEG) Urine Occult Blood MOD (NEG) Urine Nitrite NEG (NEG) Urine Bilirubin NEG (NEG) Urine Urobilinogen 2.0 MG/DL (LESS THAN 2.0) Urine Leukocyte Esterase MOD (NEG) Urine RBC 108 /hpf (0-3) Urine WBC 19 /hpf (0-5) Urine Amorphous Sediment RARE Urine Bacteria OCC /hpf (NONE) Urine Mucus MANY /lpf (OCC) Microscopic Urinalysis Comment CATH-CULTURE IND Nasal Screen MRSA (PCR) POSITIVE (NEGATIVE) Staphylococcus aureus POSITIVE (PCR)(LAB) (NEGATIVE) Test 08/28/16 08/28/16 08/28/16 08/28/16 04:41 20:05 20:08 21:10 White Blood Count 12.7 TH/MM3 (4.0-11.0) Red Blood Count 2.86 MIL/MM3 (4.00-5.30) Hemoglobin 8.4 GM/DL (11.6-15.3) Hematocrit 26.4 % (35.0-46.0) Mean Corpuscular Volume 92.4 FL (80.0-100.0) Mean Corpuscular Hemoglobin 29.5 PG (27.0-34.0) Mean Corpuscular Hemoglobin 31.9 % Concent (32.0-36.0) Red Cell Distribution Width 15.9 % (11.6-17.2) Platelet Count 187 TH/MM3 (150-450) Mean Platelet Volume 9.9 FL (7.0-11.0) Neutrophils (%) (Auto) 69.6 % (16.0-70.0) Lymphocytes (%) (Auto) 7.9 % (9.0-44.0) Monocytes (%) (Auto) 21.9 % (0.0-8.0) Eosinophils (%) (Auto) 0.5 % (0.0-4.0) Basophils (%) (Auto) 0.1 % (0.0-2.0) Neutrophils # (Auto) 8.8 TH/MM3 (1.8-7.7) Lymphocytes # (Auto) 1.0 TH/MM3 (1.0-4.8) Monocytes # (Auto) 2.8 TH/MM3 (0-0.9) Eosinophils # (Auto) 0.1 TH/MM3 (0-0.4) Basophils # (Auto) 0.0 TH/MM3 (0-0.2) CBC Comment AUTO DIFF Differential Total Cells 100 Counted Neutrophils % (Manual) 71 % (16-70) Lymphocytes % 5 % (9-44) Monocytes % 21 % (0-8) Eosinophils % 1 % (0-4) Basophils % 1 % (0-2) Neutrophils # (Manual) 9.1 TH/MM3 (1.8-7.7) Myelocytes 1 % (0-0) Differential Comment FINAL DIFF MANUAL Platelet Estimate NORMAL (NORMAL) Platelet Morphology Comment NORMAL (NORMAL) Red Cell Morphology Comment NORMAL (NORMAL) Sodium Level 142 MEQ/L (136-145) Potassium Level 3.5 MEQ/L (3.5-5.1) Chloride Level 99 MEQ/L (98-107) Carbon Dioxide Level 38.0 MEQ/L (21.0-32.0) Anion Gap 5 MEQ/L (5-15) Blood Urea Nitrogen 14 MG/DL (7-18) Creatinine 0.57 MG/DL (0.50-1.00) Estimat Glomerular Filtration 103 ML/MIN Rate (>89) Random Glucose 96 MG/DL (74-106) Calcium Level 8.1 MG/DL (8.5-10.1) Total Bilirubin 0.5 MG/DL (0.2-1.0) Aspartate Amino Transf 20 U/L (15-37) (AST/SGOT) Alanine Aminotransferase 20 U/L (10-53) (ALT/SGPT) Alkaline Phosphatase 86 U/L (45-117) Troponin I 0.16 NG/ML 0.11 NG/ML (0.02-0.05) (0.02-0.05) Total Protein 5.2 GM/DL (6.4-8.2) Albumin 2.4 GM/DL (3.4-5.0) B-Type Natriuretic Peptide 618 PG/ML (0-100) Blood Gas Puncture Site RT RADIAL Blood Gas Patient Temperature 98.6 Blood Gas HCO3 35 mmol/L (22-26) Blood Gas Base Excess 9.0 mmol/L (-2-2) Blood Gas Oxygen Saturation 90 % (90-100) Arterial Blood pH 7.30 (7.380-7.420) Arterial Blood Partial 75 mmHg (38-42) Pressure CO2 Arterial Blood Partial 70 mmHG Pressure O2 (61-120) Arterial Blood Oxygen Content 11.7 Vol % (12.0-20.0) Arterial Blood 1.8 % (0-4) Carboxyhemoglobin Arterial Blood Methemoglobin 0.3 % (0-2) Blood Gas Hemoglobin 9.2 G/DL (12.0-16.0) Oxygen Delivery Device NONREBREATHER MK Blood Gas Liter Flow 12 L/M Test 08/28/16 08/28/16 08/28/16 08/29/16 22:00 22:22 23:00 04:15 Nasal Screen MRSA (PCR) MRSA DETECTED (NOT DETECT) Blood Gas Puncture Site RT RADIAL RT RADIAL Blood Gas Patient Temperature 98.6 98.6 Blood Gas HCO3 34 mmol/L 36 mmol/L (22-26) (22-26) Blood Gas Base Excess 9.1 mmol/L 11.1 mmol/L (-2-2) (-2-2) Blood Gas Oxygen Saturation 88 % (90-100) 86 % (90-100) Arterial Blood pH 7.37 7.40 (7.380-7.420) (7.380-7.420) Arterial Blood Partial 60 mmHg (38-42) 59 mmHg (38-42) Pressure CO2 Arterial Blood Partial 66 mmHg 58 mmHg Pressure O2 (61-120) (61-120) Arterial Blood Oxygen Content 10.9 Vol % 10.1 Vol % (12.0-20.0) (12.0-20.0) Arterial Blood 2.2 % (0-4) 2.1 % (0-4) Carboxyhemoglobin Arterial Blood Methemoglobin 1.0 % (0-2) 0.8 % (0-2) Blood Gas Hemoglobin 8.7 G/DL 8.3 G/DL (12.0-16.0) (12.0-16.0) Oxygen Delivery Device BIPAP 15/5 IPAP15/EPAP+5 Blood Gas Inspired Oxygen 50 % 60 % Sodium Level 139 MEQ/L (136-145) Potassium Level 4.0 MEQ/L (3.5-5.1) Chloride Level 95 MEQ/L (98-107) Carbon Dioxide Level 36.5 MEQ/L (21.0-32.0) Anion Gap 8 MEQ/L (5-15) Blood Urea Nitrogen 17 MG/DL (7-18) Creatinine 0.71 MG/DL (0.50-1.00) Estimat Glomerular Filtration 80 ML/MIN (>89) Rate Random Glucose 161 MG/DL (74-106) Calcium Level 8.4 MG/DL (8.5-10.1) Total Bilirubin 0.4 MG/DL (0.2-1.0) Aspartate Amino Transf 22 U/L (15-37) (AST/SGOT) Alanine Aminotransferase 25 U/L (10-53) (ALT/SGPT) Alkaline Phosphatase 102 U/L (45-117) Total Protein 5.7 GM/DL (6.4-8.2) Albumin 2.6 GM/DL (3.4-5.0) White Blood Count 14.9 TH/MM3 (4.0-11.0) Red Blood Count 2.92 MIL/MM3 (4.00-5.30) Hemoglobin 8.8 GM/DL (11.6-15.3) Hematocrit 26.6 % (35.0-46.0) Mean Corpuscular Volume 91.2 FL (80.0-100.0) Mean Corpuscular Hemoglobin 30.0 PG (27.0-34.0) Mean Corpuscular Hemoglobin 32.9 % Concent (32.0-36.0) Red Cell Distribution Width 16.0 % (11.6-17.2) Platelet Count 210 TH/MM3 (150-450) Mean Platelet Volume 9.3 FL (7.0-11.0) Neutrophils (%) (Auto) 84.5 % (16.0-70.0) Lymphocytes (%) (Auto) 2.6 % (9.0-44.0) Monocytes (%) (Auto) 12.1 % (0.0-8.0) Eosinophils (%) (Auto) 0.6 % (0.0-4.0) Basophils (%) (Auto) 0.2 % (0.0-2.0) Neutrophils # (Auto) 12.6 TH/MM3 (1.8-7.7) Lymphocytes # (Auto) 0.4 TH/MM3 (1.0-4.8) Monocytes # (Auto) 1.8 TH/MM3 (0-0.9) Eosinophils # (Auto) 0.1 TH/MM3 (0-0.4) Basophils # (Auto) 0.0 TH/MM3 (0-0.2) CBC Comment AUTO DIFF Differential Comment AUTO DIFF CONFIRMED Test 08/29/16 08/29/16 08/29/16 08/29/16 04:38 08:57 12:55 14:07 White Blood Count 17.4 TH/MM3 (4.0-11.0) Red Blood Count 2.92 MIL/MM3 (4.00-5.30) Hemoglobin 8.6 GM/DL (11.6-15.3) Hematocrit 26.7 % (35.0-46.0) Mean Corpuscular Volume 91.6 FL (80.0-100.0) Mean Corpuscular Hemoglobin 29.6 PG (27.0-34.0) Mean Corpuscular Hemoglobin 32.3 % Concent (32.0-36.0) Red Cell Distribution Width 15.7 % (11.6-17.2) Platelet Count 183 TH/MM3 (150-450) Mean Platelet Volume 9.5 FL (7.0-11.0) Sodium Level 142 MEQ/L (136-145) Potassium Level 3.5 MEQ/L 3.4 MEQ/L (3.5-5.1) (3.5-5.1) Chloride Level 96 MEQ/L (98-107) Carbon Dioxide Level 37.8 MEQ/L (21.0-32.0) Anion Gap 8 MEQ/L (5-15) Blood Urea Nitrogen 15 MG/DL (7-18) Creatinine 0.59 MG/DL (0.50-1.00) Estimat Glomerular Filtration 99 ML/MIN (>89) Rate Random Glucose 101 MG/DL (74-106) Calcium Level 8.3 MG/DL (8.5-10.1) Phosphorus Level 2.7 MG/DL (2.5-4.9) Digoxin Level 1.0 NG/ML (0.8-2.0) Blood Gas Puncture Site LT RADIAL Blood Gas Patient Temperature 98.6 Blood Gas HCO3 37 mmol/L (22-26) Blood Gas Base Excess 12.1 mmol/L (-2-2) Blood Gas Oxygen Saturation 86 % (90-100) Arterial Blood pH 7.41 (7.380-7.420) Arterial Blood Partial 60 mmHg (38-42) Pressure CO2 Arterial Blood Partial 59 mmHg Pressure O2 (61-120) Arterial Blood Oxygen Content 11.0 Vol % (12.0-20.0) Arterial Blood 1.8 % (0-4) Carboxyhemoglobin Arterial Blood Methemoglobin 0.7 % (0-2) Blood Gas Hemoglobin 9.0 G/DL (12.0-16.0) Oxygen Delivery Device BiPAP Blood Gas Ventilator Setting EPAP 5/IPAP 15 Blood Gas Inspired Oxygen 80 % Test 08/30/16 08/30/16 08/30/16 03:42 08:06 08:12 Creatinine 0.59 MG/DL 0.58 MG/DL (0.50-1.00) (0.50-1.00) Estimat Glomerular Filtration 99 ML/MIN (>89) 101 ML/MIN Rate (>89) White Blood Count 19.4 TH/MM3 (4.0-11.0) Red Blood Count 2.90 MIL/MM3 (4.00-5.30) Hemoglobin 8.6 GM/DL (11.6-15.3) Hematocrit 26.3 % (35.0-46.0) Mean Corpuscular Volume 90.6 FL (80.0-100.0) Mean Corpuscular Hemoglobin 29.6 PG (27.0-34.0) Mean Corpuscular Hemoglobin 32.7 % Concent (32.0-36.0) Red Cell Distribution Width 16.0 % (11.6-17.2) Platelet Count 179 TH/MM3 (150-450) Mean Platelet Volume 9.5 FL (7.0-11.0) Neutrophils (%) (Auto) 80.4 % (16.0-70.0) Lymphocytes (%) (Auto) 3.5 % (9.0-44.0) Monocytes (%) (Auto) 15.7 % (0.0-8.0) Eosinophils (%) (Auto) 0.1 % (0.0-4.0) Basophils (%) (Auto) 0.3 % (0.0-2.0) Neutrophils # (Auto) 15.6 TH/MM3 (1.8-7.7) Lymphocytes # (Auto) 0.7 TH/MM3 (1.0-4.8) Monocytes # (Auto) 3.0 TH/MM3 (0-0.9) Eosinophils # (Auto) 0.0 TH/MM3 (0-0.4) Basophils # (Auto) 0.1 TH/MM3 (0-0.2) CBC Comment AUTO DIFF Differential Total Cells 100 Counted Neutrophils % (Manual) 70 % (16-70) Band Neutrophils % 6 % (0-6) Lymphocytes % 12 % (9-44) Monocytes % 10 % (0-8) Neutrophils # (Manual) 15.1 TH/MM3 (1.8-7.7) Myelocytes 2 % (0-0) Differential Comment FINAL DIFF MANUAL Platelet Estimate NORMAL (NORMAL) Platelet Morphology Comment NORMAL (NORMAL) Polychromasia 2.0 % (0.0-1.9) Basophilic Stippling FAINT (NORMAL) Sodium Level 140 MEQ/L (136-145) Potassium Level 4.0 MEQ/L (3.5-5.1) Chloride Level 94 MEQ/L (98-107) Carbon Dioxide Level 37.1 MEQ/L (21.0-32.0) Anion Gap 9 MEQ/L (5-15) Blood Urea Nitrogen 18 MG/DL (7-18) Random Glucose 148 MG/DL (74-106) Calcium Level 8.3 MG/DL (8.5-10.1) Phosphorus Level 2.5 MG/DL (2.5-4.9) Magnesium Level 2.4 MG/DL (1.5-2.5) Result Diagram: 08/30/16 0806 08/30/16 0812 Mental Status Examination Mental status at this moment is limited due to lack of cooperation Appearance overweight woman, acute respiratory distress, wearing BiPAP mask, non- cooperative at this moment Speech: Hesitant, Other (intermittent) Assessment & Plan Problem List: (1) Adjustment disorder with mixed anxiety and depressed mood Assessment & Plan: Psychiatric assessment is limited due to severity of medical illness decompensation at this moment. We will try to complete assessment in another moment when patient is more stable. Agree with continuing Zoloft 50 mg for depression and anxiety, Ativan 0.5 mg every 8 hours when necessary severe anxiety is appropriate. Suicidal ideation expressed by patient to her could be the result of frustration, hopelessness, helplessness directly related with her acute medical illness and not necessarily to major depressive disorder. We'll follow-up. ICD Code: F43.23 Assessment & Plan Estimated LOS: Adrian Moulton MD Aug 30, 2016 12:05
[2016-08-30] MEDS ORDERED: BUMETANIDE INJ 1 MG/4 ML VIAL IV PUSH ONE (12:15)
[2016-08-30] MEDS: FLUCONAZOLE 100 MG PREMIX BAG 50 ML IV SCH (12:51)
[2016-08-30] MEDS ORDERED: HYDROmorphone HCL PF 1 MG/ML VIAL IV PUSH PRN (13:15)
[2016-08-30] MEDS ORDERED: LORazepam 2 MG/ML VIAL IV PUSH PRN (14:00)
[2016-08-30] MEDS ORDERED: BISACODYL 10 MG SUPP RECTAL PRN (16:15)
[2016-08-30] MEDS ORDERED: PROMETHAZINE HCL 25 MG SUPP RECTAL PRN (16:15)
[2016-08-30] MEDS ORDERED: HYDROmorphone HCL PF 1 MG/ML VIAL IV PRN ×2 (16:15)
[2016-08-30] MEDS ORDERED: LORazepam 2 MG/ML VIAL IV PRN ×3 (16:15)
[2016-08-30] MEDS ORDERED: ACETAMINOPHEN 650 MG SUPP RECTAL PRN (16:15)
[2016-08-30] MEDS ORDERED: HYOSCYAMINE 0.125 MG TAB SL PRN (16:45)
[2016-08-30] MEDS ORDERED: PHARMACY ORDERED LAB ONE (20:45)
--- NOTE | 2016-09-01 09:46 | HHI.DS ---
Summary Note Date of : Aug 30, 2016 Time Of : 8 Admission Date Aug 27, 2016 at 18:36 Admitting Diagnosis UTI (MDRO WITH INDWELLING FOLLEY), ELEV TROPONIN Diagnosis at Time of : (1) Acute respiratory failure with hypoxemia ICD Code: J96.01 Diagnosis: Principal (2) COPD exacerbation ICD Code: J44.1 Diagnosis: Secondary (3) UTI (urinary tract infection) ICD Code: N39.0 (4) Elevated troponin ICD Code: R74.8 (5) Dehydration ICD Code: E86.0 (6) A-fib ICD Code: I48.91 Brief History This is a 76-year-old female with PMH of HTN, A. fib on Eliquis, COPD, O2 Dependent, h/o Lung Ca s/p Lobectomy, h/o Breast Ca, Anxiety, Depression, CHF ( Echo 55-60% 04/2014) and Recurrent UTI who was sent to the ER from SNF for possible UTI/Sepsis. Recent admit 08/02-08/24/16 w/ COPD, s/p eval by Dr. Whitt, currently on Prednisone taper, Afib w/ RVR s/p Cardizem gtt, Bleeding Sacral Wound and MRSA/Jackie UTI s/p eval by ID and treated w/ Bactrim and Diflucan. Arrives to ER w/ Indwelling Collins. Per pt, has had generalized weakness, similar to previous episodes of UTI. Poor historian, unable to give more history. On arrival, BP 131/76, HR 90, O2 sat 97% on 3L NC. WBC 13.1. GFR 87 , previously 90 on 08/24/16, previously 119. Troponin 0.16. No complaints of chest pain. UA with UTI. CXR with postsurgical changes of right-sided pneumonectomy and mild interval worsening of interstitial edema. S/p Blood/ Urine Cultures, Gentamicin and Rocephin in ER. CBC/BMP: 08/30/16 0806 08/30/16 0812 Significant Findings Laboratory Tests Test 08/29/16 08/29/16 08/30/16 08/30/16 12:55 14:07 08:06 08:12 Blood Gas HCO3 37 mmol/L (22-26) Blood Gas Base Excess 12.1 mmol/L (-2-2) Blood Gas Oxygen Saturation 86 % (90-100) Arterial Blood Partial 60 mmHg (38-42) Pressure CO2 Arterial Blood Partial 59 mmHg Pressure O2 (61-120) Arterial Blood Oxygen Content 11.0 Vol % (12.0-20.0) Blood Gas Hemoglobin 9.0 G/DL (12.0-16.0) Potassium Level 3.4 MEQ/L (3.5-5.1) White Blood Count 19.4 TH/MM3 (4.0-11.0) Red Blood Count 2.90 MIL/MM3 (4.00-5.30) Hemoglobin 8.6 GM/DL (11.6-15.3) Hematocrit 26.3 % (35.0-46.0) Neutrophils (%) (Auto) 80.4 % (16.0-70.0) Lymphocytes (%) (Auto) 3.5 % (9.0-44.0) Monocytes (%) (Auto) 15.7 % (0.0-8.0) Neutrophils # (Auto) 15.6 TH/MM3 (1.8-7.7) Lymphocytes # (Auto) 0.7 TH/MM3 (1.0-4.8) Monocytes # (Auto) 3.0 TH/MM3 (0-0.9) Monocytes % 10 % (0-8) Neutrophils # (Manual) 15.1 TH/MM3 (1.8-7.7) Myelocytes 2 % (0-0) Polychromasia 2.0 % (0.0-1.9) Basophilic Stippling FAINT (NORMAL) Chloride Level 94 MEQ/L (98-107) Carbon Dioxide Level 37.1 MEQ/L (21.0-32.0) Random Glucose 148 MG/DL (74-106) Calcium Level 8.3 MG/DL (8.5-10.1) Imaging Last Impressions Chest X-Ray 08/29/16 0000 Signed Impressions: Service Date/Time: Monday, August 29, 2016 08:53 - CONCLUSION: 1. Total opacification of the right hemithorax. This appearance is unchanged and is likely from prior pneumonectomy on the right. 2. Consolidation seen throughout the left lung probably representing diffuse processes such as edema or diffuse infection. This is unchanged from the prior exam. Bubba Roth MD Hospital Course Mrs. Juarez is a 76-year-old female with a medical history significant for oxygen dependent COPD, atrial fibrillation currently on anticoagulation, hypertension and history of breast ca s/p lumpectomy and lung cancer s/p right lung pneumonectomy. Patient presented to ED on 08/27/16 from SNF for evaluation of possible UTI/sepsis. Patient was found with leukocytosis, UTI, COPD exacerbation and respiratory failure. Halicat was called on 08/28/16 secondary to hypoxia, O2 saturation in the 70s on room air. Patient was placed on a nonrebreather mask and subsequently BiPAP. Patient was transfer to medical ICU for further management and monitoring. Palliative care was consulted for further clarifications of goals of care given her worsening clinical status and multiple comorbidities. ED Workup to include checks x-ray 08/27/16 showing worsening of interstitial edema in the left lung. Laboratory workup revealing WBC of 13.1, hemoglobin 9.0 , platelet count 243. Sodium 142, potassium 3.5, BUN/creatinine 14/057. Troponin 0.16. BNP 618. UA 08/27/16 trace ketones, negative nitrates and moderate leukocyte. Urine culture 08/27/16 showing Jackie albicans. Most recent chest x-ray 08/29/16 showing consolidation throughout the left lung likely edema versus diffuse infection. Laboratory workup today revealing increase in leukocytosis, currently 19.4, Hgb 8.6, platelet count 179. Sodium 140, potassium 4.0, BUN/creatinine 18/058. Cardiology consulted on secondary to increase troponin levels and atrial fibrillation. Reviewed recent prior acute hospitalization from 08/02/16 to 08/24/16. Patient presented to the ED on 08/02/16 but complains of generalized weakness, nausea vomiting for the previous week. Patient was admitted for further management of dehydration, acute kidney injury and UTI. GI doctor Argelia consulted on for evaluation of dilated common bile duct as observed in the abdomen/pelvis CT 08/02/16 revealing dilated intrahepatic and extrahepatic docs worse since the prior exam in 2014. Cholangiopancreatography MRI 08/04/16 revealing intra-and extrahepatic bilaterally duct dilation. Patient underwent EGD with biopsy and ERCP with removal of calculus on 08/10/16. Patient's clinical condition complicated by acute on chronic respiratory failure requiring BiPAP management by critical care. Pulmonology Dr. Whitt consulted on 08/10/16 for pulmonary management. Patient's respiratory condition improved, she was transferred back to hospitalist services on 08/10/16. Echocardiogram 08/13/16 revealing EF of 40-45% . Diffuse hypokinesis and possible hypokinesis of the apical myocardium. ID, Dr. Vasquez consulted on 08/18/16 secondary to urine culture showing MRSA. Patient was discharge on 08/24/16 to [facility] for rehabilitation. Patient's clinical condition continued to worsen, she remained in Bipap with increasing oxygen requirement, at 100% FiO2 during my visit, and tachypneic with RR in the mid to high 30's. Family meeting was held. In attendance patient 's Tyler, daughter Nu and sons Gato and Baljit. Reviewed patient's chronic medical issues and progressive clinical and physical decline since 2007. Reviewed recent acute hospitalization from 08/02/16 to 08/24/16. Reviewed events leading to these hospitalization, current management and patient 's current critical condition to include worsening respiratory failure, COPD exacerbation and UTI. Reviewed that patient's clinical condition has worsening , currently on BiPAP requiring 100% FiO2. Reviewed continuation of conservative management short of no code vs. Comfort-directed care with hospice /allow natural . Family electing to transition patient to comfort- directed care with hospice for symptom management/end-of-life care. This decision was made based on patient's progressive worsening clinical condition, multiple chronic comorbidities, acute events, profound physical deconditioning and pt's known wishes regarding end-of-life. Patient was admitted as hospice GIP while on the Medical ICU. She was medicated for comfort and Bipap was removed at the requested of family. Patient peacefully shortly after that with family at bedside. . [place] Chauhan Sep 01, 2016 09:46
--- NOTE | 2016-09-02 18:54 | PQ ---
Physician Query Response Document PATIENT: KALEN ORR : 1940 ADMIT DATE: 08/27/2016 6:36 PM DISCH DATE: 08/30/2016 5:38 PM RESPONDING PROVIDER #: [email or web address] QUERY TEXT: Rule Out Sepsis Clarification Rule out Sepsis is documented in the Medical Record. Please clarify whether: -- Patient has sepsis - Please document confirmed, suspected or probable causative organism - Please document confirmed, suspected or probable localized infection - Please clarify if sepsis is related to a device - Please clarify if sepsis was present on admission -- Sepsis was ruled out (include corresponding diagnosis for patient?s clinical picture and treatment ) -- Patient had sepsis which is resolved -- Other, please specify If you have any additional questions/comments and/or concerns, please do not hesitate to reach out to the [facility]I/Coding Hotline, Ext [phone]. The patient's Clinical Indicators include: H Admission Diagnosis: Admission Diagnosis : UTI (MDRO WITH INDWELLING FOLLEY), ELEV TROPONIN ED Record: ?NH SENT TO ED TO EVAL FOR SEPSIS" SINCE PATIENT HAS H/O MDRO UTI, AND ON UA FROM TODAY I T SHOWS 4+ BACTERIA. Progress Note 08/28/16: Assessment and Plan :?-Prone to UTIs due to indwelling Collins. Query created by: Aleisha Valentine on 08/31/2016 5:28 PM RESPONSE TEXT: Suspected Sepsis from UTI Electronically signed by: Jhoana Haney MD 09/02/2016 6:51 PM
== END 2016-08-30 17:38 | disposition expired | DRG 871 ==
LOC: NEPC 15:30 → NEDA 18:36 → HCIS 20:51 → N04B 08-28 14:10 → HIME 08-28 21:45
PROVIDERS: ADMIT Family Medicine Hospice and Palliative Medicine; ATTEND Family Medicine Hospice and Palliative Medicine
PROC: 5A09357 Assistance with Respiratory Ventilation, Less than 24 Consecutive Hours, Continuous Positive Airway Pressure (ICD-10-PCS; principal; 2016-08-28)
DX: A41.9 Sepsis, unspecified organism (principal); J96.02 Acute respiratory failure with hypercapnia; J96.01 Acute respiratory failure with hypoxia; N39.0 Urinary tract infection, site not specified; I50.9 Heart failure, unspecified; I48.91 Unspecified atrial fibrillation; E86.0 Dehydration; J44.1 Chronic obstructive pulmonary disease with (acute) exacerbation; I10 Essential (primary) hypertension; Z99.81 Dependence on supplemental oxygen; Z90.2 Acquired absence of lung [part of]; E66.9 Obesity, unspecified; Z87.440 Personal history of urinary (tract) infections; Z79.02 Long term (current) use of antithrombotics/antiplatelets; Z85.3 Personal history of malignant neoplasm of breast; Z85.118 Personal history of other malignant neoplasm of bronchus and lung; Z66 Do not resuscitate; Z68.32 Body mass index [BMI] 32.0-32.9, adult; Z51.5 Encounter for palliative care; R74.8 Abnormal levels of other serum enzymes; Z95.5 Presence of coronary angioplasty implant and graft; Z87.891 Personal history of nicotine dependence; F43.23 Adjustment disorder with mixed anxiety and depressed mood
CPT/HCPCS: 36600; 71010; 76937; 80048; 80053; 80162; 81001; 82550; 82565; 82805; 83605; 83735; 83880; 84100; 84132; 84484; 85007; 85025; 85027; 85610; 85730; 87040; 87086; 87640; 87641; 93005; 94002; 94003; 94640; 94664; 96365; J0696; J1170; J1450; J1580; J1940; J2060; J2543; J2920; J3370; J3480; J7030; J7040